=== PATIENT | male | born 1945 | race Caucasian/White ===

== ENCOUNTER 2016-04-06 09:50 | Emergency (ER) | payer MEDICARE ==
[~2016-04-06] VITALS: Ht 188 cm; Wt 41.7 kg
[~2016-04-06 09:50] MED LIST: ACHD5005 PO; ALBU17AE3 IH; ASP325T; ASP81CT GT; ASP81TEC; AZIT-21 PO; CLON1TAB36; CPR500T PO; GABA-490 PO; HYDR-3714 PO; HYDR-3820 PO; HYDR1CAP2; HYDR1CAP2 PO; HYDR1TAB PO; HYOS0.1283 SL; INHALER; KETO10TA77 PO; LISI-594; LISI20TA PO; MTF500T; ONDA4TAB8 SL; ORPH100T PO; SMV10T; TIOT18CA2 IH; TRAM50TA2 PO; TRM50T PO; viagra
--- OUTSIDE RECORDS SUMMARY | 2016-04-06 09:57 | XMS REPORT | Continuity of Care Document ---
Author Author [facility] Organization [facility] Address Unknown Phone Unavailable Allergies Active Description Code Type Severity Reaction Onset Reported/Identified Relationship to Patient Clinical Status Yes Penicillins [id number] Drug Allergy Mild N/A 03/28/2009 Medications Problems Date Dx Coded Attending Type Code Diagnosis Diagnosed By 03/22/2011 Ot 723.1 04/18/2011 Ot 723.1 08/24/2011 Ot 923.00 08/24/2011 Ot 959.2 08/24/2011 Ot E000.8 08/24/2011 Ot E849.0 08/24/2011 Ot E888.9 09/30/2011 Ot 401.9 09/30/2011 Ot V58.69 09/28/2012 NESTOR AARON, JODIE Mata Ot 719.41 09/28/2012 JODIE BAEZ MD Ot 723.1 10/19/2012 FITO FORBES DO Ot 305.1 10/19/2012 FITO FORBES DO Ot 491.20 10/19/2012 FITO FORBES DO Ot 786.2 01/14/2013 MANDEEP AARON, LUZMA Hernández Ot 305.00 01/14/2013 MANDEEP AARON, LUZMA Hernández Ot 923.20 01/14/2013 MANDEEP AARON, LUZMA Hernández Ot 959.4 01/14/2013 MANDEEP AARON, LUZMA Hernández Ot E000.8 01/14/2013 MANDEEP AARON, LUZMA Hernández Ot E849.0 01/14/2013 MANDEEP AARON, LUZMA Hernández Ot E960.0 07/14/2014 Ot 204.10 07/14/2014 Ot 250.00 07/14/2014 Ot 305.1 07/14/2014 Ot 356.9 07/14/2014 Ot 401.9 07/14/2014 Ot 496 07/14/2014 Ot 716.90 07/14/2014 Ot V58.66 07/14/2014 Ot V58.69 07/14/2014 Ot 204.10 07/14/2014 Ot 250.00 07/14/2014 Ot 356.9 07/14/2014 Ot 401.9 07/14/2014 Ot 496 07/14/2014 Ot 716.90 07/14/2014 Ot V58.66 07/14/2014 Ot V58.69 07/14/2014 GELLENDER DO, GUILLERMINA Baca Ot 729.5 07/14/2014 GELLENDER DO, GUILLERMINA Baca Ot 786.2 07/14/2014 GELLENDER DO, GUILLERMINA Baca Ot 786.50 07/14/2014 GELLENDER DO, GUILLERMINA Baca Ot 816.01 07/14/2014 GELLENDER DO, GUILLERMINA Baca Ot E928.8 07/14/2014 ZEV , SHARIF Mccracken Ot 724.02 07/14/2014 ZEV DO, SHARIF Mccracken Ot 724.5 07/14/2014 ZEV DO, SHARIF Mccracken Ot V15.88 07/14/2014 Ot 204.10 07/14/2014 Ot 250.00 07/14/2014 Ot 305.1 07/14/2014 Ot 356.9 07/14/2014 Ot 401.9 07/14/2014 Ot 496 07/14/2014 Ot 716.90 07/14/2014 Ot V58.66 07/14/2014 Ot V58.69 07/14/2014 Ot 204.10 07/14/2014 Ot 250.00 07/14/2014 Ot 356.9 07/14/2014 Ot 401.9 07/14/2014 Ot 496 07/14/2014 Ot 716.90 07/14/2014 Ot V58.66 07/14/2014 Ot V58.69 07/14/2014 GELLENDER DO, GUILLERMINA Baca Ot 729.5 07/14/2014 GELLENDER DO, GUILLERMINA Phuong Ot 786.2 07/14/2014 GELLENDER DO, GUILLERMINA Phuong Ot 786.50 07/14/2014 GELLENDER DO, GUILLERMINA Baca Ot 816.01 07/14/2014 GELLENDER DO, GUILLERMINA Phuong Ot E928.8 06/03/2015 GELLENDER DO, GUILLERMINA Baca Ot 729.5 06/03/2015 GELLENDER DO, GUILLERMINA Phuong Ot 786.2 06/03/2015 GELLENDER DO, GUILLERMINA Baca Ot 786.50 06/03/2015 NOELGUILLERMINA BLOCK DO Ot 816.01 06/03/2015 YISEL SORIANO GUILLERMINA Baca Ot E928.8 06/03/2015 MANDEEP AARON, LUZMA Hernández Ot C85.90 NON-HODGKIN LYMPHOMA, UNSPECIFIED, UNSPE 06/03/2015 MANDEEP AARON, LUZMA Hernández Ot D72.829 ELEVATED WHITE BLOOD CELL COUNT, UNSPECI 06/03/2015 MANDEEP AARON, LUZMA Hernández Ot E11.9 TYPE 2 DIABETES MELLITUS WITHOUT COMPLIC 06/03/2015 MANDEEP AARON, LUZMA Hernández Ot E86.1 HYPOVOLEMIA 06/03/2015 MANDEEP AARON, LUZMA Hernández Ot F11.10 OPIOID ABUSE, UNCOMPLICATED 06/03/2015 MANDEEP AARON, LUZMA Hernández Ot F12.10 CANNABIS ABUSE, UNCOMPLICATED 06/03/2015 MANDEEP AARON, LUZMA Hernández Ot F17.210 NICOTINE DEPENDENCE, CIGARETTES, UNCOMPL 06/03/2015 MANDEEP AARON, LUZMA Hernández Ot I10 ESSENTIAL (PRIMARY) HYPERTENSION 06/03/2015 MANDEEP AARON, LUZMA Hernández Ot J44.9 CHRONIC OBSTRUCTIVE PULMONARY DISEASE , U 06/03/2015 MANDEEP AARON, LUZMA Hernández Ot R07.89 OTHER CHEST PAIN 06/03/2015 MANDEEP AARON, LUZMA Hernández Ot R19.7 DIARRHEA, UNSPECIFIED 06/05/2015 MANDEEP AARON, LUZMA Hernández Ot C85.90 06/05/2015 MANDEEP AARON, LUZMA Hernández Ot D72.829 06/05/2015 MANDEEP AARON, LUZMA Hernández Ot E11.9 06/05/2015 MANDEEP AARON, LUZMA Hernández Ot E86.1 06/05/2015 MANDEEP AARON, LUZMA Hernández Ot F11.10 06/05/2015 MANDEEP AARON, LUZMA Hernández Ot F12.10 06/05/2015 MANDEEP AARON, LUZMA Hernández Ot F17.210 06/05/2015 LUZMA KAUFMAN MD Ot I10 06/05/2015 MANDEEP AARON, LUZMA Hernández Ot J44.9 06/05/2015 MANDEEP AARON, LUZMA T Ot R07.89 06/05/2015 MANDEEP AARON, LUZMA T Ot R19.7 06/05/2015 MANDEEP AARON, LUZMA T Ot C85.90 06/05/2015 MANDEEP AARON, LUZMA T Ot D72.829 06/05/2015 MANDEEP AARON, LUZMA T Ot E11.9 06/05/2015 MANDEEP AARON, LUZMA T Ot E86.1 06/05/2015 MANDEEP AARON, LUZMA T Ot F11.10 06/05/2015 MANDEEP AARON, LUZMA T Ot F12.10 06/05/2015 MANDEEP AARON, LUZMA T Ot F17.210 06/05/2015 MANDEEP AARON, LUZMA T Ot I10 06/05/2015 MANDEEP AARON, LUZMA T Ot J44.9 06/05/2015 MANDEEP AARON, LUZMA T Ot R07.89 06/05/2015 MANDEEP AARON, LUZMA T Ot R19.7 Procedures Results Encounters ACCT No. Visit Date/Time Discharge Status Pt. Type Provider Facility Loc./Unit Complaint [id number] 06/03/2015 09:30:00 2015 11:26:00 DIS Emergency MANDEEP AARON, LUZMA Hernández [facility] ER [id number] 07/14/2014 15:33:00 2014 17:40:00 DIS Emergency SHARIF BROTHERS DO [facility] ER [id number] 05/10/2013 15:08:00 2013 23:59:59 CLS Outpatient GUILLERMINA MORILLO DO [facility] RAD [id number] 01/14/2013 10:30:00 2012 13:04:00 DIS Emergency LUZMA KAUFMAN MD [facility] ER [id number] 10/19/2012 14:32:00 2012 16:12:00 DIS Emergency FITO FORBES DO [facility] ER [id number] 09/28/2012 14:46:00 2012 16:22:00 DIS Shannan BAEZ MD, JODIE [facility] ER [id number] 07/14/2014 15:31:00 Document Registration [id number] 07/14/2014 15:31:00 Document Registration [id number] 07/14/2014 15:31:00 Document Registration [id number] 09/30/2011 12:46:00 Document Registration [id number] 08/24/2011 16:53:00 Document Registration [id number] 04/18/2011 15:20:00 Document Registration [id number] 03/22/2011 08:58:00 Document Registration [id number] 10/29/2009 09:54:00 Document Registration [id number] 09/17/2009 12:24:00 Document Registration
--- NOTE | 2016-04-06 11:07 | ED Cough/URI ---
General Chief Complaint: Cough/Cold/Flu Symptoms Stated Complaint: CONGESTION, NOSE RUNNING Nursing Triage Note: C/O CHEST DISCOMFORT WHEN COUGHING. HAS HAD FLU LIKE SXS ET BEEN TREATED WITH ZPACK ET SULFA ABX. STATES NOW HAS RUNNY NOSE THAT WON'T STOP. MAIN C/O OF RUNNY NOSE. Source: patient Exam Limitations: no limitations History of Present Illness Time seen by provider: 11:23 Initial Comments 70-year-old male presents to the emergency department with complaints of a 3-4 week history of cough, chest congestion, wheezing. Patient states he has completed a Zithromax pack and sulfa antibiotic without improvement. He is currently using Bactroban ointment without improvement. Patient states he is still coughing up "nasty looking stuff." Denies hematemesis. Does complain of rib pain with coughing. Timing/Duration: constant, other (3-4 wk onset) Severity/Quality: productive cough Prior Episodes/Possible Cause: occasional episodes Modifying Factors: Worse With Coughing Allergies and Home Medications Allergies Coded Allergies: Penicillins (Unverified Allergy, Mild, 03/28/09) Home Medications (Reported) Albuterol 17 Gm Inh #1 2 SPRAY IH Q4H Prescribed by: FITO FORBES on 10/19/12 1601 Albuterol Sulfate 2.5 Mg/3 Ml Vial.neb #28 2.5 MG IH Q4H PRN PRN SHORTNESS OF BREATH Prescribed by: ANDREWS STEVENS on 04/06/16 1248 Doxycycline Hyclate 100 Mg Capsule #14 100 MG PO BID Prescribed by: ANDREWS STEVENS on 04/06/16 1248 Gabapentin 400 Mg Capsule 400 MG PO QID (Reported) Hydrocodone/Acetaminophen 1 Each Tablet #90 1 MG PO Q6H PRN PRN PAIN (Reported) Lisinopril 20 Mg Tablet 20 MG PO DAILY (Reported) Prednisone 20 Mg Tab #10 40 MG PO DAILY Prescribed by: ANDREWS STEVENS on 04/06/16 1248 Tiotropium [place] 1 Inh Aerp 1 INH IH DAILY (Reported) Constitutional: No chills, No dizziness, No fever, malaise EENTM: nose congestion nose pain see HPI throat painNo ear pain, No mouth pain , No mouth swelling Respiratory: see HPI coughNo dyspnea on exertion, No hemoptysis, No orthopnea , phlegm wheezing Cardiovascular: no symptoms reported Gastrointestinal: No abdominal pain, No constipation, No diarrhea, No nausea, No vomiting Genitourinary: no symptoms reported Musculoskeletal: no symptoms reported Skin: no symptoms reported Psychiatric/Neurological: No Symptoms Reported All Other Systems Reviewed Negative Unless Noted: Yes (Negative excepted noted.) Past Psyymwl-Ydxsqj-Yodtgq Hx Patient Social History Alcohol Use: Denies Use Recreational Drug Use: No Smoking Status: Current Everyday Smoker Type Used: Cigarettes Recent Foreign Travel: No Contact w/Someone Who Travel: No Recent Infectious Disease Expo: No Recent Hopitalizations: No Immunizations Up To Date Date of Pneumonia Vaccine: Nov 22, 2009 Date of Influenza Vaccine: Oct 24, 2015 Seasonal Allergies Seasonal Allergies: Yes Surgeries HX Surgeries: Yes (TEMPORAL ARTERY BIOPSY) Surgeries: Bladder Surgery, Gallbladder Respiratory Hx Respiratory Disorders: Yes Respiratory Disorders: Chronic Bronchitis, COPD Cardiovascular Hx Cardiac Disorders: Yes Cardiac Disorders: High Cholesterol, Hypertension Neurological Hx Neurological Disorders: Yes Neurological Disorders: Neuropathy Reproductive System Hx Reproductive Disorders: Yes (E.D.) Genitourinary Hx Genitourinary Disorders: Yes (E.D.) Gastrointestinal Hx Gastrointestinal Disorders: No Musculoskeletal Hx Musculoskeletal Disorders: Yes (CHRONIC NECK PAIN , BILATERAL CARPAL TUNNEL , spinal stenosis) Musculoskeletal Disorders: Degenerate Disk Disease, Chronic Back Pain Endocrine Hx Endocrine Disorders: Yes Endocrine Disorders: Diabetes, Non-Insulin dep HEENT HX ENT Disorders: Yes (RETINOPATHY, OPTIC NEURITIS) Cancer Hx Cancer: Yes Cancer: Leukemia, Lymphoma Psychosocial Hx Psychiatric Problems: Yes Behavioral Health Disorders: PTSD Integumentary HX Skin/Integumentary Disorder: No Blood Transfusions Hx Blood Disorders: No Reviewed Nursing Assessment Reviewed/Agree w Nursing PMH: Yes Family Medical History Significant Family History: No Pertinent Family Hx Physical Exam Vital Signs Vital Sign - Last 12Hours 04/06/16 10:40 Temp 99.1 Pulse 64 Resp 18 B/P 131/78 Pulse Ox 94 O2 Delivery Room Air Capillary Refill : Less Than 3 Seconds General Appearance: WD/WN no apparent distress Eyes: Bilateral Eye EOMI, Bilateral Eye Normal Inspection, Bilateral Eye PERRL HEENT: PERRL/EOMI TMs normal pharyngeal erythema other ((+) nasal congestion. perinasal scaly erythematous rash ) Neck: non-tender full range of motion supple normal inspection Respiratory: no respiratory distress no accessory muscle use decreased breath sounds (bilateral bases) crackles wheezing ((cleared with coughing)) other ( mild anterior and lateral rib tenderness.) Cardiovascular: normal peripheral pulses regular rate, rhythm no edema no murmur Gastrointestinal: normal bowel sounds non tender soft no organomegalyNo distended Extremities: no pedal edema normal capillary refill Neurologic/Psychiatric: alert normal mood/affect oriented x 3 Skin: warm/dry rash (perinasal scaly erythematous rash ) Progress/Results/Core Measures Results/Orders Micro Results Microbiology 04/06/16 Influenza Types A,B Antigen (CHRIS) - Final, Complete My Orders Orders-ANDREWS STEVENS Influenza A And B Antigens (04/06/16 11:45) Chest Pa/Lat (2 View) (04/06/16 11:50) Albuterol/Ipra Inhalation Soln (Duoneb I (04/06/16 12:00) Svn Sm Volume Nebulizer Rt-Rfs (04/06/16 11:54) Promethazine/ Codeine Syrup (Phenergan W (04/06/16 11:55) Medications Given in ED Current Medications Medications Dose Ordered Sig/Conor Route Start Time Stop Time Status Last Admin Dose Admin Albuterol/ Ipratropium 3 ml ONCE ONCE INH 04/06/16 12:00 04/06/16 12:01 DC 04/06/16 12:12 3 ML Vital Signs/I&O Vital Sign - Last 12Hours 04/06/16 04/06/16 04/06/16 10:40 12:12 12:12 Temp 99.1 Pulse 64 Resp 18 B/P 131/78 Pulse Ox 94 96 O2 Delivery Room Air Room Air Blood Pressure Mean: 95 Diagnostic Imaging Diagonstic Imaging: Xray Plain Films/CT/US/NM/MRI: chest Comments FINDINGS: The lungs are hyperinflated. Mild interstitial scarring seen. There is no focal consolidation. The heart size is normal. There is no effusion or pneumothorax. The mediastinum and delgado appear unremarkable. IMPRESSION: Hyperinflated clear lungs. Dictated by: Dictated on workstation # [id number] Reviewed: Reviewed by Me (radiology report reviewed) Departure Communication Progress Notes Diagnostic and laboratory findings discussed with the patient. Patient reports feeling better with medications given in the emergency department. Proceed with discharge to home. Patient instructed to follow-up with Dr. Whalen as an outpatient. Patient states he will call today for appointment time. All return precautions were discussed with the patient as described in the discharge instructions of this report. Patient voices understanding and agrees with the treatment plan. Impression Impression: Primary Impression: Bronchitis Additional Impression: Dermatitis of face Disposition: 01 HOME, SELF-CARE Condition: Improved Departure-Patient Inst. Decision time for Depature: 12:45 Referrals: AGUS HADLEY RICHARD A DO (PCP/Family) Primary Care Physician Patient Instructions: Acute Bronchitis, Adult (DC) Add. Discharge Instructions: All discharge instructions reviewed with patient and/or family. Voiced understanding. Medications as instructed. Continue usual home medications. Tylenol extra strength [id number] as directed for pain. Ibuprofen 800 mg by mouth every 8 hours as needed for pain. Continue Bactroban as instructed by Dr. Whalen. Monitor blood sugars closely. Follow-up with Dr. Whalen for recheck this week. Call for appointment time. Return to the emergency department immediately for worsened fever, pain, cough, shortness of air, difficulty swallowing, vomiting, or any other concerns. Scripts Nebulizer (Compact Compressor Nebulizer)1 Each Each #1 EACH MC Q4H PRN SHORTNESS OF BREATH Ref 0 Prov:ANDREWS STEVENS 04/06/16 Prednisone 20 Mg Tab40 Mg PO DAILY #10 TAB Ref 0 Prov:ANDREWS STEVENS 04/06/16 Albuterol Sulfate 2.5 Mg/3 Ml Vial.neb2.5 Mg IH Q4H PRN SHORTNESS OF BREATH #28 EA Ref 0 Prov:ANDREWS STEVENS 04/06/16 Doxycycline Hyclate 100 Mg [id number] Mg PO BID #14 CAP Ref 0 Prov:ANDREWS STEVENS 04/06/16 ANDREWS STEVENS Apr 06, 2016 11:07
[2016-04-06] MEDS ORDERED: PROMETHAZINE/ CODEINE SYRUP 5 ML UDC PO STA (11:55)
[2016-04-06] MEDS ORDERED: RT-ALBUTEROL/IPRATROPIUM 3 ML (DUONEB) VIAL INH ONE (12:00)
--- NOTE | 2016-04-06 12:39 | Diagnostic Imaging Report ---
PA and lateral views of the chest. INDICATION: Shortness of breath, congestion, chest pain. FINDINGS: The lungs are hyperinflated. Mild interstitial scarring seen. There is no focal consolidation. The heart size is normal. There is no effusion or pneumothorax. The mediastinum and delgado appear unremarkable. IMPRESSION: Hyperinflated clear lungs. Dictated by: Dictated on workstation # [id number]
[2016-04-06] MEDS ORDERED: NEBU1KIT3 MC (12:48)
[2016-04-06] MEDS ORDERED: PRD20T PO (12:48)
[2016-04-06] MEDS ORDERED: ALBU2.5V4 IH (12:48)
[2016-04-06] MEDS ORDERED: DOXY100C2 PO (12:48)
[2016-04-06 13:05] VITALS: BP 128/70
== END 2016-04-06 13:05 | disposition home or self-care (01) ==
LOC: EDUNIT# 09:50 → ER 09:53
DX: J40 Bronchitis, not specified as acute or chronic (principal); L30.9 Dermatitis, unspecified; I10 Essential (primary) hypertension; E11.9 Type 2 diabetes mellitus without complications; J44.9 Chronic obstructive pulmonary disease, unspecified; F17.210 Nicotine dependence, cigarettes, uncomplicated; Z79.899 Other long term (current) drug therapy
CPT/HCPCS: 71020; 87804; 94640; 99282

== ENCOUNTER 2016-10-24 05:47 | Emergency (ER) | payer MEDICARE ==
[~2016-10-24] VITALS: Ht 182.9 cm; Wt 68.0 kg
[~2016-10-24 05:47] MED LIST changes: +ALBU2.5V4 IH; +DOXY100C2 PO; +NEBU1KIT3 MC; +PRD20T PO
[2016-10-24 06:31] LABS: BILIRUBIN,URINE NEGATIVE (NEGATIVE); KETONES,URINE NEGATIVE (NEGATIVE); LEUKOCYTE ESTERASE ,URINE NEGATIVE (NEGATIVE); NITRITE,URINE NEGATIVE (NEGATIVE); PH,URINE 6.5 (5-9); PROTEIN,URINE 1+ (NEGATIVE); UROBILINOGEN,URINE NORMAL (NORMAL)
[2016-10-24 06:31] LABS: BASOPHILS % (AUTO) 0 % (0-10); EOSINOPHILS # (AUTO) 0.5 10^3/uL (0.0-0.3); EOSINOPHILS % (AUTO) 2 % (0-10); LYMPHOCYTES # (AUTO) 16.8 X 10^3 (1.0-4.0); LYMPHOCYTES % (AUTO) 70 % (12-44); MEAN CORPUSCULAR HEMOGLOBIN 33 PG (25-34); MEAN CORPUSCULAR HGB CONC 34 G/DL (32-36); MEAN CORPUSCULAR VOLUME 96 FL (80-99); MEAN PLATELET VOLUME 11.6 FL (7.4-10.4); MONOCYTES # (AUTO) 0.6 X 10^3 (0.0-1.0); MONOCYTES % (AUTO) 2 % (0-12); NEUTROPHILS % (AUTO) 25 % (42-75); PLATELET COUNT 121 10^3/uL (130-400); RED BLOOD COUNT 4.62 10^6/uL (4.35-5.85); RED CELL DISTRIBUTION WIDTH 13.4 % (10.0-14.5); WHITE BLOOD COUNT 23.9 10^3/uL (4.3-11.0)
[2016-10-24 06:39] LABS: SQUAMOUS EPITHELIAL CELL,UR RARE /HPF
--- NOTE | 2016-10-24 06:44 | ED General ---
General Chief Complaint: Chest Wall/Rib Pain Stated Complaint: BACK & RIB PAIN,DOUBLE VISION Source of Information: Patient Exam Limitations: No Limitations History of Present Illness Time Seen by Provider: 06:00 Initial Comments This 71-year-old gentleman presents to the emergency room with numerous complaints. His primary reason for being seen today was an episode of double vision that occurred for just a couple of minutes while he was driving this morning. He has had problems with horizontal diplopia for about the last year. He reports this has been evaluated by his physician and his eye doctor. No etiology could be determined per his report. Patient also complains of pain around the left lateral costal margin after having a fall about 2 months ago. He reports that pain has not resolved as he would have expected. Patient is also a COPD patient who has been off of his inhalers. Patient states this is because he has been traveling. He continues to smoke. Patient has history of prior alcohol use but states he has not had alcohol in about 4 months. Patient also complains of some left lower quadrant pain which is also been present for about 2 months since he fell. He has had significant back pain for about one week. Patient seems to have some serious issues with drinking alcohol as he has had a DUI and alcohol contributed to his fall [address] Patient [address] Morillo and the [place]. His oncologist for CLL is in [facility] at the [place]. Patient is not presently receiving any treatment for his CLL. Patient also informed nursing staff that he has been using a topical THC oil. Allergies and Home Medications Allergies Coded Allergies: Penicillins (Unverified Allergy, Mild, 03/28/09) Home Medications Albuterol 17 Gm Inh, 2 SPRAY IH Q4H, #1 Ref 1 Prescribed by: FITO FORBES on 10/19/12 1601 Albuterol Sulfate 2.5 Mg/3 Ml Vial.neb, 2.5 MG IH Q4H PRN for SHORTNESS OF BREATH, #28 Ref 0 Prescribed by: ANDREWS STEVENS on 04/06/16 1248 Doxycycline Hyclate 100 Mg Capsule, 100 MG PO BID, #14 Ref 0 Prescribed by: ANDREWS STEVENS on 04/06/16 1248 Gabapentin 400 Mg Capsule, 400 MG PO QID, (Reported) Hydrocodone/Acetaminophen 1 Each Tablet, 1 MG PO Q6H PRN for PAIN, #90 (Reported ) Lisinopril 20 Mg Tablet, 20 MG PO DAILY, (Reported) Prednisone 20 Mg Tab, 40 MG PO DAILY, #10 Ref 0 Prescribed by: ANDREWS STEVENS on 04/06/16 1248 Tiotropium [place] 1 Inh Aerp, 1 INH IH DAILY, (Reported) [viagra] , (Reported) Constitutional: no symptoms reported EENTM: see HPI Respiratory: see HPI Cardiovascular: no symptoms reported Gastrointestinal: see HPI Genitourinary: no symptoms reported Musculoskeletal: see HPI Skin: no symptoms reported Psychiatric/Neurological: See HPI Hematologic/Lymphatic: No Symptoms Reported Immunological/Allergic: no symptoms reported Past Orahhwe-Sqtfic-Xnidmr Hx Patient Social History Alcohol Use: Past History Number of Drinks Today: 0 Recreational Drug Use: Yes (THC oil from internet) Smoking Status: Current Everyday Smoker Type Used: Cigarettes Recent Foreign Travel: No Contact w/Someone Who Travel: No Recent Hopitalizations: No Immunizations Up To Date Date of Pneumonia Vaccine: Nov 22, 2009 Date of Influenza Vaccine: Oct 24, 2015 Seasonal Allergies Seasonal Allergies: Yes Surgeries History of Surgeries: Yes (TEMPORAL ARTERY BIOPSY) Surgeries: Bladder Surgery, Gallbladder Respiratory History of Respiratory Disorde: Yes (Tobaccoism) Respiratory Disorders: Chronic Bronchitis, COPD Cardiovascular History of Cardiac Disorders: Yes Cardiac Disorders: High Cholesterol, Hypertension Neurological History of Neurological Disord: Yes (Peripheral neuropathy) Neurological Disorders: Neuropathy Reproductive System Hx Reproductive Disorders: Yes (E.D.) Gastrointestinal History of Gastrointestinal Di: No Musculoskeletal History of Musculoskeletal Dis: Yes (CHRONIC NECK PAIN , BILATERAL CARPAL TUNNEL, spinal stenosis) Musculoskeletal Disorders: Degenerate Disk Disease, Chronic Back Pain, Fractures (rib fractures) Endocrine History of Endocrine Disorders: Yes (no medication for DM) Endocrine Disorders: Diabetes, Non-Insulin dep HEENT History of HEENT Disorders: Yes (retinopathy, optic neuritis, recurrent diplopia) HEENT Disorders: Macular Degeneration Cancer History of Cancer: Yes (CLL) Cancer: Leukemia, Lymphoma Psychosocial History of Psychiatric Problem: Yes Behavioral Health Disorders: Anxiety, PTSD Integumentary History of Skin or Integumenta: No Blood Transfusions History of Blood Disorders: No Family Medical History Significant Family History: No Pertinent Family Hx Physical Exam Vital Signs Vital Sign - Last 12Hours 10/24/16 05:54 Temp 96.2 Pulse 77 Resp 22 B/P (MAP) 144/95 Pulse Ox 95 O2 Delivery Room Air Capillary Refill : Less Than 3 Seconds General Appearance: No Apparent Distress, WD/WN Eyes: Bilateral Eye Normal Inspection, Bilateral Eye PERRL, Bilateral Eye EOMI HEENT: PERRL/EOMI, TMs Normal, Normal ENT Inspection, Pharynx Normal Neck: Normal Inspection, Supple Respiratory: Lungs Clear, Normal Breath Sounds, No Accessory Muscle Use, No Respiratory Distress, Other (left lateral lower chest wall tender to palpation) Cardiovascular: Regular Rate, Rhythm, No Edema, No Murmur Gastrointestinal: Normal Bowel Sounds, Soft, No Mass, Tenderness (mild in the left lower quadrant) Back: Normal Inspection, No Vertebral Tenderness Neurologic/Psychiatric: Alert, Oriented x3, No Motor/Sensory Deficits, Normal Mood/Affect, 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 Norm as Tested Skin: Normal Color, Warm/Dry Progress/Results/Core Measures Results/Orders Lab Results Laboratory Tests Test 10/24/16 05:55 10/24/16 06:15 Range/Units Urine Color YELLOW Urine Clarity CLEAR Urine pH 6.5 5-9 Urine Specific [place] 1.010 L 1.016-1.022 Urine Protein 1+ H NEGATIVE Urine Glucose (UA) NEGATIVE NEGATIVE Urine Ketones NEGATIVE NEGATIVE Urine Nitrite NEGATIVE NEGATIVE Urine Bilirubin NEGATIVE NEGATIVE Urine Urobilinogen NORMAL NORMAL MG/DL Urine Leukocyte Esterase NEGATIVE NEGATIVE Urine RBC (Auto) NEGATIVE NEGATIVE Urine RBC NONE /HPF Urine WBC NONE /HPF Urine Squamous Epithelial Cells RARE /HPF Urine Crystals NONE /LPF Urine Bacteria NEGATIVE /HPF Urine Casts NONE /LPF Urine Mucus NEGATIVE /LPF Urine Culture Indicated NO Urine Opiates Screen NEGATIVE NEGATIVE Urine Oxycodone Screen NEGATIVE NEGATIVE Urine Methadone Screen NEGATIVE NEGATIVE Urine Propoxyphene Screen NEGATIVE NEGATIVE Urine Barbiturates Screen NEGATIVE NEGATIVE Ur Tricyclic Antidepressants Screen NEGATIVE NEGATIVE Urine Phencyclidine Screen NEGATIVE NEGATIVE Urine Amphetamines Screen NEGATIVE NEGATIVE Urine Methamphetamines Screen NEGATIVE NEGATIVE Urine Benzodiazepines Screen NEGATIVE NEGATIVE Urine Cocaine Screen NEGATIVE NEGATIVE Urine Cannabinoids Screen NEGATIVE NEGATIVE White Blood Count 23.9 H 4.3-11.0 10^3/uL Red Blood Count 4.62 4.35-5.85 10^6/uL Hemoglobin 15.1 13.3-17.7 G/DL Hematocrit 44 40-54 % Mean Corpuscular Volume 96 80-99 FL Mean Corpuscular Hemoglobin 33 25-34 PG Mean Corpuscular Hemoglobin Concent 34 32-36 G/DL Red Cell Distribution Width 13.4 10.0-14.5 % Platelet Count 121 L 130-400 10^3/uL Mean Platelet Volume 11.6 H 7.4-10.4 FL Neutrophils (%) (Auto) 25 L 42-75 % Lymphocytes (%) (Auto) 70 H 12-44 % Monocytes (%) (Auto) 2 0-12 % Eosinophils (%) (Auto) 2 0-10 % Basophils (%) (Auto) 0 0-10 % Neutrophils # (Auto) 6.0 1.8-7.8 X 10^3 Lymphocytes # (Auto) 16.8 H 1.0-4.0 X 10^3 Monocytes # (Auto) 0.6 0.0-1.0 X 10^3 Eosinophils # (Auto) 0.5 H 0.0-0.3 10^3/uL Basophils # (Auto) 0.0 0.0-0.1 10^3/uL Neutrophils % (Manual) 25 % Lymphocytes % (Manual) 59 % Monocytes % (Manual) 6 % Eosinophils % (Manual) 1 % Basophils % (Manual) 0 % Band Neutrophils 0 % Atypical Lymphocytes 9 % Smudge Cells MOD Poikilocytosis SLIGHT Sodium Level 139 135-145 MMOL/L Potassium Level 4.3 3.6-5.0 MMOL/L Chloride Level 105 98-107 MMOL/L Carbon Dioxide Level 25 21-32 MMOL/L Anion Gap 9 5-14 MMOL/L Blood Urea Nitrogen 16 7-18 MG/DL Creatinine 1.25 0.60-1.30 MG/DL Estimat Glomerular Filtration Rate 57 BUN/Creatinine Ratio 13 Glucose Level 98 70-105 MG/DL Calcium Level 9.2 8.5-10.1 MG/DL Magnesium Level 2.4 1.8-2.4 MG/DL Total Bilirubin 0.4 0.1-1.0 MG/DL Aspartate Amino Transf (AST/SGOT) 20 5-34 U/L Alanine Aminotransferase (ALT/SGPT) 13 0-55 U/L Alkaline Phosphatase 121 40-136 U/L Troponin I < 0.30 <0.30 NG/ML Total Protein 6.5 6.4-8.2 GM/DL Albumin 4.3 3.2-4.5 GM/DL Lipase 32 8-78 U/L TSH [place] Testing 1.54 0.35-4.94 UIU/ML Serum Alcohol < 10 <10 MG/DL My Orders Orders - LUZMA KAUFMAN MD Alcohol (10/24/16 06:18) Cbc With Automated Diff (10/24/16 06:18) Comprehensive Metabolic Panel (10/24/16 06:18) Magnesium (10/24/16 06:18) Thyroid Analyzer (10/24/16 06:18) Troponin I (10/24/16 06:18) Ua Culture If Indicated (10/24/16 06:18) Chest Pa/Lat (2 View) (10/24/16 06:18) Ribs, Left 2-3 Views (10/24/16 06:18) Ekg Tracing (10/24/16 06:18) Monitor-Rhythm Ecg Trace Only (10/24/16 06:18) Saline Lock/Iv-Start (10/24/16 06:18) Manual Differential (10/24/16 06:15) Drug Screen Stat (Urine) (10/24/16 06:44) Lipase (10/24/16 07:01) Ct Chest/Abdomen/Pelvis W (10/24/16 07:28) Ns Iv 1000 Ml (Sodium Chloride 0.9%) (10/24/16 07:29) Iohexol Injection (Omnipaque 350 Mg/Ml 1 (10/24/16 08:15) Ns (Ivpb) (Sodium Chloride 0.9% Ivpb Bag (10/24/16 08:15) Ketorolac Injection (Toradol Injection) (10/24/16 09:15) Medications Given in ED Current Medications Medications Dose Ordered Sig/Conor Route Start Time Stop Time Status Last Admin Dose Admin Iohexol 100 ml ONCE ONCE IV 10/24/16 08:15 10/24/16 08:16 DC 10/24/16 08:09 100 ML Ketorolac Tromethamine 30 mg ONCE ONCE IVP 10/24/16 09:15 10/24/16 09:16 DC 10/24/16 09:14 30 MG Sodium Chloride 100 ml ONCE ONCE IV 10/24/16 08:15 10/24/16 08:16 DC 10/24/16 08:09 80 ML Sodium Chloride 1,000 ml @ 0 mls/hr Q0M ONCE IV 10/24/16 07:29 10/24/16 07:31 DC 10/24/16 07:36 1,000 MLS/HR Vital Signs/I&O Vital Sign - Last 12Hours 10/24/16 09:36 Pulse 80 Resp 18 Pulse Ox 92 Progress Note #1: Time: 07:45 Progress Note Patient has had no diplopia since arriving to the emergency room. Initial workup was reviewed. The subacute rib fractures can explain his chest pain but not the left lower quadrant pain and tenderness. Because of history of CLL/ lymphoma, CT of the chest, abdomen, and pelvis has been ordered and is pending. Patient was offered the CT evaluation and would like to have it done since he has not had imaging performed in the recent past. Progress Note #2: Progress Note CT scan revealed small lesions in the right lung, liver, and spleen. They are of uncertain etiology. Short-term follow-up is recommended per CT report. I am recommending to the patient that he have follow-up imaging guided by his oncologist and primary care provider. I did discuss the nature of the patient' s symptoms and the CT findings with the radiologist. His diplopia has been a recurrent problem for about a year. He is not presently symptomatic in the ER. Outpatient follow-up with consideration for possible MRI of the brain and/or carotid imaging should be discussed with the primary care provider and/or oncologist. Toradol is being given for management of pain. Findings and follow -up instructions were discussed with the patient. ECG Initial ECG Impression Date: Oct 24, 2016 Initial ECG Impression Time: 06:28 Initial ECG Rate: 63 Initial ECG Rhythm: Normal Sinus Initial ECG Intervals: Normal Initial ECG Impression: Normal Comment Normal sinus rhythm with no ST elevation or depression. No abnormal intervals or axis deviation. Diagnostic Imaging Diagonstic Imaging: Xray Plain Films/CT/US/NM/MRI: chest Comments Two-view chest x-ray viewed by me and report reviewed. See report below: NAME: [facility]G [facility] REC#: [id number] PT STATUS: REG ER : 1945 PHYSICIAN: LUZMA KAUFMAN MD ADMIT DATE: 10/24/16/ER Draft Date of Exam:10/24/16 CHEST PA/LAT (2 VIEW) Clinical indication: Patient with complaints of left-sided chest wall pain/rib pain x10 days. No known injury. Exam: Chest x-ray PA and lateral views. Comparisons: Chest x-ray dated 04/06/2016. Findings: Lungs/pleura: Stable hyperinflated lungs with increased retrosternal clear space and flattened hemidiaphragms. Otherwise, lungs are clear. There is no pneumothorax. There is no pleural effusion. Mediastinum: Unremarkable. Pulmonary vasculature: Unremarkable. Heart: Unremarkable. Bones/extrathoracic soft tissue: There are mildly hypertrophic degenerative osteophytes scattered throughout the thoracic spine. There is the appearance of callus formation and bony irregularity involving mid and lower left ribs concerning for subacute fractures. Impression: 1: Concern for interval development of subacute left rib fractures. 2: Otherwise stable chest x-ray exam with no interval radiographic evidence of acute cardiopulmonary process. Dictated on workstation # [id number] Dict: 10/24/16 0657 Trans: 10/24/16 0724 [facility] [id number] Interpreted by: JEIMY MCLEOD MD Diagonstic Imaging: Xray Plain Films/CT/US/NM/MRI: chest Comments Rib x-rays reviewed by me and report reviewed. See report below: NAME: MILTON DENG [facility] REC#: [id number] PT STATUS: REG ER : 1945 PHYSICIAN: LUZMA KAUFMAN MD ADMIT DATE: 10/24/16/ER Draft Date of Exam:10/24/16 RIBS, LEFT 2-3 VIEWS Clinical indication: Patient with no known injury. Patient complains of left-sided chest wall/rib pain x10 days. Exam: X-ray of the left ribs, 3 views. Comparison: Chest x-ray dated 04/06/2016. Findings: There is interval development of callus formation and bony thickening involving the lateral aspect of the left T7 and T9 rib concerning for subacute fractures. Again noted multiple chronic left rib fractures seen. There is no pneumothorax. There are degenerative spurs involving the thoracic spine. Impression: 1.: There is concern for subacute fractures of the lateral aspects of the left T7 and T9 ribs. There is no pneumothorax. 2: There is multiple chronic left rib fractures again seen. Dictated on workstation # [id number] Dict: 10/24/16 0708 Trans: 10/24/16 0741 [facility] [id number] Interpreted by: JEIMY MCLEOD MD Diagonstic Imaging: CT Plain Films/CT/US/NM/MRI: chest, abdomen, pelvis Comments CT of the chest, abdomen and pelvis viewed by me, discussed with the radiologist , and report reviewed. There are lesions in the right lung, spleen, and liver that require short-term follow-up. However, there are no acute processes other than the subacute rib fractures to account for patient's pain. In particular there was no finding to explain his left lower quadrant pain. NAME: MILTON DENG [facility] REC#: [id number] PT STATUS: REG ER : 1945 PHYSICIAN: LUZMA KAUFMAN MD ADMIT DATE: 10/24/16/ER Draft Date of Exam:10/24/16 CT CHEST/ABDOMEN/PELVIS W Clinical indication: Patient with pain in left lateral costal margin and left lower quadrant. Patient's history of CLL/lymphoma. Patient also had cholecystectomy. Exam: CT scan of the chest, abdomen, and pelvis performed with 100 cc of Omnipaque 350 IV contrast. Coronal and sagittal reformatted images are created. Comparison: CT scan of the thoracic and lumbar spine dated 07/14/2014. Findings: CT chest: There is bilateral lung emphysema seen which is worse in both upper lung butt. There is a 5 mm noncalcified nodule in the right upper lobe seen on series 2, image 32. There is mild bibasilar atelectasis or scarring. Otherwise, lungs are clear. There is no pleural effusion or pneumothorax. There is a small amount of secretions in the proximal right main pulmonary bronchi. There is also thickening of the proximal bronchi bilaterally which is worse in the medial right lower lobe region. Thyroid gland is unremarkable. There is calcified lymph nodes in the right perihilar region. Otherwise mediastinal and bilateral axillary regions show no significant lymphadenopathy. There is enlargement of the ascending thoracic aorta measuring roughly 4.8 cm in greatest axial dimension. The extrathoracic soft tissue is unremarkable. Mediastinal structures are unremarkable. CT abdomen and pelvis: There is an 8mm circumscribed low-density area in the right lobe of liver near the dome which shows no IV contrast enhancement. This is suspected to represent a cyst. There is a calcified granuloma in the spleen and liver seen. There is a nonspecific 8 mm area of enhancement within the posterior midportion of the spleen. Otherwise liver and spleen is unremarkable. Gallbladder is surgically resected. Stable nodularity in the right adrenal gland. Both kidneys show mild cortical thinning. Otherwise both kidneys are unremarkable with no stones, masses, or hydronephrosis. The bladder is fluid distended with no gross and mildly seen. Is a small to moderate amount of stool seen throughout the right colon and transverse colon. There is high dense material within the appendix which may represent a appendicolith. Appendix is otherwise unremarkable. The small bowel, large bowel, and stomach are otherwise unremarkable. There is no extra-abdominal, intra-abdominal, or pelvic lymphadenopathy. There is no intra-abdominal free air or free fluid. The abdominal aorta and bilateral common iliac arteries are not aneurysmal with mild atherosclerotic disease. There are degenerative spurs involving the thoracic and lumbar spine. There is no lumbar spine facet arthropathy. Impression: 1: There is no evidence of acute chest, abdominal or pelvic process. 2: There is a 4.8 cm ascending thoracic aortic aneurysm. 3: There is a 5 mm noncalcified nodule in the right upper lobe. Comparison with prior chest CT scans, if available would help better evaluate for stability. Otherwise, followup chest CT scan in 6 months is suggested for further evaluation. 4.: There is a 8mm enhancing area within the spleen which is nonspecific. Hemangioma may be considered. Comparison to prior CT of the abdomen and pelvis imaging would help better evaluate. If none are available, then this should also be further evaluated in 6 months during the chest CT scan. 5: Possible appendicolith. The appendix is otherwise unremarkable. 6: Emphysematous lung disease. Dictated on workstation # [id number] Dict: 10/24/16820 Trans: 10/24/16 0853 [facility] [id number] Interpreted by: JEIMY MCLEOD MD Departure Impression Impression: Primary Impression: Ribs, multiple fractures Qualified Codes: S22.42XA - Multiple fractures of ribs, left side, initial encounter for closed fracture Additional Impressions: Left lower quadrant pain Lesion of lung Lesion of liver Lesion of spleen Back pain Qualified Codes: M54.9 - Dorsalgia, unspecified; G89.29 - Other chronic pain CLL (chronic lymphocytic leukemia) Diplopia Ascending aorta dilation Disposition: HOME, SELF-CARE Condition: Improved Departure-Patient Inst. Decision time for Depature: 09:05 Referrals: GUILLERMINA MORILLO DO (PCP/Family) Primary Care Physician Patient Instructions: Double Vision Add. Discharge Instructions: Please read and follow the instructions below very carefully. For pain, try taking ibuprofen up to 600 mg every 6 hours as needed for pain. Take with food or milk to avoid stomach irritation. Add Tylenol (acetaminophen ) up to 1000 mg every 6 hours as needed for additional pain control. You have multiple findings on your CT scan today including a spot on the right lung, liver, and spleen. Follow-up imaging is recommended to determine if these areas are growing or changing. Please discuss follow-up imaging with your primary care provider and your oncologist. They will help determine what imaging studies should be ordered and when. Please follow-up with both your primary care provider and oncologist as soon as possible. Your double vision should be addressed with your outpatient providers. Discuss whether further imaging is appropriate at your follow-up appointments. Discuss the possibility of MRI of the brain and/or carotid artery ultrasound. Please see your primary care provider soon as possible to discuss further workup. Continue to refrain from alcohol as alcohol use may make these issues worse. Discontinue smoking as soon as possible. Seek help from your primary care provider if necessary. You do have healing rib fractures on the left side, likely caused by your fall 2 months ago. These should continue to heal and pain associated with these fractures can be treated with ibuprofen and Tylenol. All discharge instructions reviewed with patient and/or family. Voiced understanding. Copy Copies To 1: GUILLERMINA MORILLO JOSHUA T MD Oct 24, 2016 06:44
[2016-10-24 06:49] LABS: ATYPICAL LYMPHOCYTES 9 %; BAND NEUTROPHILS 0 %; BASOPHILS % (MANUAL) 0 %; EOSINOPHILS % (MANUAL) 1 %; LYMPHOCYTES % (MANUAL) 59 %; NEUTROPHILS % (MANUAL) 25 %; POIKILOCYTOSIS SLIGHT
[2016-10-24 06:51] LABS: ALANINE AMINOTRANSFERASE 13 U/L (0-55); ALBUMIN 4.3 GM/DL (3.2-4.5); ALCOHOL < 10 MG/DL (<10); ANION GAP 9 MMOL/L (5-14); ASPARTATE AMINO TRANSFERASE 20 U/L (5-34); BILIRUBIN,TOTAL 0.4 MG/DL (0.1-1.0); BLOOD UREA NITROGEN 16 MG/DL (7-18); BUN/CREATININE RATIO 13; CALCIUM 9.2 MG/DL (8.5-10.1); CARBON DIOXIDE 25 MMOL/L (21-32); CHLORIDE 105 MMOL/L (98-107); CREATININE SERUM 1.25 MG/DL (0.60-1.30); GFR ESTIMATED 57; GLUCOSE 98 MG/DL (70-105); MAGNESIUM 2.4 MG/DL (1.8-2.4); POTASSIUM 4.3 MMOL/L (3.6-5.0); SODIUM 139 MMOL/L (135-145); TOTAL PROTEIN 6.5 GM/DL (6.4-8.2)
[2016-10-24 07:14] LABS: TROPONIN I < 0.30 NG/ML (<0.30)
--- NOTE | 2016-10-24 07:25 | Diagnostic Imaging Report ---
Clinical indication: Patient with complaints of left-sided chest wall pain/rib pain x10 days. No known injury. Exam: Chest x-ray PA and lateral views. Comparisons: Chest x-ray dated 04/06/2016. Findings: Lungs/pleura: Stable hyperinflated lungs with increased retrosternal clear space and flattened hemidiaphragms. Otherwise, lungs are clear. There is no pneumothorax. There is no pleural effusion. Mediastinum: Unremarkable. Pulmonary vasculature: Unremarkable. Heart: Unremarkable. Bones/extrathoracic soft tissue: There are mildly hypertrophic degenerative osteophytes scattered throughout the thoracic spine. There is the appearance of callus formation and bony irregularity involving mid and lower left ribs concerning for subacute fractures. Impression: 1: Concern for interval development of subacute left rib fractures. 2: Otherwise stable chest x-ray exam with no interval radiographic evidence of acute cardiopulmonary process. Dictated by: Dictated on workstation # [id number]
[2016-10-24] MEDS ORDERED: NS IV 1000 ML 1,000 ML IV ONE (07:29)
--- NOTE | 2016-10-24 07:42 | Diagnostic Imaging Report ---
Clinical indication: Patient with no known injury. Patient complains of left-sided chest wall/rib pain x10 days. Exam: X-ray of the left ribs, 3 views. Comparison: Chest x-ray dated 04/06/2016. Findings: There is interval development of callus formation and bony thickening involving the lateral aspect of the left T7 and T9 rib concerning for subacute fractures. Again noted multiple chronic left rib fractures seen. There is no pneumothorax. There are degenerative spurs involving the thoracic spine. Impression: 1.: There is concern for subacute fractures of the lateral aspects of the left T7 and T9 ribs. There is no pneumothorax. 2: There is multiple chronic left rib fractures again seen. Dictated by: Dictated on workstation # [id number]
[2016-10-24] MEDS ORDERED: IOHEXOL 350 MG/ML 100 ML (OMNIPAQUE 350) VIAL IV ONE (08:15)
[2016-10-24] MEDS ORDERED: NS 100 ML (IVPB) BAG IV ONE (08:15)
--- NOTE | 2016-10-24 08:54 | Diagnostic Imaging Report ---
Clinical indication: Patient with pain in left lateral costal margin and left lower quadrant. Patient's history of CLL/lymphoma. Patient also had cholecystectomy. Exam: CT scan of the chest, abdomen, and pelvis performed with 100 cc of Omnipaque 350 IV contrast. Coronal and sagittal reformatted images are created. Comparison: CT scan of the thoracic and lumbar spine dated 07/14/2014. Findings: CT chest: There is bilateral lung emphysema seen which is worse in both upper lung butt. There is a 5 mm noncalcified nodule in the right upper lobe seen on series 2, image 32. There is mild bibasilar atelectasis or scarring. Otherwise, lungs are clear. There is no pleural effusion or pneumothorax. There is a small amount of secretions in the proximal right main pulmonary bronchi. There is also thickening of the proximal bronchi bilaterally which is worse in the medial right lower lobe region. Thyroid gland is unremarkable. There is calcified lymph nodes in the right perihilar region. Otherwise mediastinal and bilateral axillary regions show no significant lymphadenopathy. There is enlargement of the ascending thoracic aorta measuring roughly 4.8 cm in greatest axial dimension. The extrathoracic soft tissue is unremarkable. Mediastinal structures are unremarkable. CT abdomen and pelvis: There is an 8mm circumscribed low-density area in the right lobe of liver near the dome which shows no IV contrast enhancement. This is suspected to represent a cyst. There is a calcified granuloma in the spleen and liver seen. There is a nonspecific 8 mm area of enhancement within the posterior midportion of the spleen. Otherwise liver and spleen is unremarkable. Gallbladder is surgically resected. Stable nodularity in the right adrenal gland. Both kidneys show mild cortical thinning. Otherwise both kidneys are unremarkable with no stones, masses, or hydronephrosis. The bladder is fluid distended with no gross and mildly seen. Is a small to moderate amount of stool seen throughout the right colon and transverse colon. There is high dense material within the appendix which may represent a appendicolith. Appendix is otherwise unremarkable. The small bowel, large bowel, and stomach are otherwise unremarkable. There is no extra-abdominal, intra-abdominal, or pelvic lymphadenopathy. There is no intra-abdominal free air or free fluid. The abdominal aorta and bilateral common iliac arteries are not aneurysmal with mild atherosclerotic disease. There are degenerative spurs involving the thoracic and lumbar spine. There is no lumbar spine facet arthropathy. Impression: 1: There is no evidence of acute chest, abdominal or pelvic process. 2: There is a 4.8 cm ascending thoracic aortic aneurysm. 3: There is a 5 mm noncalcified nodule in the right upper lobe. Comparison with prior chest CT scans, if available would help better evaluate for stability. Otherwise, followup chest CT scan in 6 months is suggested for further evaluation. 4.: There is a 8mm enhancing area within the spleen which is nonspecific. Hemangioma may be considered. Comparison to prior CT of the abdomen and pelvis imaging would help better evaluate. If none are available, then this should also be further evaluated in 6 months during the chest CT scan. 5: Possible appendicolith. The appendix is otherwise unremarkable. 6: Emphysematous lung disease. Dictated by: Dictated on workstation # [id number]
[2016-10-24] MEDS ORDERED: KETOROLAC 30 MG/ML VIAL IVP ONE (09:15)
[2016-10-24 09:36] VITALS: BP 154/93
== END 2016-10-24 09:36 ==
LOC: EDUNIT# 05:47 → ER 05:52
DX: S22.32XD Fracture of one rib, left side, subsequent encounter for fracture with routine healing (principal); R10.32 Left lower quadrant pain; D73.89 Other diseases of spleen; R91.1 Solitary pulmonary nodule; C91.10 Chronic lymphocytic leukemia of B-cell type not having achieved remission; H53.2 Diplopia; I77.819 Aortic ectasia, unspecified site; F41.9 Anxiety disorder, unspecified; F43.10 Post-traumatic stress disorder, unspecified; E11.319 Type 2 diabetes mellitus with unspecified diabetic retinopathy without macular edema; E11.40 Type 2 diabetes mellitus with diabetic neuropathy, unspecified; M48.00 Spinal stenosis, site unspecified; E78.00 Pure hypercholesterolemia, unspecified; I10 Essential (primary) hypertension; J44.9 Chronic obstructive pulmonary disease, unspecified; F17.210 Nicotine dependence, cigarettes, uncomplicated; Z91.14 Patient's other noncompliance with medication regimen; W19.XXXD Unspecified fall, subsequent encounter
CPT/HCPCS: 36415; 71020; 71100; 71260; 74177; 80053; 80306; 80320; 81000; 83690; 83735; 84443; 84484; 85007; 85027; 93005; 93041; 96361; 96374

== ENCOUNTER 2016-10-26 21:02 | Emergency (ER) | payer MEDICARE ==
[~2016-10-26] VITALS: Ht 188 cm; Wt 88.9 kg
[2016-10-26] MEDS ORDERED: SCOPOLAMINE 1.5 MG (TRANSDERM-SCOP) PATCH TD ONE (22:00)
[2016-10-26 22:06] LABS: BASOPHILS % (AUTO) 0 % (0-10); EOSINOPHILS # (AUTO) 0.6 10^3/uL (0.0-0.3); EOSINOPHILS % (AUTO) 3 % (0-10); LYMPHOCYTES # (AUTO) 15.5 X 10^3 (1.0-4.0); LYMPHOCYTES % (AUTO) 72 % (12-44); MEAN CORPUSCULAR HEMOGLOBIN 33 PG (25-34); MEAN CORPUSCULAR HGB CONC 34 G/DL (32-36); MEAN CORPUSCULAR VOLUME 97 FL (80-99); MEAN PLATELET VOLUME 11.7 FL (7.4-10.4); MONOCYTES % (AUTO) 5 % (0-12); NEUTROPHILS # (AUTO) 4.3 X 10^3 (1.8-7.8); NEUTROPHILS % (AUTO) 20 % (42-75); PLATELET COUNT 108 10^3/uL (130-400); RED BLOOD COUNT 3.98 10^6/uL (4.35-5.85); RED CELL DISTRIBUTION WIDTH 13.3 % (10.0-14.5); WHITE BLOOD COUNT 21.4 10^3/uL (4.3-11.0)
[2016-10-26 22:13] LABS: PROTHROMBIN TIME PATIENT 13.5 SEC (12.2-14.7)
[2016-10-26 22:19] LABS: ALANINE AMINOTRANSFERASE 11 U/L (0-55); ALBUMIN 3.7 GM/DL (3.2-4.5); ALCOHOL < 10 MG/DL (<10); ANION GAP 9 MMOL/L (5-14); ASPARTATE AMINO TRANSFERASE 18 U/L (5-34); BILIRUBIN,TOTAL 0.5 MG/DL (0.1-1.0); BLOOD UREA NITROGEN 18 MG/DL (7-18); BUN/CREATININE RATIO 14; CALCIUM 8.4 MG/DL (8.5-10.1); CARBON DIOXIDE 21 MMOL/L (21-32); CHLORIDE 110 MMOL/L (98-107); CREATININE SERUM 1.28 MG/DL (0.60-1.30); GFR ESTIMATED 55; GLUCOSE 109 MG/DL (70-105); MAGNESIUM 2.1 MG/DL (1.8-2.4); POTASSIUM 4.1 MMOL/L (3.6-5.0); SODIUM 140 MMOL/L (135-145); TOTAL PROTEIN 5.8 GM/DL (6.4-8.2)
[2016-10-26 22:29] LABS: ATYPICAL LYMPHOCYTES 33 %; BAND NEUTROPHILS 0 %; BASOPHILS % (MANUAL) 0 %; EOSINOPHILS % (MANUAL) 3 %; LYMPHOCYTES % (MANUAL) 39 %; NEUTROPHILS % (MANUAL) 23 %
[2016-10-26 22:30] LABS: BILIRUBIN,URINE NEGATIVE (NEGATIVE); KETONES,URINE NEGATIVE (NEGATIVE); LEUKOCYTE ESTERASE ,URINE 1+ (NEGATIVE); NITRITE,URINE NEGATIVE (NEGATIVE); PH,URINE 7 (5-9); PROTEIN,URINE NEGATIVE (NEGATIVE); UROBILINOGEN,URINE 4 MG/DL (NORMAL)
[2016-10-26 22:39] LABS: TROPONIN I < 0.30 NG/ML (<0.30)
[2016-10-26 22:43] LABS: SQUAMOUS EPITHELIAL CELL,UR RARE /HPF
[2016-10-26] MEDS ORDERED: SCOP1PAT TD (23:28)
[2016-10-26] MEDS ORDERED: MECL-106 PO (23:28)
--- NOTE | 2016-10-26 23:29 | ED General ---
General Chief Complaint: General Problems/Pain Stated Complaint: SWELLING OF BOTH LEGS Nursing Triage Note: PT TO ED 7 W/ C/O DIZZINESS, BILAT FOOT/ANKLE SWELLING, RT CALF PAIN ONSET TODAY. PT REPORTS WAS SEEN IN ED X2 DAYS AGO ET RECEIVED IV DYE. THINKS MAY BE R/T THAT. PT ALSO REPORTS HE HAS BEEN W/O HIS MEDS X3 DAYS HE WAS "KICKED OUT" OF HIS APARTMENT AND HIS LANDLORD "DONE LOCKED EVERYTHING UP AND WON'T LET HIM HAVE HIS MEDS." PT REPORTS HE THINKS HIS BLOOD PRESSURE AND HIS BLOOD SUGAR ARE BOTH UP. Nursing Sepsis Screen: No Definite Risk Allergies and Home Medications Allergies Coded Allergies: Penicillins (Unverified Allergy, Mild, 03/28/09) Home Medications Albuterol 17 Gm Inh, 2 SPRAY IH Q4H, #1 Ref 1 Prescribed by: FITO FORBES on 10/19/12 1601 Albuterol Sulfate 2.5 Mg/3 Ml Vial.neb, 2.5 MG IH Q4H PRN for SHORTNESS OF BREATH, #28 Ref 0 Prescribed by: ANDREWS STEVENS on 04/06/16 1248 Doxycycline Hyclate 100 Mg Capsule, 100 MG PO BID, #14 Ref 0 Prescribed by: ANDREWS STEVENS on 04/06/16 1248 Gabapentin 400 Mg Capsule, 400 MG PO QID, (Reported) Hydrocodone/Acetaminophen 1 Each Tablet, 1 MG PO Q6H PRN for PAIN, #90 (Reported ) Lisinopril 20 Mg Tablet, 20 MG PO DAILY, (Reported) Prednisone 20 Mg Tab, 40 MG PO DAILY, #10 Ref 0 Prescribed by: ANDREWS STEVENS on 04/06/16 1248 Tiotropium [place] 1 Inh Aerp, 1 INH IH DAILY, (Reported) [viagra] , (Reported) Past [id number]-[id number] Hx Patient Social History Alcohol Use: Occasionally Uses Alcohol Beverage of Choice: Rum Recreational Drug Use: No Smoking Status: Current Everyday Smoker Type Used: Cigarettes Recent Foreign Travel: No Contact w/Someone Who Travel: No Recent Infectious Disease Expo: No Recent Hopitalizations: No Physical Abuse: No Sexual Abuse: No Mistreated: No Fear: No Immunizations Up To Date Date of Pneumonia Vaccine: Nov 22, 2009 Date of Influenza Vaccine: Oct 24, 2015 Seasonal Allergies Seasonal Allergies: Yes Surgeries History of Surgeries: Yes (TEMPORAL ARTERY BIOPSY) Surgeries: Bladder Surgery, Gallbladder Respiratory History of Respiratory Disorde: Yes (Tobaccoism) Respiratory Disorders: Chronic Bronchitis, COPD Cardiovascular History of Cardiac Disorders: Yes Cardiac Disorders: High Cholesterol, Hypertension Neurological History of Neurological Disord: Yes (Peripheral neuropathy) Neurological Disorders: Neuropathy Reproductive System Hx Reproductive Disorders: Yes (E.D.) Gastrointestinal History of Gastrointestinal Di: No Musculoskeletal History of Musculoskeletal Dis: Yes (CHRONIC NECK PAIN , BILATERAL CARPAL TUNNEL, spinal stenosis) Musculoskeletal Disorders: Degenerate Disk Disease, Chronic Back Pain, Fractures Endocrine History of Endocrine Disorders: Yes (no medication for DM) Endocrine Disorders: Diabetes, Non-Insulin dep HEENT History of HEENT Disorders: Yes (retinopathy, optic neuritis, recurrent diplopia) HEENT Disorders: Macular Degeneration Cancer History of Cancer: Yes (CLL) Cancer: Leukemia, Lymphoma Psychosocial History of Psychiatric Problem: Yes Behavioral Health Disorders: Anxiety, PTSD Suicide Risk Score: 0 Integumentary History of Skin or Integumenta: No Blood Transfusions History of Blood Disorders: No Family Medical History Significant Family History: No Pertinent Family Hx Physical Exam Vital Signs Vital Sign - Last 12Hours 10/26/16 21:15 Temp 98.7 Pulse 84 Resp 20 B/P (MAP) 148/97 Pulse Ox 96 O2 Delivery Room Air Capillary Refill : Less Than 3 Seconds Progress/Results/Core Measures Results/Orders Lab Results Laboratory Tests Test 10/26/16 21:24 10/26/16 21:55 10/26/16 22:21 Range/Units Glucometer 108 70-110 MG/DL White Blood Count 21.4 H 4.3-11.0 10^3/uL Red Blood Count 3.98 L 4.35-5.85 10^6/uL Hemoglobin 13.1 L 13.3-17.7 G/DL Hematocrit 39 L 40-54 % Mean Corpuscular Volume 97 80-99 FL Mean Corpuscular Hemoglobin 33 25-34 PG Mean Corpuscular Hemoglobin Concent 34 32-36 G/DL Red Cell Distribution Width 13.3 10.0-14.5 % Platelet Count 108 L 130-400 10^3/uL Mean Platelet Volume 11.7 H 7.4-10.4 FL Neutrophils (%) (Auto) 20 L 42-75 % Lymphocytes (%) (Auto) 72 H 12-44 % Monocytes (%) (Auto) 5 0-12 % Eosinophils (%) (Auto) 3 0-10 % Basophils (%) (Auto) 0 0-10 % Neutrophils # (Auto) 4.3 1.8-7.8 X 10^3 Lymphocytes # (Auto) 15.5 H 1.0-4.0 X 10^3 Monocytes # (Auto) 1.0 0.0-1.0 X 10^3 Eosinophils # (Auto) 0.6 H 0.0-0.3 10^3/uL Basophils # (Auto) 0.0 0.0-0.1 10^3/uL Neutrophils % (Manual) 23 % Lymphocytes % (Manual) 39 % Monocytes % (Manual) 2 % Eosinophils % (Manual) 3 % Basophils % (Manual) 0 % Band Neutrophils 0 % Atypical Lymphocytes 33 % Smudge Cells MOD Prothrombin Time 13.5 12.2-14.7 SEC INR Comment 1.0 0.8-1.4 Activated Partial Thromboplast Time 30 24-35 SEC Sodium Level 140 135-145 MMOL/L Potassium Level 4.1 3.6-5.0 MMOL/L Chloride Level 110 H 98-107 MMOL/L Carbon Dioxide Level 21 21-32 MMOL/L Anion Gap 9 5-14 MMOL/L Blood Urea Nitrogen 18 7-18 MG/DL Creatinine 1.28 0.60-1.30 MG/DL Estimat Glomerular Filtration Rate 55 BUN/Creatinine Ratio 14 Glucose Level 109 H 70-105 MG/DL Calcium Level 8.4 L 8.5-10.1 MG/DL Magnesium Level 2.1 1.8-2.4 MG/DL Total Bilirubin 0.5 0.1-1.0 MG/DL Aspartate Amino Transf (AST/SGOT) 18 5-34 U/L Alanine Aminotransferase (ALT/SGPT) 11 0-55 U/L Alkaline Phosphatase 119 40-136 U/L Troponin I < 0.30 <0.30 NG/ML B-Type Natriuretic Peptide 64.2 <100.0 PG/ML Total Protein 5.8 L 6.4-8.2 GM/DL Albumin 3.7 3.2-4.5 GM/DL Free Thyroxine 1.15 0.70-1.48 NG/DL TSH Wood Testing 0.32 L 0.35-4.94 UIU/ML Serum Alcohol < 10 <10 MG/DL Urine Color YELLOW Urine Clarity SLIGHTLY CLOUDY Urine pH 7 5-9 Urine Specific [place] 1.010 L 1.016-1.022 Urine Protein NEGATIVE NEGATIVE Urine Glucose (UA) NEGATIVE NEGATIVE Urine Ketones NEGATIVE NEGATIVE Urine Nitrite NEGATIVE NEGATIVE Urine Bilirubin NEGATIVE NEGATIVE Urine Urobilinogen 4 H NORMAL MG/DL Urine Leukocyte Esterase 1+ H NEGATIVE Urine RBC (Auto) NEGATIVE NEGATIVE Urine RBC NONE /HPF Urine WBC NONE /HPF Urine Squamous Epithelial Cells RARE /HPF Urine Crystals NONE /LPF Urine Bacteria NEGATIVE /HPF Urine Casts NONE /LPF Urine Mucus NEGATIVE /LPF Urine Culture Indicated NO Urine Opiates Screen NEGATIVE NEGATIVE Urine Oxycodone Screen NEGATIVE NEGATIVE Urine Methadone Screen NEGATIVE NEGATIVE Urine Propoxyphene Screen NEGATIVE NEGATIVE Urine Barbiturates Screen NEGATIVE NEGATIVE Ur Tricyclic Antidepressants Screen NEGATIVE NEGATIVE Urine Phencyclidine Screen NEGATIVE NEGATIVE Urine Amphetamines Screen NEGATIVE NEGATIVE Urine Methamphetamines Screen NEGATIVE NEGATIVE Urine Benzodiazepines Screen NEGATIVE NEGATIVE Urine Cocaine Screen NEGATIVE NEGATIVE Urine Cannabinoids Screen NEGATIVE NEGATIVE My Orders Orders - ZEV,SHARIF K DO Accucheck Stat ONCE (10/26/16 21:46) Saline Lock/Iv-Start (10/26/16 21:46) Ekg Tracing (10/26/16 21:46) Monitor-Rhythm Ecg Trace Only (10/26/16 21:46) Alcohol (10/26/16 21:46) BNP (10/26/16 21:46) Cbc With Automated Diff (10/26/16 21:46) Comprehensive Metabolic Panel (10/26/16 21:46) Drug Screen Stat (Urine) (10/26/16 21:46) Magnesium (10/26/16 21:46) Protime With Inr (10/26/16 21:46) Partial Thromboplastin Time (10/26/16 21:46) Thyroid Analyzer (10/26/16 21:46) Troponin I (10/26/16 21:46) Ua Culture If Indicated (10/26/16 21:46) Scopolamine Patch (Transderm-Scop Patch) (10/26/16 22:00) Us Venous Lower Ext Rt (10/26/16 21:56) Ct Head Wo (10/26/16 21:57) Manual Differential (10/26/16 21:55) Free T4 (Free Thyroxine) (10/26/16 21:55) Medications Given in ED Current Medications Medications Dose Ordered Sig/Conor Route Start Time Stop Time Status Last Admin Dose Admin Scopolamine 1.5 mg ONCE ONCE TD 10/26/16 22:00 10/26/16 22:01 DC 10/26/16 22:16 1.5 MG Vital Signs/I&O Vital Sign - Last 12Hours 10/26/16 21:15 Temp 98.7 Pulse 84 Resp 20 B/P (MAP) 148/97 Pulse Ox 96 O2 Delivery Room Air Blood Pressure Mean: 114 Departure Impression Impression: Primary Impression: Dizziness Additional Impression: Pain and swelling of right lower leg Disposition: HOME, SELF-CARE Condition: Improved Departure-Patient Inst. Referrals: GUILLERMINA MORILLO DO (PCP/Family) Primary Care Physician Patient Instructions: Dizziness, Nonvertigo, (DC), Muscle and Bone Pain (DC), Vertigo (a Type of Dizziness) (DC) Add. Discharge Instructions: CONTINUE YOUR REGULAR MEDICATIONS PRESCRIBED FOLLOW UP WITH YOUR DR THIS WEEK FOR FURTHER CARE--CALL IN AM FOR APPOINTMENT All discharge instructions reviewed with patient and/or family. Voiced understanding. Scripts Meclizine HCl (Meclizine HCl) 25 Mg Tablet 25-50 MG PO Q6H for Dizziness, #30 TAB Prov: SHARIF BROTHERS DO 10/26/16 Scopolamine (Transderm-Scop) 1 Each Patch.td72 1 EACH TD Q72 HOURS for Dizziness, #3 PATCH Prov: SHARIF BROTHERS DO 10/26/16 SHARIF BROTHERS DO Oct 26, 2016 23:29
[2016-10-27 00:05] VITALS: BP 147/97
--- NOTE | 2016-10-27 05:48 | Diagnostic Imaging Report ---
PROCEDURE: US right lower extremity venous. INDICATION: Right leg swelling EXAMINATION: Grayscale and color Doppler evaluation of the deep veins of the right lower extremity were performed with waveform analysis. FINDINGS: Continuous venous flow is present. No intraluminal filling defect is identified. There is normal compressibility and response to augmentation. No abnormal perivascular fluid collection is identified. IMPRESSION: No ultrasound evidence of right lower extremity deep venous thrombosis. Dictated by: Dictated on workstation # [id number]
--- NOTE | 2016-10-27 05:54 | Diagnostic Imaging Report ---
PROCEDURE: CT head without contrast. TECHNIQUE: Multiple contiguous axial images were obtained through the brain without the use of intravenous contrast. INDICATION: Dizziness and visual disturbance Ventricles and sulci are diffusely prominent. Low-density seen within the deep white matter both hemispheres, however, there is no evidence of geographic low density to indicate a territorial infarct. Dolichoectasia of basilar artery is noted. No hemorrhage is seen. There is no abnormal mass effect or shift of midline structures. Calvarium is intact. There is mucosal thickening noted within maxillary sinuses with leftward nasal septal deviation. IMPRESSION: Probable senescent findings in the brain without CT evidence of acute intracranial abnormality. Dictated by: Dictated on workstation # [id number]
== END 2016-10-27 00:05 | disposition home or self-care (01) ==
LOC: EDUNIT# 21:02 → ER 21:03
DX: R42 Dizziness and giddiness (principal); M79.604 Pain in right leg; M79.89 Other specified soft tissue disorders; J44.9 Chronic obstructive pulmonary disease, unspecified; E11.40 Type 2 diabetes mellitus with diabetic neuropathy, unspecified; E11.319 Type 2 diabetes mellitus with unspecified diabetic retinopathy without macular edema; E78.00 Pure hypercholesterolemia, unspecified; I10 Essential (primary) hypertension; F43.10 Post-traumatic stress disorder, unspecified; F41.9 Anxiety disorder, unspecified; F17.210 Nicotine dependence, cigarettes, uncomplicated; Z85.6 Personal history of leukemia
CPT/HCPCS: 36415; 70450; 80053; 80306; 80320; 81000; 82962; 83735; 83880; 84439; 84443; 84484; 85007; 85027; 85610; 85730; 93005; 93041

== ENCOUNTER 2018-01-22 22:52 | Emergency (ER) | payer MEDICARE ==
[~2018-01-22] VITALS: Ht 175.3 cm; Wt 79.4 kg
[~2018-01-22 22:52] MED LIST changes: +MECL-106 PO; +SCOP1PAT11 TD
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
[2018-01-22] MEDS ORDERED: LACTATED RINGERS 1,000 ML IV ONE (23:00)
[2018-01-22 23:58] LABS: BILIRUBIN,URINE NEGATIVE (NEGATIVE); CLARITY,URINE CLEAR; COLOR,URINE YELLOW; GLUCOSE, URINE (UA) NEGATIVE (NEGATIVE); KETONES,URINE NEGATIVE (NEGATIVE); LEUKOCYTE ESTERASE ,URINE 1+ (NEGATIVE); NITRITE,URINE NEGATIVE (NEGATIVE); PH,URINE 5 (5-9); PROTEIN,URINE 2+ (NEGATIVE); UROBILINOGEN,URINE 1 MG/DL (NORMAL)
[2018-01-23 00:03] LABS: BASOPHILS % (AUTO) 0 % (0-10); EOSINOPHILS # (AUTO) 0.1 10^3/uL (0.0-0.3); EOSINOPHILS % (AUTO) 0 % (0-10); HEMATOCRIT 42 % (40-54); HEMOGLOBIN 14.3 G/DL (13.3-17.7); LYMPHOCYTES # (AUTO) 8.9 X 10^3 (1.0-4.0); LYMPHOCYTES % (AUTO) 65 % (12-44); MEAN CORPUSCULAR HEMOGLOBIN 33 PG (25-34); MEAN CORPUSCULAR HGB CONC 34 G/DL (32-36); MEAN CORPUSCULAR VOLUME 96 FL (80-99); MEAN PLATELET VOLUME 11.1 FL (7.4-10.4); MONOCYTES # (AUTO) 0.6 X 10^3 (0.0-1.0); MONOCYTES % (AUTO) 4 % (0-12); NEUTROPHILS # (AUTO) 4.1 X 10^3 (1.8-7.8); NEUTROPHILS % (AUTO) 30 % (42-75); PLATELET COUNT 117 10^3/uL (130-400); RED BLOOD COUNT 4.35 10^6/uL (4.35-5.85); WHITE BLOOD COUNT 13.6 10^3/uL (4.3-11.0)
[2018-01-23 00:15] LABS: BACTERIA,URINE NEGATIVE /HPF; WBC,URINE RARE /HPF
[2018-01-23 00:21] LABS: ALANINE AMINOTRANSFERASE 21 U/L (0-55); ALBUMIN 3.9 GM/DL (3.2-4.5); ALKALINE PHOSPHATASE 111 U/L (40-136); BILIRUBIN,TOTAL 0.4 MG/DL (0.1-1.0); BUN/CREATININE RATIO 18; CALCIUM 8.7 MG/DL (8.5-10.1); CARBON DIOXIDE 22 MMOL/L (21-32); CHLORIDE 106 MMOL/L (98-107); CREATININE SERUM 1.19 MG/DL (0.60-1.30); GFR ESTIMATED 60; GLUCOSE 105 MG/DL (70-105); LIPASE 16 U/L (8-78); MAGNESIUM 2.2 MG/DL (1.8-2.4); POTASSIUM 3.6 MMOL/L (3.6-5.0); SODIUM 138 MMOL/L (135-145); TOTAL PROTEIN 6.4 GM/DL (6.4-8.2)
[2018-01-23] MEDS ORDERED: LACTATED RINGERS 1,000 ML IV ONE (00:29)
[2018-01-23] MEDS ORDERED: ONDN4T PO (00:44)
--- NOTE | 2018-01-23 00:44 | ED GI ---
General Chief Complaint: Abdominal/GI Problems Stated Complaint: N,V,D Allergies and Home Medications Allergies Coded Allergies: Penicillins (Unverified Allergy, Mild, 03/28/09) Home Medications Albuterol 17 Gm Inh, 2 SPRAY IH Q4H Prescribed by: FITO FORBES on 10/19/12 1601 Albuterol Sulfate 2.5 Mg/3 Ml Vial.neb, 2.5 MG IH Q4H PRN for SHORTNESS OF BREATH Prescribed by: ANDREWS STEVENS on 04/06/16 1248 Doxycycline Hyclate 100 Mg Capsule, 100 MG PO BID Prescribed by: ANDREWS STEVENS on 04/06/16 1248 Gabapentin 400 Mg Capsule, 400 MG PO QID, (Reported) Hydrocodone/Acetaminophen 1 Each Tablet, 1 MG PO Q6H PRN for PAIN, (Reported) Lisinopril 20 Mg Tablet, 20 MG PO DAILY, (Reported) Meclizine HCl 25 Mg Tablet, 25-50 MG PO Q6H Prescribed by: SHARIF BROTHERS on 10/26/162327 Prednisone 20 Mg Tab, 40 MG PO DAILY Prescribed by: ANDREWS STEVENS on 04/06/161247 Scopolamine 1 Each Patch.td72, 1 EACH TD Q72 HOURS Prescribed by: SHARIF BROTHERS on 10/26/162327 Tiotropium [place] 1 Inh Aerp, 1 INH IH DAILY, (Reported) Past Egncvbm-Sbtrgg-Cvidjs Hx Patient Social History Alcohol Beverage of Choice: Rum Type Used: Cigarettes Recent Foreign Travel: No Contact w/Someone Who Travel: No Recent Hopitalizations: No Immunizations Up To Date Date of Pneumonia Vaccine: Nov 22, 2009 Date of Influenza Vaccine: Oct 24, 2015 Seasonal Allergies Seasonal Allergies: Yes Past Medical History Surgeries: Yes (TEMPORAL ARTERY BIOPSY) Bladder Surgery, Gallbladder Respiratory: Yes (Tobaccoism) Chronic Bronchitis, COPD Cardiac: Yes High Cholesterol, Hypertension Neurological: Yes (PERIPHERAL NEUROPATHY--LEGS/ ARMS) Neuropathy Reproductive Disorders: Yes (E.D.) Genitourinary: No Gastrointestinal: No Musculoskeletal: Yes (CHRONIC NECK PAIN , BILATERAL CARPAL TUNNEL, spinal stenosis; RIB FRACTURES) Degenerate Disk Disease, Chronic Back Pain, Fractures Endocrine: Yes (no medication for DM) Diabetes, Non-Insulin dep HEENT: Yes (retinopathy, optic neuritis, recurrent diplopia) Macular Degeneration Cancer: Yes (CLL) Leukemia, Lymphoma Did You Recieve Any Treatments: No Psychosocial: Yes Anxiety, PTSD Integumentary: No Blood Disorders: No Family Medical History No Pertinent Family Hx Physical Exam Vital Signs Capillary Refill : Height/Weight/BMI Height: 6'2.00" Weight: 196lbs. oz. 88.103929nv; BMI Method:Stated Progress/Results/Core Measures Results/Orders Lab Results Laboratory Tests Test 01/22/18 23:46 01/22/18 23:55 Range/Units Urine Color YELLOW Urine Clarity CLEAR Urine pH 5 5-9 Urine Specific [place] 1.025 H 1.016-1.022 Urine Protein 2+ H NEGATIVE Urine Glucose (UA) NEGATIVE NEGATIVE Urine Ketones NEGATIVE NEGATIVE Urine Nitrite NEGATIVE NEGATIVE Urine Bilirubin NEGATIVE NEGATIVE Urine Urobilinogen 1 NORMAL MG/DL Urine Leukocyte Esterase 1+ H NEGATIVE Urine RBC (Auto) NEGATIVE NEGATIVE Urine RBC NONE /HPF Urine WBC RARE /HPF Urine Squamous Epithelial Cells 2-5 /HPF Urine Crystals NONE /LPF Urine Bacteria NEGATIVE /HPF Urine Casts PRESENT /LPF Urine Hyaline Casts 2-5 H /LPF Urine Mucus LARGE H /LPF Urine Culture Indicated NO White Blood Count 13.6 H 4.3-11.0 10^3/uL Red Blood Count 4.35 4.35-5.85 10^6/uL Hemoglobin 14.3 13.3-17.7 G/DL Hematocrit 42 40-54 % Mean Corpuscular Volume 96 80-99 FL Mean Corpuscular Hemoglobin 33 25-34 PG Mean Corpuscular Hemoglobin Concent 34 32-36 G/DL Red Cell Distribution Width 14.0 10.0-14.5 % Platelet Count 117 L 130-400 10^3/uL Mean Platelet Volume 11.1 H 7.4-10.4 FL Neutrophils (%) (Auto) 30 L 42-75 % Lymphocytes (%) (Auto) 65 H 12-44 % Monocytes (%) (Auto) 4 0-12 % Eosinophils (%) (Auto) 0 0-10 % Basophils (%) (Auto) 0 0-10 % Neutrophils # (Auto) 4.1 1.8-7.8 X 10^3 Lymphocytes # (Auto) 8.9 H 1.0-4.0 X 10^3 Monocytes # (Auto) 0.6 0.0-1.0 X 10^3 Eosinophils # (Auto) 0.1 0.0-0.3 10^3/uL Basophils # (Auto) 0.0 0.0-0.1 10^3/uL Sodium Level 138 135-145 MMOL/L Potassium Level 3.6 3.6-5.0 MMOL/L Chloride Level 106 98-107 MMOL/L Carbon Dioxide Level 22 21-32 MMOL/L Anion Gap 10 5-14 MMOL/L Blood Urea Nitrogen 22 H 7-18 MG/DL Creatinine 1.19 0.60-1.30 MG/DL Estimat Glomerular Filtration Rate 60 BUN/Creatinine Ratio 18 Glucose Level 105 70-105 MG/DL Calcium Level 8.7 8.5-10.1 MG/DL Corrected Calcium 8.8 8.5-10.1 MG/DL Magnesium Level 2.2 1.8-2.4 MG/DL Total Bilirubin 0.4 0.1-1.0 MG/DL Aspartate Amino Transf (AST/SGOT) 31 5-34 U/L Alanine Aminotransferase (ALT/SGPT) 21 0-55 U/L Alkaline Phosphatase 111 40-136 U/L Total Protein 6.4 6.4-8.2 GM/DL Albumin 3.9 3.2-4.5 GM/DL Lipase 16 8-78 U/L Serum Alcohol < 10 <10 MG/DL My Orders Orders - SHARIF BROTHERS DO Saline Lock/Iv-Start (01/22/18 23:00) Monitor-Rhythm Ecg Trace Only (01/22/18 23:00) Alcohol (01/22/18 23:00) Cbc With Automated Diff (01/22/18 23:00) Comprehensive Metabolic Panel (01/22/18 23:00) Lipase (01/22/18 23:00) Magnesium (01/22/18 23:00) Ua Culture If Indicated (01/22/18 23:00) Saline Lock/Iv-Start (01/22/18 23:00) Lactated Ringers (Lr 1000 Ml Iv Solution (01/22/18 23:00) Drug Screen Stat (Urine) (01/23/18 00:29) Saline Lock/Iv-Start (01/23/18 00:29) Lactated Ringers (Lr 1000 Ml Iv Solution (01/23/18 00:29) Medications Given in ED Current Medications Medications Dose Ordered Sig/Conor Route Start Time Stop Time Status Last Admin Dose Admin Lactated Ringer's 1,000 ml @ 0 mls/hr Q0M ONCE IV 01/22/18 23:00 01/22/18 23:02 DC 01/22/18 23:56 1,000 MLS/HR Progress Progress Note : Progress Note NO NAUSEA NO VOMITING NO DIARRHEA NO ABDOMINAL PAIN DURING ER STAY PT TOLERATING WATER PRIOR TO DISMISSAL Departure Impression Primary Impression: REPORTED NAUSEA/VOMITING/DIARRHEA Disposition: HOME, SELF-CARE Condition: Stable Departure-Patient Inst. Referrals: GUILLERMINA MORILLO DO (PCP/Family) Primary Care Physician Patient Instructions: [id number] Add. Discharge Instructions: CLEAR LIQUIDS--WATER, BROTH, JELLO, GATORADE TOMORROW IF YOU ARE BETTER, ADD BRATS DIET TO CLEAR LIQUIDS--BANANAS, RICE, APPLESAUCE, TOAST, SALTINES FOLLOW UP WITH DR. MORILLO ON WEDNESDAY IF NO BETTER All discharge instructions reviewed with patient and/or family. Voiced understanding. Scripts Ondansetron HCl (Zofran) 4 Mg Tab 4 MG PO Q4H for Nausea/Vomiting, #10 TAB Prov: SHARIF BROTHERS DO 01/23/18 SHARIF BROTHERS DO Jan 23, 2018 00:44
[2018-01-23 00:54] LABS: AMPHETAMINE SCREEN, URINE NEGATIVE (NEGATIVE); BARBITURATE SCREEN URINE NEGATIVE (NEGATIVE); BENZODIAZEPINES SCREEN URINE NEGATIVE (NEGATIVE); CANNABINOID SCREEN, URINE NEGATIVE (NEGATIVE); COCAINE SCREEN URINE NEGATIVE (NEGATIVE); METHADONE STAT NEGATIVE (NEGATIVE); METHAMPHETAMINE SCREEN URINE S NEGATIVE (NEGATIVE); OPIATE SCREEN URINE NEGATIVE (NEGATIVE); OXYCODONE STAT NEGATIVE (NEGATIVE); PROPOXYPHENE STAT NEGATIVE (NEGATIVE); TRICYCLIC ANTIDEPRESSANTS SCRE NEGATIVE (NEGATIVE)
[2018-01-23 02:20] VITALS: BP 144/85
== END 2018-01-23 02:20 | disposition home or self-care (01) ==
LOC: EDUNIT# 22:52 → ER 22:54
DX: R11.2 Nausea with vomiting, unspecified (principal); R19.7 Diarrhea, unspecified; E78.00 Pure hypercholesterolemia, unspecified; I10 Essential (primary) hypertension; J44.9 Chronic obstructive pulmonary disease, unspecified; E11.319 Type 2 diabetes mellitus with unspecified diabetic retinopathy without macular edema; E11.40 Type 2 diabetes mellitus with diabetic neuropathy, unspecified; F41.9 Anxiety disorder, unspecified; F43.10 Post-traumatic stress disorder, unspecified; Z88.0 Allergy status to penicillin; Z85.6 Personal history of leukemia; Z85.72 Personal history of non-Hodgkin lymphomas; Z79.51 Long term (current) use of inhaled steroids; Z79.52 Long term (current) use of systemic steroids; Z98.890 Other specified postprocedural states; Z87.09 Personal history of other diseases of the respiratory system
CPT/HCPCS: 36415; 80053; 80306; 80320; 81000; 83690; 83735; 85025; 93041; 96360; 96361

== ENCOUNTER 2018-11-05 05:23 | Inpatient (IN) | payer MEDICARE ==
[2018-11-05] VITALS (16 sets, daily range): BP systolic 75–131; BP diastolic 51–119
[~2018-11-05] VITALS: Ht 188 cm; Wt 88.1 kg
[~2018-11-05 05:23] MED LIST changes: +ONDN4T PO
[2018-11-05] MEDS ORDERED: NS IV 1000 ML 1,000 ML IV SCH ×2 (05:28)
[2018-11-05] MEDS ORDERED: NS IV 500 ML 500 ML IV ONE (05:28)
[2018-11-05] MEDS ORDERED: CEFEPIME INJECTION 1,000 MG in WATER (STERILE) FOR INJECTION 10 ML IV ONE (05:30)
[2018-11-05] MEDS ORDERED: metroNIDAZOLE 500MG/100ML IVPB 100 ML IV ONE (05:30)
[2018-11-05] MEDS ORDERED: fentaNYL INJECTION 100 MCG/2 ML AMP IVP ONE (05:30)
[2018-11-05] MEDS ORDERED: VANCOMYCIN INJECTION 1,000 MG in NS (IVPB) 250 ML IV ONE (05:30)
--- NOTE | 2018-11-05 05:37 | ED General ---
General Stated Complaint: NECK & BACK PAIN Source of Information: Patient, EMS Exam Limitations: No Limitations (RICKI JOSUE) History of Present Illness Date Seen by Provider: Nov 05, 2018 Time Seen by Provider: 05:16 Initial Comments Patient presents ER by EMS from a friend's home where he staying after getting out of residential recently with a wound on his back is been there for a few weeks and is progressively getting worse. He is having a lot of back pain and has been using whiskey daily to the care of the pain. He is a daily drinker smokes about 2 packs cigarettes per day and denies recreational drug use. [facility] Mor[facility] locally. He also has a history of some kind of leukemia and multiple myeloma. He's also been told he has an aneurysm in his chest but does not follow with a cardiothoracic surgeon or heart doctor. He's having no pain in his chest shortness of breath but EMS noted his blood pressure to be low in the 90s systolic on arrival as well as his heart rate was elevated. He has not had any fevers or chills. Has not taken any Tylenol or ibuprofen. He thinks the wound on his back might of started out from a bug bite but he never saw a spider or insect. He is diabetic however he is not on insulin. (RICKI JOSUE) PCP: DR. MORILLO (RIVERSIDESHARIF ) Allergies and Home Medications Allergies Coded Allergies: Penicillins (Unverified Allergy, Mild, 03/28/09) Home Medications Albuterol 17 Gm Inh, 2 SPRAY IH Q4H Prescribed by: FITO FORBES on 10/19/12 1601 Albuterol Sulfate 2.5 Mg/3 Ml Vial.neb, 2.5 MG IH Q4H PRN for SHORTNESS OF SABAS ATH Prescribed by: ANDREWS STEVENS on 04/06/16 1248 Doxycycline Hyclate 100 Mg Capsule, 100 MG PO BID Prescribed by: ANDREWS STEVENS on 04/06/16 1248 Gabapentin 400 Mg Capsule, 400 MG PO QID, (Reported) Hydrocodone/Acetaminophen 1 Each Tablet, 1 MG PO Q6H PRN for PAIN, (Reported) Lisinopril 20 Mg Tablet, 20 MG PO DAILY, (Reported) Meclizine HCl 25 Mg Tablet, 25-50 MG PO Q6H Prescribed by: SHARIF DELGADILLO on 10/26/162327 Ondansetron HCl 4 Mg Tab, 4 MG PO Q4H Prescribed by: SHARIF DELGADILLO on 01/23/18 0044 Prednisone 20 Mg Tab, 40 MG PO DAILY Prescribed by: ANDREWS STEVENS on 04/06/16 1248 Scopolamine 1 Each Patch.td72, 1 EACH TD Q72 HOURS Prescribed by: HSARIF DELGADILLO on 10/26/16 232 Tiotropium [place] 1 Inh Aerp, 1 INH IH DAILY, (Reported) Patient Home Medication List Home Medication List Reviewed: Yes (RICKI JOSUE) Review of Systems Review of Systems Constitutional: No chills, No fever; malaise EENTM: No ear discharge, No hearing loss, No ear pain Respiratory: No cough, No short of breath Cardiovascular: No chest pain, No edema Gastrointestinal: No abdominal pain, No nausea, No vomiting Genitourinary: No discharge, No dysuria Musculoskeletal: see HPI, back pain; No joint pain Skin: see HPI (RICKI JOSUE) Past Mokfzft-Xiokcd-Oabuax Hx Past Med/Social Hx: Reviewed and Corrections made (SHARIF DELGADILLO DO) Patient Social History Alcohol Use: Regular Use Alcohol Beverage of Choice: Rum, Whiskey Recreational Drug Use: Yes Drug of Choice: THC, "THC OIL", OPIUM Smoking Status: Current Everyday Smoker Type Used: Cigarettes (2 packs per day) 2nd Hand Smoke Exposure: Yes Recent Foreign Travel: No Contact w/Someone Who Travel: No Recent Hopitalizations: No (RICKI JOSUE) Recreational Drug Use: Yes Smoking Status: Current Everyday Smoker (3 PPD) (SHARIF DELGADILLO DO) Immunizations Up To Date Date of Pneumonia Vaccine: Nov 22, 2009 Date of Influenza Vaccine: Oct 24, 2015 (RICKI JOSUE) Seasonal Allergies Seasonal Allergies: Yes (RICKI JOSUE) Past Medical History Surgeries: Yes (TEMPORAL ARTERY BIOPSY) Bladder Surgery, Gallbladder Respiratory: Yes (Tobaccoism) Chronic Bronchitis, COPD Cardiac: Yes High Cholesterol, Hypertension Neurological: Yes (PERIPHERAL NEUROPATHY--LEGS/ ARMS) Neuropathy Reproductive Disorders: Yes (E.D.) Genitourinary: No Gastrointestinal: No Musculoskeletal: Yes (CHRONIC NECK PAIN , BILATERAL CARPAL TUNNEL, spinal stenosis; RIB FRACTURES) Degenerate Disk Disease, Chronic Back Pain, Fractures Endocrine: Yes (no medication for DM) Diabetes, Non-Insulin dep HEENT: Yes (retinopathy, optic neuritis, recurrent diplopia) Macular Degeneration Cancer: Yes Leukemia, Lymphoma Did You Recieve Any Treatments: No Psychosocial: Yes Anxiety, PTSD Integumentary: No Blood Disorders: No (RICKI JOSUE) Surgeries: Yes (TEMPORAL ARTERY BIOPSY) Musculoskeletal: Yes (CHRONIC NECK PAIN , BILATERAL CARPAL TUNNEL, spinal stenosis; RIB FRACTURES) HEENT: Yes (retinopathy, optic neuritis, recurrent diplopia; POOR DENTITION) Cancer: Yes (PT CLAIMS HE HAS CLL, LYMPHOMA AND MYELOMA--STATES HE REFUSED ALL TREATMENT--STATES IS FROM [facility]" ) (SHARIF DELGADILLO DO) Family Medical History No Pertinent Family Hx (RICKI JOSUE) Physical Exam-Suspected Sepsis Physical Exam Vital Signs Vital Signs - First Documented 11/05/18 05:26 Temp 35.8 Pulse 107 Resp 18 B/P (MAP) 75/60 (65) Pulse Ox 93 O2 Delivery Room Air (SHARIF DELGADILLO DO) Vital Signs Capillary Refill : (RICKI JOSUE) Height, Weight, BMI Height: 5'9.00" Weight: 175lbs. oz. [id number]; BMI Method:Stated General Appearance: Anxious, Moderate Distress Eyes: Bilateral Eye Normal Inspection, Bilateral Eye PERRL, Bilateral Eye EOMI HEENT: PERRL/EOMI; No Moist Mucous Membranes Neck: Full Range of Motion, Normal Inspection, Non Tender, Supple Respiratory: Chest Non Tender, Lungs Clear, Normal Breath Sounds, No Accessory Muscle Use, No Respiratory Distress Cardiovascular: Regular Rate, Rhythm, No Edema, Normal Peripheral Pulses Gastrointestinal: Normal Bowel Sounds, No Organomegaly, Non Tender, Soft Extremity: Normal Capillary Refill, Normal Inspection, No Pedal Edema Neurologic/Psychiatric: Alert, Oriented x3 Skin: normal color, warm/dry (RICKI JOSUE) Focused Exam Sepsis Stage: Septic Shock Possible Source: Skin/Soft Tissue (RICKI JOSUE) Lactate Level 11/05/18 05:30: Lactic Acid Level 3.34*H (SHARIF DELGADILLO DO) Time of Focused Exam: 07:00 Respiratory: Lungs Clear, Normal Breath Sounds, No Accessory Muscle Use, No Respiratory Distress Cardiovascular: Regular Rate, Rhythm, No Edema, Normal Peripheral Pulses Capillary Refill: Less Than 3 Seconds Peripheral Pulses: 2+ Radial Pulses (R), 2+ Radial Pulses (L) Skin: rash, other (MOST OF BACK WITH ERYTHEMA AND INDURATION, WITH WOUND TO LOWER BACK. NO DRAINAGE AT THIS TIME. ) (RICKI JOSUE) Respiratory: No Accessory Muscle Use, No Respiratory Distress, Decreased Breath Sounds (IN BASES) Cardiovascular: No Edema, No JVD, No Murmur, Normal Peripheral Pulses, Tachycardia (150-160'S) Skin: warm/dry, other (MOST OF BACK WITH ERYTHEMA AND INDURATION, WITH WOUND TO LOWER BACK. NO DRAINAGE AT THIS TIME. ) Lactic Acid Level Laboratory Tests Test 11/05/18 05:30 Lactic Acid Level 3.34 MMOL/L (0.50-2.00) *H (SHARIF DELGADILLO DO) Within 3hrs of presentation: Admin fluids, Admin ABX, Blood cultures prior to ABX's, Focus exam, Lactate level, Vasopressin therapy (SHARIF DELGADILLO DO) Procedures/Interventions Lumen: triple Central Line Procedure: betadine prep (chlorhexidine prep times one), sterile drapes applied, sterile dressing applied Position: internal jugular (R) Anesthesia: Lidocaine (1% without epinephrine) Volume Anesthetic (ccs): 3 Complications: none Post Position: sutured, good blood return, position confirmed w/ CXR Patient was explained risks, benefits and alternatives and he accepted this and signed consent. We positioned appropriately clean the site using a chlorhexidine prep after we have ascertained the right IJ was a good by ultrasound. We flushed triple lumen catheter done almost a year. The patient and use the provided needle to insert 3 cc of 1% lidocaine. We then used the introducer needle and ultrasound guidance to access the right IJ on first attempt. A Guidewire was easily passed and no ectopy was noted on EKG. We then made a small telly in the skin using the provided 11 blade scapula and remove the introducer needle. Place the dilator over the guidewire and removed it. He then placed the central lumen of the triple lumen catheter over the guidewire and removed the guidewire. The triple-lumen catheter 7 [place] 20 cm was then sutured in place at approximately 12-13 cm. Patient tolerated procedure well. The Biopatch was placed and a OpSite over that. (RICKI JOSUE) Progress/Results/Core Measures Suspected Sepsis SIRS Temperature: Pulse: Respiratory Rate: Laboratory Tests 11/05/18 05:30: White Blood Count 49.1*H Blood Pressure / Mean: 11/05/18 16:15: Lactic Acid Level 2.13*H 11/05/18 18:40: Lactic Acid Level 2.20*H 11/05/18 21:52: Lactic Acid Level 2.29*H Laboratory Tests 11/05/18 05:30: Creatinine 2.80H, INR Comment 1.2, Platelet Count 256, Total Bilirubin 1.5H (RICKI JOSUE) Results/Orders Lab Results Laboratory Tests Test 11/05/18 05:30 11/05/18 06:00 Range/Units White Blood Count 49.1 *H 4.3-11.0 10^3/uL Red Blood Count 4.70 4.35-5.85 10^6/uL Hemoglobin 15.1 13.3-17.7 G/DL Hematocrit 44 40-54 % Mean Corpuscular Volume 94 80-99 FL Mean Corpuscular Hemoglobin 32 25-34 PG Mean Corpuscular Hemoglobin Concent 34 32-36 G/DL Red Cell Distribution Width 13.9 10.0-14.5 % Platelet Count 256 130-400 10^3/uL Mean Platelet Volume 11.1 H 7.4-10.4 FL Neutrophils (%) (Auto) 27 L 42-75 % Lymphocytes (%) (Auto) 72 H 12-44 % Monocytes (%) (Auto) 1 0-12 % Eosinophils (%) (Auto) 0 0-10 % Basophils (%) (Auto) 0 0-10 % Neutrophils # (Auto) 13.0 H 1.8-7.8 X 10^3 Lymphocytes # (Auto) 35.5 H 1.0-4.0 X 10^3 Monocytes # (Auto) 0.5 0.0-1.0 X 10^3 Eosinophils # (Auto) 0.0 0.0-0.3 10^3/uL Basophils # (Auto) 0.1 0.0-0.1 10^3/uL Neutrophils % (Manual) 32 % Lymphocytes % (Manual) 65 % Monocytes % (Manual) 2 % Blast Cells 1 % Prothrombin Time 15.2 H 12.2-14.7 SEC INR Comment 1.2 0.8-1.4 Activated Partial Thromboplast Time 30 24-35 SEC Sodium Level 133 L 135-145 MMOL/L Potassium Level 5.0 3.6-5.0 MMOL/L Chloride Level 99 98-107 MMOL/L Carbon Dioxide Level 19 L 21-32 MMOL/L Anion Gap 15 H 5-14 MMOL/L Blood Urea Nitrogen 83 H 7-18 MG/DL Creatinine 2.80 H 0.60-1.30 MG/DL Estimat Glomerular Filtration Rate 22 BUN/Creatinine Ratio 30 Glucose Level 110 H 70-105 MG/DL Lactic Acid Level 3.34 *H 0.50-2.00 MMOL/L Calcium Level 9.1 8.5-10.1 MG/DL Corrected Calcium 10.1 8.5-10.1 MG/DL Magnesium Level 2.3 1.6-2.4 MG/DL Total Bilirubin 1.5 H 0.1-1.0 MG/DL Aspartate Amino Transf (AST/SGOT) 35 H 5-34 U/L Alanine Aminotransferase (ALT/SGPT) 23 0-55 U/L Alkaline Phosphatase 192 H 40-136 U/L Total Protein 5.6 L 6.4-8.2 GM/DL Albumin 2.8 L 3.2-4.5 GM/DL Amylase Level 16 L 25-125 U/L Lipase 4 L 8-78 U/L Serum Alcohol < 10 <10 MG/DL Blood Gas Puncture Site RIGHT RADIAL Blood Gas Patient Temperature 35.8 Arterial Blood pH 7.38 7.37-7.43 Arterial Blood Partial Pressure CO2 27 L 35-45 MMHG Arterial Blood Partial Pressure O2 88 79-93 MMHG Arterial Blood HCO3 16 *L 23-27 MMOL/L Arterial Blood Total CO2 17.0 L 21.0-31.0 MMOL/L Arterial Blood Oxygen Saturation 98 94-100 % Arterial Blood Base Excess -8.2 L -2.5-2.5 MMOL/L Federico Test POSITIVE Blood Gas Ventilator Setting NO Blood Gas Inspired Oxygen N (ZEV,SHARIF K DO) My Orders Orders - ZEV,HSARIF K DO Alcohol (11/05/18 05:51) Amylase (11/05/18 05:51) Arterial Blood Gas (11/05/18 05:51) Drug Screen Stat (Urine) (11/05/18 05:51) Lipase (11/05/18 05:51) Magnesium (11/05/18 05:51) Chest 1 View, Ap/Pa Only (11/05/18 06:41) Norepinephrine (Levophed) (11/05/18 06:45) Ed Iv/Invasive Line Start (11/05/18 06:44) Ns Iv 1000 Ml (Sodium Chloride 0.9%) (11/05/18 06:44) Ekg Tracing (11/05/18 07:22) Enoxaparin Injection (Lovenox Injection) (11/05/18 07:30) (SHARIF DELGADILLO DO) Medications Given in ED Current Medications Medications Dose Ordered Sig/Conor Route Start Time Stop Time Status Last Admin Dose Admin Cefepime HCl 1000 mg/Sterile Water 10 ml @ 200 mls/hr ONCE ONCE IV 11/05/18 05:30 11/05/18 05:32 DC 11/05/18 06:03 200 MLS/HR Fentanyl Citrate 50 mcg ONCE ONCE IVP 11/05/18 05:30 11/05/18 05:31 DC 11/05/18 06:04 50 MCG Metronidazole 100 ml @ 100 mls/hr ONCE ONCE IV 11/05/18 05:30 11/05/18 06:29 DC 11/05/18 06:03 100 MLS/HR Sodium Chloride 500 ml @ 0 mls/hr Q0M ONCE IV 11/05/18 05:28 11/05/18 05:31 DC 11/05/18 06:03 0 MLS/HR Vancomycin HCl 1000 mg/Sodium Chloride 250 ml @ 250 mls/hr ONCE ONCE IV 11/05/18 05:30 11/05/18 06:29 DC 11/05/18 06:05 250 MLS/HR (SHARIF DELGADILLO DO) Vital Signs/I&O 11/05/18 11/05/18 05:26 05:56 Temp 35.8 35.7 Pulse 107 151 Resp 18 26 B/P (MAP) 75/60 (65) 75/60 Pulse Ox 93 97 O2 Delivery Room Air Room Air (SHARIF DELGADILLO DO) Vital Signs/I&O Capillary Refill : (RICKI JOSUE) Progress Note : Time: 05:40 Progress Note Septic workup. He is hypotensive this time if he does not respond to IV fluids and he would be septic shock. We have called for a bed frame in the unit. Since he has a stated allergy of throat swelling off with penicillin use cefepime, Flagyl and vancomycin. Fentanyl for pain. 2500 cc would be approximately 30 mL/kg of IV fluids. (RICKI JOSUE) Progress Note : Progress Note 0600--ASSUMED CARE FROM DR. JOSUE, WHO WILL BE PLACING A CENTRAL LINE IN PT, PT IS STILL HYPOTENSIVE. PT IS AWAKE, ALERT, ORIENTED, IN NO ACUTE DISTRESS. FOCUSED EXAM DONE AT THIS TIME BP UP WITH FLUIDS AND LEVOPHED, HEART RATE DOWN TO LOW 120'S, AND NOW APPEARS THAT PT IS IN ATRIAL FIBRILLATION--LOVENOX ORDERED (SHARIF DELGADILLO DO) ECG Initial ECG Impression Date: Nov 05, 2018 Initial ECG Impression Time: 07:16 Initial ECG Rate: 148 Initial ECG Rhythm: A Fib/Flutter (WITH RVR) (SHARIF DELGADILLO DO) Diagnostic Imaging Diagonstic Imaging: Xray Plain Films/CT/US/NM/MRI: chest (1v) Comments [facility] [employer] [facility] [place], [place] NAME: MILTON DENG [facility] REC#: [id number] PT STATUS: REG ER : 1945 PHYSICIAN: RICKI JOSUE MD ADMIT DATE: 11/05/18/ER Draft Date of Exam:11/05/18 CHEST 1 VIEW, AP/PA ONLY INDICATION: Chest pain. COMPARISON: 10/24/2016. FINDINGS: Right basilar heterogeneous consolidations has developed. No pleural effusion or pneumothorax. Normal heart size. Tortuous aorta is unchanged. IMPRESSION: Right lower lobe patchy consolidations are likely due to pneumonia or aspiration. Dictated on workstation # [id number] Dict: 11/05/1817 Trans: 11/05/18 0628 GURPREET [id number] Interpreted by: COLE SUN MD Electronically signed by: Reviewed: Reviewed by Me Diagonstic Imaging: Xray Plain Films/CT/US/NM/MRI: chest (1v) Reviewed: Reviewed by Me (RICKI JOSUE) Plain Films/CT/US/NM/MRI: chest (1v) Comments CXR-RIGHT IV CENTRAL LINE IN GOOD POSITION, NO PNEUMOTHORAX, PER RADIOLOGIST REPORT AT 0715 Reviewed: Reviewed by Me (SHARIF DELGADILLO DO) Transfer of Care Transfer of Care Time: 06:49 Care transferred to: Dr. Delgadillo (RICKI JOSUE) Critical Care Note Critical Care Progress PT HAD CRITICAL CARE FROM TIME OF ARRIVAL, UNTIL TIME OF ADMIT TO FLOOR--WAS STARTED PRIOR TO MY ARRIVAL, UNDER DR. JOSUE'S CARE. (SHARIF DELGADILLO DO) Departure Communication (Admissions) 0616--SPOKE WITH DR. HADLEY, PULMONOLOGY/CAP PARTS CUTTER, AND INFORMED HIM OF PATIENT AND NEED FOR CONSULT 06--SPOKE WITH DR. RAMSEY, HOSPITALIST FOR DR. MORILLO, ACCEPTS PT FOR ADMIT. (SHARIF DELGADILLO DO) Impression Primary Impression: Septic shock Additional Impressions: Cellulitis of back RLL pneumonia Acute renal failure Diabetes mellitus Leukocytosis REPORTED HX OF LYMPHOMA AND MYELOMA History of alcoholism HX OF POLYSUBSTANCE ABUSE EXTREME NON-COMPLIANCE Atrial fibrillation with rapid ventricular response New onset atrial fibrillation Disposition: ADMITTED INPATIENT Condition: Critical Admissions Decision to Admit Reason: Admit from ER (General) Decision to Admit/Date: Nov 05, 2018 Time/Decision to Admit Time: 06:30 (SHARIF DELGADILLO DO) Departure-Patient Inst. Referrals: GUILLERMINA MORILLO DO (PCP/Family) Primary Care Physician RICKI JOSUE Nov 05, 2018 05:37 SHARIF DELGADILLO DO Nov 05, 2018 07:06
[2018-11-05 05:41] LABS: BASOPHILS # (AUTO) 0.1 10^3/uL (0.0-0.1); BASOPHILS % (AUTO) 0 % (0-10); EOSINOPHILS % (AUTO) 0 % (0-10); HEMATOCRIT 44 % (40-54); HEMOGLOBIN 15.1 G/DL (13.3-17.7); LYMPHOCYTES # (AUTO) 35.5 X 10^3 (1.0-4.0); LYMPHOCYTES % (AUTO) 72 % (12-44); MEAN CORPUSCULAR HEMOGLOBIN 32 PG (25-34); MEAN CORPUSCULAR HGB CONC 34 G/DL (32-36); MEAN CORPUSCULAR VOLUME 94 FL (80-99); MEAN PLATELET VOLUME 11.1 FL (7.4-10.4); MONOCYTES # (AUTO) 0.5 X 10^3 (0.0-1.0); MONOCYTES % (AUTO) 1 % (0-12); NEUTROPHILS % (AUTO) 27 % (42-75); PLATELET COUNT 256 10^3/uL (130-400); RED CELL DISTRIBUTION WIDTH 13.9 % (10.0-14.5)
[2018-11-05 05:44] LABS: WHITE BLOOD COUNT 49.1 10^3/uL (4.3-11.0)
[2018-11-05 05:54] LABS: INR 1.2 (0.8-1.4); PROTHROMBIN TIME PATIENT 15.2 SEC (12.2-14.7)
[2018-11-05 06:00] LABS: ALBUMIN 2.8 GM/DL (3.2-4.5); BILIRUBIN,TOTAL 1.5 MG/DL (0.1-1.0); CALCIUM 9.1 MG/DL (8.5-10.1); CREATININE SERUM 2.8 MG/DL (0.60-1.30); TOTAL PROTEIN 5.6 GM/DL (6.4-8.2)
[2018-11-05 06:12] LABS: ABG BASE EXCESS -8.2 MMOL/L (-2.5-2.5); ABG OXYGEN SATURATION 98 % (94-100); ABG PCO2 27 MMHG (35-45); ABG PH 7.38 (7.37-7.43)
[2018-11-05 06:18] LABS: AMYLASE 16 U/L (25-125); LIPASE 4 U/L (8-78); MAGNESIUM 2.3 MG/DL (1.6-2.4)
[2018-11-05 06:19] LABS: ABG PO2 88 MMHG (79-93); ALLENS TEST POSITIVE; INSPIRED O2 N; PATIENT TEMP 35.8; VENTILATOR NO
--- NOTE | 2018-11-05 06:29 | Diagnostic Imaging Report ---
INDICATION: Chest pain. COMPARISON: 10/24/2016. FINDINGS: Right basilar heterogeneous consolidations has developed. No pleural effusion or pneumothorax. Normal heart size. Tortuous aorta is unchanged. IMPRESSION: Right lower lobe patchy consolidations are likely due to pneumonia or aspiration. Dictated by: Dictated on workstation # [id number]
[2018-11-05] MEDS ORDERED: NS IV 1000 ML 1,000 ML IV ONE ×2 (06:44→11:20)
[2018-11-05] MEDS ORDERED: NOREPINEPHRINE 4 MG in NS (IVPB) 250 ML IV SCH (06:45)
--- NOTE | 2018-11-05 06:57 | Diagnostic Imaging Report ---
INDICATION: Central line placement. COMPARISON: 11/05/2018. FINDINGS: Right IJ central venous catheter has tip terminating in the upper SVC. The visualized lungs are clear. No pleural effusion or pneumothorax. Stable borderline enlargement of the cardiac silhouette. Small hiatal hernia is likely present and unchanged. IMPRESSION: 1. Well-positioned right IJ central venous catheter. 2. No pneumothorax. Dictated by: Dictated on workstation # [id number]
--- NOTE | 2018-11-05 07:02 | NUR ---
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
[2018-11-05 07:15] LABS: BLAST CELLS 1 %; LYMPHOCYTES % (MANUAL) 65 %; MONOCYTES % (MANUAL) 2 %; NEUTROPHILS % (MANUAL) 32 %
[2018-11-05] MEDS ORDERED: ENOXAPARIN 80 MG/0.8 ML (LOVENOX) SYR SC ONE (07:30)
--- NOTE | 2018-11-05 07:33 | NUR ---
CALLED TO GIVE REPORT NURSE DID NOT ANSWER.
[2018-11-05] MEDS ORDERED: LORazepam INJ 2 MG/ML (ATIVAN) VIAL ONE (08:36)
--- NOTE | 2018-11-05 08:44 | NUR ---
DR FAGAN HERE TO SEE PATINT EARNEST NOGUERA SUP HERE TO TANSPORT PATIENT TO ICU. DR FAGAN CONCERN THAT PATIENT ACTING SLIGHTLY HAVING AGITATION DR FAGAN CONCERN THAT EARNEST WAS GOING BY HERSELF ORDERED IV ATIVAN 2MG TO BE GIVEN.
[2018-11-05] MEDS ORDERED: LORazepam INJ 2 MG/ML (ATIVAN) VIAL IVP ONE (08:45)
[2018-11-05] MEDS ORDERED: NS (IVPB) 50 ML ONE (08:56)
[2018-11-05] MEDS ORDERED: NS IV 1000 ML 1,000 ML IV PRN ×2 (09:16→12:15)
[2018-11-05] MEDS ORDERED: 1/2 NS IV SOLUTION 1,000 ML IV PRN (09:23)
[2018-11-05] MEDS ORDERED: D5 1/2 NS 1000 ML IV SOLUTION 1,000 ML IV PRN (09:30)
[2018-11-05] MEDS ORDERED: LORazepam INJ 2 MG/ML (ATIVAN) VIAL IM/IV PRN (09:30)
[2018-11-05] MEDS ORDERED: ONDANSETRON 4 MG (ZOFRAN) ORAL DISSOLVE TAB SL PRN (09:30)
[2018-11-05] MEDS ORDERED: SENNA W/DOCUSATE (SENOKOT S) TABLET PO PRN (09:30)
[2018-11-05] MEDS ORDERED: ANTACID SUSP 30 ML UDC (MYLANTA) PO PRN (09:30)
[2018-11-05] MEDS ORDERED: ONDANSETRON 4 MG/2 ML (SDV) Z0FRAN IV PRN (09:30)
[2018-11-05] MEDS ORDERED: LORazepam 1 MG (ATIVAN) TAB PO PRN (09:30)
[2018-11-05] MEDS ORDERED: NS IV 1000 ML 2,381.37 ML IV ONE (09:30)
[2018-11-05] MEDS ORDERED: VANCOMYCIN 500 MG/NS 100 ML IV ONE ×2 (09:45)
[2018-11-05] MEDS: RT-ALBUTEROL/IPRATROPIUM 3 ML (DUONEB) VIAL INH SCH ×5 (10:30→23:41)
[2018-11-05 10:55] LABS: METHAMPHETAMINE SCREEN URINE S POSITIVE (NEGATIVE); OPIATE SCREEN URINE POSITIVE (NEGATIVE)
[2018-11-05] MEDS: THIAMINE INJECTION 100 MG, FOLIC ACID INJECTION 1 MG, MAGNESIUM SULFATE 2 GM, VITAMIN M... IV SCH ×5 (10:55)
[2018-11-05 10:56] LABS: AMPHETAMINE SCREEN, URINE POSITIVE (NEGATIVE); BARBITURATE SCREEN URINE NEGATIVE (NEGATIVE); BENZODIAZEPINES SCREEN URINE NEGATIVE (NEGATIVE); CANNABINOID SCREEN, URINE NEGATIVE (NEGATIVE); COCAINE SCREEN URINE NEGATIVE (NEGATIVE); METHADONE STAT NEGATIVE (NEGATIVE); OXYCODONE STAT NEGATIVE (NEGATIVE); PROPOXYPHENE STAT NEGATIVE (NEGATIVE); TRICYCLIC ANTIDEPRESSANTS SCRE NEGATIVE (NEGATIVE)
--- NOTE | 2018-11-05 10:59 | Consultation-Cardiology ---
HPI-Cardiology Cardiology Consultation: Date of Consultation 11/05/18 Date of Admission Attending Physician Vickie Griffiths MD Admitting Physician García Whalen DO Consulting Physician Roman MEDELLIN MD HPI: Time Seen by a Provider: 10:59 Chief Complaint: shock this is a 73-year-old gentleman who has history of diabetes and possible aneurysm. He was not communicating when I went to his room therefore the history is taking from the records, speaking to her granddaughter as well as the nurse. The patient has history of active smoking and significant alcohol use. He has a wound on the back which according to the records is getting worse. He denied any chest pain or shortness of breath but was noted to have significantly low blood pressure and tachycardia. He was admitted for septic shock and on aggressive IV fluid resuscitation. He follows with Dr. Whalen but does not follow with any cardiology or cardiothoracic surgeon for his possible aneurysm. No details are available. Review of Systems-Cardiology Review of Systems Constitutional: malaise, tiredness Eyes: no symptoms reported Ears/Nose/Throat: no symptoms reported Respiratory: no symptoms reported Cardiovascular: no symptoms reported Gastrointestinal: no symptoms reported Genitourinary: No no symptoms reported, No As described under HPI, No burning, No dysuria, No discharge, No frequency, No flank pain, No hematuria, No incontinence, No pain, No urgency, No other, No urine frequency changes, No urine coloration changes Musculoskeletal: No no symptoms reported, No As describe under HPI, No back pain, No gout, No joint pain, No joint swelling, No muscle pain, No muscle stif fness, No neck pain, No other Skin: rash on exposed areas Psychiatric/Neurological: No no symptoms reported, No As described under HPI, No anxiety, No depression, No emotional problems, No headache, No numbness, No pre-existing deficit, No seizure, No tingling, No tremors, No weakness, No other, No focal weakness, No syncope BZC-Owcqhp-Linalr Hx Patient Social History Alcohol Use: Regular Use Recreational Drug Use: Yes Drug of Choice: THC, "THC OIL", OPIUM Smoking Status: Current Everyday Smoker (3 PPD) Type Used: Cigarettes (2 packs per day) 2nd Hand Smoke Exposure: Yes Recent Foreign Travel: No Recent Infectious Disease Expo: No Immunizations Up To Date Tetanus Booster (TDap): Unknown Date of Pneumonia Vaccine: Nov 22, 2009 Date of Influenza Vaccine: Oct 24, 2015 Past Medical History PMH As described under Assessment. Allergies and Home Medications Allergies Coded Allergies: Penicillins (Unverified Allergy, Mild, 03/28/09) Home Medications Albuterol 17 Gm Inh, 2 SPRAY IH Q4H Prescribed by: FITO FORBES on 10/19/12 1601 Albuterol Sulfate 2.5 Mg/3 Ml Vial.neb, 2.5 MG IH Q4H PRN for SHORTNESS OF BREATH Prescribed by: ANDREWS STEVENS on 04/06/16 1248 Doxycycline Hyclate 100 Mg Capsule, 100 MG PO BID Prescribed by: ANDREWS STEVENS on 04/06/16 1248 Gabapentin 400 Mg Capsule, 400 MG PO QID, (Reported) Hydrocodone/Acetaminophen 1 Each Tablet, 1 MG PO Q6H PRN for PAIN, (Reported) Lisinopril 20 Mg Tablet, 20 MG PO DAILY, (Reported) Meclizine HCl 25 Mg Tablet, 25-50 MG PO Q6H Prescribed by: SHARIF BROTHERS on 10/26/168 Ondansetron HCl 4 Mg Tab, 4 MG PO Q4H Prescribed by: SHARIF BROTHERS on 01/23/18 0044 Prednisone 20 Mg Tab, 40 MG PO DAILY Prescribed by: ANDREWS STEVENS on 04/06/16 1248 Scopolamine 1 Each Patch.td72, 1 EACH TD Q72 HOURS Prescribed by: SHARIF BROTHERS on 10/26/16 2328 Tiotropium [place] 1 Inh Aerp, 1 INH IH DAILY, (Reported) Patient Home Medication List Home Medication List Reviewed: Yes Physical Exam-Cardiology Physical Exam Vital Signs/I&O 11/05/18 11/05/18 11/05/18 11/05/18 05:26 05:56 07:48 09:00 Temp 35.8 35.7 Pulse 107 151 141 151 Resp 18 26 18 B/P (MAP) 75/60 (65) 75/60 112/82 Pulse Ox 93 97 93 O2 Delivery Room Air Room Air Nasal Cannula O2 Flow Rate 2.00 11/05/18 11/05/18 11/05/18 11/05/18 09:15 09:23 09:59 10:00 Temp 35.8 Pulse 163 107 93 94 Resp 18 15 B/P (MAP) 131/119 (123) 104/77 (86) Pulse Ox 97 93 O2 Delivery Nasal Cannula Nasal Cannula O2 Flow Rate 3.00 3.00 FiO2 21 11/05/18 11/05/18 11/05/18 11/05/18 10:30 11:00 12:00 12:00 Temp 37.0 Pulse 99 77 Resp 14 15 B/P (MAP) 76/51 (59) 86/52 (63) Pulse Ox 88 100 100 O2 Delivery Nasal Cannula Nasal Cannula Nasal Cannula O2 Flow Rate 3.00 3.00 3.00 11/05/18 11/05/18 13:00 13:00 Pulse 70 70 Resp 14 B/P (MAP) 88/60 (69) Pulse Ox 100 O2 Delivery Nasal Cannula O2 Flow Rate 3.00 Capillary Refill : Less Than 3 Seconds Constitutional: appears stated age; No apparent distress; well-developed, well- nourished, other (Very sleepy. Noncommunicative) HEENT: PERRL; No discharge; hearing is well preserved, oral hygience is good; No ulceration, No xanthelasmas are seen Neck: No carotid bruit; carotid pulses are 2 + bilaterally Respiratory: chest is bilaterally symmetric, lungs clear to auscultation Cardiovascular: regular rate-rhythm, tachycardia, S1 and S2 Gastrointestinal: soft, round, audible bowel sounds; No spleenomegaly Rectal: deferred Extremities: normal range of motion, non-tender, normal inspection; No clubbing, No cyanosis; no lower extremity edema bilateral; No significant edema Neurologic/Psychiatric: other (Not communicating) Skin: cool, other (MOST OF BACK WITH ERYTHEMA AND INDURATION, WITH WOUND TO LO WER BACK. NO DRAINAGE AT THIS TIME. ) Data Review Labs Laboratory Tests 11/05/18 05:30: White Blood Count 49.1*H, Red Blood Count 4.70, Hemoglobin 15.1, Hematocrit 44, Mean Corpuscular Volume 94, Mean Corpuscular Hemoglobin 32, Mean Corpuscular Hemoglobin Concent 34, Red Cell Distribution Width 13.9, Platelet Count 256, Mean Platelet Volume 11.1H, Neutrophils (%) (Auto) 27L, Lymphocytes (%) (Auto) 72H, Monocytes (%) (Auto) 1, Eosinophils (%) (Auto) 0, Basophils (%) (Auto) 0, Neutrophils # (Auto) 13.0H, Lymphocytes # (Auto) 35.5H, Monocytes # (Auto) 0.5, Eosinophils # (Auto) 0.0, Basophils # (Auto) 0.1, Neutrophils % (Manual) 32, Lymphocytes % (Manual) 65, Monocytes % (Manual) 2, Blast Cells 1, Prothrombin Time 15.2H, INR Comment 1.2, Activated Partial Thromboplast Time 30, Sodium Level 133L, Potassium Level 5.0, Chloride Level 99, Carbon Dioxide Level 19L, Anion Gap 15H, Blood Urea Nitrogen 83H, Creatinine 2.80H, Estimat Glomerular Filtration Rate 22, BUN/Creatinine Ratio 30, Glucose Level 110H, Lactic Acid Level 3.34*H, Calcium Level 9.1, Corrected Calcium 10.1, Magnesium Level 2.3, Total Bilirubin 1.5H, Aspartate Amino Transf (AST/SGOT) 35H, Alanine Aminot ransferase (ALT/SGPT) 23, Alkaline Phosphatase 192H, Total Protein 5.6L, Albumin 2.8L, Amylase Level 16L, Lipase 4L, Serum Alcohol < 10 11/05/18 06:00: Blood Gas Puncture Site RIGHT RADIAL, Blood Gas Patient Temperature 35.8, Arterial Blood pH 7.38, Arterial Blood Partial Pressure CO2 27L, Arterial Blood Partial Pressure O2 88, Arterial Blood HCO3 16*L, Arterial Blood Total CO2 17.0L , Arterial Blood Oxygen Saturation 98, Arterial Blood Base Excess -8.2L, Federico Test POSITIVE, Blood Gas Ventilator Setting NO, Blood Gas Inspired Oxygen N 11/05/18 09:27: Urine Opiates Screen POSITIVEH, Urine Oxycodone Screen NEGATIVE, Urine Methadone Screen NEGATIVE, Urine Propoxyphene Screen NEGATIVE, Urine Barbiturates Screen NEGATIVE, Ur Tricyclic Antidepressants Screen NEGATIVE, Urine Phencyclidine Screen NEGATIVE, Urine Amphetamines Screen POSITIVEH, Urine Methamphetamines Screen POSITIVEH, Urine Benzodiazepines Screen NEGATIVE, Urine Cocaine Screen NEGATIVE, Urine Cannabinoids Screen NEGATIVE 11/05/18 11:16: Glucometer 119H Microbiology 11/05/18 Influenza Types A,B Antigen (CHRIS) - Final, Complete ECG Impression ECG Initial ECG Rhythm: S.Tach A/P-Cardiology Assessment/Admission Diagnosis septic shock, Diabetes, Source of infection unclear could be cellulitis, Elevated LFTs, Metabolic acidosis, active smoker, heavy alcohol use, Drug abuse. Plan broad-spectrum antibiotics, IV fluid resuscitation, levophed. echocardiogram to evaluate cardiac function. Troponins, BNP. Aggressive control of diabetes. Elevated LFTs likely due to septic shock. Metabolic acidosis, lactic acidosis likely due to severe sepsis. Defer to the ICU team. active smoker, heavy alcohol use, Drug abuse. Critically ill patient. Thank you for your consultation. Please call me if you have any questions. Vaughn Medellin MD, FACP, FACC, FSCAI, FHRS, CCDS Interventional Cardiology Cardiac Electrophysiology Vascular Medicine and Endovascular Interventions Roman MEDELLIN MD Nov 05, 2018 10:59
--- NOTE | 2018-11-05 11:06 | History & Physical-Hospitalist ---
History of Present Illness HPI/Chief Complaint This is a 73-year-old white male who is brought to the emergency room this morning. He was found to be in septic shock presumably secondary to a severe cellulitis and small ulceration on his back. The patient is unable to provide me any additional history. His lactic acid is markedly elevated and he is on pressor support. He is been given Ativan and Precedex for his agitation and aggression. Urine is positive for methamphetamine and opioids. Source: RN/MD, EMS notes reviewed Exam Limitations: clinical condition Date Seen 11/05/18 Time Seen by a Provider: 10:00 Attending Physician Vickie Griffiths MD PCP García Morillo DO Referring Physician Date of Admission Nov 05, 2018 at 06:30 Home Medications & Allergies Home Medications Reviewed patient Home Medication Reconciliation performed by pharmacy medication reconciliations biotechnician and/or nursing. Patients Allergies have been reviewed. Allergies Allergies Coded Allergies Penicillins (Unverified Allergy, Mild, 03/28/09) Past Kkbytvy-Widqdw-Smndnr Hx Past Med/Social Hx: Reviewed Nursing Past Med/Soc Hx, Reviewed and Corrections made Patient Social History Marrital Status: single Employed/Student: unemployed Alcohol Use: Regular Use Number of Drinks Today: DD Alcohol Beverage of Choice: Rum, Whiskey Recreational Drug Use: Yes Drug of Choice: THC, "THC OIL", OPIUM Smoking Status: Current Everyday Smoker (3 PPD) Type Used: Cigarettes (2 packs per day) 2nd Hand Smoke Exposure: Yes Recent Foreign Travel: No Contact w/other who traveled: No Recent Hopitalizations: No Recent Infectious Disease Expo: No Immunizations Up To Date Tetanus Booster (TDap): Unknown Date of Pneumonia Vaccine: Nov 22, 2009 Date of Influenza Vaccine: Oct 24, 2015 Seasonal Allergies Seasonal Allergies: Yes Past Medical History Surgeries: Bladder Surgery, Gallbladder Cardiac: Aneurysm, High Cholesterol, Hypertension Neurological: Neuropathy Reproductive: Yes (E.D.) Musculoskeletal: Degenerate Disk Disease, Chronic Back Pain, Fractures Endocrine: Diabetes, Non-Insulin dep HEENT: Macular Degeneration Cancer: Leukemia, Lymphoma Did You Recieve Any Treatments: No Psychosocial: Anxiety, PTSD History of Blood Disorders: No Family History No Pertinent Family Hx Review of Systems Constitutional: see HPI EENTM: see HPI Respiratory: no symptoms reported Cardiovascular: no symptoms reported Gastrointestinal: no symptoms reported Genitourinary: no symptoms reported Musculoskeletal: back pain Skin: no symptoms reported Psychiatric/Neurological: See HPI Physical Exam Physical Exam Vital Signs Vital Signs - First Documented 11/05/18 11/05/18 11/05/18 05:26 07:48 09:23 Temp 35.8 Pulse 107 Resp 18 B/P (MAP) 75/60 (65) Pulse Ox 93 O2 Delivery Room Air O2 Flow Rate 2.00 FiO2 21 Capillary Refill : Less Than 3 Seconds Height, Weight, BMI Height: 5'9.00" Weight: 175lbs. oz. 79.400345gq; 149.92 BMI Method:Stated General Appearance: Chronically ill, Other (uncapped and agitated) HEENT: Other (edentulous) Neck: Full Range of Motion, Normal Inspection, Supple Respiratory: Lungs Clear, Normal Breath Sounds, No Accessory Muscle Use, No Respiratory Distress Cardiovascular: Irregularly Irregular, Tachycardia Gastrointestinal: Normal Bowel Sounds, Non Tender, Soft Rectal: Deferred Back: Other (diffuse edema and erythema from the sacrum up with a small area of either pressure ulceration or bite) Extremity: Normal Range of Motion, Non Tender, No Calf Tenderness Neurologic/Psychiatric: Disoriented Skin: Normal Color, Warm/Dry Results Results/Procedures Labs Laboratory Tests 11/05/18 05:30 Patient resulted labs reviewed. Assessment/Plan Admission Diagnosis Septic shock A. fib with RVR Multi drug abuse Alcoholism Tobaccoism Poor social situation Coronary artery disease Dehydration Acute renal insufficiency Metabolic acidosis secondary to sepsis Prognosis is guarded Patient has received 3 L of IV fluids for fluid resuscitation and vancomycin cefepime and Flagyl for infection. Admission Status: Inpatient Order (span 2 midnights) Reason for Inpatient Admission: Multiple comorbidities with septic shock and difficult social situation Critical Care Critically Ill Patient CC Start/Stop Time : Critical Care Start Date: Nov 05, 2018 Critical Care Start Time: 10:00 Stop date: Nov 05, 2018 Stop Time: 11:00 Copy Copies To 1: GARCÍA MORILLO KATHLEEN M MD Nov 05, 2018 11:06
[2018-11-05] MEDS: inSUlin ASPART (NovoLOG) 1 UNIT/0.01 ML (CHARGE PER UNIT) SC SCH ×3 (11:44→23:13)
[2018-11-05] MEDS ORDERED: RT-ALBUTEROL/IPRATROPIUM 3 ML (DUONEB) VIAL INH PRN (12:00)
[2018-11-05] MEDS: NOREPINEPHRINE 4 MG/NS 250 ML DRIP IV SCH ×4 (13:11→21:08)
[2018-11-05] MEDS: NS IV 1000 ML 1,000 ML IV SCH ×2 (13:11→20:06)
[2018-11-05] MEDS: DEXMEDETOMIDINE INJECTION 1,000 MCG in NS (IVPB) 240 ML IV SCH (13:12)
[2018-11-05] MEDS: HYDROCORTISONE 100 MG/2 ML (Solu-CORTEF) VIAL IV SCH ×2 (13:31→18:56)
[2018-11-05 15:32] LABS: COLOR,URINE YELLOW; GLUCOSE, URINE (UA) NEGATIVE (NEGATIVE); KETONES,URINE 1+ (NEGATIVE); LEUKOCYTE ESTERASE ,URINE 1+ (NEGATIVE); NITRITE,URINE NEGATIVE (NEGATIVE); PH,URINE 5 (5-9); PROTEIN,URINE 2+ (NEGATIVE); UROBILINOGEN,URINE 4 MG/DL (NORMAL)
[2018-11-05 15:38] LABS: CLARITY,URINE SL CLOUDY
[2018-11-05 15:39] LABS: AMORPHOUS SEDIMENT,UR FEW AMOR URATES /LPF; BACTERIA,URINE MODERATE /HPF; BILIRUBIN,URINE 1+ (NEGATIVE); WBC,URINE 0-2 /HPF
[2018-11-05] MEDS ORDERED: CEFEPIME INJECTION 1,000 MG in WATER (STERILE) FOR INJECTION 10 ML IV SCH (18:00)
[2018-11-05] MEDS: CEFEPIME 1,000 MG/SWFI 10 ML IV PUSH IV SCH ×2 (18:56)
[2018-11-05] MEDS: metroNIDAZOLE 500MG/100ML IVPB 100 ML IV SCH (21:08)
--- NOTE | 2018-11-05 22:28 | NUR ---
This RN called EICU to notify of repeat LA critical at 2.29 and not trending down, also reported decreased urine output.
--- NOTE | 2018-11-05 23:38 | NUR ---
This RN called EICU to update on urine output. Total of 130ml since 1899.
[2018-11-06] VITALS (23 sets, daily range): BP systolic 97–147; BP diastolic 64–94
[2018-11-06] MEDS: NS IV 1000 ML 1,000 ML IV SCH ×4 (03:22→23:17)
[2018-11-06 03:26] LABS: BASOPHILS # (AUTO) 0.1 10^3/uL (0.0-0.1); BASOPHILS % (AUTO) 0 % (0-10); EOSINOPHILS # (AUTO) 0.1 10^3/uL (0.0-0.3); EOSINOPHILS % (AUTO) 0 % (0-10); HEMATOCRIT 37 % (40-54); HEMOGLOBIN 12.5 G/DL (13.3-17.7); LYMPHOCYTES % (AUTO) 76 % (12-44); MEAN CORPUSCULAR HEMOGLOBIN 32 PG (25-34); MEAN CORPUSCULAR HGB CONC 34 G/DL (32-36); MEAN CORPUSCULAR VOLUME 94 FL (80-99); MEAN PLATELET VOLUME 11.3 FL (7.4-10.4); MONOCYTES % (AUTO) 1 % (0-12); NEUTROPHILS # (AUTO) 17.9 X 10^3 (1.8-7.8); NEUTROPHILS % (AUTO) 23 % (42-75); PLATELET COUNT 257 10^3/uL (130-400); RED CELL DISTRIBUTION WIDTH 13.7 % (10.0-14.5)
[2018-11-06] MEDS: HYDROCORTISONE 100 MG/2 ML (Solu-CORTEF) VIAL IV SCH ×3 (03:26→20:15)
[2018-11-06 03:44] LABS: BILIRUBIN,TOTAL 0.8 MG/DL (0.1-1.0); CALCIUM 7.5 MG/DL (8.5-10.1); CREATININE SERUM 2.72 MG/DL (0.60-1.30); MAGNESIUM 2.6 MG/DL (1.6-2.4); PHOSPHORUS 6.4 MG/DL (2.3-4.7); POTASSIUM 5.1 MMOL/L (3.6-5.0); TOTAL PROTEIN 4.3 GM/DL (6.4-8.2)
[2018-11-06] MEDS: RT-ALBUTEROL/IPRATROPIUM 3 ML (DUONEB) VIAL INH SCH ×6 (04:08→22:10)
[2018-11-06] MEDS: NOREPINEPHRINE 4 MG/NS 250 ML DRIP IV SCH ×6 (04:35→16:33)
[2018-11-06] MEDS: MAGNESIUM 1 GM/100 ML IVPB 100 ML IV SCH (05:22)
[2018-11-06] MEDS: KCL 20 MEQ TAB (K-DUR) PO SCH (05:22)
[2018-11-06] MEDS: POTASSIUM CL 10MEQ/50ML IVPB 50 ML IV SCH (05:22)
[2018-11-06] MEDS: inSUlin ASPART (NovoLOG) 1 UNIT/0.01 ML (CHARGE PER UNIT) SC SCH ×4 (05:22→23:23)
[2018-11-06] MEDS: CEFEPIME 1,000 MG/SWFI 10 ML IV PUSH IV SCH ×4 (05:51→18:09)
[2018-11-06 06:30] LABS: LYMPHOCYTES % (MANUAL) 62 %; MONOCYTES % (MANUAL) 3 %; NEUTROPHILS % (MANUAL) 35 %
[2018-11-06] MEDS ORDERED: ENOXAPARIN 80 MG/0.8 ML (LOVENOX) SYR SC SCH (07:30)
[2018-11-06] MEDS: ENOXAPARIN 80 MG/0.8 ML (LOVENOX) SYR SC SCH (08:18)
[2018-11-06] MEDS: metroNIDAZOLE 500MG/100ML IVPB 100 ML IV SCH ×2 (08:18→20:15)
--- NOTE | 2018-11-06 08:18 | Pulmonary Consultation ---
History of Present Illness History of Present Illness Date of Consultation 11/06/18 08:18 Date of Admission Allergies and Home Medications Allergies Coded Allergies: Penicillins (Unverified Allergy, Mild, 03/28/09) Home Medications Albuterol 17 Gm Inh, 2 SPRAY IH Q4H Prescribed by: FITO FORBES on 10/19/12 1601 Albuterol Sulfate 2.5 Mg/3 Ml Vial.neb, 2.5 MG IH Q4H PRN for SHORTNESS OF BREATH Prescribed by: ANDREWS STEVENS on 04/06/16 1248 Doxycycline Hyclate 100 Mg Capsule, 100 MG PO BID Prescribed by: ANDREWS STEVENS on 04/06/16 1248 Gabapentin 400 Mg Capsule, 400 MG PO QID, (Reported) Hydrocodone/Acetaminophen 1 Each Tablet, 1 MG PO Q6H PRN for PAIN, (Reported) Lisinopril 20 Mg Tablet, 20 MG PO DAILY, (Reported) Meclizine HCl 25 Mg Tablet, 25-50 MG PO Q6H Prescribed by: SHARIF BROTHERS on 10/26/16 2328 Ondansetron HCl 4 Mg Tab, 4 MG PO Q4H Prescribed by: SHARIF BROTHERS on 01/23/18 0044 Prednisone 20 Mg Tab, 40 MG PO DAILY Prescribed by: ANDREWS STEVENS on 04/06/16 124 Scopolamine 1 Each Patch.td72, 1 EACH TD Q72 HOURS Prescribed by: SHARIF BROTHERS on 10/26/16 232 Tiotropium [place] 1 Inh Aerp, 1 INH IH DAILY, (Reported) Past [place]au[place]-Mrgwux-Rshrqe Hx Past Med/Social Hx: Reviewed Nursing Past Med/Soc Hx, Reviewed and Corrections made Patient Social History Alcohol Use: Regular Use Number of Drinks Today: DD Alcohol Beverage of Choice: Rum, Whiskey Recreational Drug Use: Yes Drug of Choice: THC, "THC OIL", OPIUM Smoking Status: Current Everyday Smoker (3 PPD) Type Used: Cigarettes (2 packs per day) 2nd Hand Smoke Exposure: Yes Recent Foreign Travel: No Contact w/Someone Who Travel: No Recent Infectious Disease Expo: No Recent Hopitalizations: No Physical Abuse: No Sexual Abuse: No Mistreated: No Fear: No Immunizations Up To Date Tetanus Booster (TDap): Unknown Date of Pneumonia Vaccine: Nov 22, 2009 Date of Influenza Vaccine: Oct 24, 2015 Seasonal Allergies Seasonal Allergies: Yes Past Medical History Surgeries: Yes (TEMPORAL ARTERY BIOPSY) Bladder Surgery, Gallbladder Respiratory: Yes Chronic Bronchitis, COPD Cardiac: Yes Aneurysm, High Cholesterol, Hypertension Neurological: Yes (PERIPHERAL NEUROPATHY--LEGS/ ARMS) Neuropathy Reproductive Disorders: Yes (E.D.) Genitourinary: No Gastrointestinal: No Musculoskeletal: Yes (CHRONIC NECK PAIN , BILATERAL CARPAL TUNNEL, spinal stenosis; RIB FRACTURES) Degenerate Disk Disease, Chronic Back Pain, Fractures Endocrine: Yes Diabetes, Non-Insulin dep HEENT: Yes (retinopathy, optic neuritis, recurrent diplopia; POOR DENTITION) Macular Degeneration Cancer: Yes (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 0.0oz. 85.398799sr; 23.22 BMI Method:Stated Exam Exam Vital Signs Date Time Temp Pulse Resp B/P (MAP) Pulse Ox O2 Delivery O2 Flow Rate FiO2 11/06/18 06:47 100 Nasal Cannula 1.00 11/06/18 06:00 77 14 111/74 (86) 100 Nasal Cannula 1.00 11/06/18 05:00 80 15 112/79 (90) 100 Nasal Cannula 1.00 11/06/18 04:35 100 Nasal Cannula 1.00 11/06/18 04:00 84 14 110/77 (88) 100 Nasal Cannula 1.00 11/06/18 03:30 36.7 Nasal Cannula 1.00 11/06/18 03:00 80 20 118/75 (89) 100 Nasal Cannula 1.00 11/06/18 02:00 88 14 102/71 (81) 100 Nasal Cannula 1.00 11/06/18 01:00 86 14 104/73 (83) 100 Nasal Cannula 1.00 11/06/18 01:00 89 11/06/18 00:15 100 Nasal Cannula 1.00 11/06/18 00:00 36.6 Nasal Cannula 1.00 11/06/18 00:00 86 14 97/64 (75) 100 Nasal Cannula 1.00 11/06/18 00:00 36.4 11/05/18 23:42 100 Nasal Cannula 1.00 11/05/18 23:00 85 14 110/72 (85) 100 Nasal Cannula 1.00 11/05/18 22:00 72 14 106/66 (79) 99 Nasal Cannula 1.00 11/05/18 21:00 80 14 121/79 (93) 100 Nasal Cannula 1.00 11/05/18 20:00 36.0 11/05/18 20:00 77 16 114/75 (88) 100 Nasal Cannula 1.00 11/05/18 20:00 100 Nasal Cannula 1.00 11/05/18 19:00 76 11/05/18 19:00 75 16 109/80 (90) 100 Nasal Cannula 1.00 11/05/18 18:48 100 Nasal Cannula 1.00 11/05/18 18:00 80 15 113/78 (90) 100 Nasal Cannula 3.00 11/05/18 17:00 76 17 123/84 (97) 100 Nasal Cannula 3.00 11/05/18 16:00 36.2 11/05/18 16:00 76 19 110/75 (87) 100 Nasal Cannula 3.00 11/05/18 16:00 99 Nasal Cannula 1.00 11/05/18 15:31 100 Nasal Cannula 2.00 11/05/18 15:00 80 15 115/75 (88) 100 Nasal Cannula 3.00 11/05/18 14:58 96 Nasal Cannula 3.00 11/05/18 14:00 74 15 110/76 (87) 100 Nasal Cannula 3.00 11/05/18 13:00 70 11/05/18 13:00 70 14 88/60 (69) 100 Nasal Cannula 3.00 11/05/18 12:00 37.0 11/05/18 12:00 98 Nasal Cannula 2.00 11/05/18 12:00 77 15 86/52 (63) 100 Nasal Cannula 3.00 11/05/18 11:00 99 14 76/51 (59) 100 Nasal Cannula 3.00 11/05/18 10:30 88 Nasal Cannula 3.00 11/05/18 10:00 94 15 104/77 (86) Nasal Cannula 3.00 11/05/18 09:59 93 11/05/18 09:23 35.8 107 93 21 11/05/18 09:15 163 18 131/119 (123) 97 Nasal Cannula 3.00 11/05/18 09:00 151 I & O 11/06/18 07:00 Intake Total 5779.2 ml Output Total 855 ml Balance 4924.2 ml Height & Weight Height: 5'9.00" Weight: 188lbs. 0.0oz. 85.686280ib; 23.22 BMI Method:Stated General Appearance: Anxious, Moderate Distress HEENT: PERRL/EOMI; No Moist Mucous Membranes Neck: Full Range of Motion, Normal Inspection, Non Tender, Supple Respiratory: Lungs Clear, Normal Breath Sounds, No Accessory Muscle Use, No Respiratory Distress Cardiovascular: Regular Rate, Rhythm, No Edema, Normal Peripheral Pulses Capillary Refill: Less Than 3 Seconds Peripheral Pulses: 2+ Radial Pulses (R), 2+ Radial Pulses (L) Extremity: Normal Capillary Refill, Normal Inspection, No Pedal Edema Neurologic/Psychiatric: Alert, Oriented x3 Skin: Normal Color, Warm/Dry Results Lab Laboratory Tests 11/05/18 05:30 11/06/18 03:20 AGUS HADLEY DO Nov 06, 2018 08:18
[2018-11-06] MEDS: VANCOMYCIN 1250 MG/NS 250 ML IVPB IV SCH ×2 (08:19)
[2018-11-06] MEDS ORDERED: SODIUM BICARB 8.4% 50 MEQ/50 ML VIAL ONE (08:21)
--- NOTE | 2018-11-06 08:24 | Pulmonary Progress Note ---
Subjective Time Seen by a Provider: 06:17 Subjective/Events-last exam Pt is sedated. Sepsis Event Evaluation Height, Weight, BMI Height: 5'9.00" Weight: 188lbs. 0.0oz. 85.535689hw; 23.22 BMI Method:Stated Focused Exam Lactate Level 11/05/18 18:40: Lactic Acid Level 2.20*H 11/05/18 21:52: Lactic Acid Level 2.29*H 11/06/18 00:02: Lactic Acid Level 2.42*H Time of Focused Exam: 07:00 Exam Exam Vital Signs Date Time Temp Pulse Resp B/P (MAP) Pulse Ox O2 Delivery O2 Flow Rate FiO2 11/06/18 06:47 100 Nasal Cannula 1.00 11/06/18 06:00 77 14 111/74 (86) 100 Nasal Cannula 1.00 11/06/18 05:00 80 15 112/79 (90) 100 Nasal Cannula 1.00 11/06/18 04:35 100 Nasal Cannula 1.00 11/06/18 04:00 84 14 110/77 (88) 100 Nasal Cannula 1.00 11/06/18 03:30 36.7 Nasal Cannula 1.00 11/06/18 03:00 80 20 118/75 (89) 100 Nasal Cannula 1.00 11/06/18 02:00 88 14 102/71 (81) 100 Nasal Cannula 1.00 11/06/18 01:00 86 14 104/73 (83) 100 Nasal Cannula 1.00 11/06/18 01:00 89 11/06/18 00:15 100 Nasal Cannula 1.00 11/06/18 00:00 36.6 Nasal Cannula 1.00 11/06/18 00:00 86 14 97/64 (75) 100 Nasal Cannula 1.00 11/06/18 00:00 36.4 11/05/18 23:42 100 Nasal Cannula 1.00 11/05/18 23:00 85 14 110/72 (85) 100 Nasal Cannula 1.00 11/05/18 22:00 72 14 106/66 (79) 99 Nasal Cannula 1.00 11/05/18 21:00 80 14 121/79 (93) 100 Nasal Cannula 1.00 11/05/18 20:00 36.0 11/05/18 20:00 77 16 114/75 (88) 100 Nasal Cannula 1.00 11/05/18 20:00 100 Nasal Cannula 1.00 11/05/18 19:00 76 11/05/18 19:00 75 16 109/80 (90) 100 Nasal Cannula 1.00 11/05/18 18:48 100 Nasal Cannula 1.00 11/05/18 18:00 80 15 113/78 (90) 100 Nasal Cannula 3.00 11/05/18 17:00 76 17 123/84 (97) 100 Nasal Cannula 3.00 11/05/18 16:00 36.2 11/05/18 16:00 76 19 110/75 (87) 100 Nasal Cannula 3.00 11/05/18 16:00 99 Nasal Cannula 1.00 11/05/18 15:31 100 Nasal Cannula 2.00 11/05/18 15:00 80 15 115/75 (88) 100 Nasal Cannula 3.00 11/05/18 14:58 96 Nasal Cannula 3.00 11/05/18 14:00 74 15 110/76 (87) 100 Nasal Cannula 3.00 11/05/18 13:00 70 11/05/18 13:00 70 14 88/60 (69) 100 Nasal Cannula 3.00 11/05/18 12:00 37.0 11/05/18 12:00 98 Nasal Cannula 2.00 11/05/18 12:00 77 15 86/52 (63) 100 Nasal Cannula 3.00 11/05/18 11:00 99 14 76/51 (59) 100 Nasal Cannula 3.00 11/05/18 10:30 88 Nasal Cannula 3.00 11/05/18 10:00 94 15 104/77 (86) Nasal Cannula 3.00 11/05/18 09:59 93 11/05/18 09:23 35.8 107 93 21 11/05/18 09:15 163 18 131/119 (123) 97 Nasal Cannula 3.00 11/05/18 09:00 151 I & O 11/06/18 07:00 Intake Total 5779.2 ml Output Total 855 ml Balance 4924.2 ml Height & Weight Height: 5'9.00" Weight: 188lbs. 0.0oz. 85.061543gf; 23.22 BMI Method:Stated General Appearance: Anxious, Moderate Distress HEENT: PERRL/EOMI; No Moist Mucous Membranes Neck: Full Range of Motion, Normal Inspection, Non Tender, Supple Respiratory: Lungs Clear, Normal Breath Sounds, No Accessory Muscle Use, No Respiratory Distress Cardiovascular: Regular Rate, Rhythm, No Edema, Normal Peripheral Pulses Capillary Refill: Less Than 3 Seconds Peripheral Pulses: 2+ Radial Pulses (R), 2+ Radial Pulses (L) Extremity: Normal Capillary Refill, Normal Inspection, No Pedal Edema Neurologic/Psychiatric: Alert, Oriented x3 Skin: Normal Color, Warm/Dry Results Lab Laboratory Tests 11/05/18 05:30 11/06/18 03:20 Assessment/Plan Assessment/Plan Septic shock with metabolic acidosis -IVF NS at 150 -Levophed - vancomycin cefepime and Flagyl -Will give another 1 liter bolus of NS- secondary to hypotension, lactic acid, and very concentrated urine -Leukocytosis is up to 78 ( pt is on solucortef secondary to septic shock) -Check CT of chest/abd/pelvis without contrast secondary to renal function - r/o abscess and NEC fascitis ETOH dependance -Pt is currently lethargic -Will check ABG -Add end tidal C02 monitor Diastolic CHF grade II per echo -Consult cardiology Cellulitis on back -Wound care Multisubstance drug use -UDS positive for methamphetamine Afib RVR -Consult cardiology Renal insufficiency Homeless Dehydration AGUS BEST DO Nov 06, 2018 08:23
[2018-11-06] MEDS ORDERED: NS IV 1000 ML 1,000 ML IV SCH (08:30)
[2018-11-06] MEDS ORDERED: SODIUM BICARB 8.4% 50 MEQ/50 ML VIAL IV ONE (08:30)
[2018-11-06] MEDS ORDERED: PANTOPRAZOLE 40 MG (PROTONIX) VIAL IV SCH (09:00)
--- NOTE | 2018-11-06 09:53 | Diagnostic Imaging Report ---
EXAMINATION: Chest 1 view HISTORY: Septic shock FINDINGS: Comparison is 11/05/2018. Right IJ catheter tip terminates in the superior vena cava. The lungs are clear without edema or pneumonia. No pleural effusion or pneumothorax. There is likely a small hiatal hernia. IMPRESSION: 1. Clear lungs. Dictated by: Dictated on workstation # [id number]
[2018-11-06 10:14] LABS: ABG BASE EXCESS -9.9 MMOL/L (-2.5-2.5); ABG OXYGEN SATURATION 92 % (94-100); ABG PCO2 28 MMHG (35-45); ABG PO2 68 MMHG (79-93); ABG TCO2 15.7 MMOL/L (21.0-31.0)
[2018-11-06 10:16] LABS: ABG PH 7.34 (7.37-7.43)
[2018-11-06 10:17] LABS: ALLENS TEST YES-POS; INSPIRED O2 1 L; PATIENT TEMP 36.4; VENTILATOR NO
[2018-11-06] MEDS: THIAMINE INJECTION 100 MG, FOLIC ACID INJECTION 1 MG, MAGNESIUM SULFATE 2 GM, VITAMIN M... IV SCH ×5 (10:27)
--- NOTE | 2018-11-06 11:22 | Progress Note - Hospitalist ---
Subjective HPI/CC On Admission Date Seen by Provider: Nov 06, 2018 Time Seen by Provider: 09:45 This is a 73-year-old white male who is brought to the emergency room this morning. He was found to be in septic shock presumably secondary to a severe cellulitis and small ulceration on his back. The patient is unable to provide me any additional history. His lactic acid is markedly elevated and he is on pressor support. He is been given Ativan and Precedex for his agitation and aggression. Urine is positive for methamphetamine and opioids. Subjective/Events-last exam Patient is very somnolent this morning on 1 L nasal cannula. He remains on Precedex and pressors. White count has increased to 78,000 with a predominance of lymphocytes. Lactic acid remains positive. Dr. Quinonez has ordered a CT for further evaluation of the patient's sacrum and possible tunneling an abscess. Focused Exam Lactate Level 11/05/18 18:40: Lactic Acid Level 2.20*H 11/05/18 21:52: Lactic Acid Level 2.29*H 11/06/18 00:02: Lactic Acid Level 2.42*H Time of Focused Exam: 07:00 Objective Exam Vital Signs Vital Signs Date Time Temp Pulse Resp B/P (MAP) Pulse Ox O2 Delivery O2 Flow Rate FiO2 11/06/18 10:20 100 Nasal Cannula 1.00 11/06/18 09:00 82 13 120/82 (95) 11/06/18 08:00 36.8 11/05/18 09:23 21 Capillary Refill : Less Than 3 Seconds General Appearance: Chronically ill Neck: Limited Range of Motion Respiratory: Lungs Clear, Normal Breath Sounds, No Accessory Muscle Use, No Respiratory Distress Cardiovascular: Regular Rate, Rhythm, No Gallop, No JVD, No Murmur Gastrointestinal: Normal Bowel Sounds, No Organomegaly, Non Tender, Soft Rectal: Deferred Back: Other (erythema and edema) Extremity: Normal Inspection, No Pedal Edema Results/Procedures Lab Laboratory Tests 11/06/18 03:20 Patient resulted labs reviewed. Assessment/Plan Assessment and Plan Assess & Plan/Chief Complaint Septic shock-slow to refill resolve on Flagyl, vancomycin and cefepime day number 2-on levo fed A. fib with RVR-resolved Multi drug abuse Alcoholism-monitor for withdrawal-currently on Precedex because of his agitation Tobaccoism Poor social situation Coronary artery disease Dehydration Acute renal insufficiency-may be chronic Metabolic acidosis secondary to sepsis Leukocytosis possible CLL will obtain an oncology consult in the morning Hypomagnesemia being replaced Critical Care Critically Ill Patient Clinical Quality Measures DVT/VTE Risk/Contraindication: Risk Factor Score Per Nursin RFS Level Per Nursing on Admit: 4+=Very High EMI RAMSEY MD Nov 06, 2018 11:22
--- NOTE | 2018-11-06 13:22 | Cardiology Progress Note ---
Cardiology SOAP Progress Note Subjective: Sleeping, sedated Objective: I&O/Vital Signs 11/06/18 11/06/18 11/06/18 11/06/18 02:00 03:00 03:30 04:00 Temp 36.7 Pulse 88 80 84 Resp 14 20 14 B/P (MAP) 102/71 (81) 118/75 (89) 110/77 (88) Pulse Ox 100 100 100 O2 Delivery Nasal Cannula Nasal Cannula Nasal Cannula Nasal Cannula O2 Flow Rate 1.00 1.00 1.00 1.00 11/06/18 11/06/18 11/06/18 11/06/18 04:35 05:00 06:00 06:47 Pulse 80 77 Resp 15 14 B/P (MAP) 112/79 (90) 111/74 (86) Pulse Ox 100 100 100 100 O2 Delivery Nasal Cannula Nasal Cannula Nasal Cannula Nasal Cannula O2 Flow Rate 1.00 1.00 1.00 1.00 11/06/18 11/06/18 11/06/18 11/06/18 07:00 07:00 08:00 08:00 Temp 36.8 Pulse 81 83 80 Resp 14 13 B/P (MAP) 118/81 (93) 109/73 (85) Pulse Ox 100 100 O2 Delivery Nasal Cannula Nasal Cannula O2 Flow Rate 1.00 1.00 11/06/18 11/06/18 11/06/18 11/06/18 09:00 10:00 10:20 11:00 Pulse 82 75 82 Resp 13 27 B/P (MAP) 120/82 (95) 123/79 (94) 127/86 (100) Pulse Ox 100 87 100 100 O2 Delivery Nasal Cannula Nasal Cannula Nasal Cannula Nasal Cannula O2 Flow Rate 1.00 1.00 1.00 1.00 11/06/18 11:30 Temp 37.0 11/06/18 00:00 Intake Total 3065.2 ml Output Total 375 ml Balance 2690.2 ml Weight (Pounds): 188 Weight (Ounces): 0.0 Weight (Calculated Kilograms): [id number] Constitutional: appears stated age; No apparent distress; well-developed, well- nourished, other (Very sleepy. Noncommunicative) Respiratory: chest is bilaterally symmetric, lungs clear to auscultation Cardiovascular: regular rate-rhythm, tachycardia, S1 and S2 Gastrointestional: soft, round, audible bowel sounds; No spleenomegaly Extremities: normal range of motion, non-tender, normal inspection; No clubbing, No cyanosis; no lower extremity edema bilateral; No significant edema Neurologic/Psychiatric: other (Not communicating) Skin: rash, other (MOST OF BACK WITH ERYTHEMA AND INDURATION, WITH WOUND TO LOWER BACK. NO DRAINAGE AT THIS TIME. ) Results/Procedures: Labs Laboratory Tests 11/05/18 16:15: Lactic Acid Level 2.13*H 11/05/18 16:29: Glucometer 148H 11/05/18 18:40: Lactic Acid Level 2.20*H 11/05/18 21:52: Lactic Acid Level 2.29*H 11/05/18 22:42: Glucometer 138H 11/06/18 00:02: Lactic Acid Level 2.42*H 11/06/18 03:20: White Blood Count 78.0*H, Red Blood Count 3.88L, Hemoglobin 12.5L, Hematocrit 37L, Mean Corpuscular Volume 94, Mean Corpuscular Hemoglobin 32, Mean Corpuscular Hemoglobin Concent 34, Red Cell Distribution Width 13.7, Platelet Count 257, Mean Platelet Volume 11.3H, Neutrophils (%) (Auto) 23L, Lymphocytes (%) (Auto) 76H, Monocytes (%) (Auto) 1, Eosinophils (%) (Auto) 0, Basophils (%) (Auto) 0, Neutrophils # (Auto) 17.9H, Lymphocytes # (Auto) 59.0H, Monocytes # (Auto) 1.0, Eosinophils # (Auto) 0.1, Basophils # (Auto) 0.1, Neutrophils % (Manual) 35, Lymphocytes % (Manual) 62, Monocytes % (Manual) 3, Sodium Level 136, Potassium Level 5.1H, Chloride Level 111#H, Carbon Dioxide Level 13L, Anion Gap 12, Blood Urea Nitrogen 101*H, Creatinine 2.72H, Estimat Glomerular Filtration Rate 23, BUN/Creatinine Ratio 37, Glucose Level 145H, Calcium Level 7.5L, Corrected Calcium 9.1, Phosphorus Level 6.4H, Magnesium Level 2.6H, Total Bilirubin 0.8, Aspartate Amino Transf (AST/SGOT) 23, Alanine Aminotransferase (ALT/SGPT) 19, Alkaline Phosphatase 135, Total Protein 4.3L, Albumin 2.0L 11/06/18 10:10: Blood Gas Puncture Site RT RAD, Blood Gas Patient Temperature 36.4, Arterial Blood pH 7.34*L, Arterial Blood Partial Pressure CO2 28L, Arterial Blood Partial Pressure O2 68L, Arterial Blood HCO3 15*L, Arterial Blood Total CO2 15.7L, Arterial Blood Oxygen Saturation 92L, Arterial Blood Base Excess -9.9L, Federico Test YES-POS, Blood Gas Ventilator Setting NO, Blood Gas Inspired Oxygen 1 L 11/06/18 12:11: Glucometer 135H Microbiology 11/05/18 Influenza Types A,B Antigen (CHRIS) - Final, Complete A/P: Assessment/Dx: septic shock, Diabetes, Source of infection unclear could be cellulitis, Elevated LFTs, Metabolic acidosis, active smoker, heavy alcohol use, Drug abuse. Plan: broad-spectrum antibiotics, IV fluid resuscitation, levophed. Troponins, BNP - requested yesterday, still not done. Echocardiogram showed normal LV function with mild to moderate diastolic dysfunction. Aggressive control of diabetes. Elevated LFTs likely due to septic shock. Metabolic acidosis, lactic acidosis likely due to severe sepsis. Defer to the ICU team. active smoker, heavy alcohol use, Drug abuse. Critically ill patient. Thank you for your consultation. Please call me if you have any questions. Vaughn Medellin MD, FACP, FACC, FSCAI, FHRS, CCDS Interventional Cardiology Cardiac Electrophysiology Vascular Medicine and Endovascular Interventions Focused Exam Lactate Level 11/05/18 18:40: Lactic Acid Level 2.20*H 11/05/18 21:52: Lactic Acid Level 2.29*H 11/06/18 00:02: Lactic Acid Level 2.42*H Time of Focused Exam: 07:00 Roman MEDELLIN MD Nov 06, 2018 13:22
[2018-11-06] MEDS: DEXMEDETOMIDINE INJECTION 1,000 MCG in NS (IVPB) 240 ML IV SCH (13:28)
[2018-11-06] MEDS: LORazepam INJ 2 MG/ML (ATIVAN) VIAL IV PRN ×2 (15:00→15:45)
--- NOTE | 2018-11-06 15:29 | Diagnostic Imaging Report ---
PROCEDURE: CT chest, abdomen and pelvis without contrast. TECHNIQUE: Multiple contiguous axial images were obtained through the chest, abdomen, and pelvis without the use of intravenous contrast. Auto Exposure Controls were utilized during the CT exam to meet ALARA standards for radiation dose reduction. INDICATION: Sepsis. COMPARISON: 10/24/2016. FINDINGS: Lungs are mildly emphysematous. There are small bilateral pleural effusions with overlying atelectasis. No edema or pneumonia. No suspicious nodule. Heart size is normal. No pericardial effusion. The ascending aorta is dilated, measuring 5.2 cm, previously 4.8 cm. There is no axillary, supraclavicular or mediastinal lymphadenopathy. There are moderate coronary artery calcifications. Liver is normal. No focal liver lesions are seen. Gallbladder is absent. There is no biliary ductal dilation. Pancreas is normal. There are calcified granulomas in the spleen. Adrenal glands are normal. Kidneys are normal without hydronephrosis or focal lesion. No stones are seen. Urinary bladder is decompressed with a Dow catheter. There is a small amount of air in the bladder. There is a small amount of free pelvic fluid. No dilated loops of large or small bowel. No bowel obstruction or inflammation. The appendix is normal. There is no abdominal or pelvic lymphadenopathy. Abdominal aorta is calcified and prominent but not specifically aneurysmal, measuring slightly less than 3 cm. There is severe widespread body wall edema. Skin thickening is seen in the back keeping with the provided history of cellulitis. There is a large amount of edema in the soft tissues of the back. On this noncontrast-enhanced exam, this does not appear to be a loculated drainable fluid collection but rather fluid insinuating in the soft tissues. There is gas within a linear structure corresponding to the location of the inferior epigastric vein on the right. Overlying gas is seen in the subcutaneous tissues of the right lower quadrant. There are no suspicious osseous lesions. There is a moderate T6 compression fracture, new from prior exam. There are bilateral L5 pars defects with grade 2 anterolisthesis of L5 on S1. IMPRESSION: 1. Severe widespread body wall edema with skin thickening seen in the back. Fluid attenuation in the subcutaneous tissues appears to represent soft tissue edema rather than a loculated drainable fluid collection. 2. Small focus of gas in the right lower quadrants' subcutaneous tissues. Beneath this there is a linear collection of gas and a small structure likely representing the right inferior epigastric vein. This may represent injection of a medication which happened into the vasculature versus gas from intravenous line placement. 3. New moderate T6 compression fracture. 4. Mild increase in size of ascending aortic aneurysm, now measuring up to 5.2 cm. 5. Small bilateral pleural effusions with overlying atelectasis. Dictated by: Dictated on workstation # [id number]
[2018-11-07] VITALS (24 sets, daily range): BP systolic 102–112; BP diastolic 60–74
[2018-11-07] MEDS: RT-ALBUTEROL/IPRATROPIUM 3 ML (DUONEB) VIAL INH SCH ×6 (02:20→22:59)
[2018-11-07 03:22] LABS: BASOPHILS # (AUTO) 0.1 10^3/uL (0.0-0.1); BASOPHILS % (AUTO) 0 % (0-10); EOSINOPHILS % (AUTO) 0 % (0-10); HEMATOCRIT 34 % (40-54); HEMOGLOBIN 11.4 G/DL (13.3-17.7); LYMPHOCYTES # (AUTO) 45.7 X 10^3 (1.0-4.0); LYMPHOCYTES % (AUTO) 69 % (12-44); MEAN CORPUSCULAR HEMOGLOBIN 32 PG (25-34); MEAN CORPUSCULAR HGB CONC 34 G/DL (32-36); MEAN CORPUSCULAR VOLUME 93 FL (80-99); MEAN PLATELET VOLUME 10.8 FL (7.4-10.4); MONOCYTES # (AUTO) 0.9 X 10^3 (0.0-1.0); MONOCYTES % (AUTO) 1 % (0-12); NEUTROPHILS # (AUTO) 19.5 X 10^3 (1.8-7.8); NEUTROPHILS % (AUTO) 30 % (42-75); PLATELET COUNT 230 10^3/uL (130-400); RED CELL DISTRIBUTION WIDTH 13.9 % (10.0-14.5)
[2018-11-07 03:28] LABS: WHITE BLOOD COUNT 66.1 10^3/uL (4.3-11.0)
[2018-11-07 03:43] LABS: ALBUMIN 1.9 GM/DL (3.2-4.5); BILIRUBIN,TOTAL 0.7 MG/DL (0.1-1.0); CALCIUM 7.4 MG/DL (8.5-10.1); CREATININE SERUM 2.48 MG/DL (0.60-1.30); POTASSIUM 4.8 MMOL/L (3.6-5.0); TOTAL PROTEIN 3.9 GM/DL (6.4-8.2)
[2018-11-07] MEDS: HYDROCORTISONE 100 MG/2 ML (Solu-CORTEF) VIAL IV SCH ×3 (03:49→20:42)
[2018-11-07] MEDS: POTASSIUM CL 10MEQ/50ML IVPB 50 ML IV SCH (04:01)
[2018-11-07] MEDS: MAGNESIUM 1 GM/100 ML IVPB 100 ML IV SCH (04:02)
[2018-11-07] MEDS: KCL 20 MEQ TAB (K-DUR) PO SCH (04:02)
[2018-11-07] MEDS ORDERED: SODIUM BICARB 8.4% 50 MEQ/50 ML VIAL IV ONE (04:45)
[2018-11-07] MEDS ORDERED: ALBUMIN 25% 25 GM/100 ML 100 ML IV ONE ×2 (04:45→04:48)
--- NOTE | 2018-11-07 04:45 | Pulmonary Progress Note ---
Subjective Time Seen by a Provider: 06:16 Subjective/Events-last exam Pt gets very agitated when he wakes up Sepsis Event Evaluation Height, Weight, BMI Height: 5'9.00" Weight: 188lbs. 0.0oz. [id number]; 23.22 BMI Method:Stated Focused Exam Lactate Level 11/05/18 21:52: Lactic Acid Level 2.29*H 11/06/18 00:02: Lactic Acid Level 2.42*H 11/07/18 03:11: Lactic Acid Level 1.31 Time of Focused Exam: 07:00 Lactic Acid Level Laboratory Tests Test 11/07/18 03:11 Lactic Acid Level 1.31 MMOL/L (0.50-2.00) Exam Exam Vital Signs Date Time Temp Pulse Resp B/P (MAP) Pulse Ox O2 Delivery O2 Flow Rate FiO2 11/07/18 03:57 100 Room Air 11/07/18 03:56 36.6 11/07/18 02:20 100 Room Air 11/07/18 02:00 76 20 102/64 (77) 100 Room Air 11/07/18 01:00 79 11/07/18 01:00 79 16 103/66 (78) 100 Room Air 11/07/18 00:00 100 Room Air 11/07/18 00:00 80 14 102/65 (77) 100 Room Air 11/06/18 23:21 36.3 11/06/18 23:00 80 14 104/64 (77) 100 Room Air 11/06/18 22:10 100 Room Air 11/06/18 22:00 80 15 114/75 (88) 100 Room Air 11/06/18 21:00 81 14 132/86 (101) 100 Room Air 11/06/18 20:00 77 18 124/84 (97) 100 Room Air 11/06/18 20:00 100 Room Air 11/06/18 20:00 36.9 11/06/18 19:00 81 13 139/90 (106) 100 Room Air 11/06/18 19:00 81 11/06/18 18:28 100 Room Air 11/06/18 18:00 80 18 147/88 (107) 100 Room Air 11/06/18 17:00 80 14 140/92 (108) 100 Room Air 11/06/18 16:00 78 14 137/86 (103) 100 Room Air 11/06/18 16:00 100 Room Air 11/06/18 15:45 36.8 11/06/18 15:10 100 Room Air 11/06/18 15:00 81 23 100 Nasal Cannula 1.00 11/06/18 15:00 Room Air 11/06/18 14:00 79 124/94 (104) 100 Nasal Cannula 1.00 11/06/18 13:00 82 11/06/18 13:00 82 22 126/78 (94) 100 Nasal Cannula 1.00 11/06/18 12:00 100 Room Air 11/06/18 12:00 82 129/83 (98) 100 Nasal Cannula 1.00 11/06/18 11:30 37.0 11/06/18 11:00 82 127/86 (100) 100 Nasal Cannula 1.00 11/06/18 10:20 100 Nasal Cannula 1.00 11/06/18 10:00 75 27 123/79 (94) 87 Nasal Cannula 1.00 11/06/18 09:00 82 13 120/82 (95) 100 Nasal Cannula 1.00 11/06/18 08:00 100 Room Air 11/06/18 08:00 80 13 109/73 (85) 100 Nasal Cannula 1.00 11/06/18 08:00 36.8 11/06/18 07:00 83 11/06/18 07:00 81 14 118/81 (93) 100 Nasal Cannula 1.00 11/06/18 06:47 100 Nasal Cannula 1.00 11/06/18 06:00 77 14 111/74 (86) 100 Nasal Cannula 1.00 11/06/18 05:00 80 15 112/79 (90) 100 Nasal Cannula 1.00 I & O 11/07/18 07:00 Intake Total 5235.7 ml Output Total 970 ml Balance 4265.7 ml Height & Weight Height: 5'9.00" Weight: 188lbs. 0.0oz. 85.085947us; 23.22 BMI Method:Stated General Appearance: Chronically ill, Other (sedated) HEENT: PERRL/EOMI; No Moist Mucous Membranes Neck: Limited Range of Motion Respiratory: Lungs Clear, Normal Breath Sounds, No Accessory Muscle Use, No Respiratory Distress Cardiovascular: Regular Rate, Rhythm, No Gallop, No JVD, No Murmur Capillary Refill: Less Than 3 Seconds Peripheral Pulses: 2+ Radial Pulses (R), 2+ Radial Pulses (L) Extremity: Normal Inspection, No Pedal Edema Neurologic/Psychiatric: Depressed Affect, Disoriented Skin: Normal Color, Warm/Dry Results Lab Laboratory Tests 11/05/18 05:30 11/06/18 03:20 11/07/18 03:11 Assessment/Plan Assessment/Plan Septic shock with metabolic acidosis -Continue IVF NS at 150 -Levophed - cont to titrate - vancomycin cefepime and Flagyl -Give 25gms albumin x 1 -CT of chest/abd/pelvis without contrast - reviewed Malnutrition/hypoalbuminemia -Give 25gms of albumin -Monitor Metabolic acidosis -Give 2 amps of bicarb Pt states he has hx of CLL and refused treatment in past -Oncology consulted ETOH dependance -Pt is currently lethargic - end tidal C02 monitor Diastolic CHF grade II per echo -Consult cardiology Cellulitis on back -Wound care Multisubstance drug use -UDS positive for methamphetamine Afib RVR -Consult cardiology Renal insufficiency -monitor Homeless Dehydration CAD Prognosis is overall poor. Will consult hospice for education AGUS HADLEY DO Nov 07, 2018 04:45
[2018-11-07] MEDS ORDERED: SODIUM BICARB 8.4% 50 MEQ/50 ML VIAL ONE (04:47)
[2018-11-07] MEDS: inSUlin ASPART (NovoLOG) 1 UNIT/0.01 ML (CHARGE PER UNIT) SC SCH ×4 (05:11→23:54)
[2018-11-07] MEDS: NOREPINEPHRINE 4 MG/NS 250 ML DRIP IV SCH ×2 (05:12)
[2018-11-07] MEDS: CEFEPIME 1,000 MG/SWFI 10 ML IV PUSH IV SCH ×6 (06:00→22:19)
[2018-11-07] MEDS: NS IV 1000 ML 1,000 ML IV SCH ×3 (06:29→20:29)
--- NOTE | 2018-11-07 06:37 | Diagnostic Imaging Report ---
Patient History: Septic shock.. Technique: Single frontal view of the chest Comparison: 11/06/2018 FINDINGS: Stable configuration of the right internal jugular central line. Interval increase in patchy bibasilar and perihilar opacities with new small left pleural effusion. No pneumothorax. Stable cardiac silhouette. IMPRESSION: 1. Interval increase in perihilar and bibasilar opacities with development of a small left pleural effusion. 2. Stable configuration of the right internal jugular central line. Dictated by: Dictated on workstation # [id number]
--- NOTE | 2018-11-07 07:38 | Progress Note ---
Subjective Time Seen by a Provider: 07:33 Subjective/Events-last exam Patient resting comfortably. Patient not communicating. Focused Exam Lactate Level 11/05/18 21:52: Lactic Acid Level 2.29*H 11/06/18 00:02: Lactic Acid Level 2.42*H 11/07/18 03:11: Lactic Acid Level 1.31 Time of Focused Exam: 07:00 Objective Exam Vital Signs Date Time Temp Pulse Resp B/P (MAP) Pulse Ox O2 Delivery O2 Flow Rate FiO2 11/07/18 06:54 100 Room Air 11/07/18 06:00 84 14 103/69 (80) 100 Room Air 11/07/18 05:00 77 15 107/65 (79) 100 Room Air 11/07/18 04:00 78 15 108/74 (85) 100 Room Air 11/07/18 03:57 100 Room Air 11/07/18 03:56 36.6 11/07/18 03:00 81 14 106/64 (78) 100 Room Air 11/07/18 02:20 100 Room Air 11/07/18 02:00 76 20 102/64 (77) 100 Room Air 11/07/18 01:00 79 11/07/18 01:00 79 16 103/66 (78) 100 Room Air 11/07/18 00:00 100 Room Air 11/07/18 00:00 80 14 102/65 (77) 100 Room Air 11/06/18 23:21 36.3 11/06/18 23:00 80 14 104/64 (77) 100 Room Air 11/06/18 22:10 100 Room Air 11/06/18 22:00 80 15 114/75 (88) 100 Room Air 11/06/18 21:00 81 14 132/86 (101) 100 Room Air 11/06/18 20:00 77 18 124/84 (97) 100 Room Air 11/06/18 20:00 100 Room Air 11/06/18 20:00 36.9 11/06/18 19:00 81 13 139/90 (106) 100 Room Air 11/06/18 19:00 81 11/06/18 18:28 100 Room Air 11/06/18 18:00 80 18 147/88 (107) 100 Room Air 11/06/18 17:00 80 14 140/92 (108) 100 Room Air 11/06/18 16:00 78 14 137/86 (103) 100 Room Air 11/06/18 16:00 100 Room Air 11/06/18 15:45 36.8 11/06/18 15:10 100 Room Air 11/06/18 15:00 81 23 100 Nasal Cannula 1.00 11/06/18 15:00 Room Air 11/06/18 14:00 79 124/94 (104) 100 Nasal Cannula 1.00 11/06/18 13:00 82 11/06/18 13:00 82 22 126/78 (94) 100 Nasal Cannula 1.00 11/06/18 12:00 100 Room Air 11/06/18 12:00 82 129/83 (98) 100 Nasal Cannula 1.00 11/06/18 11:30 37.0 11/06/18 11:00 82 127/86 (100) 100 Nasal Cannula 1.00 11/06/18 10:20 100 Nasal Cannula 1.00 11/06/18 10:00 75 27 123/79 (94) 87 Nasal Cannula 1.00 11/06/18 09:00 82 13 120/82 (95) 100 Nasal Cannula 1.00 11/06/18 08:00 100 Room Air 11/06/18 08:00 80 13 109/73 (85) 100 Nasal Cannula 1.00 11/06/18 08:00 36.8 I & O 11/07/18 07:00 Intake Total 5245.7 ml Output Total 1285 ml Balance 3960.7 ml Capillary Refill : Less Than 3 Seconds General Appearance: No Apparent Distress, WD/WN Neck: Normal Inspection Respiratory: No Accessory Muscle Use, No Respiratory Distress, Decreased Breath Sounds Cardiovascular: Regular Rate, Rhythm Gastrointestinal: non tender, soft Results Lab Laboratory Tests 11/07/18 03:11 Laboratory Tests 11/06/18 10:10: Blood Gas Puncture Site RT RAD, Blood Gas Patient Temperature 36.4, Arterial Blood pH 7.34*L, Arterial Blood Partial Pressure CO2 28L, Arterial Blood Partial Pressure O2 68L, Arterial Blood HCO3 15*L, Arterial Blood Total CO2 15.7L, Arterial Blood Oxygen Saturation 92L, Arterial Blood Base Excess -9.9L, Federico Test YES-POS, Blood Gas Ventilator Setting NO, Blood Gas Inspired Oxygen 1 L 11/06/18 12:11: Glucometer 135H 11/06/18 19:53: Glucometer 183H 11/06/18 23:21: Glucometer 210H 11/07/18 03:11: White Blood Count 66.1*H, Red Blood Count 3.59L, Hemoglobin 11.4L, Hematocrit 34L, Mean Corpuscular Volume 93, Mean Corpuscular Hemoglobin 32, Mean Corpus cular Hemoglobin Concent 34, Red Cell Distribution Width 13.9, Platelet Count 230, Mean Platelet Volume 10.8H, Neutrophils (%) (Auto) 30L, Lymphocytes (%) (Auto) 69H, Monocytes (%) (Auto) 1, Eosinophils (%) (Auto) 0, Basophils (%) (Auto) 0, Neutrophils # (Auto) 19.5H, Lymphocytes # (Auto) 45.7H, Monocytes # (Auto) 0.9, Eosinophils # (Auto) 0.0, Basophils # (Auto) 0.1, Sodium Level 138, Potassium Level 4.8, Chloride Level 114H, Carbon Dioxide Level 14L, Anion Gap 10, Blood Urea Nitrogen 108*H, Creatinine 2.48H, Estimat Glomerular Filtration Rate 26, BUN/Creatinine Ratio 44, Glucose Level 181H, Lactic Acid Level 1.31, Calcium Level 7.4L, Corrected Calcium 9.1, Phosphorus Level 6.0H, Magnesium Level 3.0H, Total Bilirubin 0.7, Aspartate Amino Transf (AST/SGOT) 19, Alanine Aminotransferase (ALT/SGPT) 18, Alkaline Phosphatase 119, Total Protein 3.9L, Albumin 1.9L Microbiology 11/05/18 Blood Culture - Preliminary, Resulted No growth 11/05/18 Influenza Types A,B Antigen (CHRIS) - Final, Complete 11/05/18 Urine Culture - Final, Complete NO GROWTH 11/05/18 Gram Stain - Final, Resulted 11/05/18 Wound Culture - Preliminary, Resulted Staphylococcus aureus Assessment/Plan Assessment/Plan Assess & Plan/Chief Complaint Septic shock. Cellulitis. Diabetes. Cellulitis of back. A. fib with RVR. Coronary artery disease. Acute renal insufficiency Metabolic acidosis. Diastolic congestive heart failure... Ascending aortic aneurysm. Tobaccoism. Opioid abuse. Methamphetamine use. Chronic lymphocytic leukemia. Clinical Quality Measures DVT/VTE Risk/Contraindication: Risk Factor Score Per Nursin RFS Level Per Nursing on Admit: 4+=Very High GUILLERMINA MORILLO DO Nov 07, 2018 07:38
[2018-11-07] MEDS: ENOXAPARIN 80 MG/0.8 ML (LOVENOX) SYR SC SCH (08:26)
[2018-11-07] MEDS: metroNIDAZOLE 500MG/100ML IVPB 100 ML IV SCH ×2 (08:26→20:42)
[2018-11-07] MEDS: PANTOPRAZOLE 40 MG (PROTONIX) VIAL IV SCH ×2 (08:26→20:57)
[2018-11-07] MEDS: THIAMINE INJECTION 100 MG, FOLIC ACID INJECTION 1 MG, MAGNESIUM SULFATE 2 GM, VITAMIN M... IV SCH ×5 (08:26)
[2018-11-07] MEDS: DEXMEDETOMIDINE INJECTION 1,000 MCG in NS (IVPB) 240 ML IV SCH (08:26)
--- NOTE | 2018-11-07 09:58 | NUR ---
PALLIATIVE CARE RN in to see patient after having received a hospice education consult. Upon entering the room, noted patient to be resting.There are no family or friends present and patient did not awakend with light touch and verbal communication. Will try again.
[2018-11-07 10:17] LABS: BASOPHILS # (AUTO) 0.1 10^3/uL (0.0-0.1); BASOPHILS % (AUTO) 0 % (0-10); EOSINOPHILS % (AUTO) 0 % (0-10); HEMATOCRIT 34 % (40-54); HEMOGLOBIN 11.4 G/DL (13.3-17.7); LYMPHOCYTES # (AUTO) 45.7 X 10^3 (1.0-4.0); LYMPHOCYTES % (AUTO) 69 % (12-44); MEAN CORPUSCULAR HEMOGLOBIN 32 PG (25-34); MEAN CORPUSCULAR HGB CONC 34 G/DL (32-36); MEAN CORPUSCULAR VOLUME 93 FL (80-99); MEAN PLATELET VOLUME 10.8 FL (7.4-10.4); MONOCYTES # (AUTO) 0.9 X 10^3 (0.0-1.0); MONOCYTES % (AUTO) 1 % (0-12); NEUTROPHILS # (AUTO) 19.5 X 10^3 (1.8-7.8); NEUTROPHILS % (AUTO) 30 % (42-75); PLATELET COUNT 230 10^3/uL (130-400); RED CELL DISTRIBUTION WIDTH 13.9 % (10.0-14.5)
[2018-11-07 10:19] LABS: WHITE BLOOD COUNT 66.1 10^3/uL (4.3-11.0)
--- NOTE | 2018-11-07 10:25 | NUR ---
Pt not conscious as time study engineer made first attempted visit.
[2018-11-07 10:28] LABS: ABSOLUTE RETIC # 40 10e9/L (24-90); RETICULOCYTE % 1.11 % (0.50-2.40)
--- NOTE | 2018-11-07 10:38 | Consultation ---
History of Present Illness History of Present Illness Patient Consulted On(dani/time) 11/07/18 10:33 Date Seen by Provider: Nov 07, 2018 Time Seen by Provider: 10:33 Reason for Visit: Sepsis in the setting of lymphocytosis, h/o CLL History of Present Illness Mr. Pena is a 73 year old white man admitted to ICU 11/05/2018 after he was found to have UTI, cellulitis and sepsis. He was also found to have positive urine opiates test for methacetaminophen. He has been on triple IV antibiotics and pressor support since admission. He has to be on sedation medication since he has been very agitated once he wakes up. He was diagnosed with CLL in 08/[address] Escobar but did not have any treatment and lost follow up since. 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 Pt also has h/o alcohol abuse. Laboratory Tests 11/07/18 03:11 Allergies and Home Medications Allergies Coded Allergies: Penicillins (Unverified Allergy, Mild, 03/28/09) Home Medications No Active Prescriptions or Reported Meds Patient Home Medication List Home Medication List Reviewed: Yes Past Ornnbqi-Vdzmxr-Hpqdvc Hx Past Med/Social Hx: Reviewed Nursing Past Med/Soc Hx, Reviewed and Corrections made Patient Social History Alcohol Use: Regular Use Number of Drinks Today: DD Alcohol Beverage of Choice: Rum, Whiskey Recreational Drug Use: Yes Drug of Choice: THC, "THC OIL", OPIUM Smoking Status: Current Everyday Smoker (3 PPD) Type Used: Cigarettes (2 packs per day) 2nd Hand Smoke Exposure: Yes Recent Foreign Travel: No Contact w/Someone Who Travel: No Recent Infectious Disease Expo: No Recent Hopitalizations: No Physical Abuse: No Sexual Abuse: No Mistreated: No Fear: No Immunizations Up To Date Tetanus Booster (TDap): Unknown Date of Pneumonia Vaccine: Nov 22, 2009 Date of Influenza Vaccine: Oct 24, 2015 Seasonal Allergies Seasonal Allergies: Yes Past Medical History Surgeries: Yes (TEMPORAL ARTERY BIOPSY) Bladder Surgery, Gallbladder Respiratory: Yes Chronic Bronchitis, COPD Cardiac: Yes Aneurysm, High Cholesterol, Hypertension Neurological: Yes (PERIPHERAL NEUROPATHY--LEGS/ ARMS) Neuropathy Reproductive Disorders: Yes (E.D.) Genitourinary: No Gastrointestinal: No Musculoskeletal: Yes (CHRONIC NECK PAIN , BILATERAL CARPAL TUNNEL, spinal stenosis; RIB FRACTURES) Degenerate Disk Disease, Chronic Back Pain, Fractures Endocrine: Yes Diabetes, Non-Insulin dep HEENT: Yes (retinopathy, optic neuritis, recurrent diplopia; POOR DENTITION) Macular Degeneration Cancer: Yes (PT CLAIMS HE HAS CLL, LYMPHOMA AND MYELOMA--STATES HE REFUSED ALL TREATMENT--STATES IS FROM "[facility]" ) Leukemia, Lymphoma Did You Recieve Any Treatments: No Psychosocial: Yes Anxiety, PTSD Integumentary: No Blood Disorders: No Family Medical History UNABLE UNABLE TO OBTAIN DUE TO AMS UNABLE TO OBTAIN DUE TO AMS No Pertinent Family Hx Review of Systems-General Constitutional: see HPI, other (Pt is sedated and not able to communicate) Physical Exam-General Problems Physical Exam Vital Signs Vital Signs - First Documented 11/05/18 11/05/18 11/05/18 05:26 07:48 09:23 Temp 35.8 Pulse 107 Resp 18 B/P (MAP) 75/60 (65) Pulse Ox 93 O2 Delivery Room Air O2 Flow Rate 2.00 FiO2 21 Capillary Refill : Less Than 3 Seconds General Appearance: no apparent distress, other (sedated, appeared comfortable, vital signs stable) Assessment/Plan Assessment/Plan Admission Diagnosis/Plan IMP: 1. CLL, diagnosed 2009 with lymphocytosis, normal Hb and Plt at that time. Negative ZAP-70 and CD38 expression. Now progression of lymphocytosis and mild anemia, Plt still normal 2. Sepsis, UTI and cellulitis on IV antibiotics and pressor support 3. Drug abuse and h/o alcohol abuse 4. Agitation requires heavy sedation 5. Acute renal insufficiency 6. DM 7. T6 compression fracture shown on admission CT scan. No lymphadenopathy noticed on the report. He also has aorta aneurysm. Plan: 1. Repeat flowcytometry from his peripheral blood to confirm the CLL and that it has not changed its molecular markers. I have called the pathology lab and the order was done today. 2. Check serum immunoglobulin levels tomorrow AM lab draw. If his IgG level is below 500, he would benefit IVIG treatment (please give a dose of 40g IV). This will help him to overcome the infection in the CLL settings. 3. Watch for drug withdrawal and treat accordingly 4. Agree with current antibiotics treatment. Follow up the culture and sensi tivities. 5. No indication for bone marrow exam at this point Thank you for the consultation and I will f/u with you. Admission Status: Inpatient Order (span 2 midnights) Reason for Inpatient Admission: Sepsis, UTI and cellulitis of [facility] Clinical Quality Measures DVT/VTE Risk/Contraindication: Risk Factor Score Per Nursin RFS Level Per Nursing on Admit: 4+=Very High KRZYSZTOF HUDSON MD Nov 07, 2018 10:38
--- NOTE | 2018-11-07 11:15 | NUR ---
Pastoral care visit, pt asleep and deferred visit due to agitation.
[2018-11-07] MEDS: VANCOMYCIN 1250 MG/NS 250 ML IVPB IV SCH ×2 (12:05)
--- NOTE | 2018-11-07 12:23 | Occ Therapy Progress Note ---
Therapy Progress Note OT order received, chart reviewed. Nursing requests that OT hold pt. at this time. Pt. currently sedated. Will continue to monitor. 1, visit Hold treatment 1125 SIERRA VAZQUEZ OT Nov 07, 2018 12:23
--- NOTE | 2018-11-07 12:56 | Physician Query Clarification ---
PQ-Conflicting Diagnosis Admission/Discharge Admission Date: Nov 05, 2018 at 06:30 Discharge Date: The medical record reflects the following clinical scenario: History/Risk Factors: Sepsis COPD/chronic bronchitis Clinical Findings: 11/05/18 chest x ray report: Right lower lobe patchy consolidations are likely due to pneumonia or aspiration. Treatment: IV Cefepime HCI, IV Vancomycin HCI, Question: Do you agree with the impression of the Right lower lobe pneumonia per ED physician, Dr. Delgadillo? Please document a response in Progress Note or Discharge Summary. 1. Yes 2. No 3. Other, with explanation of clinical findings 4. Clinically undetermined, no explanation for clinical findings. PHYSICIAN RESPONSE Do you agree w/Consulting Dx?: Yes Please remember a lack of response to the above will prompt a phone page by CDI/Coding staff. In responding to this query, please exercise your independent professional judgment. The purpose of this communication is to more accurately reflect the complexity of your patients condition. The fact that a question is asked does not imply that any particular answer is desired or expected. Thank you for your timely response to this clarification. Requestors name: Rosi Tabares [facility] Phone # [phone] or [phone] THIS PHYSICIAN QUERY FORM IS A PERMANENT PART OF THE MEDICAL RECORD ROSI TABARES Nov 07, 2018 12:56 GUILLERMINA MORILLO DO Nov 08, 2018 08:07
--- NOTE | 2018-11-07 13:15 | Physician Query Clarification ---
PQ-Uncertain Diagnosis Admission/Discharge Admission Date: Nov 05, 2018 at 06:30 Discharge Date: The medical record reflects the following clinical scenario: History/Risk Factors: Sepsis/Septic shock Cellulitis-back Clinical Findings:Urine specific gravity 102.5, Urine protein 2+, Urine ketones 1+, Urine bilirubin 1+, Urine Urobilinogen 4,Urine leukocyte esterase 1+, Urine crystals-present, Urine bacteria Moderate, Hyaline casts 2-5, granular casts 10- 25, Urine culture-No growth. Treatment: IV Cefepime HCI, IV Vancomycin HCI. Question: Is UTI a clinically valid diagnosis? UTI was documented in the consult by Dr. Arevalo with no further documentation in the medical record. Please document a response in Progress Note or Discharge Summary. 1. Yes, clinically valid, condition resolved. 2. No, condition ruled out. 3. Other, with explanation of clinical findings. 4. Undetermined, no explanation for clinical findings. PHYSICIAN RESPONSE Diagnosis clinically valid: Yes, Conditon resolved Please remember a lack of response to the above will prompt a phone page by CDI/Coding staff. In responding to this query, please exercise your independent professional judgment. The purpose of this communication is to more accurately reflect the complexity of your patients condition. The fact that a question is asked does not imply that any particular answer is desired or expected. Thank you for your timely response to this clarification. Requestors name: Rosi Hanson [facility] Phone # [phone] THIS PHYSICIAN QUERY FORM IS A PERMANENT PART OF THE MEDICAL RECORD ROSI HANSON Nov 07, 2018 13:15 GUILLERMINA MORILLO DO Nov 08, 2018 16:53
--- NOTE | 2018-11-07 13:26 | Speech Therapy Progress Note ---
Therapy Progress Note ST attempted to do BDE, however patient was unable to participate at this time. ST to follow up at a later time. JOE SILVA Nov 07, 2018 13:26
[2018-11-07 13:43] LABS: BASOPHILS % (MANUAL) 0 %; EOSINOPHILS % (MANUAL) 0 %; MONOCYTES % (MANUAL) 1 %; REACTIVE LYMPHOCYTES 1 %
[2018-11-07 13:44] LABS: BURR CELLS SLIGHT; SMUDGE CELLS MOD; TOXIC GRANULATION/VACUOLAZATIO 1+
[2018-11-07 13:46] LABS: BAND NEUTROPHILS 5 %; LYMPHOCYTES % (MANUAL) 46 %; NEUTROPHILS % (MANUAL) 47 %
--- NOTE | 2018-11-07 14:06 | NUR ---
UNABLE TO SPEAK WITH THE PATIENT AT THIS TIME. I CALLED [facility], THEY HAVE NOT FILLED ANYTHING FOR HIM SINCE JANUARY 2018 WHICH WAS A SCRIP FROM THE ED. PRIOR TO THAT IT WAS APRIL [address] MORILLO. I CALLED DR. MORILLO AND THEY REPORT THEY HAVE NOT SEEN THE PATIENT SINCE APRIL 2017. THERE WAS NOT RECENT FILLS ACCORDING TO [facility] EITHER. AT THIS TIME I SET THE PROFILE TO NO MEDICATIONS.
--- NOTE | 2018-11-07 16:18 | Cardiology Progress Note ---
Cardiology SOAP Progress Note Subjective: Heavily sedated. Objective: I&O/Vital Signs 11/07/18 11/07/18 11/07/18 11/07/18 05:00 06:00 06:54 07:00 Pulse 77 84 79 Resp 15 14 14 B/P (MAP) 107/65 (79) 103/69 (80) 108/68 (81) Pulse Ox 100 100 100 100 O2 Delivery Room Air Room Air Room Air Room Air 11/07/18 11/07/18 11/07/18 11/07/18 07:00 08:00 08:00 08:00 Temp 37.2 Pulse 81 83 Resp 14 B/P (MAP) 108/67 (81) Pulse Ox 100 O2 Delivery Room Air Room Air 11/07/18 11/07/18 11/07/18 11/07/18 09:00 10:00 10:27 11:00 Pulse 83 84 87 Resp 14 14 13 B/P (MAP) 108/64 (79) 110/68 (82) 107/72 (84) Pulse Ox 100 100 100 100 O2 Delivery Room Air Room Air Room Air Room Air 11/07/18 11/07/18 11/07/18 11/07/18 12:00 12:00 12:00 13:00 Temp 36.6 Pulse 78 86 Resp 15 B/P (MAP) Pulse Ox 100 O2 Delivery Room Air Room Air 11/07/18 11/07/18 11/07/18 11/07/18 13:00 13:52 14:00 15:00 Pulse 80 80 82 Resp 18 15 14 B/P (MAP) 106/67 (80) Pulse Ox 96 100 100 100 O2 Delivery Room Air Room Air Room Air Room Air 11/07/18 16:00 Pulse 84 Resp 13 B/P (MAP) 106/67 (80) Pulse Ox 100 O2 Delivery Room Air 11/06/18 23:59 Intake Total 3619.2 ml Output Total 545 ml Balance 3074.2 ml Weight (Pounds): 205 Weight (Ounces): 0.0 Weight (Calculated Kilograms): 92.847804 Constitutional: appears stated age; No apparent distress; well-developed, well- nourished, other (Very sleepy. Noncommunicative) Respiratory: chest is bilaterally symmetric, lungs clear to auscultation Cardiovascular: regular rate-rhythm, tachycardia, S1 and S2 Gastrointestional: soft, round, audible bowel sounds; No spleenomegaly Extremities: normal range of motion, non-tender, normal inspection; No clubbing, No cyanosis; no lower extremity edema bilateral; No significant edema Neurologic/Psychiatric: other (Not communicating) Skin: rash, other (MOST OF BACK WITH ERYTHEMA AND INDURATION, WITH WOUND TO LOWER BACK. NO DRAINAGE AT THIS TIME. ) Results/Procedures: Labs Laboratory Tests 11/06/18 19:53: Glucometer 183H 11/06/18 23:21: Glucometer 210H 11/07/18 03:11: White Blood Count 66.1*H, Red Blood Count 3.59L, Hemoglobin 11.4L, Hematocrit 34L, Mean Corpuscular Volume 93, Mean Corpuscular Hemoglobin 32, Mean Corpuscular Hemoglobin Concent 34, Red Cell Distribution Width 13.9, Platelet Count 230, Mean Platelet Volume 10.8H, Neutrophils (%) (Auto) 30L, Lymphocytes (%) (Auto) 69H, Monocytes (%) (Auto) 1, Eosinophils (%) (Auto) 0, Basophils (%) (Auto) 0, Neutrophils # (Auto) 19.5H, Lymphocytes # (Auto) 45.7H, Monocytes # (Auto) 0.9, Eosinophils # (Auto) 0.0, Basophils # (Auto) 0.1, Neutrophils % (Manual) 47, Lymphocytes % (Manual) 46, Monocytes % (Manual) 1, Eosinophils % (Manual) 0, Basophils % (Manual) 0, Band Neutrophils 5, Reactive Lymphocytes 1, Smudge Cells MOD, Toxic Granulation 1+, [place] Cells SLIGHT, Absolute Reticulocyte Count 40, Percent Reticulocyte Count 1.11, Sodium Level 138, Potassium Level 4.8, Chloride Level 114H, Carbon Dioxide Level 14L, Anion Gap 10, Blood Urea Nitrogen 108*H, Creatinine 2.48H, Estimat Glomerular Filtration Rate 26, BUN/Creatinine Ratio 44, Glucose Level 181H, Lactic Acid Level 1.31, Calcium Level 7.4L, Corrected Calcium 9.1, Phosphorus Level 6.0H, Magnesium Level 3.0H, Total Bilirubin 0.7, Aspartate Amino Transf (AST/SGOT) 19, Alanine Aminotransferase (ALT/SGPT) 18, Alkaline Phosphatase 119, Total Protein 3.9L, Albumin 1.9L 11/07/18 11:24: Glucometer 214H 11/07/18 11:25: Microbiology 11/05/18 Blood Culture - Preliminary, Resulted No growth 11/05/18 Influenza Types A,B Antigen (CHRIS) - Final, Complete 11/05/18 Urine Culture - Final, Complete NO GROWTH 11/05/18 Gram Stain - Final, Resulted 11/05/18 Wound Culture - Preliminary, Resulted Staphylococcus aureus A/P: Assessment/Dx: septic shock, Diabetes, Paroxysmal atrial fibrillation, currently in sinus rhythm Source of infection unclear could be cellulitis, Elevated LFTs, Metabolic acidosis, active smoker, heavy alcohol use, Drug abuse. Plan: broad-spectrum antibiotics, IV fluid resuscitation, levophed. Troponins, BNP - requested yesterday, still not done. No further atrial fibrillation. Echocardiogram showed normal LV function with mild to moderate diastolic dysfunction. Aggressive control of diabetes. Elevated LFTs likely due to septic shock. Metabolic acidosis, lactic acidosis likely due to severe sepsis. Defer to the ICU team. active smoker, heavy alcohol use, detoxification Drug abuse. Critically ill patient. Thank you for your consultation. Please call me if you have any questions. Vaughn Medellin MD, FACP, FACC, FSCAI, FHRS, CCDS Interventional Cardiology Cardiac Electrophysiology Vascular Medicine and Endovascular Interventions Focused Exam Lactate Level 11/05/18 21:52: Lactic Acid Level 2.29*H 11/06/18 00:02: Lactic Acid Level 2.42*H 11/07/18 03:11: Lactic Acid Level 1.31 Time of Focused Exam: 07:00 Roman MEDELLIN MD Nov 07, 2018 16:18
--- NOTE | 2018-11-07 21:00 | NUR ---
Patient had two visitors at this time. His brother and his nephew. They did not wish to be placed on the chart. They were informed of patient being in the ICU by patient daughter.
[2018-11-08] VITALS (17 sets, daily range): BP systolic 97–132; BP diastolic 65–81
[2018-11-08] MEDS: RT-ALBUTEROL/IPRATROPIUM 3 ML (DUONEB) VIAL INH SCH ×6 (02:58→21:38)
[2018-11-08] MEDS: NS IV 1000 ML 1,000 ML IV SCH ×3 (03:00→22:40)
[2018-11-08] MEDS: HYDROCORTISONE 100 MG/2 ML (Solu-CORTEF) VIAL IV SCH ×3 (03:01→21:05)
[2018-11-08 03:15] LABS: BASOPHILS # (AUTO) 0.1 10^3/uL (0.0-0.1); BASOPHILS % (AUTO) 0 % (0-10); EOSINOPHILS % (AUTO) 0 % (0-10); HEMATOCRIT 31 % (40-54); HEMOGLOBIN 10.4 G/DL (13.3-17.7); LYMPHOCYTES # (AUTO) 31.7 X 10^3 (1.0-4.0); LYMPHOCYTES % (AUTO) 61 % (12-44); MEAN CORPUSCULAR HEMOGLOBIN 32 PG (25-34); MEAN CORPUSCULAR HGB CONC 34 G/DL (32-36); MEAN CORPUSCULAR VOLUME 94 FL (80-99); MEAN PLATELET VOLUME 11.2 FL (7.4-10.4); MONOCYTES # (AUTO) 0.5 X 10^3 (0.0-1.0); MONOCYTES % (AUTO) 1 % (0-12); NEUTROPHILS # (AUTO) 19.7 X 10^3 (1.8-7.8); NEUTROPHILS % (AUTO) 38 % (42-75); PLATELET COUNT 169 10^3/uL (130-400)
[2018-11-08 03:18] LABS: WHITE BLOOD COUNT 51.9 10^3/uL (4.3-11.0)
[2018-11-08 03:35] LABS: BILIRUBIN,TOTAL 0.8 MG/DL (0.1-1.0); CALCIUM 7.6 MG/DL (8.5-10.1); CREATININE SERUM 2.1 MG/DL (0.60-1.30); MAGNESIUM 3.4 MG/DL (1.6-2.4); PHOSPHORUS 5.6 MG/DL (2.3-4.7); POTASSIUM 4.6 MMOL/L (3.6-5.0); TOTAL PROTEIN 4.2 GM/DL (6.4-8.2)
[2018-11-08] MEDS: MAGNESIUM 1 GM/100 ML IVPB 100 ML IV SCH (03:44)
[2018-11-08] MEDS: POTASSIUM CL 10MEQ/50ML IVPB 50 ML IV SCH (03:44)
[2018-11-08] MEDS: KCL 20 MEQ TAB (K-DUR) PO SCH (03:44)
[2018-11-08] MEDS: inSUlin ASPART (NovoLOG) 1 UNIT/0.01 ML (CHARGE PER UNIT) SC SCH ×3 (05:15→18:26)
[2018-11-08] MEDS: CEFEPIME 1,000 MG/SWFI 10 ML IV PUSH IV SCH ×2 (06:04)
--- NOTE | 2018-11-08 07:47 | Diagnostic Imaging Report ---
CHEST 1 VIEW, AP/PA ONLY Indication: Septic shock, central line Comparison: 11/07/2018 Findings: Bibasilar heterogeneous pulmonary opacities are unchanged. Layering bilateral pleural effusions have redistributed or progressed. No pneumothorax. Stable enlargement of the cardiac silhouette. Right IJ central venous catheter is unchanged. Impression: 1. Progression versus redistribution of small bilateral pleural effusions. 2. Unchanged basilar pulmonary opacities. Dictated by: Dictated on workstation # [id number]
[2018-11-08] MEDS ORDERED: TROUGH ORDER-PHARMACY XX NR (08:10)
--- NOTE | 2018-11-08 08:20 | Progress Note ---
Subjective Time Seen by a Provider: 08:16 Subjective/Events-last exam Patient sedated. Patient doing a little better. Patient's daughter notified lives in [place]. Focused Exam Lactate Level 11/05/18 21:52: Lactic Acid Level 2.29*H 11/06/18 00:02: Lactic Acid Level 2.42*H 11/07/18 03:11: Lactic Acid Level 1.31 Time of Focused Exam: 07:00 Objective Exam Vital Signs Date Time Temp Pulse Resp B/P (MAP) Pulse Ox O2 Delivery O2 Flow Rate FiO2 11/08/18 08:00 76 23 119/73 (88) 100 Room Air 11/08/18 07:13 100 Room Air 11/08/18 07:00 66 13 120/81 (94) 100 Room Air 11/08/18 07:00 73 11/08/18 06:00 73 11 108/67 (81) 100 Room Air 11/08/18 05:00 60 14 104/67 (79) 100 Room Air 11/08/18 04:00 72 10 108/70 (83) 100 Room Air 11/08/18 03:30 36.6 Room Air 11/08/18 03:15 100 Room Air 11/08/18 03:00 73 18 102/65 (77) 100 Room Air 11/08/18 02:59 100 Room Air 11/08/18 02:00 74 11 103/68 (80) 100 Room Air 11/08/18 01:00 65 16 97/66 (76) 100 Room Air 11/08/18 01:00 65 11/08/18 00:00 73 12 108/73 (85) 100 Room Air 11/07/18 23:40 100 Room Air 11/07/18 23:25 36.4 Room Air 11/07/18 23:00 72 12 110/72 (85) 100 Room Air 11/07/18 22:59 100 Room Air 11/07/18 22:00 72 13 105/69 (81) 100 Room Air 11/07/18 21:00 75 12 104/65 (78) 100 Room Air 11/07/18 20:30 75 11 112/65 (81) 100 Room Air 11/07/18 20:20 100 Room Air 11/07/18 20:15 78 11 109/65 (80) 100 Room Air 11/07/18 20:00 36.8 74 13 112/65 (81) 100 Room Air 11/07/18 19:45 78 11 110/63 (79) 100 Room Air 11/07/18 19:30 79 12 109/60 (76) 100 Room Air 11/07/18 19:15 79 12 105/65 (78) 100 Room Air 11/07/18 19:00 74 13 109/70 (83) 100 Room Air 11/07/18 19:00 74 11/07/18 18:52 100 Room Air 11/07/18 18:00 77 12 100 Room Air 11/07/18 17:00 81 12 100 Room Air 11/07/18 16:00 84 13 106/67 (80) 100 Room Air 11/07/18 16:00 Room Air 11/07/18 15:00 82 14 106/67 (80) 100 Room Air 11/07/18 14:00 80 15 100 Room Air 11/07/18 13:52 100 Room Air 11/07/18 13:00 80 18 96 Room Air 11/07/18 13:00 86 11/07/18 12:00 Room Air 11/07/18 12:00 36.6 11/07/18 12:00 78 15 100 Room Air 11/07/18 11:00 87 13 107/72 (84) 100 Room Air 11/07/18 10:27 100 Room Air 11/07/18 10:00 84 14 110/68 (82) 100 Room Air 11/07/18 09:00 83 14 108/64 (79) 100 Room Air I & O 11/08/18 07:00 Intake Total 3597.7 ml Output Total 1575 ml Balance 2022.7 ml Capillary Refill : Less Than 3 Seconds General Appearance: No Apparent Distress, WD/WN Neck: Normal Inspection Respiratory: No Accessory Muscle Use, No Respiratory Distress Cardiovascular: Regular Rate, Rhythm Gastrointestinal: non tender, soft Results Lab Laboratory Tests 11/08/18 03:00 Laboratory Tests 11/07/18 11:24: Glucometer 214H 11/07/18 11:25: 11/07/18 18:22: Glucometer 180H 11/07/18 23:54: Glucometer 187H 11/08/18 03:00: White Blood Count 51.9*H, Red Blood Count 3.27L, Hemoglobin 10.4L, Hematocrit 31L, Mean Corpuscular Volume 94, Mean Corpuscular Hemoglobin 32, Mean Corpuscular Hemoglobin Concent 34, Red Cell Distribution Width 14.0, Platelet Count 169, Mean Platelet Volume 11.2H, Neutrophils (%) (Auto) 38L, Lymphocytes (%) (Auto) 61H, Monocytes (%) (Auto) 1, Eosinophils (%) (Auto) 0, Basophils (%) (Auto) 0, Neutrophils # (Auto) 19.7H, Lymphocytes # (Auto) 31.7H, Monocytes # (Auto) 0.5, Eosinophils # (Auto) 0.0, Basophils # (Auto) 0.1, Sodium Level 143, Potassium Level 4.6, Chloride Level 119H, Carbon Dioxide Level 16L, Anion Gap 8, Blood Urea Nitrogen 100*H, Creatinine 2.10H, Estimat Glomerular Filtration Rate 31, BUN/Creatinine Ratio 48, Glucose Level 181H, Calcium Level 7.6L, Corrected Calcium 9.2, Phosphorus Level 5.6H, Magnesium Level 3.4H, Total Bilirubin 0.8, Aspartate Amino Transf (AST/SGOT) 29, Alanine Aminotransferase (ALT/SGPT) 16, Alkaline Phosphatase 138H, Total Protein 4.2L, Albumin 2.0L Microbiology 11/05/18 Blood Culture - Preliminary, Resulted No growth 11/05/18 Influenza Types A,B Antigen (CHRIS) - Final, Complete 11/05/18 Urine Culture - Final, Complete NO GROWTH 11/05/18 Gram Stain - Final, Resulted 11/05/18 Wound Culture - Preliminary, Resulted Staphylococcus aureus Assessment/Plan Assessment/Plan Assess & Plan/Chief Complaint Septic shock. Cellulitis. Diabetes. Cellulitis of back. A. fib with RVR. Coronary artery disease. Acute renal insufficiency Metabolic acidosis. Diastolic congestive heart failure... Ascending aortic aneurysm. Tobaccoism. Opioid abuse. Methamphetamine use. Chronic lymphocytic leukemia.. . 11/08/18. Sepsis. Cellulitis of back. Diabetes. A. fib with RVR. Coronary artery disease. Renal insufficiency. Diastolic congestive heart failure. CLL. Ascending aortic aneurysm. Tobaccoism. Opioid abuse. Methamphetamine abuse. UTI. Clinical Quality Measures DVT/VTE Risk/Contraindication: Risk Factor Score Per Nursin RFS Level Per Nursing on Admit: 4+=Very High GUILLERMINA MORILLO DO Nov 08, 2018 08:20
[2018-11-08] MEDS: ENOXAPARIN 80 MG/0.8 ML (LOVENOX) SYR SC SCH (08:40)
[2018-11-08] MEDS: metroNIDAZOLE 500MG/100ML IVPB 100 ML IV SCH (08:40)
[2018-11-08] MEDS: PANTOPRAZOLE 40 MG (PROTONIX) VIAL IV SCH ×2 (08:41→21:05)
--- NOTE | 2018-11-08 10:06 | NUR ---
Palliative Care RN in to see patient. He is responsive today. Attempt to have conversation with him and he was able to say he is "doing okay" but he is hard to understand. He has frequent fits of anxiety where he cries and hollers out. He appears to be in distress about things that happened in [place] and then he hollered about killing his . Not sure what all that was or if I even understood correctly. Hopefully he will become ore coherent as time goes on. Will continue to monitor.
[2018-11-08] MEDS: VANCOMYCIN 1250 MG/NS 250 ML IVPB IV SCH ×2 (10:23)
--- NOTE | 2018-11-08 11:45 | NUR ---
Pt to room 432. Received report from JASMIN Reid. Agree with previous assessment.
--- NOTE | 2018-11-08 11:48 | Occ Therapy Progress Note ---
Therapy Progress Note Continuing to monitor pt. Pt. sedated with some confusion and anxiety per chart. Will continue to monitor for skilled treatment when appropriate. 1147 Hold therapy at this time. SIERRA VAZQUEZ OT Nov 08, 2018 11:48
[2018-11-08] MEDS ORDERED: NS IV 1000 ML 1,000 ML IV PRN (12:15)
--- NOTE | 2018-11-08 14:13 | Occupational Therapy Eval ---
OT Evaluation-General/PLF Medical Diagnosis Admission Date Nov 05, 2018 at 06:30 Medical Diagnosis: Septic shock Onset Date: Nov 05, 2018 Therapy Diagnosis Therapy Diagnosis: Weakness, Decreased ADL skills Height/Weight Height (Feet): 5 Height (Inches): 9.00 Weight (Pounds): 216 Weight (Ounces): 2.6 Precautions Precautions/Isolations: Seizure, Fall Prevention, Standard Precautions, Pressure Ulcer Safety Interventions: Bed Exit Alarm, Move Closer to Desk, Reorient-PRN Weight Bear Status Weight Bearing Restriction: Weight Bearing/Tolerated Referral Physician: Dr. Griffiths Referral Reason: Activity Tolerance, Self Care, Evaluation/Treatment, Strengthe karen/ROM Medical History Pertinent Medical History: CAD, HTN, Neuropathy Additional Medical History Bladder surgery, aneurysm, DDD Current History Pt. transferred this date to medical floor. Has been sedated ICU due to agitation and confusion. Admitted with septic shock and A-fib. Reviewed History: Yes Social History Home: Homeless per chart ADL-Prior Level of Function Therapy Code Descriptions/Definitions Functional Elizabeth Measure: 0=Not Assessed/NA 4=Minimal Assistance 1=Total Assistance 5=Supervision or Setup 2=Maximal Assistance 6=Modified Elizabeth 3=Moderate Assistance 7=Complete Elizabeth Therapy Quality Codes: 6 Independent with activity with or without an assistive device 5 Patient requires set up or clean up by helper. Patient completes activity by themselves 4 Supervision or touching assist (CGA). [place] provide cues , steadying assist 3 The helper provides less than half the effort to complete the activity 2 The helper provides more than half the effort to complete the activity 1 Dependent. The helper does all the effort to complete an activity 7 Patient refused to complete or attempt activity 9 The patient did not perform the activity before the current illness or injury 88 Not attempted due to Medical conditions or safety concerns Functional Abilities and Goals: Independent: Patient completed the activities by him/herself, with or without an assistive device, with no assistance from a helper. Needed Some Help: Patient needed partial assistance from another person to complete activities. Dependent: A helper completed the activities for the patient. Unknown: Not Applicable: ADL PLOF Comments Pt. reports that he is from [place] and moved to [place] 20 years ago. OT is careful about asking questions, as pt. can become slightly agitated. At one point, while trying to sit on side of bed, pt. yells that he was a [place] [employer]et, and begins to cry. Self Care: Unknown Functional Cognition: Unknown OT Current Status Subjective Pt. does not report pain. Appearance Pt. is in bed. Alert. OT spoke with speech therapist after swallow evaluation. Reports that pt. is allowed to eat and nursing is notified. Mental Status/Objective Patient Orientation: Unable to Assess Attachments: Dow Catheter, IV Current Upper Extremity ROM WFL Edema: Noted swelling in bilateral hands. ADL-Treatment Therapy Code Descriptions/Definitions Functional Elizabeth Measure: 0=Not Assessed/NA 4=Minimal Assistance 1=Total Assistance 5=Supervision or Setup 2=Maximal Assistance 6=Modified Elizabeth 3=Moderate Assistance 7=Complete Elizabeth Therapy Quality Codes: 6 Independent with activity with or without an assistive device 5 Patient requires set up or clean up by helper. Patient completes activity by themselves 4 Supervision or touching assist (CGA). [place] provide cues , steadying assist 3 The helper provides less than half the effort to complete the activity 2 The helper provides more than half the effort to complete the activity 1 Dependent. The helper does all the effort to complete an activity 7 Patient refused to complete or attempt activity 9 The patient did not perform the activity before the current illness or injury 88 Not attempted due to Medical conditions or safety concerns Grooming (FIM): 2 (OT attempts to hand pt. comb but pt. states, "you do it." OT combed hair.) Lower Body Dressing (FIM): 2 (Pt. is unable to reach feet to don slipper socks.) Toileting (FIM): 1 (Assist of one person in stance and another person to cleanse meggan area.) Transfers (B, C, W/C) (FIM): 3 (Mod assist supine-sit and sit-stand. Mod assist to transfer to BSC.) Toilet/Commode Transfer (FIM): 3 Other Treatments Pt. is somewhat labile throughout treatment. Will laugh and smile and then begins to cry and yell. Pt. does agree to sit on side of bed and then requests BSC. Pt. attempts to have bowel movement but is unable to do so. Agrees to transfer back to bed. Bed alarm and boots applied for pressure relief and support. Pt. verbalizes that he is comfortable after session. Education OT Patient Education: Correct positioning, Modified ADL techniques, Progress toward Goal/Update tx plan, Purpose of tx/functional activities, Reviewed precautions, Rehab process, Transfer techniques Teaching Recipient: Patient Teaching Methods: Demonstration, Discussion Response to Teaching: Verbalize Understanding, Reinforcement Needed OT Short Term Goals Short Term Goals Time Frame: Nov 15, 2018 Eating(FIM): 5 Grooming(FIM): 4 Bathing(FIM): 3 Upper Body Dressing(FIM): 4 Lower Body Dressing(FIM): 4 Toileting(FIM): 4 Transfers (B,C,W/C) (FIM): 5 Toilet/Commode Transfer(FIM): 5 Shower Transfer(FIM): 4 Additional Short Term Goals: 1-Demonstrate ADL Tasks, 2-Verbalize Understanding, 3-ImproveStrength/Tg 1=Demonstrate adherence to instructed precautions during ADL tasks. 2=Patient will verbalize/demonstrate understanding of assistive devices/modifications for ADL. 3=Patient will improve strength/tolerance for activity to enable patient to perform ADL's. OT Halfway Goals Halfway Goals Time Frame: Nov 29, 2018 Eating (FIM): 7 Grooming(FIM): 6 Bathing(FIM): 5 Upper Body Dressing(FIM): 6 Lower Body Dressing(FIM): 6 Toileting(FIM): 6 Transfers (B,C,W/C) (FIM): 6 Toilet/Commode Transfer(FIM): 6 Shower Transfer(FIM): 5 Additional Goals: 1-Demonstrate ADL Tasks, 2-Verbalize Understanding, 3- ImproveStrength/Tg 1=Demonstrate adherence to instructed precautions during ADL tasks. 2=Patient will verbalize/demonstrate understanding of assistive devices/modifications for ADL. 3=Patient will improve strength/tolerance for activity to enable patient to perform ADL's. OT Education/Plan Problem List/Assessment Assessment: Decreased Activ Tolerance, Decreased Safety Aware, Decreased UE St rength, Dependent Transfers, Impaired Bed Mobility, Impaired Cognition, Impaired Funct Balance, Impaired I ADL's, Impaired Self-Care Skills Discharge Recommendations Plan/Recommendations: Continue POC Comment Equipment needs and discharge location to be determined. Treatment Plan/Plan of Care Treatment,Training & Education: Yes Patient would benefit from OT for education, treatment and training to promote independence in ADL's, mobility, safety and/or upper extremity function for ADL's. Plan of Care: ADL Retraining, Functional Mobility, UE Funct Exercise/Act Treatment Duration: Nov 29, 2018 Frequency: 5 times per week Estimated Hrs Per Day: .25 hour per day Agreement: Yes Rehab Potential: Fair Time/GCodes Start Time: 13:20 Stop Time: 13:47 Total Time Billed (hr/min): 27 Billed Treatment Time 1, EVH x 10minutes, ADL x 17minutes SIERRA VAZQUEZ OT Nov 08, 2018 14:13
--- NOTE | 2018-11-08 15:42 | ST Dysphagia Evaluation ---
Speech Evaluation-General Medical Diagnosis Septic shock Onset Date: Nov 05, 2018 Therapy Diagnosis Therapy Diagnosis: Oropharyngeal Dysphagia Precautions Precautions: Aspiration Precautions/Isolations: Aspiration, Seizure, Fall Prevention, Standard Precautions, Pressure Ulcer Referral Referring Physician: Dr. Griffiths Reason for Referral: Evaluation/Treatment Medical History Pertinent Medical History: CAD, HTN, Neuropathy CAD, HTN, Neuropathy Current History Septic Shock Reviewed History: Yes Social History Home: Current Living Status: Homeless Speech PLF/Current-Dysphagia Prior Level of Function Patient's prior level of function is unknown. Subjective Patient was pleasant and compliant with the BDE. Cognitive Status Patient Orientation: Person, Place Oral Motor Skills Dentition: Edentalous Ability to Follow Directions: Good Patient was NPO pending BDE Oral Expression Ability: Mild Impairment Face Facial Symmetry: Symmetrical Oral-Facial Assessment Oral-Facial Dentition: Normal Labial Seal Description: Reduced ROM Smile: Reduced ROM Puff Cheeks: Reduced Strength Lingual Protrusion: Normal Lingual ROM: Normal Lingual Strength: Normal Pharynx Velopharyngeal Move.: Normal Volitional Dry Swallow: Yes Voluntary Cough: Yes Can Clear Throat Volitionally: Yes Productive Cough: No Productive Throat Clear: No Dysphagia Evaluation Consistencies Presented: Thin Liquid, Mechanical Soft, Pureed Oral phase within normal range of function for consistencies presented. Pharyngeal phase within normal range of function for consistencies presented. Dietary Recommendations: Mechanical Soft Liquid Recommendations: Thin Swallowing Precautions: Alternate Liquids/Solids, Decreased Bolus 1/2 Tsp, Liquids from Straw, Small Bites and Sips, Sitting Upright 90 Degrees, Sitting 90 Degrees 30 Post Intake Dysphagia Evaluation Summary Patient is a 73 year old man who was admitted via ER with septic shock. The patient was unable to complete the BDE while in the ICU due to being sedated. The patient has made recovery so that he was able to be transferred to the acute 4th floor room. The patient completed the BDE with thin liquids at 1/2 tsp. presentations x2 without difficulty. Also by straw at small sips x2 without difficulty. Puree and mechanical soft presentations at 1/2 tsp. were presented without difficulty. Regular texture was not given due to patient's being edentulous. The patient will be on a Dysphagia II diet level with thin liquids. This information was provided to his nurse and written on the white board in the patient's room. The patient will receive skilled dysphagia therapy for ongoing assessment for safest oral intake. Barriers to Learning Patient has a significant history of drug and alcohol abuse. He was admitted due to septic shock and infection. Speech Short Term Goals Short Term Goals Short Term Goals 1) The patient will tolerate the least restrictive diet level without s/s of aspiration at 90% or greater. 2) The patient will utilize compensatory strategies as trained for safe oral intake at 90% or greater with minimal verbal cues. Speech Quality Rep Goals Quality Rep Goals The patient will maintain adequate nutrition/hydration via safe effective swa llow function. Speech-Plan Patient/Family Goals Patient/Family Goals: It is unknown where the patient will go upon discharge at this time. Treatment Plan Speech Therapy Treatment Plan: Continue Plan of Care Patient will receive skilled ST services for dysphagia. Treatment Duration: Nov 11, 2018 Frequency: 2 times per week Estimated Hrs Per Day: .25 hour per day Rehab Potential: Fair Barriers to Learning: Patient has a significant history of drug and alcohol abuse. He was admitted due to septic shock and infection. Pt/Family Agrees to Plan: Yes Safety Risks/Education Teaching Recipient: Patient Teaching Methods: Demonstration, Discussion Response to Teaching: Verbalize Understanding, Return Demonstration Education Topics Provided: Safety of oral intake and diet level Time Speech Therapy Time In: 13:05 Speech Therapy Time Out: 13:20 Total Billed Time: 15 Billed Treatment Time 1[address] Nov 08, 2018 15:42
--- NOTE | 2018-11-08 17:44 | Cardiology Progress Note ---
Cardiology SOAP Progress Note Subjective: No cardiac complaints. Objective: I&O/Vital Signs 11/09/18 11/09/18 11/09/18 11/09/18 07:25 08:00 09:45 11:43 Temp 37.1 Pulse 97 Resp 18 B/P (MAP) 154/86 (108) Pulse Ox 94 92 93 O2 Delivery Nasal Cannula Nasal Cannula Room Air Nasal Cannula O2 Flow Rate 2.00 2.00 2.00 11/09/18 11/09/18 12:03 13:00 Pulse 169 103 11/09/18 00:00 Intake Total 1440 ml Output Total 1100 ml Balance 340 ml Weight (Pounds): 216 Weight (Ounces): 2.6 Weight (Calculated Kilograms): 98.548658 Constitutional: appears stated age; No apparent distress; well-developed, well- nourished, other (Very sleepy. Noncommunicative) Respiratory: chest is bilaterally symmetric, lungs clear to auscultation Cardiovascular: regular rate-rhythm, tachycardia, S1 and S2 Gastrointestional: soft, round, audible bowel sounds; No spleenomegaly Extremities: normal range of motion, non-tender, normal inspection; No clubbing, No cyanosis; no lower extremity edema bilateral; No significant edema Neurologic/Psychiatric: other (Not communicating) Skin: rash, other (MOST OF BACK WITH ERYTHEMA AND INDURATION, WITH WOUND TO LOWER BACK. NO DRAINAGE AT THIS TIME. ) Results/Procedures: Labs Laboratory Tests 11/08/18 18:23: Glucometer 170H 11/09/18 00:04: Glucometer 155H 11/09/18 05:18: White Blood Count 67.3*H, Red Blood Count 3.36L, Hemoglobin 10.6L, Hematocrit 3 2L, Mean Corpuscular Volume 95, Mean Corpuscular Hemoglobin 32, Mean Corpuscular Hemoglobin Concent 33, Red Cell Distribution Width 14.5, Platelet Count 239, Mean Platelet Volume 11.2H, Neutrophils (%) (Auto) 31L, Lymphocytes (%) (Auto) 69H, Monocytes (%) (Auto) 0, Eosinophils (%) (Auto) 0, Basophils (%) (Auto) 0, Neutrophils # (Auto) 20.7H, Lymphocytes # (Auto) 46.2H, Monocytes # (Auto) 0.3, Eosinophils # (Auto) 0.0, Basophils # (Auto) 0.1, Sodium Level 143, Potassium Level 4.3, Chloride Level 119H, Carbon Dioxide Level 17L, Anion Gap 7, Blood Urea Nitrogen 96H, Creatinine 1.70H, Estimat Glomerular Filtration Rate 40, BUN/Creatinine Ratio 56, Glucose Level 159H, Calcium Level 7.6L, Corrected Calcium 9.0, Phosphorus Level 4.3, Magnesium Level 3.1H, Total Bilirubin 0.8, Aspartate Amino Transf (AST/SGOT) 35H, Alanine Aminotransferase (ALT/SGPT) 24, Alkaline Phosphatase 197H, B-Type Natriuretic Peptide 1257.9H, Total Protein 4.7L, Albumin 2.2L 11/09/18 10:50: Urine Color YELLOW, Urine Clarity CLEAR, Urine pH 6, Urine Specific [place] 1.015L, Urine Protein 2+H, Urine Glucose (UA) NEGATIVE, Urine Ketones NEGATIVE, Urine Nitrite NEGATIVE, Urine Bilirubin NEGATIVE, Urine Urobilinogen NORMAL, Urine Leukocyte Esterase 1+H, Urine RBC (Auto) 1+H, Urine RBC 0-2, Urine WBC 2- 5, Urine Crystals NONE, Urine Bacteria FEWH, Urine Casts PRESENT, Urine Coarse Granular Casts 10-25H, Urine Mucus NEGATIVE, Urine Culture Indicated NO 11/09/18 11:19: Glucometer 181H 11/09/18 16:15: Glucometer 211H Microbiology 11/05/18 Blood Culture - Preliminary, Resulted No growth 11/05/18 Influenza Types A,B Antigen (CHRIS) - Final, Complete 11/05/18 Urine Culture - Final, Complete NO GROWTH 11/05/18 Gram Stain - Final, Complete 11/05/18 Wound Culture - Final, Complete Staphylococcus aureus See Comments A/P: Assessment/Dx: septic shock, significantly improved. Diabetes, Paroxysmal atrial fibrillation, currently in sinus rhythm Source of infection unclear could be cellulitis, Acute diastolic congestive heart failure Acute kidney injury Elevated LFTs, Metabolic acidosis, active smoker, heavy alcohol use, Drug abuse. Plan: Septic shock, significantly improved. No further atrial fibrillation. Acute diastolic congestive heart failure, Echocardiogram showed normal LV function with mild to moderate diastolic dysfunction. Acute kidney injury Aggressive control of diabetes. Elevated LFTs likely due to septic shock. Metabolic acidosis, lactic acidosis likely due to severe sepsis. Defer to the ICU team. active smoker, heavy alcohol use, detoxification Drug abuse. Thank you for your consultation. Please call me if you have any questions. Vaughn Medellin MD, FACP, FACC, FSCAI, FHRS, CCDS Interventional Cardiology Cardiac Electrophysiology Vascular Medicine and Endovascular Interventions Focused Exam Lactate Level 11/07/18 03:11: Lactic Acid Level 1.31 Time of Focused Exam: 07:00 Roman MEDELLIN MD Nov 08, 2018 17:44
[2018-11-08] MEDS: NICOTINE 21 MG (NICODERM) PATCH TD SCH (21:05)
[2018-11-09 00:05] VITALS: BP 132/81
[2018-11-09] MEDS: inSUlin ASPART (NovoLOG) 1 UNIT/0.01 ML (CHARGE PER UNIT) SC SCH ×5 (00:10→21:49)
[2018-11-09] MEDS: RT-ALBUTEROL/IPRATROPIUM 3 ML (DUONEB) VIAL INH SCH ×6 (01:58→21:27)
[2018-11-09 04:10] VITALS: BP 138/79
[2018-11-09] MEDS: HYDROCORTISONE 100 MG/2 ML (Solu-CORTEF) VIAL IV SCH ×3 (04:17→18:47)
[2018-11-09 05:28] LABS: BASOPHILS # (AUTO) 0.1 10^3/uL (0.0-0.1); BASOPHILS % (AUTO) 0 % (0-10); EOSINOPHILS % (AUTO) 0 % (0-10); HEMATOCRIT 32 % (40-54); HEMOGLOBIN 10.6 G/DL (13.3-17.7); LYMPHOCYTES # (AUTO) 46.2 X 10^3 (1.0-4.0); LYMPHOCYTES % (AUTO) 69 % (12-44); MEAN CORPUSCULAR HEMOGLOBIN 32 PG (25-34); MEAN CORPUSCULAR HGB CONC 33 G/DL (32-36); MEAN CORPUSCULAR VOLUME 95 FL (80-99); MEAN PLATELET VOLUME 11.2 FL (7.4-10.4); MONOCYTES # (AUTO) 0.3 X 10^3 (0.0-1.0); MONOCYTES % (AUTO) 0 % (0-12); NEUTROPHILS # (AUTO) 20.7 X 10^3 (1.8-7.8); NEUTROPHILS % (AUTO) 31 % (42-75); PLATELET COUNT 239 10^3/uL (130-400); RED CELL DISTRIBUTION WIDTH 14.5 % (10.0-14.5)
[2018-11-09 05:31] LABS: WHITE BLOOD COUNT 67.3 10^3/uL (4.3-11.0)
[2018-11-09 05:50] LABS: ALBUMIN 2.2 GM/DL (3.2-4.5); BILIRUBIN,TOTAL 0.8 MG/DL (0.1-1.0); CALCIUM 7.6 MG/DL (8.5-10.1); CREATININE SERUM 1.7 MG/DL (0.60-1.30); MAGNESIUM 3.1 MG/DL (1.6-2.4); PHOSPHORUS 4.3 MG/DL (2.3-4.7); POTASSIUM 4.3 MMOL/L (3.6-5.0); TOTAL PROTEIN 4.7 GM/DL (6.4-8.2)
[2018-11-09] MEDS: KCL 20 MEQ TAB (K-DUR) PO SCH (06:45)
[2018-11-09] MEDS: ENOXAPARIN 80 MG/0.8 ML (LOVENOX) SYR SC SCH (06:55)
[2018-11-09 08:00] VITALS: BP 154/86
--- NOTE | 2018-11-09 08:04 | Progress Note ---
Subjective Time Seen by a Provider: 08:02 Subjective/Events-last exam Patient doing better today. Patient is alert. Patient knows who I am. Patient knows the date. Patient knows the cafeteria table attendant Focused Exam Lactate Level 11/07/18 03:11: Lactic Acid Level 1.31 Time of Focused Exam: 07:00 Objective Exam Vital Signs Date Time Temp Pulse Resp B/P (MAP) Pulse Ox O2 Delivery O2 Flow Rate FiO2 11/09/18 07:25 94 Nasal Cannula 2.00 11/09/18 04:10 36.9 100 24 138/79 (98) 92 Nasal Cannula 2.00 11/09/18 01:58 95 Nasal Cannula 2.00 11/09/18 00:05 37.2 92 20 132/81 (98) 92 Nasal Cannula 2.00 11/08/18 21:38 94 Nasal Cannula 2.00 11/08/18 21:10 Room Air 11/08/18 20:24 37.2 94 92 11/08/18 20:13 37.2 94 20 109/65 (80) 92 Room Air 11/08/18 18:51 88 Room Air 11/08/18 16:42 37.0 92 22 132/65 (87) 91 Room Air 11/08/18 15:23 91 Room Air 11/08/18 13:00 36.5 80 18 118/71 (87) 90 Room Air 11/08/18 12:06 36.5 80 18 118/71 (87) 88 Room Air 11/08/18 11:00 75 16 116/74 (88) 100 Room Air 11/08/18 10:45 100 Room Air 11/08/18 10:28 100 Room Air 11/08/18 10:00 75 27 119/74 (89) 98 Room Air 11/08/18 09:00 75 11 115/70 (85) 100 Room Air I & O 11/09/18 07:00 Intake Total 1902.5 ml Output Total 1625 ml Balance 277.5 ml Capillary Refill : Less Than 3 Seconds General Appearance: No Apparent Distress, WD/WN HEENT: Normal ENT Inspection Neck: Full Range of Motion Respiratory: Lungs Clear, No Accessory Muscle Use, No Respiratory Distress Cardiovascular: Regular Rate, Rhythm, No Murmur Gastrointestinal: non tender, soft Results Lab Laboratory Tests 11/09/18 05:18 Laboratory Tests 11/08/18 08:20: Vancomycin Level Trough 13.8 11/08/18 12:08: Glucometer 177H 11/08/18 18:23: Glucometer 170H 11/09/18 00:04: Glucometer 155H 11/09/18 05:18: White Blood Count 67.3*H, Red Blood Count 3.36L, Hemoglobin 10.6L, Hematocrit 32L, Mean Corpuscular Volume 95, Mean Corpuscular Hemoglobin 32, Mean Corpuscular Hemoglobin Concent 33, Red Cell Distribution Width 14.5, Platelet Count 239, Mean Platelet Volume 11.2H, Neutrophils (%) (Auto) 31L, Lymphocytes (%) (Auto) 69H, Monocytes (%) (Auto) 0, Eosinophils (%) (Auto) 0, Basophils (%) (Auto) 0, Neutrophils # (Auto) 20.7H, Lymphocytes # (Auto) 46.2H, Monocytes # (Auto) 0.3, Eosinophils # (Auto) 0.0, Basophils # (Auto) 0.1, Sodium Level 143, Potassium Level 4.3, Chloride Level 119H, Carbon Dioxide Level 17L, Anion Gap 7, Blood Urea Nitrogen 96H, Creatinine 1.70H, Estimat Glomerular Filtration Rate 40, BUN/Creatinine Ratio 56, Glucose Level 159H, Calcium Level 7.6L, Corrected Calcium 9.0, Phosphorus Level 4.3, Magnesium Level 3.1H, Total Bilirubin 0.8, Aspartate Amino Transf (AST/SGOT) 35H, Alanine Aminotransferase (ALT/SGPT) 24, Alkaline Phosphatase 197H, Total Protein 4.7L, Albumin 2.2L Microbiology 11/05/18 Blood Culture - Preliminary, Resulted No growth 11/05/18 Influenza Types A,B Antigen (CHRIS) - Final, Complete 11/05/18 Urine Culture - Final, Complete NO GROWTH 11/05/18 Gram Stain - Final, Complete 11/05/18 Wound Culture - Final, Complete Staphylococcus aureus See Comments Assessment/Plan Assessment/Plan Assess & Plan/Chief Complaint Septic shock. Cellulitis. Diabetes. Cellulitis of back. A. fib with RVR. Coronary artery disease. Acute renal insufficiency Metabolic acidosis. Diastolic congestive heart failure... Ascending aortic aneurysm. Tobaccoism. Opioid abuse. Methamphetamine use. Chronic lymphocytic leukemia.. . 11/08/18. Sepsis. Cellulitis of back. Diabetes. A. fib with RVR. Coronary artery disease. Renal insufficiency. Diastolic congestive heart failure. CLL. Ascending aortic aneurysm. Tobaccoism. Opioid abuse. Methamphetamine abuse. UTI.. 11/09/18. Sepsis. Cellulitis of back. Diabetes. A. fib with RVR. Coronary artery disease. Renal insufficiency getting better. Diastolic congestive heart failure. Tobaccoism. Opioid abuse. Methamphetamine abuse. UTI Clinical Quality Measures DVT/VTE Risk/Contraindication: Risk Factor Score Per Nursin RFS Level Per Nursing on Admit: 4+=Very High GUILLERMINA MORILLO DO Nov 09, 2018 08:04
[2018-11-09] MEDS: PANTOPRAZOLE 40 MG (PROTONIX) VIAL IV SCH ×2 (08:57→21:21)
[2018-11-09] MEDS: NICOTINE 21 MG (NICODERM) PATCH TD SCH (08:58)
[2018-11-09] MEDS: VANCOMYCIN 1500 MG/NS 500 ML IVPB IV SCH ×2 (08:58)
--- NOTE | 2018-11-09 09:04 | Diagnostic Imaging Report ---
Indication: Sepsis. Time of exam: 8:48 AM Correlation is made prior exam from one day earlier. The heart size is stable. A right-sided IJ central line has its tip overlying SVC. There are patchy areas of parenchymal density in the mid and lower lung butt. This is similar in the left base. This appears to be increased on the right when compared with yesterday. The upper lung butt remain well-aerated and clear. No significant effusion is identified. There is no pneumothorax. Impression: Bibasilar parenchymal densities, increased in the right base when compared with examination of one day earlier. Features are most suggestive of pneumonia. Dictated by: Dictated on workstation # [id number]
[2018-11-09] MEDS: NICOTINE PATCH REMOVAL TP SCH (09:06)
--- NOTE | 2018-11-09 10:00 | NUR ---
PALLIATIVE CARE RN in to see patient this morning. He was sitting up in bed eating breakfast but agreeable to discussion. He is not comfortable in bed so go assist in helping to scoot him up. He is asking to be able to get up and walk around. No PT ordered planned to call Dr. Whalen which was done and order received. Talked to patient briefly about what he would like to do regarding his Leukemia and Multiple Myeloma. He remains constant in his decision to not seek treatment for this instead he would like to "rock and roll till the end". Started to discuss his jaqui situation and need but nursing came in to gt UA. Will continue later.
[2018-11-09 11:07] LABS: BILIRUBIN,URINE NEGATIVE (NEGATIVE); CLARITY,URINE CLEAR; COLOR,URINE YELLOW; GLUCOSE, URINE (UA) NEGATIVE (NEGATIVE); KETONES,URINE NEGATIVE (NEGATIVE); LEUKOCYTE ESTERASE ,URINE 1+ (NEGATIVE); NITRITE,URINE NEGATIVE (NEGATIVE); PH,URINE 6 (5-9); PROTEIN,URINE 2+ (NEGATIVE); UROBILINOGEN,URINE NORMAL (NORMAL)
[2018-11-09 11:17] LABS: BACTERIA,URINE FEW /HPF; RBC,URINE 0-2 /HPF
[2018-11-09] MEDS: NS IV 1000 ML 1,000 ML IV SCH ×2 (11:38→22:33)
--- NOTE | 2018-11-09 14:34 | Occupational Ther Daily Note ---
OT Current Status-Daily Note Subjective Pt alert, lying in bed. Pt agrees to therapy. No c/o pain while lying supine. Pain with movement. Mental Status/Objective Patient Orientation: Person, Place, Time, Situation Therapy Code Descriptions/Definitions Functional [place] Measure: 0=Not Assessed/NA 4=Minimal Assistance 1=Total Assistance 5=Supervision or Setup 2=Maximal Assistance 6=Modified [place] 3=Moderate Assistance 7=Complete [place] Attachments: Dow Catheter, IV, Oxygen, Telemetry ADL-Treatment Due to weakness, debility and edema of the scrotum pt required max A to go from supine to sitting EOB. Assist x2 to transfer using FWW from EOB to recliner (SPT), pt able to stand assist needed to position FWW and to stand upright. Pt weakened and LE's began to buckle. When sitting pt plops onto seat. Pt is able to grasp spoon and bring to mouth though unable to manipulate it while bringing to mouth and food spilled off of spoon bowl. Soup was placed in cup and pt drank it independently. After therapy, PT took over care of pt. All needs met in room. OT Short Term Goals Short Term Goals Time Frame: Nov 15, 2018 Eating(FIM): 5 Grooming(FIM): 4 Bathing(FIM): 3 Upper Body Dressing(FIM): 4 Lower Body Dressing(FIM): 4 Toileting(FIM): 4 Transfers (B,C,W/C) (FIM): 5 Toilet/Commode Transfer(FIM): 5 Shower Transfer(FIM): 4 Additional Short Term Goals: 1-Demonstrate ADL Tasks, 2-Verbalize Understanding, 3-ImproveStrength/Tg 1=Demonstrate adherence to instructed precautions during ADL tasks. 2=Patient will verbalize/demonstrate understanding of assistive devices/modifications for ADL. 3=Patient will improve strength/tolerance for activity to enable patient to perform ADL's. OT Assistant Manager [employer] Goals Assistant Manager [employer] Goals Time Frame: Nov 29, 2018 Eating (FIM): 7 Grooming(FIM): 6 Bathing(FIM): 5 Upper Body Dressing(FIM): 6 Lower Body Dressing(FIM): 6 Toileting(FIM): 6 Transfers (B,C,W/C) (FIM): 6 Toilet/Commode Transfer(FIM): 6 Shower Transfer(FIM): 5 Additional Goals: 1-Demonstrate ADL Tasks, 2-Verbalize Understanding, 3- ImproveStrength/Tg 1=Demonstrate adherence to instructed precautions during ADL tasks. 2=Patient will verbalize/demonstrate understanding of assistive devices/modifi cations for ADL. 3=Patient will improve strength/tolerance for activity to enable patient to perform ADL's. OT Education/Plan Problem List/Assessment Assessment: Decreased Activ Tolerance, Decreased Safety Aware, Decreased UE Strength, Dependent Transfers, Impaired Bed Mobility, Impaired Cognition, Impaired Coordination, Impaired Funct Balance, Impaired I ADL's, Impaired Self- Care Skills, Restricted Funct UE ROM Discharge Recommendations Plan/Recommendations: Continue POC Treatment Plan/Plan of Care Patient would benefit from OT for education, treatment and training to promote independence in ADL's, mobility, safety and/or upper extremity function for ADL's. Plan of Care: ADL Retraining, Functional Mobility, UE Funct Exercise/Act Treatment Duration: Nov 29, 2018 Frequency: 5 times per week Estimated Hrs Per Day: .25 hour per day Agreement: Yes Rehab Potential: Fair Time/GCodes Start Time: 13:49 Stop Time: 14:12 Total Time Billed (hr/min): 23 Billed Treatment Time 1 visit-FA 2 (23 min) MANE THOMAS Nov 09, 2018 14:34
--- NOTE | 2018-11-09 14:37 | Physical Therapy Evaluation ---
PT Evaluation-General Medical Diagnosis Admission Date Nov 05, 2018 at 06:30 Medical Diagnosis: Septic shock Onset Date: Nov 05, 2018 Therapy Diagnosis Therapy Diagnosis: impaired mobility, strength, endurance, balance Height/Weight Height (Feet): 5 Height (Inches): 9.00 Weight (Pounds): 220 Weight (Ounces): 6.4 Precautions Precautions/Isolations: Contact Isolation Weight Bear Status Right Lower Extremity: Right Weight Bearing/Tolerated Left Lower Extremity: Left Weight Bearing/Tolerated Referral Physician: Dr. Griffiths Reason for Referral: Evaluation/Treatment Medical History Pertinent Medical History: CAD, HTN, Neuropathy Additional Medical History Past Medical History Surgeries: Bladder Surgery, Gallbladder Cardiac: Aneurysm, High Cholesterol, Hypertension Neurological: Neuropathy Reproductive: Yes (E.D.) Musculoskeletal: Degenerate Disk Disease, Chronic Back Pain, Fractures Endocrine: Diabetes, Non-Insulin dep HEENT: Macular Degeneration Cancer: Leukemia, Lymphoma Did You Recieve Any Treatments: No Psychosocial: Anxiety, PTSD History of Blood Disorders: No Reviewed History: Yes Social History Home: Homeless per chart Current Living Status: Homeless Prior/[facility] Prior Level of Function Therapy Code Descriptions/Definitions Functional [place] Measure: 0=Not Assessed/NA 4=Minimal Assistance 1=Total Assistance 5=Supervision or Setup 2=Maximal Assistance 6=Modified [place] 3=Moderate Assistance 7=Complete [place] Therapy Quality Codes: 6 Independent with activity with or without an assistive device 5 Patient requires set up or clean up by helper. Patient completes activity by themselves 4 Supervision or touching assist (CGA). [place] provide cues , steadying assist 3 The helper provides less than half the effort to complete the activity 2 The helper provides more than half the effort to complete the activity 1 Dependent. The helper does all the effort to complete an activity 7 Patient refused to complete or attempt activity 9 The patient did not perform the activity before the current illness or injury 88 Not attempted due to Medical conditions or safety concerns Functional Abilities and Goals: Independent: Patient completed the activities by him/herself, with or without an assistive device, with no assistance from a helper. Needed Some Help: Patient needed partial assistance from another person to complete activities. Dependent: A helper completed the activities for the patient. Unknown: Not Applicable: unknown PT Evaluation-Current Subjective Patient in recliner pre tx, agrees to PT, has 10/10 pain "all over" Pt/Family Goals improve mobility and independence Objective Patient Orientation: Person, Confused Attachments: Oxygen, Dow Catheter, IV ROM/Strength Strength Lower Extremities 3-/5 gross bilateral lower extremities Integumentary/Posture Integumentary BLE edema Sensory Hearing: Functional Sensation Right Lower Extremit: Intact Sensation Left Lower Extremity: Intact Transfers Therapy Code Descriptions/Definitions Functional [place] Measure: 0=Not Assessed/NA 4=Minimal Assistance 1=Total Assistance 5=Supervision or Setup 2=Maximal Assistance 6=Modified [place] 3=Moderate Assistance 7=Complete [place] Transfers (B, C, W/C) (FIM): 1 Sit to/from Stand: 1 Patient stood from recliner with max assist of 2 and stood for about 30 seconds before knees started buckling Balance Sitting Static: Fair Sitting Dynamic: Fair Standing Static: Poor Standing Dynamic: Poor Treatment BLE exercises x15 (AP, LAQ) Assessment/Needs Patient has impaired mobility, strength, endurance, balance. Patient in recliner post tx with nurse call, phone, tray, all needs met. Instructed to use nurse call if he needs anything. Rehab Potential: Guarded PT Short Term Goals Short Term Goals Time Frame: Nov 16, 2018 Transfers (B,C,W/C) (FIM): 3 Gait (FIM): 1 Gait Distance Comment: 5' Gait Level of Assist: 3 Gait Assistive Device: FWW PT Plan Problem List Problem List: Activity Tolerance, Functional Strength, Safety, Balance, Gait, Transfer, Bed Mobility, ROM Treatment/Plan Treatment Plan: Continue Plan of Care Treatment Plan: Bed Mobility, Concurrent Therapy, Education, Functional Activity Tg, Functional Strength, Gait, Safety, Therapeutic Exercise, T ransfers Treatment Duration: Nov 16, 2018 Frequency: 6 times per week Estimated Hrs Per Day: .25 hour per day Patient and/or Family Agrees t: Yes Safety Risks/Education Patient Education: Transfer Techniques, Correct Positioning, Safety Issues Teaching Recipient: Patient Teaching Methods: Demonstration, Discussion Response to Teaching: Reinforcement Needed Discharge Recommendations Plan Patient will perform bed mobility and transfer training, balance and endurance training, functional strengthening, gait training, and education to improve fu nctional mobility and independence at home. Therapy Discharge Recommendati: 24 Hour Supervision Time/GCodes Time In: 1412 Time Out: 1422 Total Billed Treatment Time: 10 Total Billed Treatment 1 visit EVRoman Harvey' BENJI DOMINGUEZ PT Nov 09, 2018 14:37
--- NOTE | 2018-11-09 14:41 | Speech Therapy Daily Note ---
Speech Daily Progress Note Subjective Date Seen by Provider: Nov 09, 2018 Time Seen by Provider: 00:15 Patient was laying in bed, talking out loud to someone (no one was present). Objective Patient was able to follow verbal directions with oral intake at 75% accuracy. Assessment Assessment Current Status: Good Progress Treatment Plan Continue Plan of Care Speech Short Term Goals Short Term Goals Short Term Goals 1) The patient will tolerate the least restrictive diet level without s/s of aspiration at 90% or greater. 2) The patient will utilize compensatory strategies as trained for safe oral intake at 90% or greater with minimal verbal cues. Speech Manager Business Goals Manager Business Goals The patient will maintain adequate nutrition/hydration via safe effective swallow function. Speech-Plan Patient/Family Goals Patient/Family Goals: It is unknown at this time what the plan will be upon discharge. Treatment Plan Speech Therapy Treatment Plan: Continue Plan of Care The patient was able to answer my questions appropriately 90% of the time. Treatment Duration: Nov 11, 2018 Frequency: 2 times per week Estimated Hrs Per Day: .25 hour per day Rehab Potential: Fair Barriers to Learning: Patient's medical history and decreased cognitive function Pt/Family Agrees to Plan: Yes Safety Risks/Education Teaching Recipient: Patient Teaching Methods: Demonstration, Discussion Response to Teaching: Verbalize Understanding, Return Demonstration Education Topics Provided: Continued safety of all oral intake. Time Speech Therapy Time In: 08:15 Speech Therapy Time Out: 08:30 Total Billed Time: 15 Billed Treatment Time ShirleyMILES B[address] ST Nov 09, 2018 14:41
--- NOTE | 2018-11-09 14:59 | Oncology Progress Note ---
Subjective Date Seen by a Provider: Nov 09, 2018 Time Seen by a Provider: 14:50 Subjective/Events-last exam Pt is doing better. Flowcytometry confirmed the CLL without adverse biological markers. Lymphocytosis slightly worse today but Plt normal and Hb stable. Decreased Hb is most likely due to IV dilution. Serum IgG level 597. Laboratory Tests 11/09/18 05:18 Data Review Labs Laboratory Tests 11/09/18 05:18 Laboratory Tests 11/06/18 19:53: Glucometer 183H 11/06/18 23:21: Glucometer 210H 11/07/18 03:11: White Blood Count 66.1*H, Red Blood Count 3.59L, Hemoglobin 11.4L, Hematocrit 34L, Mean Platelet Volume 10.8H, Neutrophils (%) (Auto) 30L, Lymphocytes (%) (Auto) 69H, Neutrophils # (Auto) 19.5H, Lymphocytes # (Auto) 45.7H, Chloride Level 114H, Carbon Dioxide Level 14L, Blood Urea Nitrogen 108*H, Creatinine 2.48H, Glucose Level 181H, Calcium Level 7.4L, Phosphorus Level 6.0H, Magnesium Level 3.0H, Total Protein 3.9L, Albumin 1.9L 11/07/18 11:24: Glucometer 214H 11/07/18 11:25: 11/07/18 18:22: Glucometer 180H 11/07/18 23:54: Glucometer 187H 11/08/18 03:00: White Blood Count 51.9*H, Red Blood Count 3.27L, Hemoglobin 10.4L, Hematocrit 31L, Mean Platelet Volume 11.2H, Neutrophils (%) (Auto) 38L, Lymphocytes (%) (Auto) 61H, Neutrophils # (Auto) 19.7H, Lymphocytes # (Auto) 31.7H, Chloride Level 119H, Carbon Dioxide Level 16L, Blood Urea Nitrogen 100*H, Creatinine 2.10H, Glucose Level 181H, Calcium Level 7.6L, Phosphorus Level 5.6H, Magnesium Level 3.4H, Alkaline Phosphatase 138H, Total Protein 4.2L, Albumin 2.0L, Immunoglobulin G 592L 11/08/18 08:20: 11/08/18 12:08: Glucometer 177H 11/08/18 18:23: Glucometer 170H 11/09/18 00:04: Glucometer 155H 11/09/18 05:18: White Blood Count 67.3*H, Red Blood Count 3.36L, Hemoglobin 10.6L, Hematocrit 32L, Mean Platelet Volume 11.2H, Neutrophils (%) (Auto) 31L, Lymphocytes (%) (Auto) 69H, Neutrophils # (Auto) 20.7H, Lymphocytes # (Auto) 46.2H, Chloride Level 119H, Carbon Dioxide Level 17L, Blood Urea Nitrogen 96H, Creatinine 1.70H, Glucose Level 159H, Calcium Level 7.6L, Magnesium Level 3.1H, Aspartate Amino Transf (AST/SGOT) 35H, Alkaline Phosphatase 197H, B-Type Natriuretic Peptide 1257.9H, Total Protein 4.7L, Albumin 2.2L 11/09/18 10:50: Urine Specific [place] 1.015L, Urine Protein 2+H, Urine Leukocyte Esterase 1+H, Urine RBC (Auto) 1+H, Urine Bacteria FEWH, Urine Coarse Granular Casts 10-25H 11/09/18 11:19: Glucometer 181H Physical Exam Vital Signs Vital Signs - First Documented 11/05/18 11/05/18 11/05/18 05:26 07:48 09:23 Temp 35.8 Pulse 107 Resp 18 B/P (MAP) 75/60 (65) Pulse Ox 93 O2 Delivery Room Air O2 Flow Rate 2.00 FiO2 21 Capillary Refill : Less Than 3 Seconds Height, Weight, BMI Height: 5'9.00" Weight: 220lbs. 6.4oz. 99.475082lj; 23.22 BMI Method:Stated General Appearance: No Apparent Distress Focused Exam Lactate Level 11/07/18 03:11: Lactic Acid Level 1.31 Time of Focused Exam: 07:00 Impression & Plan Impression & Plan IMP: 1. CLL, diagnosed 2009 with lymphocytosis, normal Hb and Plt at that time. Negative ZAP-70 and CD38 expression. Now progression of lymphocytosis and mild anemia, Plt still normal. Flowcytometry 11/07/18 confirmed CLL without adverse biological markers. 2. Sepsis, UTI and cellulitis on IV antibiotics. All cultures negative so far. 3. Drug abuse and h/o alcohol abuse 4. Agitation requires heavy sedation 5. Acute renal insufficiency 6. DM 7. T6 compression fracture shown on admission CT scan. No lymphadenopathy noticed on the report. He also has aorta aneurysm. Plan: 1. No specific treatment for CLL at this point. Pt needs to have f/u with me at cancer center 1-2 weeks after discharge from this hospitalization. Please call cancer center to set up appointment when he is ready to be discharged home. 2. I would not initiate IVIG treatment since his serum IgG near 600 and normal Ig A and Ig M levels. 3. Watch for drug withdrawal and treat accordingly 4. No indication for bone marrow exam at this point. Thank you for the consultation. Please call me if you need anything else or new issues Clinical Quality Measures DVT/VTE Risk/Contraindication: Risk Factor Score Per Nursin RFS Level Per Nursing on Admit: 4+=Very High KRZYSZTOF HUDSON MD Nov 09, 2018 14:59
--- NOTE | 2018-11-09 15:17 | Diagnostic Imaging Report ---
INDICATION: Edema and cellulitis of the scrotum. FINDINGS: The right testicle measures 4.2 x 2.8 x 2.6 cm and the left testicle measures 4.1 x 2.9 x 2.3 cm. Both testes show homogeneous echotexture. No discrete testicular mass is seen. There is blood flow to both testes. There is marked scrotal wall skin thickening present. There is a small right hydrocele present. IMPRESSION: 1. Marked scrotal wall edema and wall thickening. 2. No evidence of testicular mass or vascular compromise. Dictated by: Dictated on workstation # [id number]
--- NOTE | 2018-11-09 16:08 | Diagnostic Imaging Report ---
INDICATION: Abdominal aortic aneurysm. FINDINGS: Sonographic interrogation of the abdominal aorta was attempted. The aorta could not be visualized due to marked overlying bowel gas. IMPRESSION: Nonvisualized aorta due to bowel gas. If there is concern for an abdominal aortic aneurysm, CT would be recommended. Dictated by: Dictated on workstation # [id number]
[2018-11-09 16:15] VITALS: BP 137/81
--- NOTE | 2018-11-09 16:15 | Pulmonary Progress Note ---
Subjective Time Seen by a Provider: 09:00 Subjective/Events-last exam No complications noted. Sepsis Event Evaluation Height, Weight, BMI Height: 5'9.00" Weight: 220lbs. 6.4oz. 99.540667kx; 23.22 BMI Method:Stated Focused Exam Lactate Level 11/07/18 03:11: Lactic Acid Level 1.31 Time of Focused Exam: 07:00 Exam Exam Vital Signs Date Time Temp Pulse Resp B/P (MAP) Pulse Ox O2 Delivery O2 Flow Rate FiO2 11/09/18 13:00 103 11/09/18 12:03 169 11/09/18 11:43 93 Nasal Cannula 2.00 11/09/18 09:45 Room Air 11/09/18 08:00 37.1 97 18 154/86 (108) 92 Nasal Cannula 2.00 11/09/18 07:25 94 Nasal Cannula 2.00 11/09/18 04:10 36.9 100 24 138/79 (98) 92 Nasal Cannula 2.00 11/09/18 01:58 95 Nasal Cannula 2.00 11/09/18 00:05 37.2 92 20 132/81 (98) 92 Nasal Cannula 2.00 11/08/18 21:38 94 Nasal Cannula 2.00 11/08/18 21:10 Room Air 11/08/18 20:24 37.2 94 92 11/08/18 20:13 37.2 94 20 109/65 (80) 92 Room Air 11/08/18 18:51 88 Room Air 11/08/18 16:42 37.0 92 22 132/65 (87) 91 Room Air I & O 11/09/18 07:00 Intake Total 1902.5 ml Output Total 1625 ml Balance 277.5 ml Height & Weight Height: 5'9.00" Weight: 220lbs. 6.4oz. 99.424091hr; 23.22 BMI Method:Stated General Appearance: No Apparent Distress HEENT: Normal ENT Inspection Neck: Full Range of Motion Respiratory: Lungs Clear, No Accessory Muscle Use, No Respiratory Distress Cardiovascular: Regular Rate, Rhythm, No Murmur Capillary Refill: Less Than 3 Seconds Peripheral Pulses: 2+ Radial Pulses (R), 2+ Radial Pulses (L) Gastrointestinal: non tender, soft Extremity: Normal Capillary Refill, Normal Inspection, No Pedal Edema Neurologic/Psychiatric: Alert, Oriented x3 Skin: Normal Color, Warm/Dry Results Lab Laboratory Tests 11/08/18 03:00 11/09/18 05:18 Assessment/Plan Assessment/Plan Septic shock with metabolic acidosis -Continue IVF NS at 150 - vancomycin cefepime and Flagyl -Give 25gms albumin x 1 -CT of chest/abd/pelvis without contrast - reviewed Malnutrition/hypoalbuminemia -Give 25gms of albumin -Monitor Metabolic acidosis Pt states he has hx of CLL and refused treatment in past -Oncology consulted ETOH dependance -Pt is currently lethargic - end tidal C02 monitor Diastolic CHF grade II per echo -Consult cardiology Cellulitis on back -Wound care Multisubstance drug use -UDS positive for methamphetamine Afib RVR -Consult cardiology Renal insufficiency -monitor Homeless Dehydration CAD Prognosis is overall poor. Will consult hospice for education AGUS HADLEY DO Nov 09, 2018 16:15
--- NOTE | 2018-11-09 17:26 | Cardiology Progress Note ---
Cardiology SOAP Progress Note Subjective: No Cardiac symptoms. Objective: I&O/Vital Signs 11/09/18 11/09/18 11/09/18 11/09/18 07:25 08:00 09:45 11:43 Temp 37.1 Pulse 97 Resp 18 B/P (MAP) 154/86 (108) Pulse Ox 94 92 93 O2 Delivery Nasal Cannula Nasal Cannula Room Air Nasal Cannula O2 Flow Rate 2.00 2.00 2.00 11/09/18 11/09/18 11/09/18 12:03 13:00 16:15 Temp 37.1 Pulse 169 103 91 Resp 20 B/P (MAP) 137/81 (99) Pulse Ox 95 O2 Delivery Nasal Cannula O2 Flow Rate 2.00 11/09/18 00:00 Intake Total 1440 ml Output Total 1100 ml Balance 340 ml Weight (Pounds): 220 Weight (Ounces): 6.4 Weight (Calculated Kilograms): 99.086675 Constitutional: appears stated age; No apparent distress; well-developed, well- nourished, other (Very sleepy. Noncommunicative) Respiratory: chest is bilaterally symmetric, lungs clear to auscultation Cardiovascular: regular rate-rhythm, tachycardia, S1 and S2 Gastrointestional: soft, round, audible bowel sounds; No spleenomegaly Extremities: normal range of motion, non-tender, normal inspection; No clubbing, No cyanosis; no lower extremity edema bilateral; No significant edema Neurologic/Psychiatric: other (Not communicating) Skin: rash, other (MOST OF BACK WITH ERYTHEMA AND INDURATION, WITH WOUND TO LOWER BACK. NO DRAINAGE AT THIS TIME. ) Results/Procedures: Labs Laboratory Tests 11/08/18 18:23: Glucometer 170H 11/09/18 00:04: Glucometer 155H 11/09/18 05:18: White Blood Count 67.3*H, Red Blood Count 3.36L, Hemoglobin 10.6L, Hematocrit 32L, Mean Corpuscular Volume 95, Mean Corpuscular Hemoglobin 32, Mean Corpuscular Hemoglobin Concent 33, Red Cell Distribution Width 14.5, Platelet Count 239, Mean Platelet Volume 11.2H, Neutrophils (%) (Auto) 31L, Lymphocytes (%) (Auto) 69H, Monocytes (%) (Auto) 0, Eosinophils (%) (Auto) 0, Basophils (%) (Auto) 0, Neutrophils # (Auto) 20.7H, Lymphocytes # (Auto) 46.2H, Monocytes # (Auto) 0.3, Eosinophils # (Auto) 0.0, Basophils # (Auto) 0.1, Sodium Level 143, Potassium Level 4.3, Chloride Level 119H, Carbon Dioxide Level 17L, Anion Gap 7, Blood Urea Nitrogen 96H, Creatinine 1.70H, Estimat Glomerular Filtration Rate 40, BUN/Creatinine Ratio 56, Glucose Level 159H, Calcium Level 7.6L, Corrected Calcium 9.0, Phosphorus Level 4.3, Magnesium Level 3.1H, Total Bilirubin 0.8, Aspartate Amino Transf (AST/SGOT) 35H, Alanine Aminotransferase (ALT/SGPT) 24, Alkaline Phosphatase 197H, B-Type Natriuretic Peptide 1257.9H, Total Protein 4.7L, Albumin 2.2L 11/09/18 10:50: Urine Color YELLOW, Urine Clarity CLEAR, Urine pH 6, Urine Specific [place] 1.015L, Urine Protein 2+H, Urine Glucose (UA) NEGATIVE, Urine Ketones NEGATIVE, Urine Nitrite NEGATIVE, Urine Bilirubin NEGATIVE, Urine Urobilinogen NORMAL, Urine Leukocyte Esterase 1+H, Urine RBC (Auto) 1+H, Urine RBC 0-2, Urine WBC 2- 5, Urine Crystals NONE, Urine Bacteria FEWH, Urine Casts PRESENT, Urine Coarse Granular Casts 10-25H, Urine Mucus NEGATIVE, Urine Culture Indicated NO 11/09/18 11:19: Glucometer 181H 11/09/18 16:15: Glucometer 211H Microbiology 11/05/18 Blood Culture - Preliminary, Resulted No growth 11/05/18 Influenza Types A,B Antigen (CHRIS) - Final, Complete 11/05/18 Urine Culture - Final, Complete NO GROWTH 11/05/18 Gram Stain - Final, Complete 11/05/18 Wound Culture - Final, Complete Staphylococcus aureus See Comments A/P: Assessment/Dx: septic shock, significantly improved. Diabetes, Paroxysmal atrial fibrillation, currently in sinus rhythm Source of infection unclear could be cellulitis, Acute diastolic congestive heart failure Acute kidney injury Elevated LFTs, Metabolic acidosis, active smoker, heavy alcohol use, Drug abuse. Plan: Septic shock, significantly improved. Paroxysmal atrial fibrillation noted today. Low dose metoprolol will be started. However I have concerns about starting oral anticoagulation therapy. This is due to his lack of compliance with medications. Also because of his significant alcohol intoxication history and fall my concern is the risk of head injury and subsequent intracranial hemorrhage. I have discussed at length with the RN who will speak with the patient and the family. I will discuss again tomorrow. Acute diastolic congestive heart failure, Echocardiogram showed normal LV function with mild to moderate diastolic dysfunction. Acute kidney injury Aggressive control of diabetes. Elevated LFTs likely due to septic shock. Metabolic acidosis, lactic acidosis likely due to severe sepsis. Defer to the ICU team. active smoker, heavy alcohol use, detoxification Drug abuse. Thank you for your consultation. Please call me if you have any questions. Vaughn Medellin MD, FACP, FACC, FSCAI, FHRS, CCDS Interventional Cardiology Cardiac Electrophysiology Vascular Medicine and Endovascular Interventions Focused Exam Lactate Level 11/07/18 03:11: Lactic Acid Level 1.31 Time of Focused Exam: 07:00 Roman MEDELLIN MD Nov 09, 2018 17:26
[2018-11-09 20:20] VITALS: BP 143/80
[2018-11-10] VITALS (7 sets, daily range): BP systolic 141–161; BP diastolic 83–89
[2018-11-10] MEDS: RT-ALBUTEROL/IPRATROPIUM 3 ML (DUONEB) VIAL INH SCH ×6 (01:19→22:08)
[2018-11-10] MEDS: HYDROCORTISONE 100 MG/2 ML (Solu-CORTEF) VIAL IV SCH ×3 (03:47→19:47)
[2018-11-10 05:48] LABS: BASOPHILS # (AUTO) 0.1 10^3/uL (0.0-0.1); BASOPHILS % (AUTO) 0 % (0-10); EOSINOPHILS % (AUTO) 0 % (0-10); HEMATOCRIT 34 % (40-54); HEMOGLOBIN 10.9 G/DL (13.3-17.7); LYMPHOCYTES # (AUTO) 47.6 X 10^3 (1.0-4.0); LYMPHOCYTES % (AUTO) 68 % (12-44); MEAN CORPUSCULAR HEMOGLOBIN 31 PG (25-34); MEAN CORPUSCULAR HGB CONC 33 G/DL (32-36); MEAN CORPUSCULAR VOLUME 97 FL (80-99); MEAN PLATELET VOLUME 11.7 FL (7.4-10.4); MONOCYTES # (AUTO) 0.8 X 10^3 (0.0-1.0); MONOCYTES % (AUTO) 1 % (0-12); NEUTROPHILS # (AUTO) 21.7 X 10^3 (1.8-7.8); NEUTROPHILS % (AUTO) 31 % (42-75); PLATELET COUNT 243 10^3/uL (130-400); RED CELL DISTRIBUTION WIDTH 14.8 % (10.0-14.5)
[2018-11-10 05:53] LABS: WHITE BLOOD COUNT 70.2 10^3/uL (4.3-11.0)
[2018-11-10 06:04] LABS: ALBUMIN 2.3 GM/DL (3.2-4.5); BILIRUBIN,TOTAL 0.7 MG/DL (0.1-1.0); CALCIUM 7.7 MG/DL (8.5-10.1); CREATININE SERUM 1.44 MG/DL (0.60-1.30); MAGNESIUM 2.7 MG/DL (1.6-2.4); PHOSPHORUS 3.7 MG/DL (2.3-4.7); POTASSIUM 4.4 MMOL/L (3.6-5.0); TOTAL PROTEIN 4.8 GM/DL (6.4-8.2)
[2018-11-10] MEDS: KCL 20 MEQ TAB (K-DUR) PO SCH (06:11)
[2018-11-10] MEDS: inSUlin ASPART (NovoLOG) 1 UNIT/0.01 ML (CHARGE PER UNIT) SC SCH ×4 (06:13→21:14)
[2018-11-10] MEDS: ENOXAPARIN 80 MG/0.8 ML (LOVENOX) SYR SC SCH (06:28)
--- NOTE | 2018-11-10 07:43 | Progress Note ---
Subjective Time Seen by a Provider: 07:39 Subjective/Events-last exam Patient awake and answering questions. Albumin low. BNP over 1200. Leg swelling and scrotal swelling in left arm swelling area To give some Lasix. Intravenously. Patient more coherent. White blood cell count 70,000 increasing Focused Exam Time of Focused Exam: 07:00 Objective Exam Vital Signs Date Time Temp Pulse Resp B/P (MAP) Pulse Ox O2 Delivery O2 Flow Rate FiO2 11/10/18 07:00 75 11/10/18 06:52 92 Nasal Cannula 2.00 11/10/18 04:00 36.4 69 20 141/85 (103) 92 Nasal Cannula 1.50 11/10/18 01:19 93 Nasal Cannula 2.00 11/10/18 01:00 83 11/10/18 00:50 36.8 74 18 161/89 (113) 91 Nasal Cannula 1.50 11/09/18 21:27 92 Nasal Cannula 2.00 11/09/18 21:10 Room Air 11/09/18 20:20 36.4 84 22 143/80 (101) 92 Nasal Cannula 1.50 11/09/18 19:00 84 11/09/18 18:52 92 Nasal Cannula 2.00 11/09/18 16:15 37.1 91 20 137/81 (99) 95 Nasal Cannula 2.00 11/09/18 13:00 103 11/09/18 12:03 169 11/09/18 11:43 93 Nasal Cannula 2.00 11/09/18 09:45 Room Air 11/09/18 08:00 37.1 97 18 154/86 (108) 92 Nasal Cannula 2.00 I & O 11/10/18 07:00 Intake Total 1400 ml Output Total 1875 ml Balance -475 ml Capillary Refill : Less Than 3 Seconds General Appearance: No Apparent Distress, WD/WN HEENT: Normal ENT Inspection Neck: Full Range of Motion Respiratory: No Accessory Muscle Use, No Respiratory Distress, Other (congestion) Cardiovascular: Regular Rate, Rhythm Gastrointestinal: non tender, soft Results Lab Laboratory Tests 11/10/18 05:38 Laboratory Tests 11/09/18 10:50: Urine Color YELLOW, Urine Clarity CLEAR, Urine pH 6, Urine Specific [place] 1.015L, Urine Protein 2+H, Urine Glucose (UA) NEGATIVE, Urine Ketones NEGATIVE, Urine Nitrite NEGATIVE, Urine Bilirubin NEGATIVE, Urine Urobilinogen NORMAL, Urine Leukocyte Esterase 1+H, Urine RBC (Auto) 1+H, Urine RBC 0-2, Urine WBC 2- 5, Urine Crystals NONE, Urine Bacteria FEWH, Urine Casts PRESENT, Urine Coarse Granular Casts 10-25H, Urine Mucus NEGATIVE, Urine Culture Indicated NO 11/09/18 11:19: Glucometer 181H 11/09/18 16:15: Glucometer 211H 11/09/18 21:45: Glucometer 171H 11/10/18 05:38: White Blood Count 70.2*H, Red Blood Count 3.47L, Hemoglobin 10.9L, Hematocrit 34L, Mean Corpuscular Volume 97, Mean Corpuscular Hemoglobin 31, Mean Corpuscular Hemoglobin Concent 33, Red Cell Distribution Width 14.8H, Platelet Count 243, Mean Platelet Volume 11.7H, Neutrophils (%) (Auto) 31L, Lymphocytes (%) (Auto) 68H, Monocytes (%) (Auto) 1, Eosinophils (%) (Auto) 0, Basophils (%) (Auto) 0, Neutrophils # (Auto) 21.7H, Lymphocytes # (Auto) 47.6H, Monocytes # (Auto) 0.8, Eosinophils # (Auto) 0.0, Basophils # (Auto) 0.1, Sodium Level 147H, Potassium Level 4.4, Chloride Level 122H, Carbon Dioxide Level 18L, Anion Gap 7, Blood Urea Nitrogen 78H, Creatinine 1.44H, Estimat Glomerular Filtration Rate 48, BUN/Creatinine Ratio 54, Glucose Level 231H, Calcium Level 7.7L, Corrected Calcium 9.1, Phosphorus Level 3.7, Magnesium Level 2.7H, Total Bilirubin 0.7, Aspartate Amino Transf (AST/SGOT) 32, Alanine Aminotransferase (ALT/SGPT) 26, Alkaline Phosphatase 205H, Total Protein 4.8L, Albumin 2.3L, Smear Scan 11/10/18 05:40: Glucometer 197H Microbiology 11/05/18 Blood Culture - Preliminary, Resulted No growth 11/05/18 Influenza Types A,B Antigen (CHRIS) - Final, Complete 11/05/18 Urine Culture - Final, Complete NO GROWTH 11/05/18 Gram Stain - Final, Complete 11/05/18 Wound Culture - Final, Complete Staphylococcus aureus See Comments Assessment/Plan Assessment/Plan Assess & Plan/Chief Complaint Septic shock. Cellulitis. Diabetes. Cellulitis of back. A. fib with RVR. Coronary artery disease. Acute renal insufficiency Metabolic acidosis. Diastolic congestive heart failure... Ascending aortic aneurysm. Tobaccoism. Opioid abuse. Methamphetamine use. Chronic lymphocytic leukemia.. . 11/08/18. Sepsis. Cellulitis of back. Diabetes. A. fib with RVR. Coronary artery disease. Renal insufficiency. Diastolic congestive heart failure. CLL. Ascending aortic aneurysm. Tobaccoism. Opioid abuse. Methamphetamine abuse. UTI.. 11/09/18. Sepsis. Cellulitis of back. Diabetes. A. fib with RVR. Coronary artery disease. Renal insufficiency getting better. Diastolic congestive heart failure. Tobaccoism. Opioid abuse. Methamphetamine abuse. UTI. Congestive heart failure. Sepsis. Chronic lymphocytic leukemia. Diabetes. A. fib with RVR. Coronary artery disease. Renal insufficiency improving. Tobaccoism. Opioid abuse. Methamphetamine abuse. Albumin low Clinical Quality Measures DVT/VTE Risk/Contraindication: Risk Factor Score Per Nursin RFS Level Per Nursing on Admit: 4+=Very High GUILLERMINA MORILLO DO Nov 10, 2018 07:43
[2018-11-10] MEDS ORDERED: FUROSEMIDE 40 MG/4 ML INJ (LASIX) IVP NR (08:00)
[2018-11-10] MEDS: NICOTINE 21 MG (NICODERM) PATCH TD SCH (09:31)
[2018-11-10] MEDS: PANTOPRAZOLE 40 MG (PROTONIX) VIAL IV SCH ×2 (09:31→19:47)
[2018-11-10] MEDS: NICOTINE PATCH REMOVAL TP SCH (09:32)
[2018-11-10] MEDS: VANCOMYCIN 1500 MG/NS 500 ML IVPB IV SCH ×2 (09:41)
--- NOTE | 2018-11-10 10:35 | Physical Therapy Daily Note ---
PT Daily Note-Current Subjective Patient is very confused and agitated. Pain Numeric Pain Scale: 0-No Pain Location: No Pain Reported Mental Status Patient Orientation: Confused Attachments: Oxygen, Dow Catheter Transfers Therapy Code Descriptions/Definitions Functional [place] Measure: 0=Not Assessed/NA 4=Minimal Assistance 1=Total Assistance 5=Supervision or Setup 2=Maximal Assistance 6=Modified [place] 3=Moderate Assistance 7=Complete [place] Therapy Quality Codes: 6 Independent with activity with or without an assistive device 5 Patient requires set up or clean up by helper. Patient completes activity by themselves 4 Supervision or touching assist (CGA). [place] provide cues , steadying assist 3 The helper provides less than half the effort to complete the activity 2 The helper provides more than half the effort to complete the activity 1 Dependent. The helper does all the effort to complete an activity 7 Patient refused to complete or attempt activity 9 The patient did not perform the activity before the current illness or injury 88 Not attempted due to Medical conditions or safety concerns Transfers (B, C, W/C) (FIM): 1 Scootin Supine to/from Sit: 1 Sit to/from Stand: 1 Bed to/from Chair: 1 dependent assist x 2 with all/patient became agitated with performing gross motor skills Weight Bearing Right Lower Extremity: Right Weight Bearing/Tolerated Left Lower Extremity: Left Weight Bearing/Tolerated Assessment Patient is up in recliner with needs met. Patient tolerates minimal activity and requires redirection to remain on task. PT Short Term Goals Short Term Goals Time Frame: Nov 16, 2018 Transfers (B,C,W/C) (FIM): 3 Gait (FIM): 1 Gait Distance Comment: 5' Gait Level of Assist: 3 Gait Assistive Device: FWW PT Plan Treatment/Plan Treatment Plan: Continue Plan of Care Treatment Plan: Bed Mobility, Concurrent Therapy, Education, Functional Activity Tg, Functional Strength, Gait, Safety, Therapeutic Exercise, Transfers Treatment Duration: Nov 16, 2018 Frequency: 6 times per week Estimated Hrs Per Day: .25 hour per day Patient and/or Family Agrees t: Yes Time/GCodes Time In: 855 Time Out: 908 Total Billed Treatment Time: 13 Total Billed Treatment 1 visit FA 13 min FESTUS CAAL PT Nov 10, 2018 10:35
--- NOTE | 2018-11-10 11:29 | Diagnostic Imaging Report ---
INDICATION: Sepsis. COMPARISON: 11/09/2018 FINDINGS: There is cardiomegaly and mild central pulmonary venous congestion. There are bibasilar infiltrates, left greater than right. There is no pneumothorax. The mediastinum is unremarkable. IMPRESSION: 1. Bibasilar infiltrates, left greater than right, with bilateral pleural effusions. 2. Cardiomegaly and mild central pulmonary venous congestion Dictated by: Dictated on workstation # [id number]
--- NOTE | 2018-11-10 11:44 | NUR ---
DISCHARGE PLANNING/PALLIATIVE CARE RN in to talk with patient. He is sitting up in chair finishing breakfast and agreeable to discussion. We had lots to discuss this morning, first of which was need for continued care post discharge. Patient is agreeable to SNF placement and has chosen [facility] as his first choice. Referral to be sent. Discussion also around his Leukemia and Multiple Myeloma for which he has historically chosen to not seek treatment. He again wishes to not pursue cancer treatment. I know Dr Arevalo saw him yesterday and suggest two week follow-up.Not sure this is necessary given his stance on treatment. Dr. Medellin came in while this RN is visiting and discussed with the patient that he is once again in AFIB..he explained what this as and the risk/benefits of blood thinner treatment and the risks/benefits of no blood thinner treatment. After Dr Medellin left this RN went over all the points of Dr. Medellin's concerns and the patient has also chosen NOT to be on blood thinner and understands the risk. While there we also took the opportunity to fill out a Durable Power of Coating Manager where he has named his brother José Antonio Pena and his daughter Cathy Triplett to be his voice when he is unable. I have spoken to Cathy update her on this and have left a message with José Antonio. Patient would like to have his heart restarted if it should stop but he is not wanting to be ventilated. Explained to him that one without the other is likely futile but he stood firm.
--- NOTE | 2018-11-10 13:19 | NUR ---
Pt is Religious and reports that Fr Pratt was here this morning to anoint and provide Communion.
--- NOTE | 2018-11-10 14:15 | Cardiology Progress Note ---
Cardiology SOAP Progress Note Subjective: no cardiac complaints. Objective: I&O/Vital Signs 11/10/18 11/10/18 11/10/18 11/10/18 04:00 06:52 07:00 08:55 Temp 36.4 36.4 Pulse 69 75 78 Resp 20 16 B/P (MAP) 141/85 (103) 152/85 (107) Pulse Ox 92 92 92 O2 Delivery Nasal Cannula Nasal Cannula Nasal Cannula O2 Flow Rate 1.50 2.00 1.50 11/10/18 11/10/18 10:50 12:00 Temp 36.8 Pulse 69 Resp 18 B/P (MAP) 149/87 (107) Pulse Ox 88 94 O2 Delivery Nasal Cannula Nasal Cannula O2 Flow Rate 2.00 3.00 11/10/18 00:00 Intake Total 1100 ml Output Total 1225 ml Balance -125 ml Weight (Pounds): 222 Weight (Ounces): 8.0 Weight (Calculated Kilograms): 100.661506 Constitutional: appears stated age; No apparent distress; well-developed, well- nourished, other (Very sleepy. Noncommunicative) Respiratory: chest is bilaterally symmetric, lungs clear to auscultation Cardiovascular: regular rate-rhythm, tachycardia, S1 and S2 Gastrointestional: soft, round, audible bowel sounds; No spleenomegaly Extremities: normal range of motion, non-tender, normal inspection; No clubbing, No cyanosis; no lower extremity edema bilateral; No significant edema Neurologic/Psychiatric: other (Not communicating) Skin: rash, other (MOST OF BACK WITH ERYTHEMA AND INDURATION, WITH WOUND TO LOWER BACK. NO DRAINAGE AT THIS TIME. ) Results/Procedures: Labs Laboratory Tests 11/09/18 16:15: Glucometer 211H 11/09/18 21:45: Glucometer 171H 11/10/18 05:38: White Blood Count 70.2*H, Red Blood Count 3.47L, Hemoglobin 10.9L, Hematocrit 34L, Mean Corpuscular Volume 97, Mean Corpuscular Hemoglobin 31, Mean Corpuscular Hemoglobin Concent 33, Red Cell Distribution Width 14.8H, Platelet Count 243, Mean Platelet Volume 11.7H, Neutrophils (%) (Auto) 31L, Lymphocytes (%) (Auto) 68H, Monocytes (%) (Auto) 1, Eosinophils (%) (Auto) 0, Basophils (%) (Auto) 0, Neutrophils # (Auto) 21.7H, Lymphocytes # (Auto) 47.6H, Monocytes # (Auto) 0.8, Eosinophils # (Auto) 0.0, Basophils # (Auto) 0.1, Sodium Level 147H, Potassium Level 4.4, Chloride Level 122H, Carbon Dioxide Level 18L, Anion Gap 7, Blood Urea Nitrogen 78H, Creatinine 1.44H, Estimat Glomerular Filtration Rate 48, BUN/Creatinine Ratio 54, Glucose Level 231H, Calcium Level 7.7L, Corrected Calcium 9.1, Phosphorus Level 3.7, Magnesium Level 2.7H, Total Bilirubin 0.7, Aspartate Amino Transf (AST/SGOT) 32, Alanine Aminotransferase (ALT/SGPT) 26, Alkaline Phosphatase 205H, Total Protein 4.8L, Albumin 2.3L, Smear Scan 11/10/18 05:40: Glucometer 197H 11/10/18 11:04: Glucometer 243H Microbiology 11/05/18 Blood Culture - Final, Complete No growth 11/05/18 Influenza Types A,B Antigen (CHRIS) - Final, Complete 11/05/18 Urine Culture - Final, Complete NO GROWTH 11/05/18 Gram Stain - Final, Complete 11/05/18 Wound Culture - Final, Complete Staphylococcus aureus See Comments A/P: Assessment/Dx: septic shock, significantly improved. Diabetes, Paroxysmal atrial fibrillation, currently in sinus rhythm Source of infection unclear could be cellulitis, Acute diastolic congestive heart failure Acute kidney injury Elevated LFTs, Metabolic acidosis, active smoker, heavy alcohol use, Drug abuse. Plan: Septic shock, significantly improved. Paroxysmal atrial fibrillation noted today. Low dose metoprolol will be started. However I have concerns about starting oral anticoagulation therapy. This is due to his lack of compliance with medications. Also because of his significant alcohol intoxication history and fall, my concern is the risk of head injury and subsequent intracranial hemorrhage. I have discussed at length with the RN and patient. Also the patient has a new diagnosis of either leukemia or myeloma. Therefore I would like to get hematology's input on oral anticoagulation as well. Acute diastolic congestive heart failure, Echocardiogram showed normal LV function with mild to moderate diastolic dysfunction. Acute kidney injury Aggressive control of diabetes. Elevated LFTs likely due to septic shock. Metabolic acidosis, lactic acidosis likely due to severe sepsis. active smoker, heavy alcohol use, detoxification Drug abuse. Thank you for your consultation. Please call me if you have any questions. Vaughn Medellin MD, FACP, FACC, FSCAI, FHRS, CCDS Interventional Cardiology Cardiac Electrophysiology Vascular Medicine and Endovascular Interventions Focused Exam Time of Focused Exam: 07:00 Roman MEDELLIN MD Nov 10, 2018 14:15
--- NOTE | 2018-11-10 14:33 | Occupational Ther Daily Note ---
OT Current Status-Daily Note Subjective Pt seen in recliner, no pain stated.Pt agreeable to OT tx session. Mental Status/Objective Patient Orientation: Person, Place Therapy Code Descriptions/Definitions Functional [place] Measure: 0=Not Assessed/NA 4=Minimal Assistance 1=Total Assistance 5=Supervision or Setup 2=Maximal Assistance 6=Modified [place] 3=Moderate Assistance 7=Complete [place] ADL-Treatment Grooming (FIM): 5 (Pt able to wash face with wipes, increased time for container opening as pt demonstrates decreased coordination. Pt requires s/u for items for oral hygiene, able to manipulate toothpaste and brush and requires assist gathering water from sink. ) Other Treatment Pt completes oral hygiene with increased time for item opening and use, brushing mouth and dentures with increased time. Pt completes face/ hand hygiene with increased time and decreased coordination for opening items. Noted non-pitting edema in L hand. Pt states some neuropathy in fingers. Pt completes theraband exercises with moderate cues for positioning and counting. Pt educated on strength training and given home exercise program. Pt states no questions. Pt left in recliner chair with all needs met and call light in reach. Education OT Patient Education: Exercise program, Home exercise program, Modified ADL techniques, Purpose of tx/functional activities, Safety issues Teaching Recipient: Patient Teaching Methods: Demonstration, Discussion Response to Teaching: Verbalize Understanding, Return Demonstration OT Short Term Goals Short Term Goals Time Frame: Nov 15, 2018 Eating(FIM): 5 Grooming(FIM): 4 (met) Bathing(FIM): 3 Upper Body Dressing(FIM): 4 Lower Body Dressing(FIM): 4 Toileting(FIM): 4 Transfers (B,C,W/C) (FIM): 3 Toilet/Commode Transfer(FIM): 5 Shower Transfer(FIM): 4 Additional Short Term Goals: 1-Demonstrate ADL Tasks, 2-Verbalize Understanding, 3-ImproveStrength/Tg 1=Demonstrate adherence to instructed precautions during ADL tasks. 2=Patient will verbalize/demonstrate understanding of assistive devices/modifications for ADL. 3=Patient will improve strength/tolerance for activity to enable patient to perform ADL's. OT Fdc Goals Managing Director Goals Time Frame: Nov 29, 2018 Eating (FIM): 7 Grooming(FIM): 6 Bathing(FIM): 5 Upper Body Dressing(FIM): 6 Lower Body Dressing(FIM): 6 Toileting(FIM): 6 Transfers (B,C,W/C) (FIM): 6 Toilet/Commode Transfer(FIM): 6 Shower Transfer(FIM): 5 Additional Goals: 1-Demonstrate ADL Tasks, 2-Verbalize Understanding, 3- ImproveStrength/Tg 1=Demonstrate adherence to instructed precautions during ADL tasks. 2=Patient will verbalize/demonstrate understanding of assistive devices/modifications for ADL. 3=Patient will improve strength/tolerance for activity to enable patient to perform ADL's. OT Education/Plan Problem List/Assessment Assessment: Decreased Activ Tolerance, Decreased UE Strength, Impaired Coordination, Impaired I ADL's, Impaired Self-Care Skills Discharge Recommendations Plan/Recommendations: Continue POC Treatment Plan/Plan of Care Treatment,Training & Education: Yes Patient would benefit from OT for education, treatment and training to promote independence in ADL's, mobility, safety and/or upper extremity function for ADL's. Plan of Care: ADL Retraining, Functional Mobility, UE Funct Exercise/Act Treatment Duration: Nov 29, 2018 Frequency: 5 times per week Estimated Hrs Per Day: .25 hour per day Agreement: Yes Rehab Potential: Guarded Time/GCodes Start Time: 13:40 Stop Time: 13:56 Total Time Billed (hr/min): 16 Billed Treatment Time 1 ADL (16) JOSE LEMON OTR Nov 10, 2018 14:33
--- NOTE | 2018-11-10 14:39 | CONSULTATION REPORT ---
DATE OF SERVICE: 11/10/2018 ATTENDING PHYSICIAN: García Whalen DO SUMMARY: A 73-year-old white man requested to see by Dr. Whalen because of genital swelling. Ordered a scrotal support and elevation. Ordered an ultrasound that revealed normal testicles. No hydrocele. Significant edema that confirmed my clinical impression of edema of the genitalia as well as the lower extremity and the lower abdomen. IMPRESSION: Edema of genitalia part of generalized edema. PLAN: Continue scrotal support and elevation. Work on fluid management and fluid retention treatment. This is not a urological case, I would not take the catheter out until the edema subsides. Otherwise, it will be difficult to put it back in his needs. Job ID: [id number] DocumentID: [id number] Dictated Date: 11/10/2018 11:44:02 Lead Engineer Date: 11/10/2018 14:38:58 Dictated By: FARRUKH CALVO MD
--- NOTE | 2018-11-10 14:47 | Oncology Progress Note ---
Subjective Date Seen by a Provider: Nov 10, 2018 Time Seen by a Provider: 14:41 Subjective/Events-last exam Pt is slowly improving clinically. Total WBC is higher today at 70k. However, Hb is better from 10.4 to 10.9 today. Plt is normal. Renal function improving. Data Review Labs Laboratory Tests 11/10/18 05:38 Laboratory Tests 11/07/18 18:22: Glucometer 180H 11/07/18 23:54: Glucometer 187H 11/08/18 03:00: White Blood Count 51.9*H, Red Blood Count 3.27L, Hemoglobin 10.4L, Hematocrit 31L, Mean Platelet Volume 11.2H, Neutrophils (%) (Auto) 38L, Lymphocytes (%) (Auto) 61H, Neutrophils # (Auto) 19.7H, Lymphocytes # (Auto) 31.7H, Chloride Level 119H, Carbon Dioxide Level 16L, Blood Urea Nitrogen 100*H, Creatinine 2.10H, Glucose Level 181H, Calcium Level 7.6L, Phosphorus Level 5.6H, Magnesium Level 3.4H, Alkaline Phosphatase 138H, Total Protein 4.2L, Albumin 2.0L, Immunoglobulin G 592L 11/08/18 08:20: 11/08/18 12:08: Glucometer 177H 11/08/18 18:23: Glucometer 170H 11/09/18 00:04: Glucometer 155H 11/09/18 05:18: White Blood Count 67.3*H, Red Blood Count 3.36L, Hemoglobin 10.6L, Hematocrit 32L, Mean Platelet Volume 11.2H, Neutrophils (%) (Auto) 31L, Lymphocytes (%) (Auto) 69H, Neutrophils # (Auto) 20.7H, Lymphocytes # (Auto) 46.2H, Chloride Level 119H, Carbon Dioxide Level 17L, Blood Urea Nitrogen 96H, Creatinine 1.70H, Glucose Level 159H, Calcium Level 7.6L, Magnesium Level 3.1H, Aspartate Amino Transf (AST/SGOT) 35H, Alkaline Phosphatase 197H, B-Type Natriuretic Peptide 12 57.9H, Total Protein 4.7L, Albumin 2.2L 11/09/18 10:50: Urine Specific [place] 1.015L, Urine Protein 2+H, Urine Leukocyte Esterase 1+H, Urine RBC (Auto) 1+H, Urine Bacteria FEWH, Urine Coarse Granular Casts 10-25H 11/09/18 11:19: Glucometer 181H 11/09/18 16:15: Glucometer 211H 11/09/18 21:45: Glucometer 171H 11/10/18 05:38: White Blood Count 70.2*H, Red Blood Count 3.47L, Hemoglobin 10.9L, Hematocrit 34L, Red Cell Distribution Width 14.8H, Mean Platelet Volume 11.7H, Neutrophils (%) (Auto) 31L, Lymphocytes (%) (Auto) 68H, Neutrophils # (Auto) 21.7H, Lymphocytes # (Auto) 47.6H, Sodium Level 147H, Chloride Level 122H, Carbon Dioxide Level 18L, Blood Urea Nitrogen 78H, Creatinine 1.44H, Glucose Level 231H , Calcium Level 7.7L, Magnesium Level 2.7H, Alkaline Phosphatase 205H, Total Protein 4.8L, Albumin 2.3L 11/10/18 05:40: Glucometer 197H 11/10/18 11:04: Glucometer 243H Laboratory Tests 11/10/18 05:38 Physical Exam Vital Signs Vital Signs - First Documented 11/05/18 11/05/18 11/05/18 05:26 07:48 09:23 Temp 35.8 Pulse 107 Resp 18 B/P (MAP) 75/60 (65) Pulse Ox 93 O2 Delivery Room Air O2 Flow Rate 2.00 FiO2 21 Capillary Refill : Less Than 3 Seconds Height, Weight, BMI Height: 5'9.00" Weight: 222lbs. 8.0oz. 100.926311gn; 23.22 BMI Method:Stated General Appearance: No Apparent Distress Focused Exam Time of Focused Exam: 07:00 Impression & Plan Impression & Plan IMP: 1. CLL, diagnosed 2009 with lymphocytosis, normal Hb and Plt at that time. Negative ZAP-70 and CD38 expression. Now progression of lymphocytosis and mild anemia, Plt still normal. Flowcytometry 11/07/18 confirmed CLL without adverse biological markers. 2. Sepsis, UTI and cellulitis on IV antibiotics. All cultures negative so far. 3. Drug abuse and h/o alcohol abuse 4. Agitation requires heavy sedation 5. Acute renal insufficiency 6. DM 7. T6 compression fracture shown on admission CT scan. No lymphadenopathy noti nesha on the report. He also has aorta aneurysm. Plan: 1. No specific treatment for CLL at this point even though his lymphocytosis is slightly increasing. There is NO indication for treating lymphocytosis from the CLL while his Hb is improving and Plt normal. These small lymphocytes will NOT do much of the harm to the patients. We sometimes see CLL patients with the lymphocytosis over 100k. The indication for the treatment is thrombocytopenia and progressing anemia which this patient does not have at this point. Pt needs to have f/u with me at cancer center 1-2 weeks after discharge from this h ospitalization. Please call cancer center to set up appointment when he is ready to be discharged home. 2. I would not initiate IVIG treatment since his serum IgG near 600 and normal Ig A and Ig M levels. 3. Watch for drug withdrawal and treat accordingly 4. No indication for bone marrow exam at this point. Thank you for the consultation. Please call me if you need anything else or new issues Clinical Quality Measures DVT/VTE Risk/Contraindication: Risk Factor Score Per Nursin RFS Level Per Nursing on Admit: 4+=Very High KRZYSZTOF HUDSON MD Nov 10, 2018 14:47
--- NOTE | 2018-11-10 15:57 | NUR ---
PALLIATIVE CARE RN received call back from patient's brother. updated him on decision made today for SNF, DPOA for Health Care and Living Will. No questions at this time.
--- NOTE | 2018-11-10 15:58 | Diagnostic Imaging Report ---
PROCEDURE: US venous upper extremity left. TECHNIQUE: Multiple realtime grayscale images were obtained of left upper extremity in various projections. Additional spectral analysis and color Doppler duplex images were also obtained. INDICATION: Left arm pain and swelling. FINDINGS: The left internal jugular vein as well as the left subclavian and axillary veins are widely patent. The brachial vein is patent. The basilic, cephalic as well as radial and ulnar veins appear patent. No thrombus is seen. No fluid collections are identified. IMPRESSION: No evidence of left upper extremity DVT. Dictated by: Dictated on workstation # [id number]
[2018-11-10] MEDS: ENOXAPARIN 100 MG/1 ML (LOVENOX) SYR SC SCH (19:47)
[2018-11-11] VITALS (17 sets, daily range): BP systolic 102–164; BP diastolic 76–91
[2018-11-11] MEDS: HYDROCORTISONE 100 MG/2 ML (Solu-CORTEF) VIAL IV SCH ×3 (04:01→18:54)
[2018-11-11 04:43] LABS: BASOPHILS # (AUTO) 0.1 10^3/uL (0.0-0.1); BASOPHILS % (AUTO) 0 % (0-10); EOSINOPHILS % (AUTO) 0 % (0-10); HEMATOCRIT 36 % (40-54); HEMOGLOBIN 11.4 G/DL (13.3-17.7); LYMPHOCYTES # (AUTO) 51.6 X 10^3 (1.0-4.0); LYMPHOCYTES % (AUTO) 69 % (12-44); MEAN CORPUSCULAR HEMOGLOBIN 31 PG (25-34); MEAN CORPUSCULAR HGB CONC 32 G/DL (32-36); MEAN CORPUSCULAR VOLUME 97 FL (80-99); MEAN PLATELET VOLUME 11.9 FL (7.4-10.4); MONOCYTES # (AUTO) 0.2 X 10^3 (0.0-1.0); MONOCYTES % (AUTO) 0 % (0-12); NEUTROPHILS # (AUTO) 22.9 X 10^3 (1.8-7.8); NEUTROPHILS % (AUTO) 31 % (42-75); PLATELET COUNT 288 10^3/uL (130-400); RED CELL DISTRIBUTION WIDTH 14.9 % (10.0-14.5)
[2018-11-11 04:44] LABS: WHITE BLOOD COUNT 74.7 10^3/uL (4.3-11.0)
[2018-11-11] MEDS: RT-ALBUTEROL/IPRATROPIUM 3 ML (DUONEB) VIAL INH SCH ×6 (05:04→22:14)
[2018-11-11 05:09] LABS: ALBUMIN 2.2 GM/DL (3.2-4.5); BILIRUBIN,TOTAL 0.7 MG/DL (0.1-1.0); CALCIUM 7.6 MG/DL (8.5-10.1); CREATININE SERUM 1.27 MG/DL (0.60-1.30); MAGNESIUM 2.4 MG/DL (1.6-2.4); PHOSPHORUS 3.1 MG/DL (2.3-4.7); POTASSIUM 4.2 MMOL/L (3.6-5.0); TOTAL PROTEIN 4.7 GM/DL (6.4-8.2)
[2018-11-11] MEDS: KCL 20 MEQ TAB (K-DUR) PO SCH (05:13)
[2018-11-11] MEDS: inSUlin ASPART (NovoLOG) 1 UNIT/0.01 ML (CHARGE PER UNIT) SC SCH ×4 (05:13→22:47)
[2018-11-11 05:25] LABS: ATYPICAL LYMPHOCYTES 61 %; BAND NEUTROPHILS 2 %; MONOCYTES % (MANUAL) 1 %; NEUTROPHILS % (MANUAL) 36 %
[2018-11-11 05:26] LABS: ANISOCYTOSIS SLIGHT; SMUDGE CELLS MARKED
[2018-11-11 05:28] LABS: ROULEAUX SLIGHT; TOXIC GRANULATION/VACUOLAZATIO 1+
--- NOTE | 2018-11-11 07:38 | Progress Note ---
Subjective Time Seen by a Provider: 07:36 Subjective/Events-last exam Patient resting comfortably today. White blood cell count over 74,000. BNP 2380 increased. Chest x-ray report not on chart Focused Exam Time of Focused Exam: 07:00 Objective Exam Vital Signs Date Time Temp Pulse Resp B/P (MAP) Pulse Ox O2 Delivery O2 Flow Rate FiO2 11/11/18 07:03 36.6 68 90 11/11/18 07:03 90 Nasal Cannula 3.00 11/11/18 04:00 36.6 67 20 164/87 (112) 94 Nasal Cannula 3.00 11/11/18 01:00 71 11/10/18 23:07 36.6 76 21 155/87 (109) 95 Nasal Cannula 3.00 11/10/18 22:08 92 Nasal Cannula 3.00 11/10/18 20:00 Nasal Cannula 3.00 11/10/18 19:30 36.6 72 19 152/83 (106) 95 Nasal Cannula 3.00 11/10/18 19:13 95 Nasal Cannula 3.00 11/10/18 19:00 76 11/10/18 16:45 36.6 75 20 152/83 (106) 93 Nasal Cannula 3.00 11/10/18 15:09 90 Nasal Cannula 3.00 11/10/18 13:00 79 11/10/18 12:00 36.8 69 18 149/87 (107) 94 Nasal Cannula 3.00 11/10/18 10:50 88 Nasal Cannula 2.00 11/10/18 09:00 Nasal Cannula 3.00 11/10/18 08:55 36.4 78 16 152/85 (107) 92 Nasal Cannula 1.50 I & O 11/11/18 07:00 Intake Total 1720 ml Output Total 4625 ml Balance -2905 ml Capillary Refill : Less Than 3 Seconds General Appearance: No Apparent Distress, WD/WN HEENT: Normal ENT Inspection Neck: Full Range of Motion, Normal Inspection Respiratory: Chest Non Tender, No Accessory Muscle Use, No Respiratory Distress Cardiovascular: Regular Rate, Rhythm, No Murmur Gastrointestinal: non tender, soft Results Lab Laboratory Tests 11/11/18 04:34 Laboratory Tests 11/10/18 11:04: Glucometer 243H 11/10/18 16:13: Glucometer 253H 11/10/18 20:58: Glucometer 232H 11/11/18 04:34: White Blood Count 74.7*H, Red Blood Count 3.68L, Hemoglobin 11.4L, Hematocrit 36L, Mean Corpuscular Volume 97, Mean Corpuscular Hemoglobin 31, Mean Corpuscular Hemoglobin Concent 32, Red Cell Distribution Width 14.9H, Platelet Count 288, Mean Platelet Volume 11.9H, Neutrophils (%) (Auto) 31L, Lymphocytes (%) (Auto) 69H, Monocytes (%) (Auto) 0, Eosinophils (%) (Auto) 0, Basophils (%) (Auto) 0, Neutrophils # (Auto) 22.9H, Lymphocytes # (Auto) 51.6H, Monocytes # (Auto) 0.2, Eosinophils # (Auto) 0.0, Basophils # (Auto) 0.1, Neutrophils % (Manual) 36, Monocytes % (Manual) 1, Band Neutrophils 2, Atypical Lymphocytes 61, Smudge Cells MARKED, Toxic Granulation 1+, Anisocytosis SLIGHT, Rouleau SLIGHT, Sodium Level 148H, Potassium Level 4.2, Chloride Level 120H, Carbon Dioxide Level 21, Anion Gap 7, Blood Urea Nitrogen 71H, Creatinine 1.27, Estimat Glomerular Filtration Rate 56, BUN/Creatinine Ratio 56, Glucose Level 200H, Calcium Level 7.6L, Corrected Calcium 9.0, Phosphorus Level 3.1, Magnesium Level 2.4, Total Bilirubin 0.7, Aspartate Amino Transf (AST/SGOT) 29, Alanine Aminotransferase (ALT/SGPT) 32, Alkaline Phosphatase 241H, B-Type Natriuretic Peptide 2380.9H, Total Protein 4.7L, Albumin 2.2L Microbiology 11/05/18 Blood Culture - Final, Complete No growth 11/05/18 Influenza Types A,B Antigen (CHRIS) - Final, Complete 11/05/18 Urine Culture - Final, Complete NO GROWTH 11/05/18 Gram Stain - Final, Complete 11/05/18 Wound Culture - Final, Complete Staphylococcus aureus See Comments Assessment/Plan Assessment/Plan Assess & Plan/Chief Complaint Septic shock. Cellulitis. Diabetes. Cellulitis of back. A. fib with RVR. Coronary artery disease. Acute renal insufficiency Metabolic acidosis. Diastolic congestive heart failure... Ascending aortic aneurysm. Tobaccoism. Opioid abuse. Methamphetamine use. Chronic lymphocytic leukemia.. . 11/08/18. Sepsis. Cellulitis of back. Diabetes. A. fib with RVR. Coronary artery disease. Renal insufficiency. Diastolic congestive heart failure. CLL. Ascending aortic aneurysm. Tobaccoism. Opioid abuse. Methamphetamine abuse. UTI.. 11/09/18. Sepsis. Cellulitis of back. Diabetes. A. fib with RVR. Coronary artery disease. Renal insufficiency getting better. Diastolic congestive heart failure. Tobaccoism. Opioid abuse. Methamphetamine abuse. UTI. Congestive heart failure. Sepsis. Chronic lymphocytic leukemia. Diabetes. A. fib with RVR. Coronary artery disease. Renal insufficiency improving. Tobaccoism. Opioid abuse. Methamphetamine abuse. Albumin low. 11/11/18. Congestive heart failure. Sepsis resolved. Chronic lymphocytic leukemia. Diabetes. A. fib with RVR. Coronary artery disease. Methamphetamine abuse. Opioid abuse. Patient had diuresis with Lasix to continue with the Lasix. Renal insufficiency is improving daily Clinical Quality Measures DVT/VTE Risk/Contraindication: Risk Factor Score Per Nursin RFS Level Per Nursing on Admit: 4+=Very High GUILLERMINA MORILLO DO Nov 11, 2018 07:38
--- NOTE | 2018-11-11 07:41 | Diagnostic Imaging Report ---
Portable erect AP chest at 0342 hours. INDICATION: Respiratory distress. FINDINGS: The cardiomegaly noted on the prior exam of 11/10/2018 is again evident and no different. As on the previous study, the left lung base remains partially opacified by pneumonia/atelectasis and fluid. However, in the interval since the prior study, the density in the right lung base has increased. Most likely this is due to greater involvement of the right lower lobe by atelectasis/infiltrate and fluid. The upper lungs are generally clear. The mediastinum is not widened. The osseous structures are intact. The central venous catheter on the right seen previously is unchanged in position. IMPRESSION: The appearance of the chest has worsened since the prior study as there is greater involvement of the right lung base by pneumonia/atelectasis and fluid. Dictated by: Dictated on workstation # [id number]
[2018-11-11] MEDS ORDERED: TROUGH ORDER-PHARMACY XX NR (08:00)
[2018-11-11] MEDS: PANTOPRAZOLE 40 MG (PROTONIX) VIAL IV SCH ×2 (08:29→22:46)
[2018-11-11] MEDS: FUROSEMIDE 40 MG/4 ML INJ (LASIX) IVP SCH ×2 (08:36→16:47)
[2018-11-11] MEDS: NICOTINE PATCH REMOVAL TP SCH (08:37)
[2018-11-11] MEDS: ENOXAPARIN 100 MG/1 ML (LOVENOX) SYR SC SCH ×2 (08:38→22:47)
[2018-11-11] MEDS: NICOTINE 21 MG (NICODERM) PATCH TD SCH (08:39)
[2018-11-11] MEDS ORDERED: FUROSEMIDE 40 MG/4 ML INJ (LASIX) IVP SCH (09:00)
[2018-11-11] MEDS ORDERED: DILTIAZEM 25 MG/5 ML INJ (CARDIZEM) VIAL ONE (09:13)
--- NOTE | 2018-11-11 09:20 | NUR ---
ICU CALLED AND STATED HIS HEART RATE IS 190'S. SKIN W/D. EATING BREAKFAST. DENIES SYMPTOMS. SL. DAVIS NOTED. O2 CONT AT 3 L PER MIN PER N/C.
--- NOTE | 2018-11-11 09:20 | NUR ---
EKG DONE AND RESULTS SENT TO DR. PEREZ.
--- NOTE | 2018-11-11 09:25 | NUR ---
PINEDA Guzman (FLUMER) AT BEDSIDE AND GAVE CARDIZEM IV AFTER DR. PEREZ NOTIFIED BY RADHAMES Guzman
[2018-11-11] MEDS ORDERED: DILTIAZEM 25 MG/5 ML INJ (CARDIZEM) VIAL IVP NR (09:29)
--- NOTE | 2018-11-11 09:37 | Physical Therapy Daily Note ---
PT Daily Note-Current Subjective Patient is in bed without complaint. Agrees to up in chair. Student nurse in to assist. Mental Status Patient Orientation: Confused Attachments: Oxygen, Dow Catheter Transfers Therapy Code Descriptions/Definitions Functional [place] Measure: 0=Not Assessed/NA 4=Minimal Assistance 1=Total Assistance 5=Supervision or Setup 2=Maximal Assistance 6=Modified [place] 3=Moderate Assistance 7=Complete [place] Therapy Quality Codes: 6 Independent with activity with or without an assistive device 5 Patient requires set up or clean up by helper. Patient completes activity by themselves 4 Supervision or touching assist (CGA). [place] provide cues , steadying assist 3 The helper provides less than half the effort to complete the activity 2 The helper provides more than half the effort to complete the activity 1 Dependent. The helper does all the effort to complete an activity 7 Patient refused to complete or attempt activity 9 The patient did not perform the activity before the current illness or injury 88 Not attempted due to Medical conditions or safety concerns Transfers (B, C, W/C) (FIM): 2 Scootin Rollin Supine to/from Sit: 2 Sit to/from Stand: 2 Bed to/from Chair: 2 patient able to take 3 steps bed to recliner with assist of 2 Weight Bearing Right Lower Extremity: Right Weight Bearing/Tolerated Left Lower Extremity: Left Weight Bearing/Tolerated Exercises Supine Ex: Ankle pumps, Heel Slides, Hip abd/add Supine Reps: 12 (PROM) Seated Therapy Exercises: Long arc quads Seated Reps: 15 (AAROM) Assessment Patient is up in recliner with nursing in room. Needs met. PT Short Term Goals Short Term Goals Time Frame: Nov 16, 2018 Transfers (B,C,W/C) (FIM): 3 Gait (FIM): 1 Gait Distance Comment: 5' Gait Level of Assist: 3 Gait Assistive Device: FWW PT Plan Treatment/Plan Treatment Plan: Continue Plan of Care Treatment Plan: Bed Mobility, Concurrent Therapy, Education, Functional Activity Tg, Functional Strength, Gait, Safety, Therapeutic Exercise, Hunt sfers Treatment Duration: Nov 16, 2018 Frequency: 6 times per week Estimated Hrs Per Day: .25 hour per day Patient and/or Family Agrees t: Yes Time/GCodes Time In: 805 Time Out: 828 Total Billed Treatment Time: 23 Total Billed Treatment 1 visit FA 13 min EX 10 min FESTUS CAAL PT Nov 11, 2018 09:37
--- NOTE | 2018-11-11 09:41 | Occ Therapy Progress Note ---
Therapy Progress Note 9:32 Nursing reported pt having rapid heart rate and to hold OT at this time. WESTON GIVENS OT Nov 11, 2018 09:41
[2018-11-11] MEDS ORDERED: AMIODARONE FOR BOLUS 150 MG in D5W 100 ML IVPB 100 ML IV ONE (09:45)
[2018-11-11] MEDS: LORazepam INJ 2 MG/ML (ATIVAN) VIAL IV PRN (09:54)
[2018-11-11] MEDS: DILTIAZEM IV FOR DRIP 125 MG in NS (IVPB) 100 ML IV SCH ×2 (10:01→16:31)
[2018-11-11 10:03] LABS: ABG BASE EXCESS -4.9 MMOL/L (-2.5-2.5); ABG OXYGEN SATURATION 93 % (94-100); ABG PCO2 31 MMHG (35-45); ABG PO2 65 MMHG (79-93); ABG TCO2 20.1 MMOL/L (21.0-31.0)
--- NOTE | 2018-11-11 10:10 | NUR ---
TO ROOM ICU 7 PER BED. SKIN W/D.RESP. SL. LABORED. REPORT GIVEN TO MOHAN CASTELLANOS.
[2018-11-11 10:12] LABS: ALLENS TEST POSITIVE; INSPIRED O2 3.5; PATIENT TEMP 36.5; VENTILATOR NO
--- NOTE | 2018-11-11 10:18 | NUR ---
0937 PT TO ROOM ICU 7 VIA BED ACCOMPANIED BY Henna OMALLEY RN AND Severo ATWOOD RN. PT NOTED TO BE TACHYCARDIAC IN THE 180'S. Kaykay ATWOOD RN CALLED DR PEREZ AND NEW ORDERS RECEIVED.
--- NOTE | 2018-11-11 10:57 | Cardiology Progress Note ---
Cardiology SOAP Progress Note Subjective: Went into atrial fibrillation with rapid ventricular rate. Objective: I&O/Vital Signs 11/10/18 11/11/18 11/11/18 11/11/18 23:07 01:00 04:00 07:00 Temp 36.6 36.6 Pulse 76 71 67 75 Resp 21 20 B/P (MAP) 155/87 (109) 164/87 (112) Pulse Ox 95 94 O2 Delivery Nasal Cannula Nasal Cannula O2 Flow Rate 3.00 3.00 11/11/18 11/11/18 11/11/18 11/11/18 07:03 07:03 08:59 10:01 Temp 36.6 36.4 36.66101 Pulse 68 83 83 Resp 18 18 B/P (MAP) 162/86 (111) 162/86 Pulse Ox 90 90 90 90 O2 Delivery Nasal Cannula Nasal Cannula Nasal Cannula O2 Flow Rate 3.00 3.00 3.00 11/11/18 00:00 Intake Total 1720 ml Output Total 4150 ml Balance -2430 ml Weight (Pounds): 215 Weight (Ounces): 13.1 Weight (Calculated Kilograms): 97.266687 Constitutional: appears stated age; No apparent distress; well-developed, well- nourished, other (Very sleepy. Noncommunicative) Respiratory: chest is bilaterally symmetric, lungs clear to auscultation Cardiovascular: irregularly irregular, tachycardia, S1 and S2 Gastrointestional: soft, round, audible bowel sounds; No spleenomegaly Extremities: normal range of motion, non-tender, normal inspection; No clubbing, No cyanosis; no lower extremity edema bilateral; No significant edema Neurologic/Psychiatric: other (Not communicating) Skin: rash, other (MOST OF BACK WITH ERYTHEMA AND INDURATION, WITH WOUND TO LOWER BACK. NO DRAINAGE AT THIS TIME. ) Results/Procedures: Labs Laboratory Tests 11/10/18 11:04: Glucometer 243H 11/10/18 16:13: Glucometer 253H 11/10/18 20:58: Glucometer 232H 11/11/18 04:34: White Blood Count 74.7*H, Red Blood Count 3.68L, Hemoglobin 11.4L, Hematocrit 36L, Mean Corpuscular Volume 97, Mean Corpuscular Hemoglobin 31, Mean Corpuscular Hemoglobin Concent 32, Red Cell Distribution Width 14.9H, Platelet Count 288, Mean Platelet Volume 11.9H, Neutrophils (%) (Auto) 31L, Lymphocytes (%) (Auto) 69H, Monocytes (%) (Auto) 0, Eosinophils (%) (Auto) 0, Basophils (%) (Auto) 0, Neutrophils # (Auto) 22.9H, Lymphocytes # (Auto) 51.6H, Monocytes # (Auto) 0.2, Eosinophils # (Auto) 0.0, Basophils # (Auto) 0.1, Neutrophils % (Manual) 36, Monocytes % (Manual) 1, Band Neutrophils 2, Atypical Lymphocytes 61, Smudge Cells MARKED, Toxic Granulation 1+, Anisocytosis SLIGHT, Rouleau SLIGHT, Sodium Level 148H, Potassium Level 4.2, Chloride Level 120H, Carbon Gabe xide Level 21, Anion Gap 7, Blood Urea Nitrogen 71H, Creatinine 1.27, Estimat Glomerular Filtration Rate 56, BUN/Creatinine Ratio 56, Glucose Level 200H, Calcium Level 7.6L, Corrected Calcium 9.0, Phosphorus Level 3.1, Magnesium Level 2.4, Total Bilirubin 0.7, Aspartate Amino Transf (AST/SGOT) 29, Alanine Aminotransferase (ALT/SGPT) 32, Alkaline Phosphatase 241H, B-Type Natriuretic Peptide 2380.9H, Total Protein 4.7L, Albumin 2.2L 11/11/18 08:32: Vancomycin Level Trough 17.5 11/11/18 09:55: Blood Gas Puncture Site RIGHT RADIAL, Blood Gas Patient Temperature 36.5, Arterial Blood pH 7.40, Arterial Blood Partial Pressure CO2 31L, Arterial Blood Partial Pressure O2 65L, Arterial Blood HCO3 19L, Arterial Blood Total CO2 20.1L , Arterial Blood Oxygen Saturation 93L, Arterial Blood Base Excess -4.9L, Federico Test POSITIVE, Blood Gas Ventilator Setting NO, Blood Gas Inspired Oxygen 3.5 Microbiology 11/05/18 Blood Culture - Final, Complete No growth 11/05/18 Influenza Types A,B Antigen (CHRIS) - Final, Complete 11/05/18 Urine Culture - Final, Complete NO GROWTH 11/05/18 Gram Stain - Final, Complete 11/05/18 Wound Culture - Final, Complete Staphylococcus aureus See Comments A/P: Assessment/Dx: septic shock, significantly improved. Diabetes, Atrial fibrillation with rapid ventricular rate Source of infection unclear could be cellulitis, Acute diastolic congestive heart failure Acute kidney injury Elevated LFTs, Metabolic acidosis, active smoker, heavy alcohol use, Drug abuse. Plan: Septic shock, significantly improved. Atrial fibrillation with rapid ventricular rate, transferred to the ICU. No res ponse to by mouth metoprolol and IV Cardizem. Therefore we will start Cardizem infusion and amiodarone infusion. We'll give a dose of Lovenox. I have discussed at length with the nurses and recommended that if the patient becomes hemodynamically unstable, cardioversion is recommended. Dr. Low covering me from now on. Patient refused oral anticoagulation therapy yesterday. Acute diastolic congestive heart failure, Echocardiogram showed normal LV function with mild to moderate diastolic dysfunction. Acute kidney injury Aggressive control of diabetes. Elevated LFTs likely due to septic shock. Metabolic acidosis, lactic acidosis likely due to severe sepsis. active smoker, heavy alcohol use, detoxification Drug abuse. Thank you for your consultation. Please call me if you have any questions. Vaughn Medellin MD, FACP, FACC, FSCAI, FHRS, CCDS Interventional Cardiology Cardiac Electrophysiology Vascular Medicine and Endovascular Interventions Focused Exam Time of Focused Exam: 07:00 Roman MEDELLIN MD Nov 11, 2018 10:57
[2018-11-11] MEDS: VANCOMYCIN 1500 MG/NS 500 ML IVPB IV SCH ×2 (11:53)
[2018-11-11] MEDS: AMIODARONE INJECTION 450 MG in D5W IV SOLUTION (EXCEL) 250 ML IV SCH (18:52)
[2018-11-11] MEDS: ACETAMINOPHEN 500 MG TAB (TYLENOL) PO PRN (22:49)
[2018-11-12] VITALS (24 sets, daily range): BP systolic 104–138; BP diastolic 67–96
[2018-11-12] MEDS: DILTIAZEM IV FOR DRIP 125 MG in NS (IVPB) 100 ML IV SCH (00:32)
[2018-11-12] MEDS: RT-ALBUTEROL/IPRATROPIUM 3 ML (DUONEB) VIAL INH SCH ×6 (01:57→21:30)
[2018-11-12] MEDS: AMIODARONE INJECTION 450 MG in D5W IV SOLUTION (EXCEL) 250 ML IV SCH ×2 (03:20→17:55)
[2018-11-12 04:12] LABS: BASOPHILS # (AUTO) 0.1 10^3/uL (0.0-0.1); BASOPHILS % (AUTO) 0 % (0-10); EOSINOPHILS % (AUTO) 0 % (0-10); HEMATOCRIT 37 % (40-54); HEMOGLOBIN 11.8 G/DL (13.3-17.7); LYMPHOCYTES # (AUTO) 60.3 X 10^3 (1.0-4.0); LYMPHOCYTES % (AUTO) 70 % (12-44); MEAN CORPUSCULAR HEMOGLOBIN 32 PG (25-34); MEAN CORPUSCULAR HGB CONC 32 G/DL (32-36); MEAN CORPUSCULAR VOLUME 98 FL (80-99); MEAN PLATELET VOLUME 12.4 FL (7.4-10.4); MONOCYTES # (AUTO) 0.2 X 10^3 (0.0-1.0); MONOCYTES % (AUTO) 0 % (0-12); NEUTROPHILS # (AUTO) 25.7 X 10^3 (1.8-7.8); NEUTROPHILS % (AUTO) 30 % (42-75); PLATELET COUNT 294 10^3/uL (130-400); RED CELL DISTRIBUTION WIDTH 14.9 % (10.0-14.5)
[2018-11-12] MEDS: HYDROCORTISONE 100 MG/2 ML (Solu-CORTEF) VIAL IV SCH (04:13)
[2018-11-12 04:19] LABS: WHITE BLOOD COUNT 86.3 10^3/uL (4.3-11.0)
[2018-11-12 04:29] LABS: CREATININE SERUM 1.33 MG/DL (0.60-1.30); POTASSIUM 3.7 MMOL/L (3.6-5.0)
[2018-11-12 04:30] LABS: ALBUMIN 2.3 GM/DL (3.2-4.5); BILIRUBIN,TOTAL 0.6 MG/DL (0.1-1.0); CALCIUM 7.4 MG/DL (8.5-10.1); MAGNESIUM 2.1 MG/DL (1.6-2.4); PHOSPHORUS 3.6 MG/DL (2.3-4.7); TOTAL PROTEIN 4.9 GM/DL (6.4-8.2)
[2018-11-12 05:10] LABS: ATYPICAL LYMPHOCYTES 44 %; LYMPHOCYTES % (MANUAL) 5 %; NEUTROPHILS % (MANUAL) 51 %
[2018-11-12 05:11] LABS: ANISOCYTOSIS SLIGHT; SMUDGE CELLS MARKED; TOXIC GRANULATION/VACUOLAZATIO 1+
--- NOTE | 2018-11-12 06:21 | Pulmonary Progress Note ---
Subjective Time Seen by a Provider: 08:33 Subjective/Events-last exam PT appears confused slightly Sepsis Event Evaluation Height, Weight, BMI Height: 5'9.00" Weight: 203lbs. 5.0oz. 92.736911gt; 23.22 BMI Method:Stated Focused Exam Time of Focused Exam: 07:00 Exam Exam Vital Signs Date Time Temp Pulse Resp B/P (MAP) Pulse Ox O2 Delivery O2 Flow Rate FiO2 11/12/18 06:00 101 15 127/81 (96) 92 Nasal Cannula 1.00 11/12/18 05:00 92 15 122/89 (100) 94 Nasal Cannula 1.00 11/12/18 04:00 94 Nasal Cannula 2.00 11/12/18 04:00 87 14 121/88 (99) 92 Nasal Cannula 1.00 11/12/18 03:00 91 14 119/88 (98) 95 Nasal Cannula 1.00 11/12/18 02:00 85 15 107/68 (81) 97 Nasal Cannula 1.00 11/12/18 01:00 90 11/12/18 01:00 101 14 112/70 (84) 95 Nasal Cannula 1.00 11/12/18 00:32 99 105/76 11/12/18 00:00 96 15 113/76 (88) 95 Nasal Cannula 1.00 11/12/18 00:00 94 Nasal Cannula 2.00 11/11/18 23:00 108 15 118/89 (99) 92 Nasal Cannula 1.00 11/11/18 22:23 Nasal Cannula 1.00 11/11/18 22:14 94 Nasal Cannula 2.00 11/11/18 22:00 96 16 117/82 (94) 94 Nasal Cannula 2.00 11/11/18 21:00 112 17 120/82 (95) 94 Nasal Cannula 2.00 11/11/18 20:09 36.4 11/11/18 20:00 122 20 111/76 (88) 93 Nasal Cannula 2.00 11/11/18 20:00 94 Nasal Cannula 2.00 11/11/18 19:00 103 18 115/83 (94) 93 Nasal Cannula 2.00 11/11/18 19:00 117 11/11/18 18:36 Nasal Cannula 2.00 11/11/18 18:28 92 Nasal Cannula 3.00 11/11/18 18:00 110 20 119/89 (99) 92 Nasal Cannula 2.50 11/11/18 17:00 109 15 127/91 (103) 100 Nasal Cannula 2.50 11/11/18 16:55 129 11/11/18 16:31 35.36073 170 15 107/83 94 Nasal Cannula 2.50 11/11/18 16:00 Nasal Cannula 3.00 11/11/18 16:00 35.8 11/11/18 16:00 104 13 122/91 (101) 93 Nasal Cannula 2.50 11/11/18 15:00 117 19 120/83 (95) 86 Nasal Cannula 2.50 11/11/18 14:00 105 12 128/80 (96) Nasal Cannula 2.50 11/11/18 13:00 110 11 119/88 (98) Nasal Cannula 2.50 11/11/18 12:15 Nasal Cannula 3.00 11/11/18 12:00 140 21 109/88 (95) Nasal Cannula 2.50 11/11/18 11:00 170 15 107/83 (91) 94 Nasal Cannula 2.50 11/11/18 10:01 36.55821 83 18 162/86 90 Nasal Cannula 3.00 11/11/18 09:45 170 16 102/88 (93) Nasal Cannula 2.50 11/11/18 08:59 36.4 83 18 162/86 (111) 90 Nasal Cannula 3.00 11/11/18 07:03 36.6 68 90 11/11/18 07:03 90 Nasal Cannula 3.00 11/11/18 07:00 75 I & O 11/12/18 07:00 Intake Total 675 ml Output Total 4025 ml Balance -3350 ml Height & Weight Height: 5'9.00" Weight: 203lbs. 5.0oz. 92.755678tk; 23.22 BMI Method:Stated General Appearance: WD/WN, Anxious, Mild Distress HEENT: Normal ENT Inspection Neck: Full Range of Motion, Normal Inspection Respiratory: Chest Non Tender, No Accessory Muscle Use, No Respiratory Distress Cardiovascular: Regular Rate, Rhythm, No Murmur Capillary Refill: Less Than 3 Seconds Peripheral Pulses: 2+ Radial Pulses (R), 2+ Radial Pulses (L) Gastrointestinal: non tender, soft Extremity: Normal Capillary Refill, Normal Inspection, No Pedal Edema Neurologic/Psychiatric: Alert Skin: Normal Color, Warm/Dry Results Lab Laboratory Tests 11/11/18 04:34 11/12/18 03:56 Assessment/Plan Assessment/Plan Pna with sepsis - vancomycin -Will add Merrem secondary to worsening condition and leukocytosis Afib RVR -cardizem and amio gtt -cardiology following Malnutrition/hypoalbuminemia -Monitor -Dysphagia II diet Pt states he has hx of CLL and refused treatment in past -Oncology consulted ETOH dependance -monitor -Education Diastolic CHF grade II per echo -Consult cardiology -Give 80mg of lasix this AM Hypokalemia -replace and recheck Cellulitis on back -Wound care Multisubstance drug use -UDS positive for methamphetamine Afib RVR -Consult cardiology Renal insufficiency -monitor Homeless Dehydration CAD Prognosis is overall poor. Will consult hospice for education AGUS HADLEY DO Nov 12, 2018 06:21
[2018-11-12] MEDS ORDERED: POTASSIUM CL 10MEQ/50ML IVPB 50 ML IV SCH (06:30)
[2018-11-12] MEDS ORDERED: FUROSEMIDE 40 MG/4 ML INJ (LASIX) IVP ONE (06:30)
[2018-11-12] MEDS: inSUlin ASPART (NovoLOG) 1 UNIT/0.01 ML (CHARGE PER UNIT) SC SCH ×4 (06:50→21:37)
[2018-11-12] MEDS: POTASSIUM CL 10MEQ/50ML IVPB 50 ML IV SCH ×10 (06:50→22:30)
[2018-11-12] MEDS: FUROSEMIDE 40 MG/4 ML INJ (LASIX) IVP SCH ×2 (06:56→17:12)
[2018-11-12] MEDS: KCL 20 MEQ TAB (K-DUR) PO SCH (06:57)
--- NOTE | 2018-11-12 07:25 | Cardiology Progress Note ---
Subjective Date Seen by Provider: Nov 12, 2018 Time Seen by Provider: 07:22 Subjective/Events-last exam Patient is laying down in bed complaining of fatigue, loss of energy Review of Systems General: No Chills, No Night Sweats; Fatigue, Malaise; No Appetite, No Other HEENT: No Head Aches, No Visual Changes, No Eye Pain, No Ear Pain, No Dysphasia, No Sinus Congestion, No Post Nasal Drip, No Sore Throat, No Other Pulmonary: Dyspnea; No Cough, No Pleuritic Chest Pain, No Other Cardiovascular: Edema; No: Chest Pain, Palpitations, Orthopnea, Paroxysmal Noc. Dyspnea, Lt Headedness, Other Focused Exam Time of Focused Exam: 07:00 Objective-Cardiology Exam Last Set of Vital Signs Vital Signs 11/11/18 11/12/18 11/12/18 20:09 06:00 06:42 Temp 36.4 Pulse 101 Resp 15 B/P (MAP) 127/81 (96) Pulse Ox 90 O2 Delivery Nasal Cannula O2 Flow Rate 1.00 Capillary Refill : Less Than 3 Seconds I&O Intake and Output 11/12/18 00:00 Intake Total 550 ml Output Total 4500 ml Balance -3950 ml Intake Oral 450 ml IV Total 100 ml Output Urine Total 4500 ml # Bowel Movements 1 General: Alert, Oriented X3, Cooperative, Moderate Distress HEENT: Atraumatic, PERRLA Neck: Supple, No JVD, No Thyromegaly Lungs: Normal Air Movement, Other (bilateral rhonchi) Heart: Normal S1, Normal S2, No Murmurs, Other (atrial fibrillation with rapid ventricular response) Abdomen: Normal Bowel Sounds, Soft, No Tenderness, No Hepatosplenomegaly, No Masses Extremities: No Clubbing, No Cyanosis, Normal Pulses, No Tenderness/Swelling, Other (diffuse edema) Skin: No Rashes, No Breakdown, No Significant Lesion Neuro: Normal Speech, Normal Tone, Sensation Intact Psych/Mental Status: Mental Status NL, Mood NL Results Lab Laboratory Tests 11/12/18 03:56 A/P-Cardiology Admission Diagnosis Sepsis Atrial fibrillation Tachycardia Pneumonia Assessment/Plan Sepsis, worsening pneumonia, receiving antibiotic, managed by Dr. Quinonez Atrial fibrillation with rapid ventricular response, started on Cardizem drip, continue to titrate up and continue on Lovenox to reduce the risk of stroke. Anasarca, diffuse edema, receiving Lasix. Hypertension, controlled, monitor blood pressure CLL, refused chemotherapy in the past, managed by primary care team Alcoholism, history of heavy alcohol use. Tobaccoism, still an active smoker History of drug use Clinical Quality Measures DVT/VTE Risk/Contraindication: Risk Factor Score Per Nursin RFS Level Per Nursing on Admit: 4+=Very High GEREMIAS MERCADO MD Nov 12, 2018 07:25
[2018-11-12] MEDS ORDERED: NS IV 500 ML 500 ML ONE (08:24)
[2018-11-12] MEDS: PANTOPRAZOLE 40 MG (PROTONIX) VIAL IV SCH ×2 (08:37→21:36)
[2018-11-12] MEDS: VANCOMYCIN 1500 MG/NS 500 ML IVPB IV SCH ×2 (08:37)
[2018-11-12] MEDS: meTOproloL SUCCINATE 50 MG (TOPROL XL) TAB PO SCH (08:38)
[2018-11-12] MEDS: NICOTINE PATCH REMOVAL TP SCH (08:38)
[2018-11-12] MEDS: NICOTINE 21 MG (NICODERM) PATCH TD SCH ×2 (08:38→09:01)
[2018-11-12] MEDS: ENOXAPARIN 100 MG/1 ML (LOVENOX) SYR SC SCH ×2 (08:38→21:37)
--- NOTE | 2018-11-12 08:59 | Diagnostic Imaging Report ---
EXAMINATION: Chest radiograph, portable AP view. DATE: November 12, 2018 at 0548 hours. INDICATION: 73-year-old male, septic shock. COMPARISON: November 11, 2018. FINDINGS: Stable overall appearance of the cardiomediastinal silhouette. There is no identified pneumothorax. There is obscuration of visualization of both hemidiaphragms with nonspecific mid to lower lung zone consolidation bilaterally. Overall lung aeration is unchanged since comparison exam. The previously noted venous line has been removed. IMPRESSION: 1. Persistent nonspecific mid and lower lung zone consolidation with potential bilateral pleural effusions. 2. Interval removal of previously noted venous line. Dictated by: Dictated on workstation # [id number]
[2018-11-12] MEDS: NS IV 500 ML 500 ML IV SCH (09:02)
[2018-11-12] MEDS: MEROPENEM 1,000 MG in WATER (STERILE) FOR INJECTION 20 ML IV SCH ×2 (09:11→16:35)
--- NOTE | 2018-11-12 11:54 | Progress Note - Hospitalist ---
Subjective HPI/CC On Admission Date Seen by Provider: Nov 12, 2018 Time Seen by Provider: 10:00 This is a 73-year-old white male who is brought to the emergency room this morning. He was found to be in septic shock presumably secondary to a severe cellulitis and small ulceration on his back. The patient is unable to provide me any additional history. His lactic acid is markedly elevated and he is on pressor support. He is been given Ativan and Precedex for his agitation and aggression. Urine is positive for methamphetamine and opioids. Subjective/Events-last exam Patient reports he is feeling better Dr. Armstrong has been consulted Heart rate is improved but does become tachycardic Reviewed notes and it appears that he is likely a hospice candidate Review of Systems General: Fatigue Pulmonary: Dyspnea Focused Exam Time of Focused Exam: 07:00 Objective Exam Vital Signs Vital Signs Date Time Temp Pulse Resp B/P (MAP) Pulse Ox O2 Delivery O2 Flow Rate FiO2 11/12/18 11:05 90 Nasal Cannula 1.00 11/12/18 11:00 105 18 115/83 (94) 11/12/18 07:00 36.0 Capillary Refill : Less Than 3 Seconds General Appearance: No Apparent Distress, WD/WN, Anxious, Chronically ill, Cachetic, Thin Respiratory: Chest Non Tender, Lungs Clear, Normal Breath Sounds, No Accessory Muscle Use, No Respiratory Distress Cardiovascular: Regular Rate, Rhythm, No Edema, No Gallop, No JVD, No Murmur, Normal Peripheral Pulses Neurologic/Psychiatric: Alert, Oriented x3, No Motor/Sensory Deficits, Normal Mood/Affect Skin: Normal Color, Warm/Dry Results/Procedures Lab Laboratory Tests 11/12/18 03:56 Patient resulted labs reviewed. Assessment/Plan Assessment and Plan Assess & Plan/Chief Complaint Pneumonia with sepsis Afib RVR Malnutrition/hypoalbuminemia CLL hx ETOH dependance Diastolic CHF Cellulitis on back with ulcerations Methamphetamine use Acute renal failure Homeless Dehydration CAD Plan: Supportive care line prognosis guarded Critical Care Critically Ill Patient Diagnosis/Problems Diagnosis/Problems (1) RLL pneumonia Status: Acute (2) Atrial fibrillation with rapid ventricular response Status: Acute (3) Cellulitis of back Status: Acute (4) History of alcoholism Status: Acute (5) New onset atrial fibrillation Status: Acute (6) Leukocytosis Status: Acute (7) Acute renal failure Status: Acute (8) Diabetes mellitus Status: Acute (9) Septic shock Status: Acute (10) Noncompliance Clinical Quality Measures DVT/VTE Risk/Contraindication: Risk Factor Score Per Nursin RFS Level Per Nursing on Admit: 4+=Very High YANET ROGER DO Nov 12, 2018 11:54
[2018-11-12 18:16] LABS: CALCIUM 7.3 MG/DL (8.5-10.1); CREATININE SERUM 1.48 MG/DL (0.60-1.30); POTASSIUM 3.5 MMOL/L (3.6-5.0)
[2018-11-13] VITALS (17 sets, daily range): BP systolic 118–145; BP diastolic 61–92
[2018-11-13] MEDS: MEROPENEM 1,000 MG in WATER (STERILE) FOR INJECTION 20 ML IV SCH ×3 (01:52→16:43)
[2018-11-13] MEDS: NS IV 500 ML 500 ML IV SCH ×2 (02:00→16:46)
[2018-11-13] MEDS: RT-ALBUTEROL/IPRATROPIUM 3 ML (DUONEB) VIAL INH SCH ×5 (02:30→19:00)
[2018-11-13 03:26] LABS: BASOPHILS # (AUTO) 0.1 10^3/uL (0.0-0.1); BASOPHILS % (AUTO) 0 % (0-10); EOSINOPHILS % (AUTO) 0 % (0-10); HEMATOCRIT 36 % (40-54); HEMOGLOBIN 11.7 G/DL (13.3-17.7); LYMPHOCYTES # (AUTO) 57.2 X 10^3 (1.0-4.0); LYMPHOCYTES % (AUTO) 68 % (12-44); MEAN CORPUSCULAR HEMOGLOBIN 32 PG (25-34); MEAN CORPUSCULAR HGB CONC 32 G/DL (32-36); MEAN CORPUSCULAR VOLUME 99 FL (80-99); MEAN PLATELET VOLUME 12.3 FL (7.4-10.4); MONOCYTES # (AUTO) 0.8 X 10^3 (0.0-1.0); MONOCYTES % (AUTO) 1 % (0-12); NEUTROPHILS # (AUTO) 25.7 X 10^3 (1.8-7.8); NEUTROPHILS % (AUTO) 31 % (42-75); PLATELET COUNT 334 10^3/uL (130-400); RED CELL DISTRIBUTION WIDTH 14.9 % (10.0-14.5)
[2018-11-13 03:50] LABS: SMEAR SCAN COMMENT YES; WHITE BLOOD COUNT 83.8 10^3/uL (4.3-11.0)
[2018-11-13 04:04] LABS: ALBUMIN 2.2 GM/DL (3.2-4.5); BILIRUBIN,TOTAL 0.6 MG/DL (0.1-1.0); CALCIUM 7.5 MG/DL (8.5-10.1); CREATININE SERUM 1.25 MG/DL (0.60-1.30); MAGNESIUM 1.8 MG/DL (1.6-2.4); PHOSPHORUS 2.8 MG/DL (2.3-4.7); POTASSIUM 3.5 MMOL/L (3.6-5.0); TOTAL PROTEIN 4.6 GM/DL (6.4-8.2)
[2018-11-13] MEDS: KCL 20 MEQ TAB (K-DUR) PO SCH (05:22)
[2018-11-13] MEDS: inSUlin ASPART (NovoLOG) 1 UNIT/0.01 ML (CHARGE PER UNIT) SC SCH ×4 (05:22→20:32)
[2018-11-13] MEDS ORDERED: POTASSIUM CL 10MEQ/50ML IVPB 50 ML IV SCH (06:00)
[2018-11-13] MEDS ORDERED: MAGNESIUM 1 GM/100 ML IVPB 100 ML IV SCH (06:00)
--- NOTE | 2018-11-13 07:09 | Pulmonary Progress Note ---
Subjective Time Seen by a Provider: 07:08 Subjective/Events-last exam Currently has amio going Sepsis Event Evaluation Height, Weight, BMI Height: 5'9.00" Weight: 200lbs. 10.0oz. [id number]; 23.22 BMI Method:Stated Focused Exam Time of Focused Exam: 07:00 Exam Exam Vital Signs Date Time Temp Pulse Resp B/P (MAP) Pulse Ox O2 Delivery O2 Flow Rate FiO2 11/13/18 06:53 95 Nasal Cannula 2.00 11/13/18 06:00 68 16 134/82 (99) 95 Nasal Cannula 2.00 11/13/18 05:00 68 13 124/85 (98) 93 Nasal Cannula 2.00 11/13/18 04:00 93 Nasal Cannula 0.50 11/13/18 04:00 74 20 134/85 (101) 94 Nasal Cannula 2.00 11/13/18 03:00 75 16 134/81 (98) 93 Nasal Cannula 2.00 11/13/18 02:34 Nasal Cannula 2.00 11/13/18 02:30 93 Nasal Cannula 2.00 11/13/18 02:00 74 15 122/77 (92) 93 Room Air 11/13/18 01:00 67 15 135/83 (100) 92 Room Air 11/13/18 01:00 71 11/13/18 00:05 36.7 11/13/18 00:00 93 Nasal Cannula 0.50 11/13/18 00:00 67 14 127/79 (95) 93 Room Air 11/12/18 23:00 67 14 124/72 (89) 95 Room Air 11/12/18 22:00 68 12 131/82 (98) 93 Room Air 11/12/18 21:37 Room Air 11/12/18 21:30 95 Room Air 11/12/18 21:00 74 13 138/76 (96) 94 Nasal Cannula 0.50 11/12/18 20:00 111 12 133/94 (107) 93 Nasal Cannula 0.50 11/12/18 20:00 93 Nasal Cannula 0.50 11/12/18 19:00 117 16 134/94 (107) 95 Nasal Cannula 0.50 11/12/18 19:00 114 11/12/18 18:50 Nasal Cannula 0.50 11/12/18 18:43 94 Nasal Cannula 0.50 11/12/18 18:00 109 14 128/96 (107) 94 Nasal Cannula 1.00 11/12/18 17:00 126 18 120/85 (97) 93 Nasal Cannula 1.00 11/12/18 16:53 94 Nasal Cannula 2.00 11/12/18 16:00 115 17 123/77 (92) 92 Nasal Cannula 1.00 11/12/18 15:08 90 Nasal Cannula 1.00 11/12/18 15:00 118 19 120/86 (97) 90 Nasal Cannula 1.00 11/12/18 14:00 107 12 104/82 (89) 92 Nasal Cannula 1.00 11/12/18 13:00 126 17 112/79 (90) Nasal Cannula 1.00 11/12/18 12:37 94 Nasal Cannula 2.00 11/12/18 12:25 111 11/12/18 12:00 36.0 11/12/18 12:00 116 19 111/67 (82) 92 Nasal Cannula 1.00 11/12/18 11:05 90 Nasal Cannula 1.00 11/12/18 11:00 105 18 115/83 (94) 98 Nasal Cannula 1.00 11/12/18 10:00 97 19 109/82 (91) 93 Nasal Cannula 1.00 11/12/18 09:00 114 17 127/82 (97) 93 Nasal Cannula 1.00 11/12/18 08:45 94 Nasal Cannula 2.00 11/12/18 08:00 121 20 109/92 (98) 91 Nasal Cannula 1.00 I & O 11/13/18 07:00 Intake Total 2000 ml Output Total 2675 ml Balance -675 ml Height & Weight Height: 5'9.00" Weight: 200lbs. 10.0oz. 91.745593at; 23.22 BMI Method:Stated General Appearance: No Apparent Distress, WD/WN, Anxious, Chronically ill, Cachetic, Thin HEENT: Normal ENT Inspection Neck: Full Range of Motion, Normal Inspection Respiratory: Chest Non Tender, Lungs Clear, Normal Breath Sounds, No Accessory Muscle Use, No Respiratory Distress Cardiovascular: Regular Rate, Rhythm, No Edema, No Gallop, No JVD, No Murmur, Normal Peripheral Pulses Capillary Refill: Less Than 3 Seconds Peripheral Pulses: 2+ Radial Pulses (R), 2+ Radial Pulses (L) Gastrointestinal: non tender, soft Extremity: Normal Capillary Refill, Normal Inspection, No Pedal Edema Neurologic/Psychiatric: Alert, Oriented x3, No Motor/Sensory Deficits, Normal Mood/Affect Skin: Normal Color, Warm/Dry Results Lab Laboratory Tests 11/12/18 03:56 11/12/18 17:48 11/13/18 02:54 Assessment/Plan Assessment/Plan Pna with sepsis - vancomycin - Merrem Afib RVR -amio gtt currently -cardiology following Malnutrition/hypoalbuminemia -Monitor -Dysphagia II diet Pt states he has hx of CLL and refused treatment in past -Oncology consulted ETOH dependance -monitor -Education Diastolic CHF grade II per echo -Consult cardiology -Give 80mg of lasix this AM Hypokalemia -replace and recheck Cellulitis on back -Wound care Multisubstance drug use -UDS positive for methamphetamine Afib RVR -Consult cardiology Renal insufficiency -monitor Homeless Dehydration AGUS BEST DO Nov 13, 2018 07:08
[2018-11-13] MEDS: FUROSEMIDE 40 MG/4 ML INJ (LASIX) IVP SCH ×2 (07:35→16:40)
[2018-11-13] MEDS: NICOTINE PATCH REMOVAL TP SCH (08:59)
[2018-11-13] MEDS: NICOTINE 21 MG (NICODERM) PATCH TD SCH (09:00)
[2018-11-13] MEDS: PANTOPRAZOLE 40 MG (PROTONIX) VIAL IV SCH ×2 (09:31→20:31)
[2018-11-13] MEDS: meTOproloL SUCCINATE 50 MG (TOPROL XL) TAB PO SCH (09:31)
--- NOTE | 2018-11-13 09:31 | Cardiology Progress Note ---
Subjective Date Seen by Provider: Nov 13, 2018 Time Seen by Provider: 09:29 Subjective/Events-last exam Patient is laying down in bed, feeling better, started on amiodarone drip, heart rate is better controlled Review of Systems General: No Chills, No Night Sweats; Fatigue, Malaise; No Appetite, No Other HEENT: No Head Aches, No Visual Changes, No Eye Pain, No Ear Pain, No Dysphasia, No Sinus Congestion, No Post Nasal Drip, No Sore Throat, No Other Pulmonary: Dyspnea; No Cough, No Pleuritic Chest Pain, No Other Cardiovascular: Edema; No: Chest Pain, Palpitations, Orthopnea, Paroxysmal Noc. Dyspnea, Lt Headedness, Other Focused Exam Time of Focused Exam: 07:00 Objective-Cardiology Exam Last Set of Vital Signs Vital Signs 11/13/18 11/13/18 00:05 09:00 Temp 36.7 Pulse 74 Resp 15 B/P (MAP) 131/83 (99) Pulse Ox 93 O2 Delivery Nasal Cannula O2 Flow Rate 2.00 Capillary Refill : Less Than 3 Seconds I&O Intake and Output 11/13/18 00:00 Intake Total 2434 ml Output Total 2100 ml Balance 334 ml Intake Oral 1150 ml IV Total 1284 ml Output Urine Total 2100 ml General: Alert, Oriented X3, Cooperative, Moderate Distress HEENT: Atraumatic, PERRLA Neck: Supple, No JVD, No Thyromegaly Lungs: Normal Air Movement, Other (bilateral rhonchi) Heart: Regular Rate, Normal S1, Normal S2, No Murmurs Abdomen: Normal Bowel Sounds, Soft, No Tenderness, No Hepatosplenomegaly, No Masses Extremities: No Clubbing, No Cyanosis, Normal Pulses, No Tenderness/Swelling, Other (diffuse edema) Skin: No Rashes, No Breakdown, No Significant Lesion Neuro: Normal Speech, Normal Tone, Sensation Intact Psych/Mental Status: Mental Status NL, Mood NL Results Lab Laboratory Tests 11/12/18 17:48 11/13/18 02:54 A/P-Cardiology Admission Diagnosis Sepsis Atrial fibrillation Tachycardia Pneumonia Assessment/Plan Sepsis, pneumonia, receiving antibiotic, managed by Dr. Quinonez Atrial fibrillation with rapid ventricular response, back in sinus rhythm, on amiodarone drip, I'll switch him to oral, monitor closely Anasarca, diffuse edema, receiving Lasix. Hypertension, controlled, monitor blood pressure CLL, refused chemotherapy in the past, managed by primary care team Alcoholism, history of heavy alcohol use. Tobaccoism, still an active smoker History of drug use Clinical Quality Measures DVT/VTE Risk/Contraindication: Risk Factor Score Per Nursin RFS Level Per Nursing on Admit: 4+=Very High GEREMIAS MERCADO MD Nov 13, 2018 09:30
[2018-11-13] MEDS: ENOXAPARIN 100 MG/1 ML (LOVENOX) SYR SC SCH ×2 (09:32→20:32)
[2018-11-13] MEDS: VANCOMYCIN 1500 MG/NS 500 ML IVPB IV SCH ×2 (10:27)
[2018-11-13] MEDS: POTASSIUM CL 10MEQ/50ML IVPB 50 ML IV SCH ×4 (10:27→16:40)
--- NOTE | 2018-11-13 11:30 | Progress Note - Hospitalist ---
Subjective HPI/CC On Admission Date Seen by Provider: Nov 13, 2018 Time Seen by Provider: 10:15 This is a 73-year-old white male who is brought to the emergency room this morning. He was found to be in septic shock presumably secondary to a severe cellulitis and small ulceration on his back. The patient is unable to provide me any additional history. His lactic acid is markedly elevated and he is on pressor support. He is been given Ativan and Precedex for his agitation and aggression. Urine is positive for methamphetamine and opioids. Subjective/Events-last exam Patient doing a little better Overall prognosis is extremely poor Reviewed labs Check meds Transferring to fourth floor Overall stable currently but prognosis is guarded No pain is unbearable Appreciate Dr. Quinonez Review of Systems General: Fatigue, Malaise Pulmonary: Dyspnea Focused Exam Time of Focused Exam: 07:00 Objective Exam Vital Signs Vital Signs Date Time Temp Pulse Resp B/P (MAP) Pulse Ox O2 Delivery O2 Flow Rate FiO2 11/13/18 19:00 95 Nasal Cannula 4.00 11/13/18 17:42 36.3 72 11/13/18 15:49 18 124/61 (82) Capillary Refill : Less Than 3 Seconds General Appearance: No Apparent Distress, WD/WN, Anxious, Chronically ill, Cach etic, Thin Respiratory: Chest Non Tender, No Accessory Muscle Use, No Respiratory Distress, Decreased Breath Sounds Cardiovascular: Regular Rate, Rhythm, No Edema, No Gallop, No JVD, No Murmur, Normal Peripheral Pulses Neurologic/Psychiatric: Alert, Oriented x3, No Motor/Sensory Deficits, Normal Mood/Affect Results/Procedures Lab Laboratory Tests 11/13/18 02:54 Patient resulted labs reviewed. Assessment/Plan Assessment and Plan Assess & Plan/Chief Complaint Pneumonia with sepsis Afib RVR Malnutrition/hypoalbuminemia CLL hx ETOH dependance Diastolic CHF Cellulitis on back with ulcerations Methamphetamine use Acute renal failure Homeless Dehydration CAD Plan: Supportive care line prognosis guarded Critical Care Critically Ill Patient Diagnosis/Problems Diagnosis/Problems (1) RLL pneumonia Status: Acute (2) Atrial fibrillation with rapid ventricular response Status: Acute (3) Cellulitis of back Status: Acute (4) History of alcoholism Status: Acute (5) New onset atrial fibrillation Status: Acute (6) Leukocytosis Status: Acute (7) Acute renal failure Status: Acute (8) Diabetes mellitus Status: Acute (9) Septic shock Status: Acute (10) Noncompliance Clinical Quality Measures DVT/VTE Risk/Contraindication: Risk Factor Score Per Nursin RFS Level Per Nursing on Admit: 4+=Very High YANET ROGER DO Nov 13, 2018 11:30
--- NOTE | 2018-11-13 13:20 | NUR ---
TRANSFERRED TO ROOM 430 FROM ICU 7 PER BED. ( PT. TRANSFERRED TO AIR BED PRIOR TO COMING TO 4 TH FLOOR.) ALERT AND ORIENTED.SKIN W/D. RESP. REGULAR. O2 ON AT 4 L AND O2 SAT AT 92 % WITH 4 L N/C. ALLEVYN TO RIGHT SIDE OF BACK AND COCCYX AREA'S CHANGED AFTER CLEANSING WITH SALINE. AREA'S OPENED SIZE OF A PEA ON BOTH WOUNDS. DR. TAM HERE AND MEASURED WOUNDS. AGUERO CATH WITH SL CLOUDY YELLOW URINE. IV PER RIGHT UPPER ARM CLEAR WITH N/S AT 30 CC/HR.
[2018-11-13] MEDS ORDERED: POTASSIUM CL 10MEQ/50ML IVPB 100 ML IV ONE (13:44)
--- NOTE | 2018-11-13 13:46 | Wound Care Assessment ---
Wound Care Assessment Date Seen by Provider: Nov 13, 2018 Time Seen by Provider: 13:20 Chief Complaint Sacral and R lower back ulcers. HPI The patient is a 73 year old male admitted for sepsis in a setting of leukemia. On admission, 11/05/18, he was noted to have cellulitis surrounding an ulcer of the back. He has just been transferred to ARU. He notes minimal pain related to sacral and R lower back pressure ulcers. The nursing staff notes that he is on a repositioning schedule. Current dressings are bordered foam. Continue same, will follow. Past Medical History: Admits Diabetes Type II, Admits Heart Disease (Atrial fibrillation), Admits Cancer, Treaments (Leukemia, not receiving chemotherapy.) Smoking Status: Current Everyday Smoker (3 PPD) Recreational Drug Use: Yes (Metamphetamine.) Alcohol Use: Regular Use Review of Systems General: No Chills Pulmonary: No Dyspnea Cardiovascular: No: Chest Pain Gastrointestinal: No: Nausea, Abdominal Pain Exam Vital Signs Date Time Temp Pulse Resp B/P (MAP) Pulse Ox O2 Delivery O2 Flow Rate FiO2 11/13/18 13:33 36.8 68 20 140/77 (98) 92 Nasal Cannula 4.00 Capillary Refill : Less Than 3 Seconds General Appearance: no apparent distress HEENT: normal ENT inspection Neck: normal inspection Cardiovascular: regular rate, rhythm Respiratory: normal breath sounds Gastrointestinal: non tender, soft Back: other (R lower back -- 0.6 x 1.2 x 0.2 cm, base 100% slough, periwound macerated. Sacrum -- 1.5 x 0.8 x 0.2 cm, base regenerating tissue.) Results Laboratory Tests 11/12/18 16:19: Glucometer 291H 11/12/18 17:48: Sodium Level 145, Potassium Level 3.5L, Chloride Level 111H, Carbon Dioxide Level 21, Anion Gap 13, Blood Urea Nitrogen 65H, Creatinine 1.48H, Estimat Glomerular Filtration Rate 47, BUN/Creatinine Ratio 44, Glucose Level 347H, Calcium Level 7.3L 11/12/18 21:28: Glucometer 200H 11/13/18 02:54: Sodium Level 145, Potassium Level 3.5L, Chloride Level 113H, Carbon Dioxide Level 25, Anion Gap 7, Blood Urea Nitrogen 65H, Creatinine 1.25, Estimat Glomerular Filtration Rate 57, BUN/Creatinine Ratio 52, Glucose Level 191H, Calcium Level 7.5L, White Blood Count 83.8*H, Red Blood Count 3.68L, Hemoglobin 11.7L, Hematocrit 36L, Mean Corpuscular Volume 99, Mean Corpuscular Hemoglobin 32, Mean Corpuscular Hemoglobin Concent 32, Red Cell Distribution Width 14.9H, Platelet Count 334, Mean Platelet Volume 12.3H, Neutrophils (%) (Auto) 31L, Lymphocytes (%) (Auto) 68H, Monocytes (%) (Auto) 1, Eosinophils (%) (Auto) 0, Basophils (%) (Auto) 0, Neutrophils # (Auto) 25.7H, Lymphocytes # (Auto) 57.2H, Monocytes # (Auto) 0.8, Eosinophils # (Auto) 0.0, Basophils # (Auto) 0.1, Corrected Calcium 8.9, Phosphorus Level 2.8, Magnesium Level 1.8, Total Bilirubin 0.6, Aspartate Amino Transf (AST/SGOT) 30, Alanine Aminotransferase (ALT/SGPT) 36, Alkaline Phosphatase 213H, Total Protein 4.6L, Albumin 2.2L, Smear Scan YES 11/13/18 10:48: Glucometer 201H Microbiology 11/05/18 Blood Culture - Final, Complete No growth 11/05/18 Influenza Types A,B Antigen (CHRIS) - Final, Complete 11/05/18 Urine Culture - Final, Complete NO GROWTH 11/05/18 Gram Stain - Final, Complete 11/05/18 Wound Culture - Final, Complete Staphylococcus aureus See Comments Assessment/Plan/Dx 1. Pressure ulcer, R lower back, Unstageable. 2. Pressure ulcer, sacrum, Stage 2. 3. Sepsis and cellulitis on admission, related to r lower back ulcer. 4. Debility, alcoholism, drug abuse(methamphetamines) 5. Poorly controlled diabetes. Plan: Currently on repositioning protocol, low air loss mattress, and bordered foam dressings. Continue same, will follow. MILTON BEDOYA MD Nov 13, 2018 13:46
[2018-11-13] MEDS: DILTIAZEM 30 MG (CARDIZEM) TAB PO SCH ×2 (13:54→18:43)
[2018-11-13] MEDS: AMIODARONE 200 MG (CORDARONE) TAB PO SCH (20:32)
[2018-11-14] VITALS: BP 125/72
[2018-11-14] MEDS: DILTIAZEM 30 MG (CARDIZEM) TAB PO SCH ×4 (02:09→19:23)
[2018-11-14] MEDS: MEROPENEM 1,000 MG in WATER (STERILE) FOR INJECTION 20 ML IV SCH ×3 (02:18→19:23)
[2018-11-14 03:22] VITALS: BP 120/69
[2018-11-14] MEDS: FUROSEMIDE 40 MG/4 ML INJ (LASIX) IVP SCH ×2 (06:07→19:23)
[2018-11-14] MEDS: inSUlin ASPART (NovoLOG) 1 UNIT/0.01 ML (CHARGE PER UNIT) SC SCH ×4 (06:09→21:01)
[2018-11-14 06:38] LABS: BASOPHILS # (AUTO) 0.1 10^3/uL (0.0-0.1); BASOPHILS % (AUTO) 0 % (0-10); EOSINOPHILS # (AUTO) 0.1 10^3/uL (0.0-0.3); EOSINOPHILS % (AUTO) 0 % (0-10); HEMATOCRIT 37 % (40-54); HEMOGLOBIN 11.6 G/DL (13.3-17.7); LYMPHOCYTES % (AUTO) 69 % (12-44); MEAN CORPUSCULAR HEMOGLOBIN 31 PG (25-34); MEAN CORPUSCULAR HGB CONC 31 G/DL (32-36); MEAN CORPUSCULAR VOLUME 100 FL (80-99); MEAN PLATELET VOLUME 12.5 FL (7.4-10.4); MONOCYTES # (AUTO) 0.2 X 10^3 (0.0-1.0); MONOCYTES % (AUTO) 0 % (0-12); NEUTROPHILS % (AUTO) 31 % (42-75); PLATELET COUNT 327 10^3/uL (130-400); RED CELL DISTRIBUTION WIDTH 14.7 % (10.0-14.5)
[2018-11-14 06:47] LABS: WHITE BLOOD COUNT 78.4 10^3/uL (4.3-11.0)
[2018-11-14 06:48] LABS: SMEAR SCAN COMMENT YES
--- NOTE | 2018-11-14 06:49 | NUR ---
TONJA AT LAB CALLED WITH CRITICAL WBC 78.4, DR RAMSEY NOTIFIED AT THIS TIME.
[2018-11-14 07:02] LABS: ALBUMIN 2.1 GM/DL (3.2-4.5); BILIRUBIN,TOTAL 0.6 MG/DL (0.1-1.0); CALCIUM 7.3 MG/DL (8.5-10.1); CREATININE SERUM 1.22 MG/DL (0.60-1.30); MAGNESIUM 1.8 MG/DL (1.6-2.4); POTASSIUM 3.9 MMOL/L (3.6-5.0); TOTAL PROTEIN 4.3 GM/DL (6.4-8.2)
[2018-11-14] MEDS: RT-ALBUTEROL/IPRATROPIUM 3 ML (DUONEB) VIAL INH SCH ×4 (07:12→18:59)
--- NOTE | 2018-11-14 07:58 | Progress Note ---
Subjective Time Seen by a Provider: 07:55 Subjective/Events-last exam Patient doing much better today. Patient had a rough weekend. Patient in A. fib with RVR. Patient in intensive care unit. Patient heart sounds are regular is morning like A. fib again under control Focused Exam Time of Focused Exam: 07:00 Objective Exam Vital Signs Date Time Temp Pulse Resp B/P (MAP) Pulse Ox O2 Delivery O2 Flow Rate FiO2 11/14/18 07:12 91 Nasal Cannula 4.00 11/14/18 03:22 36.2 62 21 120/69 (86) 93 Nasal Cannula 3.50 11/14/18 01:00 68 11/14/18 00:00 36.9 70 21 125/72 (89) 94 Nasal Cannula 3.50 11/13/18 21:00 94 Room Air 3.50 11/13/18 20:00 36.6 82 22 119/69 (86) 94 Nasal Cannula 3.50 11/13/18 19:00 95 Nasal Cannula 4.00 11/13/18 19:00 73 11/13/18 17:42 36.3 72 93 11/13/18 15:49 36.3 72 18 124/61 (82) 92 Nasal Cannula 3.50 11/13/18 14:31 94 Nasal Cannula 2.00 11/13/18 13:33 36.8 68 20 140/77 (98) 92 Nasal Cannula 4.00 11/13/18 12:33 70 11/13/18 12:00 70 12 121/84 (96) 94 Nasal Cannula 2.00 11/13/18 11:17 97 Nasal Cannula 2.00 11/13/18 11:00 72 19 121/81 (94) 90 Nasal Cannula 2.00 11/13/18 10:00 75 132/92 (105) Nasal Cannula 2.00 11/13/18 09:00 74 15 131/83 (99) 93 Nasal Cannula 2.00 11/13/18 08:00 74 18 118/83 (95) 93 Nasal Cannula 2.00 I & O 11/14/18 07:00 Intake Total 2950 ml Output Total 3575 ml Balance -625 ml Capillary Refill : Less Than 3 Seconds General Appearance: No Apparent Distress HEENT: Normal ENT Inspection Neck: Full Range of Motion, Normal Inspection Respiratory: No Accessory Muscle Use, No Respiratory Distress Cardiovascular: Irregularly Irregular Gastrointestinal: non tender, soft Extremity: Other (Scrotum better no swelling of scrotum) Results Lab Laboratory Tests 11/13/18 10:48: Glucometer 201H 11/13/18 16:22: Glucometer 199H 11/13/18 20:05: Glucometer 235H 11/14/18 05:50: White Blood Count 78.4*H, Red Blood Count 3.70L, Hemoglobin 11.6L, Hematocrit 37L, Mean Corpuscular Volume 100H, Mean Corpuscular Hemoglobin 31, Mean Corpuscular Hemoglobin Concent 31L, Red Cell Distribution Width 14.7H, Platelet Count 327, Mean Platelet Volume 12.5H, Neutrophils (%) (Auto) 31L, Lymphocytes (%) (Auto) 69H, Monocytes (%) (Auto) 0, Eosinophils (%) (Auto) 0, Basophils (%) (Auto) 0, Neutrophils # (Auto) 24.0H, Lymphocytes # (Auto) 54.0H, Monocytes # (Auto) 0.2, Eosinophils # (Auto) 0.1, Basophils # (Auto) 0.1, Sodium Level 147H, Potassium Level 3.9, Chloride Level 111H, Carbon Dioxide Level 26, Anion Gap 10, Blood Urea Nitrogen 58H, Creatinine 1.22, Estimat Glomerular Filtration Rate 58, BUN/Creatinine Ratio 48, Glucose Level 168H, Calcium Level 7.3L, Corrected Calcium 8.8, Phosphorus Level 3.0, Magnesium Level 1.8, Total Bilirubin 0.6, Aspartate Amino Transf (AST/SGOT) 24, Alanine Aminotransferase (ALT/SGPT) 34, Alkaline Phosphatase 195H, Total Protein 4.3L, Albumin 2.1L, Smear Scan YES 11/14/18 06:01: Glucometer 192H Microbiology 11/05/18 Blood Culture - Final, Complete No growth 11/05/18 Influenza Types A,B Antigen (CHRIS) - Final, Complete 11/05/18 Urine Culture - Final, Complete NO GROWTH 11/05/18 Gram Stain - Final, Complete 11/05/18 Wound Culture - Final, Complete Staphylococcus aureus See Comments Assessment/Plan Assessment/Plan Assess & Plan/Chief Complaint Septic shock. Cellulitis. Diabetes. Cellulitis of back. A. fib with RVR. Coronary artery disease. Acute renal insufficiency Metabolic acidosis. Diastolic congestive heart failure... Ascending aortic aneurysm. Tobaccoism. Opioid abuse. Methamphetamine use. Chronic lymphocytic leukemia.. . 11/08/18. Sepsis. Cellulitis of back. Diabetes. A. fib with RVR. Coronary artery disease. Renal insufficiency. Diastolic congestive heart failure. CLL. Ascending aortic aneurysm. Tobaccoism. Opioid abuse. Methamphetamine abuse. UTI.. 11/09/18. Sepsis. Cellulitis of back. Diabetes. A. fib with RVR. Coronary artery disease. Renal insufficiency getting better. Diastolic congestive heart failure. Tobaccoism. Opioid abuse. Methamphetamine abuse. UTI. Congestive heart failure. Sepsis. Chronic lymphocytic leukemia. Diabetes. A. fib with RVR. Coronary artery disease. Renal insufficiency improving. Tobaccoism. Opioid abuse. Methamphetamine abuse. Albumin low. 11/11/18. Congestive heart failure. Sepsis resolved. Chronic lymphocytic leukemia. Diabetes. A. fib with RVR. Coronary artery disease. Methamphetamine abuse. Opioid abuse. Patient had diuresis with Lasix to continue with the Lasix. Renal insufficiency is improving daily. . 11/14/18 pneumonia with sepsis. Pressure ulcer right back. Pressure ulcer sacrum. Cellulitis. A. fib with RVR. Acute renal failure. CAD. Homeless. Malnutrition. Dehydration. Positive for meth and opioids. Chronic lymphocytic leukemia. Patient was stable this morning. Enlarged scrotum resolved. Anasarca Clinical Quality Measures DVT/VTE Risk/Contraindication: Risk Factor Score Per Nursin RFS Level Per Nursing on Admit: 4+=Very High GUILLERMINA MORILLO DO Nov 14, 2018 07:58
[2018-11-14 08:10] VITALS: BP 130/72
--- NOTE | 2018-11-14 08:43 | Cardiology Progress Note ---
Cardiology SOAP Progress Note Subjective: No palpitations today. Objective: I&O/Vital Signs 11/14/18 11/14/18 11/14/18 11/14/18 01:00 03:22 07:00 07:12 Temp 36.2 Pulse 68 62 69 Resp 21 B/P (MAP) 120/69 (86) Pulse Ox 93 91 O2 Delivery Nasal Cannula Nasal Cannula O2 Flow Rate 3.50 4.00 11/14/18 11/14/18 11/14/18 08:10 09:00 10:45 Temp 35.8 Pulse 76 Resp 21 B/P (MAP) 130/72 (91) Pulse Ox 94 94 92 O2 Delivery Nasal Cannula Room Air Nasal Cannula O2 Flow Rate 4.00 3.50 4.00 11/14/18 00:00 Intake Total 1900 ml Output Total 1950 ml Balance -50 ml Weight (Pounds): 200 Weight (Ounces): 10.0 Weight (Calculated Kilograms): 91.745983 Constitutional: appears stated age; No apparent distress; well-developed, well- nourished, other (Very sleepy. Noncommunicative) Respiratory: chest is bilaterally symmetric, lungs clear to auscultation Cardiovascular: regular rate-rhythm, S1 and S2 Gastrointestional: soft, round, audible bowel sounds; No spleenomegaly Extremities: normal range of motion, non-tender, normal inspection; No clubbing, No cyanosis; no lower extremity edema bilateral; No significant edema Neurologic/Psychiatric: other (Not communicating) Skin: rash, other (MOST OF BACK WITH ERYTHEMA AND INDURATION, WITH WOUND TO LOWER BACK. NO DRAINAGE AT THIS TIME. ) Results/Procedures: Labs Laboratory Tests 11/13/18 16:22: Glucometer 199H 11/13/18 20:05: Glucometer 235H 11/14/18 05:50: White Blood Count 78.4*H, Red Blood Count 3.70L, Hemoglobin 11.6L, Hematocrit 37L, Mean Corpuscular Volume 100H, Mean Corpuscular Hemoglobin 31, Mean Corpuscular Hemoglobin Concent 31L, Red Cell Distribution Width 14.7H, Platelet Count 327, Mean Platelet Volume 12.5H, Neutrophils (%) (Auto) 31L, Lymphocytes (%) (Auto) 69H, Monocytes (%) (Auto) 0, Eosinophils (%) (Auto) 0, Basophils (%) (Auto) 0, Neutrophils # (Auto) 24.0H, Lymphocytes # (Auto) 54.0H, Monocytes # (Auto) 0.2, Eosinophils # (Auto) 0.1, Basophils # (Auto) 0.1, Sodium Level 147H, Potassium Level 3.9, Chloride Level 111H, Carbon Dioxide Level 26, Anion Gap 10, Blood Urea Nitrogen 58H, Creatinine 1.22, Estimat Glomerular Filtration Rate 58, BUN/Creatinine Ratio 48, Glucose Level 168H, Calcium Level 7.3L, Corrected Calcium 8.8, Phosphorus Level 3.0, Magnesium Level 1.8, Total Bilirubin 0.6, Aspartate Amino Transf (AST/SGOT) 24, Alanine Aminotransferase (ALT/SGPT) 34, Alkaline Phosphatase 195H, Total Protein 4.3L, Albumin 2.1L, Smear Scan YES 11/14/18 06:01: Glucometer 192H 11/14/18 11:06: Glucometer 190H Microbiology 11/05/18 Blood Culture - Final, Complete No growth 11/05/18 Influenza Types A,B Antigen (CHRIS) - Final, Complete 11/05/18 Urine Culture - Final, Complete NO GROWTH 11/05/18 Gram Stain - Final, Complete 11/05/18 Wound Culture - Final, Complete Staphylococcus aureus See Comments A/P: Assessment/Dx: septic shock, significantly improved. Diabetes, Atrial fibrillation with rapid ventricular rate, converted to sinus rhythm Source of infection unclear could be cellulitis, Acute diastolic congestive heart failure Acute kidney injury Elevated LFTs, Metabolic acidosis, active smoker, heavy alcohol use, Drug abuse. Plan: Septic shock, significantly improved. Resolved. Atrial fibrillation with rapid ventricular rate and transferred to the ICU on 11/11/2018. Given Cardizem infusion and amiodarone infusion. Patient converted to sinus rhythm. Amiodarone infusion changed to by mouth amiodarone. Patient d id not want oral anticoagulation therapy. Currently in sinus rhythm. Acute diastolic congestive heart failure, Echocardiogram showed normal LV function with mild to moderate diastolic dysfunction. Acute kidney injury Aggressive control of diabetes. Elevated LFTs likely due to septic shock. Resolved. Metabolic acidosis, lactic acidosis likely due to severe sepsis. Resolved. active smoker, heavy alcohol use, detoxification Drug abuse. CLL, defer to the primary team. Thank you for your consultation. Please call me if you have any questions. M. Rafiq Khalid, MD, FACP, FACC, FSCAI, FHRS, CCDS Interventional Cardiology Cardiac Electrophysiology Vascular Medicine and Endovascular Interventions Focused Exam Time of Focused Exam: 07:00 Roman PEREZ MD Nov 14, 2018 08:43
[2018-11-14] MEDS: AMIODARONE 200 MG (CORDARONE) TAB PO SCH ×2 (09:07→20:59)
[2018-11-14] MEDS: meTOproloL SUCCINATE 50 MG (TOPROL XL) TAB PO SCH (09:07)
[2018-11-14] MEDS: PANTOPRAZOLE 40 MG (PROTONIX) VIAL IV SCH (09:07)
[2018-11-14] MEDS: ENOXAPARIN 100 MG/1 ML (LOVENOX) SYR SC SCH ×2 (09:08→21:00)
[2018-11-14] MEDS: NS IV 500 ML 500 ML IV SCH (10:08)
[2018-11-14] MEDS: VANCOMYCIN 1500 MG/NS 500 ML IVPB IV SCH ×2 (10:08)
--- NOTE | 2018-11-14 14:03 | NUR ---
RD ASSESSMENT Pt was awake and pleasant during nutrition assessment. Pt states no issues with n/v/d/c at this time. Pt states last BM was this AM, and reports mulitple BMs today. Note ulceration in back, per chart review. PES Statement: Inadequate protein intake related to increased protein needs as evidenced by wound (ulceration on back). Intervention: Continue with current diet order of DYS2 mechanically altered diet. Pt would benefit from nutritional supplementation for perceived benefit of wound healing. Add Ensure Enlive (chocolate) to meals BID. Provides 350 kcal and 20 g Pro per serving. Monitor/Evaluate: Weight PO Intake Labs S. Germán Ferguson, MS, RD [phone]
--- NOTE | 2018-11-14 14:11 | Oncology Progress Note ---
Subjective Date Seen by a Provider: Nov 14, 2018 Time Seen by a Provider: 14:06 Subjective/Events-last exam Pt is up and had a good conversation with me today. "I am getting ready to go home although I do not know where my home is yet." "I don't like the hospital food" Data Review Labs Laboratory Tests 11/16/18 04:45 Laboratory Tests 11/13/18 16:22: Glucometer 199H 11/13/18 20:05: Glucometer 235H 11/14/18 05:50: White Blood Count 78.4*H, Red Blood Count 3.70L, Hemoglobin 11.6L, Hematocrit 37L, Mean Corpuscular Volume 100H, Mean Corpuscular Hemoglobin Concent 31L, Red Cell Distribution Width 14.7H, Mean Platelet Volume 12.5H, Neutrophils (%) (Auto) 31L, Lymphocytes (%) (Auto) 69H, Neutrophils # (Auto) 24.0H, Lymphocytes # (Auto) 54.0H, Sodium Level 147H, Chloride Level 111H, Blood Urea Nitrogen 58H, Glucose Level 168H, Calcium Level 7.3L, Alkaline Phosphatase 195H, Total Protein 4.3L, Albumin 2.1L 11/14/18 06:01: Glucometer 192H 11/14/18 11:06: Glucometer 190H 11/14/18 16:41: Glucometer 182H 11/14/18 20:32: Glucometer 282H 11/15/18 04:50: White Blood Count 74.4*H, Red Blood Count 3.66L, Hemoglobin 11.6L, Hematocrit 36L, Mean Corpuscular Volume 100H, Red Cell Distribution Width 14.7H, Mean Platelet Volume 12.1H, Neutrophils (%) (Auto) 30L, Lymphocytes (%) (Auto) 69H, Neutrophils # (Auto) 22.5H, Lymphocytes # (Auto) 50.9H, Potassium Level 3.5L, Chloride Level 108H, Blood Urea Nitrogen 56H, Glucose Level 146H, Calcium Level 7.4L, Alkaline Phosphatase 218H, B-Type Natriuretic Peptide 277.0H, Total Protein 4.4L, Albumin 2.1L 11/15/18 05:13: Glucometer 117H 11/15/18 16:26: Glucometer 141H 11/15/18 21:23: Glucometer 148H 11/16/18 04:45: White Blood Count 74.4*H, Red Blood Count 3.70L, Hemoglobin 11.6L, Hematocrit 37L, Mean Corpuscular Volume 101H, Mean Corpuscular Hemoglobin Concent 31L, Red Cell Distribution Width 14.7H, Platelet Count 406H, Mean Platelet Volume 12.1H, Neutrophils (%) (Auto) 26L, Lymphocytes (%) (Auto) 72H, Neutrophils # (Auto) 19.4H, Lymphocytes # (Auto) 53.6H, Monocytes # (Auto) 1.2H, Blood Urea Nitrogen 51H, Glucose Level 129H, Calcium Level 7.6L, Alkaline Phosphatase 181H, Total Protein 4.6L, Albumin 2.3L 11/16/18 05:31: Glucometer 125H 11/16/18 11:02: Glucometer 187H Physical Exam Vital Signs Vital Signs - First Documented 11/10/18 00:50 Temp 36.8 Pulse 74 Resp 18 B/P (MAP) 161/89 (113) Pulse Ox 91 O2 Delivery Nasal Cannula O2 Flow Rate 1.50 Capillary Refill : Less Than 3 Seconds Height, Weight, BMI Height: 5'9.00" Weight: 201lbs. 10.0oz. 91.517095bw; 23.22 BMI Method:Stated General Appearance: No Apparent Distress HEENT: PERRL/EOMI Neck: Supple Respiratory: No Accessory Muscle Use, No Respiratory Distress, Other (on nasal canular oxygen) Cardiovascular: Regular Rate, Rhythm Gastrointestinal: Non Tender, Soft Neurologic/Psychiatric: Alert, Oriented x3 Focused Exam Time of Focused Exam: 07:00 Impression & Plan Impression & Plan IMP: 1. CLL, diagnosed 2009 with lymphocytosis, normal Hb and Plt at that time. Negative ZAP-70 and CD38 expression. Now progression of lymphocytosis and mild anemia, Plt still normal. Flowcytometry 11/07/18 confirmed CLL without adverse biological markers. 2. Sepsis, UTI and cellulitis on antibiotics. All cultures negative so far. 3. Drug abuse and h/o alcohol abuse 4. Agitation requires heavy sedation, improved. 5. Acute renal insufficiency, resolved. 6. DM 7. T6 compression fracture shown on admission CT scan. No lymphadenopathy noticed on the report. He also has aorta aneurysm. 8. Afib, now in sinus Plan: 1. No specific treatment for CLL at this point even though his lymphocytosis is high at 70k-80k. There is NO indication for treating lymphocytosis from the CLL while his Hb is improving and Plt normal. These small lymphocytes will NOT do much of the harm to the patients. We sometimes see CLL patients with the lymphocytosis over 100k. The indication for the treatment is thrombocytopenia and progressing anemia which this patient do not have at this point. Pt needs to have f/u with me at cancer center 1-2 weeks after discharge from this ho spitalization. Please call cancer center to set up appointment when he is ready to be discharged home. I also gave him my business card with contact information for him to call. 2. I would not initiate IVIG treatment since his serum IgG near 600 and normal Ig A and Ig M levels. 3. Watch for drug withdrawal and treat accordingly 4. No indication for bone marrow exam at this point since he has high WBC in the peripheral blood and the flowcytometry has confirmed the diagnosis again. Thank you for the consultation. Please call me if you need anything else or new issues Clinical Quality Measures DVT/VTE Risk/Contraindication: Risk Factor Score Per Nursin RFS Level Per Nursing on Admit: 4+=Very High KRZYSZTOF HUDSON MD Nov 14, 2018 14:11
--- NOTE | 2018-11-14 15:00 | Physical Therapy Evaluation ---
PT Evaluation-General Medical Diagnosis Admission Date Nov 05, 2018 at 06:30 Medical Diagnosis: Septic shock Onset Date: Nov 05, 2018 Therapy Diagnosis Therapy Diagnosis: debility/weakness Height/Weight Height (Feet): 5 Height (Inches): 9.00 Weight (Pounds): 201 Weight (Ounces): 10.0 Precautions Precautions/Isolations: Contact Isolation, Standard Precautions Weight Bear Status Right Lower Extremity: Right Weight Bearing/Tolerated Left Lower Extremity: Left Weight Bearing/Tolerated Referral Physician: Marlee Reason for Referral: Evaluation/Treatment Medical History Pertinent Medical History: CAD, HTN, Neuropathy Additional Medical History drug and alcohol use Current History patient transferred to ICU last week and transferred to [address] [place] [address] secondary to A-fib with RVR which is currently resolved Reviewed History: Yes Social History Home: Homeless per chart Current Living Status: Homeless Prior/Core FIM Prior Level of Function Therapy Code Descriptions/Definitions Functional [place] Measure: 0=Not Assessed/NA 4=Minimal Assistance 1=Total Assistance 5=Supervision or Setup 2=Maximal Assistance 6=Modified [place] 3=Moderate Assistance 7=Complete [place] Therapy Quality Codes: 6 Independent with activity with or without an assistive device 5 Patient requires set up or clean up by helper. Patient completes activity by themselves 4 Supervision or touching assist (CGA). Syl[place] provide cues , steadying assist 3 The helper provides less than half the effort to complete the activity 2 The helper provides more than half the effort to complete the activity 1 Dependent. The helper does all the effort to complete an activity 7 Patient refused to complete or attempt activity 9 The patient did not perform the activity before the current illness or injury 88 Not attempted due to Medical conditions or safety concerns Functional Abilities and Goals: Independent: Patient completed the activities by him/herself, with or without an assistive device, with no assistance from a helper. Needed Some Help: Patient needed partial assistance from another person to complete activities. Dependent: A helper completed the activities for the patient. Unknown: Not Applicable: Bed Mobility: 6 Transfers (B,C,W/C) (FIM): 6 Gait: 6 Indoor Mobility (Ambulation): Independent PT Evaluation-Current Subjective Patient agrees to PT. Very alert and pleasant. Objective Patient Orientation: Person, Time Problem Solving: Fair Attachments: Oxygen, Dow Catheter, IV ROM/Strength ROM Lower Extremities bilateral LE WFL Strength Lower Extremities 3/5 grossly bilateral LE Integumentary/Posture Integumentary refer to nursing notes Bladder Incontinence: Dow Cath Posture WFL Neuromuscular (Tone, Coordination, Reflexes) grossly intact Sensory Vision: Wears Glasses Hearing: Functional Sensation Right Lower Extremit: Intact Sensation Left Lower Extremity: Intact Transfers Therapy Code Descriptions/Definitions Functional [place] Measure: 0=Not Assessed/NA 4=Minimal Assistance 1=Total Assistance 5=Supervision or Setup 2=Maximal Assistance 6=Modified [place] 3=Moderate Assistance 7=Complete [place] Transfers (B, C, W/C) (FIM): 2 Scootin Rollin Supine to/from Sit: 2 Sit to/from Stand: 2 Gait Mode of Locomotion: Walk Anticipated Mode of Locomotion: Walk Gait (FIM): 1 Distance (FIM): 1=up to 49 ft Distance: 5' Gait Level of Assist: 3 Gait Persons Needed: 1 Gait Assistive Device: FWW Comments/Gait Description patient stood x 5 min after ambulating 5' to relieve pressure Balance Sitting Static: Normal Sitting Dynamic: Normal Standing Static: Fair Standing Dynamic: Fair Assessment/Needs 73 y.o. male, will benefit from skilled PT to address functional strength and mobility to improve current LOF. Rehab Potential: Poor PT Short Term Goals Short Term Goals Time Frame: Nov 16, 2018 Transfers (B,C,W/C) (FIM): 3 Gait (FIM): 1 Gait Distance Comment: 5' Gait Level of Assist: 3 Gait Assistive Device: FWW PT Mcfp Goals Mcfp Goals PT Nitroglycerin Separator Operator Goals Time Frame: Dec 03, 2018 Transfers (B,C,W/C) (FIM): 5 Gait (FIM): 2 Gait distance (FIM): 5=372-45 ft Distance: 75' Gait Level of Assist: 4 Gait Assistive Device: FWW PT Plan Problem List Problem List: Activity Tolerance, Functional Strength, Safety, Balance, Gait, Transfer, Bed Mobility Treatment/Plan Treatment Plan: Continue Plan of Care Treatment Plan: Bed Mobility, Concurrent Therapy, Education, Functional Activity Tg, Functional Strength, Gait, Safety, Therapeutic Exercise, Transfers Treatment Duration: Dec 03, 2018 Frequency: 6 times per week Estimated Hrs Per Day: .25 hour per day Patient and/or Family Agrees t: Yes Time/GCodes Time In: 1440 Time Out: 1451 Total Billed Treatment Time: 11 Total Billed Treatment 1 visit [facility] 11 min FESTUS CAAL PT Nov 14, 2018 14:59
--- NOTE | 2018-11-14 15:23 | Occupational Therapy Eval ---
OT Evaluation-General/PLF Medical Diagnosis Admission Date Nov 05, 2018 at 06:30 Medical Diagnosis: Septic shock Onset Date: Nov 05, 2018 Therapy Diagnosis Therapy Diagnosis: weakness, decreased functional mobility, decreased ADL abilities Height/Weight Height (Feet): 5 Height (Inches): 9.00 Weight (Pounds): 201 Weight (Ounces): 10.0 Precautions Precautions/Isolations: Contact Isolation, Standard Precautions Safety Interventions: None Weight Bear Status Weight Bearing Restriction: Weight Bearing/Tolerated Referral Physician: Marlee Referral Reason: Activity Tolerance, Self Care, Evaluation/Treatment, Strengthening/ROM Medical History Pertinent Medical History: CAD, HTN, Neuropathy Additional Medical History CAD, HTN, neuropathy Current History Pt transferred to ICU due to A fib with RVR, pt transferred to acute on 11/14 (t his date) as A fib under control. Reviewed History: Yes Social History Home: Multilevel Current Living Status: Friend Entry Into Home: Stairs Without Railing Steps Into Home: 2 Pt states he has been living with friends for "a while now." Pt unable to give date or estimated time. Pt states tub shower with shower seat, no grab bars. Pt lives on main level, bathroom on main level as well. ADL-Prior Level of Function Therapy Code Descriptions/Definitions Functional [place] Measure: 0=Not Assessed/NA 4=Minimal Assistance 1=Total Assistance 5=Supervision or Setup 2=Maximal Assistance 6=Modified [place] 3=Moderate Assistance 7=Complete [place] Therapy Quality Codes: 6 Independent with activity with or without an assistive device 5 Patient requires set up or clean up by helper. Patient completes activity by themselves 4 Supervision or touching assist (CGA). [place] provide cues , steadying assist 3 The helper provides less than half the effort to complete the activity 2 The helper provides more than half the effort to complete the activity 1 Dependent. The helper does all the effort to complete an activity 7 Patient refused to complete or attempt activity 9 The patient did not perform the activity before the current illness or injury 88 Not attempted due to Medical conditions or safety concerns Functional Abilities and Goals: Independent: Patient completed the activities by him/herself, with or without an assistive device, with no assistance from a helper. Needed Some Help: Patient needed partial assistance from another person to complete activities. Dependent: A helper completed the activities for the patient. Unknown: Not Applicable: Self Care: Independent Functional Cognition: Unknown DME/Equipment Comments Pt states he was IND without AE OT Current Status Subjective Pt alert and Ox3. Pt states no pain on this date, but says much pain over the weekend. Pt agreeable to OT evaluation. Mental Status/Objective Patient Orientation: Person, Place, Situation Attachments: IV, Oxygen (4L), Telemetry Current Glasses/Contacts: Yes Hearing Aids: No Dentures/Partials: Yes Hand Dominance: Right Upper Extremity ROM WFL, slow movements noted. Upper Extremity Coordination increased concentration noted with finger opposition. Upper Extremity Sensation neuropathy BUE Upper Extremity Strength weakness to BUE, 4-/5 Edema: Noted swelling in bilateral hands. Non pitting. ADL-Treatment Therapy Code Descriptions/Definitions Functional [place] Measure: 0=Not Assessed/NA 4=Minimal Assistance 1=Total Assistance 5=Supervision or Setup 2=Maximal Assistance 6=Modified [place] 3=Moderate Assistance 7=Complete [place] Therapy Quality Codes: 6 Independent with activity with or without an assistive device 5 Patient requires set up or clean up by helper. Patient completes activity by themselves 4 Supervision or touching assist (CGA). [place] provide cues , steadying assist 3 The helper provides less than half the effort to complete the activity 2 The helper provides more than half the effort to complete the activity 1 Dependent. The helper does all the effort to complete an activity 7 Patient refused to complete or attempt activity 9 The patient did not perform the activity before the current illness or injury 88 Not attempted due to Medical conditions or safety concerns Eating (FIM): 6 Grooming (FIM): 6 (pt completes washing face while seated in chair) Lower Body Dressing (FIM): 1 (Pt unable to reach socks on this date. Pt attempted doffing, pt unable to raise legs to clear floor. Pt states he is "very weak.") Other Treatments Pt states need for bathroom. Pt prepped to move, upon request pt states, "I'm not getting up." Pt states he is very weak and will not make it to the bathroom. When asked if he would like to use a commode pt states, "I'm not getting up." Pt completed ADL activities seated in chair, decreased coordination/ strength noted during activities. Pt left with call light in reach, all needs met. Education OT Patient Education: Correct positioning, Modified ADL techniques, Purpose of tx/functional activities, Rehab process, Safety issues, Transfer techniques Teaching Recipient: Patient Teaching Methods: Demonstration, Discussion Response to Teaching: Verbalize Understanding, Return Demonstration OT Short Term Goals Short Term Goals Time Frame: Nov 15, 2018 Eating(FIM): 5 Grooming(FIM): 4 (met) Bathing(FIM): 3 Upper Body Dressing(FIM): 4 Lower Body Dressing(FIM): 4 Toileting(FIM): 4 Transfers (B,C,W/C) (FIM): 3 Toilet/Commode Transfer(FIM): 5 Shower Transfer(FIM): 4 Additional Short Term Goals: 1-Demonstrate ADL Tasks, 2-Verbalize Understanding, 3-ImproveStrength/Tg 1=Demonstrate adherence to instructed precautions during ADL tasks. 2=Patient will verbalize/demonstrate understanding of assistive devices/modifications for ADL. 3=Patient will improve strength/tolerance for activity to enable patient to perform ADL's. OT Assisted Goals Sales Performance Manager Goals Time Frame: Nov 29, 2018 Eating (FIM): 7 Grooming(FIM): 6 Bathing(FIM): 5 Upper Body Dressing(FIM): 6 Lower Body Dressing(FIM): 6 Toileting(FIM): 6 Transfers (B,C,W/C) (FIM): 6 Toilet/Commode Transfer(FIM): 6 Shower Transfer(FIM): 5 Additional Goals: 1-Demonstrate ADL Tasks, 2-Verbalize Understanding, 3- ImproveStrength/Tg 1=Demonstrate adherence to instructed precautions during ADL tasks. 2=Patient will verbalize/demonstrate understanding of assistive devices/modifications for ADL. 3=Patient will improve strength/tolerance for activity to enable patient to perform ADL's. OT Education/Plan Problem List/Assessment Assessment: Decreased Activ Tolerance, Decreased Safety Aware, Decreased UE Strength, Edema, Impaired Coordination, Impaired I ADL's, Impaired Self-Care Skills, Restricted Funct UE ROM Discharge Recommendations Plan/Recommendations: Continue POC Treatment Plan/Plan of Care Treatment,Training & Education: Yes Patient would benefit from OT for education, treatment and training to promote independence in ADL's, mobility, safety and/or upper extremity function for ADL's. Plan of Care: ADL Retraining, Functional Mobility, UE Funct Exercise/Act Treatment Duration: Nov 29, 2018 Frequency: 5 times per week Estimated Hrs Per Day: .25 hour per day Agreement: Yes Rehab Potential: Poor Time/GCodes Start Time: 14:58 Stop Time: 15:13 Total Time Billed (hr/min): 15 Billed Treatment Time 1 EVM (15) JOSE LEMON OTR Nov 14, 2018 15:23
--- NOTE | 2018-11-14 15:33 | NUR ---
DISCHARGE PLANNING: No word from Daria Adams on acceptance SW did call [facility] to see if they would take new referrals for admission on [facility]osp[facility]. They indicated that they would so a referral was sent for their review. Addendum: 11/14/18 at 1537 by LAN BAEZ RN CORRECTION: This patient's referral was sent to [facility] and [facility] for review for admission for skilled care
[2018-11-14 16:24] VITALS: BP 103/67
[2018-11-14 20:12] VITALS: BP 119/57
[2018-11-14] MEDS: PANTOPRAZOLE 40 MG (PROTONIX) TAB PO SCH (20:59)
[2018-11-15 00:34] VITALS: BP 109/63
[2018-11-15] MEDS: MEROPENEM 1,000 MG in WATER (STERILE) FOR INJECTION 20 ML IV SCH ×3 (01:13→17:27)
[2018-11-15] MEDS: DILTIAZEM 30 MG (CARDIZEM) TAB PO SCH ×4 (01:13→17:26)
[2018-11-15] MEDS: NS IV 500 ML 500 ML IV SCH (04:03)
[2018-11-15 04:05] VITALS: BP 111/66
[2018-11-15 05:14] LABS: BASOPHILS # (AUTO) 0.1 10^3/uL (0.0-0.1); BASOPHILS % (AUTO) 0 % (0-10); EOSINOPHILS # (AUTO) 0.1 10^3/uL (0.0-0.3); EOSINOPHILS % (AUTO) 0 % (0-10); HEMATOCRIT 36 % (40-54); HEMOGLOBIN 11.6 G/DL (13.3-17.7); LYMPHOCYTES # (AUTO) 50.9 X 10^3 (1.0-4.0); LYMPHOCYTES % (AUTO) 69 % (12-44); MEAN CORPUSCULAR HEMOGLOBIN 32 PG (25-34); MEAN CORPUSCULAR HGB CONC 32 G/DL (32-36); MEAN CORPUSCULAR VOLUME 100 FL (80-99); MEAN PLATELET VOLUME 12.1 FL (7.4-10.4); MONOCYTES # (AUTO) 0.7 X 10^3 (0.0-1.0); MONOCYTES % (AUTO) 1 % (0-12); NEUTROPHILS # (AUTO) 22.5 X 10^3 (1.8-7.8); NEUTROPHILS % (AUTO) 30 % (42-75); PLATELET COUNT 372 10^3/uL (130-400); RED CELL DISTRIBUTION WIDTH 14.7 % (10.0-14.5)
[2018-11-15 05:18] LABS: WHITE BLOOD COUNT 74.4 10^3/uL (4.3-11.0)
[2018-11-15 05:35] LABS: ALANINE AMINOTRANSFERASE 35 U/L (0-55); ALBUMIN 2.1 GM/DL (3.2-4.5); ALKALINE PHOSPHATASE 218 U/L (40-136); BILIRUBIN,TOTAL 0.5 MG/DL (0.1-1.0); BUN/CREATININE RATIO 48; CALCIUM 7.4 MG/DL (8.5-10.1); CARBON DIOXIDE 29 MMOL/L (21-32); CHLORIDE 108 MMOL/L (98-107); CREATININE SERUM 1.16 MG/DL (0.60-1.30); GFR ESTIMATED > 60; GLUCOSE 146 MG/DL (70-105); MAGNESIUM 1.8 MG/DL (1.6-2.4); PHOSPHORUS 2.8 MG/DL (2.3-4.7); POTASSIUM 3.5 MMOL/L (3.6-5.0); SODIUM 145 MMOL/L (135-145); TOTAL PROTEIN 4.4 GM/DL (6.4-8.2)
[2018-11-15] MEDS: FUROSEMIDE 40 MG/4 ML INJ (LASIX) IVP SCH ×2 (06:06→17:27)
[2018-11-15] MEDS: inSUlin ASPART (NovoLOG) 1 UNIT/0.01 ML (CHARGE PER UNIT) SC SCH ×4 (06:10→21:30)
[2018-11-15] MEDS: RT-ALBUTEROL/IPRATROPIUM 3 ML (DUONEB) VIAL INH SCH ×4 (06:53→19:32)
[2018-11-15 08:00] VITALS: BP 120/76
--- NOTE | 2018-11-15 08:05 | Progress Note ---
Subjective Time Seen by a Provider: 08:02 Subjective/Events-last exam Patient keeps on improving. Anasarca is gone. To remove Dow catheter today. Heart appears to be in sinus rhythm. Patient has no place to go. bridge gang worker to find place Focused Exam Time of Focused Exam: 07:00 Objective Exam Vital Signs Date Time Temp Pulse Resp B/P (MAP) Pulse Ox O2 Delivery O2 Flow Rate FiO2 11/15/18 07:00 72 11/15/18 06:53 93 Nasal Cannula 4.00 11/15/18 04:05 36.6 64 21 111/66 (81) 92 Nasal Cannula 4.00 11/15/18 01:00 66 11/15/18 00:34 36.9 64 20 109/63 (78) 21 Nasal Cannula 4.00 11/14/18 21:00 94 Room Air 3.50 11/14/18 20:12 36.8 68 20 119/57 (77) 92 Nasal Cannula 4.00 11/14/18 19:00 92 Nasal Cannula 11/14/18 19:00 66 11/14/18 16:24 36.4 64 18 103/67 (79) 95 Nasal Cannula 4.00 11/14/18 15:19 90 Nasal Cannula 4.00 11/14/18 13:00 66 11/14/18 10:45 92 Nasal Cannula 4.00 11/14/18 09:00 94 Room Air 3.50 11/14/18 08:10 35.8 76 21 130/72 (91) 94 Nasal Cannula 4.00 I & O 11/15/18 07:00 Intake Total 2215 ml Output Total 3125 ml Balance -910 ml Capillary Refill : Less Than 3 Seconds General Appearance: No Apparent Distress, WD/WN HEENT: Normal ENT Inspection Neck: Full Range of Motion, Normal Inspection Respiratory: Lungs Clear, No Accessory Muscle Use, No Respiratory Distress Cardiovascular: Regular Rate, Rhythm, No Murmur Gastrointestinal: non tender, soft Results Lab Laboratory Tests 11/15/18 04:50 Laboratory Tests 11/14/18 11:06: Glucometer 190H 11/14/18 16:41: Glucometer 182H 11/14/18 20:32: Glucometer 282H 11/15/18 04:50: White Blood Count 74.4*H, Red Blood Count 3.66L, Hemoglobin 11.6L, Hematocrit 36L, Mean Corpuscular Volume 100H, Mean Corpuscular Hemoglobin 32, Mean Corpuscular Hemoglobin Concent 32, Red Cell Distribution Width 14.7H, Platelet Count 372, Mean Platelet Volume 12.1H, Neutrophils (%) (Auto) 30L, Lymphocytes (%) (Auto) 69H, Monocytes (%) (Auto) 1, Eosinophils (%) (Auto) 0, Basophils (%) (Auto) 0, Neutrophils # (Auto) 22.5H, Lymphocytes # (Auto) 50.9H, Monocytes # (Auto) 0.7, Eosinophils # (Auto) 0.1, Basophils # (Auto) 0.1, Sodium Level 145, Potassium Level 3.5L, Chloride Level 108H, Carbon Dioxide Level 29, Anion Gap 8, Blood Urea Nitrogen 56H, Creatinine 1.16, Estimat Glomerular Filtration Rate > 60, BUN/Creatinine Ratio 48, Glucose Level 146H, Calcium Level 7.4L, Corrected Calcium 8.9, Phosphorus Level 2.8, Magnesium Level 1.8, Total Bilirubin 0.5, Aspartate Amino Transf (AST/SGOT) 21, Alanine Aminotransferase (ALT/SGPT) 35, Alkaline Phosphatase 218H, Total Protein 4.4L, Albumin 2.1L 11/15/18 05:13: Glucometer 117H Microbiology 11/05/18 Blood Culture - Final, Complete No growth 11/05/18 Influenza Types A,B Antigen (CHRIS) - Final, Complete 11/05/18 Urine Culture - Final, Complete NO GROWTH 11/05/18 Gram Stain - Final, Complete 11/05/18 Wound Culture - Final, Complete Staphylococcus aureus See Comments Assessment/Plan Assessment/Plan Assess & Plan/Chief Complaint Septic shock. Cellulitis. Diabetes. Cellulitis of back. A. fib with RVR. Coronary artery disease. Acute renal insufficiency Metabolic acidosis. Diastolic congestive heart failure... Ascending aortic aneurysm. Tobaccoism. Opioid abuse. Methamphetamine use. Chronic lymphocytic leukemia.. . 11/08/18. Sepsis. Cellulitis of back. Diabetes. A. fib with RVR. Coronary artery disease. Renal insufficiency. Diastolic congestive heart failure. CLL. Ascending aortic aneurysm. Tobaccoism. Opioid abuse. Methamphetamine abuse. UTI.. 11/09/18. Sepsis. Cellulitis of back. Diabetes. A. fib with RVR. Coronary artery disease. Renal insufficiency getting better. Diastolic congestive heart failure. Tobaccoism. Opioid abuse. Methamphetamine abuse. UTI. Congestive heart failure. Sepsis. Chronic lymphocytic leukemia. Diabetes. A. fib with RVR. Coronary artery disease. Renal insufficiency improving. Tobaccoism. Opioid abuse. Methamphetamine abuse. Albumin low. 11/11/18. Congestive heart failure. Sepsis resolved. Chronic lymphocytic leukemia. Diabetes. A. fib with RVR. Coronary artery disease. Methamphetamine abuse. Opioid abuse. Patient had diuresis with Lasix to continue with the Lasix. Renal insufficiency is improving daily. . 11/14/18 pneumonia with sepsis. Pressure ulcer right back. Pressure ulcer sacrum. Cellulitis. A. fib with RVR. Acute renal failure. CAD. Homeless. Malnutrition. Dehydration. Positive for meth and opioids. Chronic lymphocytic leukemia. Patient was stable this morning. Enlarged scrotum resolved. Anasarca. . 11/15/18. Chronic lymphocytic leukemia. Sepsis. Resolved. UTI resolved. Drug and alcohol abuse. Acute renal insufficiency. T6 compression fracture. A. fib with RVR. Tobaccoism. Cellulitis. Diabetes. Coronary artery disease. Metabolic acidosis. Diastolic congestive heart failure. Patient improving Clinical Quality Measures DVT/VTE Risk/Contraindication: Risk Factor Score Per Nursin RFS Level Per Nursing on Admit: 4+=Very High GUILLERMINA MORILLO DO Nov 15, 2018 08:05
[2018-11-15] MEDS: AMIODARONE 200 MG (CORDARONE) TAB PO SCH ×2 (08:21→20:58)
[2018-11-15] MEDS: ENOXAPARIN 100 MG/1 ML (LOVENOX) SYR SC SCH ×2 (08:21→20:58)
[2018-11-15] MEDS: ACETAMINOPHEN 500 MG TAB (TYLENOL) PO PRN (08:21)
[2018-11-15] MEDS: PANTOPRAZOLE 40 MG (PROTONIX) TAB PO SCH ×2 (08:21→20:58)
[2018-11-15] MEDS: meTOproloL SUCCINATE 50 MG (TOPROL XL) TAB PO SCH (08:21)
--- NOTE | 2018-11-15 09:17 | NUR ---
DISCHARGE PLANNING: Spoke with Nayeli From [facility], she will be by today to visit with the patient late this morning.
--- NOTE | 2018-11-15 09:30 | Wound Care Assessment ---
Wound Care Assessment Date Seen by Provider: Nov 15, 2018 Time Seen by Provider: 09:24 Chief Complaint Sacral and R lower back ulcers. HPI The patient is a 73 year old male admitted for sepsis in a setting of leukemia. On admission, 11/05/18, he was noted to have cellulitis surrounding an ulcer of the back. He has just been transferred to ARU. He notes minimal pain related to sacral and R lower back pressure ulcers. The nursing staff notes that he is on a repositioning schedule. Current dressings are bordered foam. Continue same, will follow. 11/15/18 Interval Note: Less sacral pain. Wounds are improved. No respiratory c/o. No interval change in PFSH. Past Medical History: Admits Diabetes Type II, Admits Heart Disease (Atrial fibrillation), Admits Cancer, Treaments (Leukemia, not receiving chemotherapy.) Smoking Status: Current Everyday Smoker (3 PPD) Recreational Drug Use: Yes (Metamphetamine.) Alcohol Use: Regular Use Review of Systems Pulmonary: No Dyspnea Cardiovascular: No: Chest Pain Exam Vital Signs Date Time Temp Pulse Resp B/P (MAP) Pulse Ox O2 Delivery O2 Flow Rate FiO2 11/15/18 08:00 36.3 66 16 120/76 (91) 93 Nasal Cannula 4.00 Capillary Refill : Less Than 3 Seconds General Appearance: no apparent distress Back: other (R lower back ulcer -- 0.7 x 1.2 x 0.2 cm, base 100% slough, mod. s.s. drainage; Sacral ulcer -- 2.1 x 0.5 x 0.1 cm, base regenerating tissue, sm. s.s. drainage.) Results Laboratory Tests 11/14/18 11:06: Glucometer 190H 11/14/18 16:41: Glucometer 182H 11/14/18 20:32: Glucometer 282H 11/15/18 04:50: White Blood Count 74.4*H, Red Blood Count 3.66L, Hemoglobin 11.6L, Hematocrit 36L, Mean Corpuscular Volume 100H, Mean Corpuscular Hemoglobin 32, Mean Corpuscular Hemoglobin Concent 32, Red Cell Distribution Width 14.7H, Platelet Count 372, Mean Platelet Volume 12.1H, Neutrophils (%) (Auto) 30L, Lymphocytes (%) (Auto) 69H, Monocytes (%) (Auto) 1, Eosinophils (%) (Auto) 0, Basophils (%) (Auto) 0, Neutrophils # (Auto) 22.5H, Lymphocytes # (Auto) 50.9H, Monocytes # (Auto) 0.7, Eosinophils # (Auto) 0.1, Basophils # (Auto) 0.1, Sodium Level 145, Potassium Level 3.5L, Chloride Level 108H, Carbon Dioxide Level 29, Anion Gap 8, Blood Urea Nitrogen 56H, Creatinine 1.16, Estimat Glomerular Filtration Rate > 60, BUN/Creatinine Ratio 48, Glucose Level 146H, Calcium Level 7.4L, Corrected Calcium 8.9, Phosphorus Level 2.8, Magnesium Level 1.8, Total Bilirubin 0.5, Aspartate Amino Transf (AST/SGOT) 21, Alanine Aminotransferase (ALT/SGPT) 35, Alkaline Phosphatase 218H, Total Protein 4.4L, Albumin 2.1L 11/15/18 05:13: Glucometer 117H Microbiology 11/05/18 Blood Culture - Final, Complete No growth 11/05/18 Influenza Types A,B Antigen (HCRIS) - Final, Complete 11/05/18 Urine Culture - Final, Complete NO GROWTH 11/05/18 Gram Stain - Final, Complete 11/05/18 Wound Culture - Final, Complete Staphylococcus aureus See Comments Assessment/Plan/Dx 1. Pressure ulcer, R lower back, Stage 2. 2. Pressure ulcer, sacrum, Stage 2, healing. 3. Sepsis and cellulitis on admission, related to r lower back ulcer. 4. Debility, alcoholism, drug abuse(methamphetamines) 5. Poorly controlled diabetes. Plan: Continue repositioning protocol, low air loss mattress, and bordered foam dressings. Will follow. IMLTON BEDOYA MD Nov 15, 2018 09:30
--- NOTE | 2018-11-15 09:34 | Occupational Ther Daily Note ---
OT Current Status-Daily Note Subjective Pt alert sitting in chair. Pt was finishing up with PT upon OT arrival. Pt agrees to therapy. Mental Status/Objective Patient Orientation: Person, Place, Time, Situation Therapy Code Descriptions/Definitions Functional [place] Measure: 0=Not Assessed/NA 4=Minimal Assistance 1=Total Assistance 5=Supervision or Setup 2=Maximal Assistance 6=Modified [place] 3=Moderate Assistance 7=Complete [place] Attachments: Dow Catheter, IV, Oxygen ADL-Treatment Pt required verbal cues for hand placement during transfers. Assist x2 using FWW for transfer from BSC to bed. Assist x2 for EOB to supine. Pt took increased time to complete toileting and transfers. After therapy, pt lying in bed with nrsg and radiology special procedure tech in room. All needs met in room. Toileting (FIM): 1 (Pt able to stand with assist x2. Pt requires assist to cleanse self after BM. ) Toilet/Commode Transfer (FIM): 1 (Pt required assist x2. Pt had walked with PT prior to transfer and was fatigued. ) OT Short Term Goals Short Term Goals Time Frame: Nov 15, 2018 Eating(FIM): 5 Grooming(FIM): 4 (met) Bathing(FIM): 3 Upper Body Dressing(FIM): 4 Lower Body Dressing(FIM): 4 Toileting(FIM): 4 Transfers (B,C,W/C) (FIM): 3 Toilet/Commode Transfer(FIM): 5 Shower Transfer(FIM): 4 Additional Short Term Goals: 1-Demonstrate ADL Tasks, 2-Verbalize Understanding, 3-ImproveStrength/Tg 1=Demonstrate adherence to instructed precautions during ADL tasks. 2=Patient will verbalize/demonstrate understanding of assistive devices/modifica tions for ADL. 3=Patient will improve strength/tolerance for activity to enable patient to perform ADL's. OT Halfway Goals [employer]worker Groom Goals Time Frame: Nov 29, 2018 Eating (FIM): 7 Grooming(FIM): 6 Bathing(FIM): 5 Upper Body Dressing(FIM): 6 Lower Body Dressing(FIM): 6 Toileting(FIM): 6 Transfers (B,C,W/C) (FIM): 6 Toilet/Commode Transfer(FIM): 6 Shower Transfer(FIM): 5 Additional Goals: 1-Demonstrate ADL Tasks, 2-Verbalize Understanding, 3- ImproveStrength/Tg 1=Demonstrate adherence to instructed precautions during ADL tasks. 2=Patient will verbalize/demonstrate understanding of assistive devices/modifications for ADL. 3=Patient will improve strength/tolerance for activity to enable patient to perform ADL's. OT Education/Plan Problem List/Assessment Assessment: Decreased Activ Tolerance, Impaired Self-Care Skills Discharge Recommendations Plan/Recommendations: Continue POC Treatment Plan/Plan of Care Patient would benefit from OT for education, treatment and training to promote independence in ADL's, mobility, safety and/or upper extremity function for ADL's. Plan of Care: ADL Retraining, Functional Mobility, UE Funct Exercise/Act Treatment Duration: Nov 29, 2018 Frequency: 5 times per week Estimated Hrs Per Day: .25 hour per day Agreement: Yes Rehab Potential: Poor Time/GCodes Start Time: 09:02 Stop Time: 10:32 Total Time Billed (hr/min): 30 Billed Treatment Time 1 visit-ADL 2 (30 min) MANE THOMAS Nov 15, 2018 09:34
--- NOTE | 2018-11-15 09:37 | Physical Therapy Daily Note ---
PT Daily Note-Current Subjective Patient is more alert and agrees to PT. Mental Status Patient Orientation: Confused Attachments: Oxygen, Dow Catheter, IV Transfers Therapy Code Descriptions/Definitions Functional [place] Measure: 0=Not Assessed/NA 4=Minimal Assistance 1=Total Assistance 5=Supervision or Setup 2=Maximal Assistance 6=Modified [place] 3=Moderate Assistance 7=Complete [place] Therapy Quality Codes: 6 Independent with activity with or without an assistive device 5 Patient requires set up or clean up by helper. Patient completes activity by themselves 4 Supervision or touching assist (CGA). [place] provide cues , steadying as sist 3 The helper provides less than half the effort to complete the activity 2 The helper provides more than half the effort to complete the activity 1 Dependent. The helper does all the effort to complete an activity 7 Patient refused to complete or attempt activity 9 The patient did not perform the activity before the current illness or injury 88 Not attempted due to Medical conditions or safety concerns Transfers (B, C, W/C) (FIM): 3 Scootin Supine to/from Sit: 3 Sit to/from Stand: 4 Bed to/from Chair: 4 Weight Bearing Right Lower Extremity: Right Weight Bearing/Tolerated Left Lower Extremity: Left Weight Bearing/Tolerated Gait Training Gait (FIM): 1 Distance (FIM): 1=up to 49 ft Distance: 45' Gait Level of Assist: 3 Gait Persons Needed: 1 Gait Assistive Device: FWW slight forward trunk lean on FWW/functional gait sequence Exercises Supine Ex: Ankle pumps, Heel Slides, Hip abd/add Supine Reps: 12 (AAROM bilaterally) Seated Therapy Exercises: Ankle pumps, Long arc quads Seated Reps: 12 Assessment Patient tolerated treatment well and is up in recliner with needs met. Patient improving with gross motor skills. PT Short Term Goals Short Term Goals Time Frame: Nov 16, 2018 Transfers (B,C,W/C) (FIM): 3 Gait (FIM): 1 Gait Distance Comment: 5' Gait Level of Assist: 3 Gait Assistive Device: FWW PT Director Of Student Financial Services Goals Director Of Student Financial Services Goals PT Group Home Goals Time Frame: Dec 03, 2018 Transfers (B,C,W/C) (FIM): 5 Gait (FIM): 2 Gait distance (FIM): 0=894-98 ft Distance: 75' Gait Level of Assist: 4 Gait Assistive Device: FWW PT Plan Treatment/Plan Treatment Plan: Continue Plan of Care Treatment Plan: Bed Mobility, Concurrent Therapy, Education, Functional Activity Tg, Functional Strength, Gait, Safety, Therapeutic Exercise, Transfers Treatment Duration: Dec 03, 2018 Frequency: 6 times per week Estimated Hrs Per Day: .25 hour per day Patient and/or Family Agrees t: Yes Time/GCodes Time In: 850 Time Out: 913 Total Billed Treatment Time: 23 Total Billed Treatment 1 visit GT 9 min EX 14 min FESTUS CAAL PT Nov 15, 2018 09:36
--- NOTE | 2018-11-15 10:41 | Diagnostic Imaging Report ---
Indication: Septic shock and cellulitis. Time of exam 10:03 AM Correlation is made with prior chest from 11/12/18. Heart size is stable. Areas of consolidation in the mid and lower lung butt are again noted but improved in the right base. This is similar in the left base. Both hemidiaphragms remain obscured. There are likely bilateral effusions. Upper lung butt are clear. No pneumothorax is seen. Impression: Overall improved aeration in the right base when compared to examination from 3 days earlier. Dictated by: Dictated on workstation # [id number]
--- NOTE | 2018-11-15 13:06 | Pulmonary Progress Note ---
Subjective Time Seen by a Provider: 08:56 Subjective/Events-last exam Pt is feeling better. Sepsis Event Evaluation Height, Weight, BMI Height: 5'9.00" Weight: 205lbs. 9.5oz. [id number]; 23.22 BMI Method:Stated Focused Exam Time of Focused Exam: 07:00 Exam Exam Vital Signs Date Time Temp Pulse Resp B/P (MAP) Pulse Ox O2 Delivery O2 Flow Rate FiO2 11/15/18 11:22 93 Nasal Cannula 4.00 11/15/18 08:20 94 Nasal Cannula 4.00 11/15/18 08:00 36.3 66 16 120/76 (91) 93 Nasal Cannula 4.00 11/15/18 07:00 72 11/15/18 06:53 93 Nasal Cannula 4.00 11/15/18 04:05 36.6 64 21 111/66 (81) 92 Nasal Cannula 4.00 11/15/18 01:00 66 11/15/18 00:34 36.9 64 20 109/63 (78) 21 Nasal Cannula 4.00 11/14/18 21:00 94 Room Air 3.50 11/14/18 20:12 36.8 68 20 119/57 (77) 92 Nasal Cannula 4.00 11/14/18 19:00 92 Nasal Cannula 11/14/18 19:00 66 11/14/18 16:24 36.4 64 18 103/67 (79) 95 Nasal Cannula 4.00 11/14/18 15:19 90 Nasal Cannula 4.00 I & O 11/15/18 07:00 Intake Total 2215 ml Output Total 3125 ml Balance -910 ml Height & Weight Height: 5'9.00" Weight: 205lbs. 9.5oz. [id number]; 23.22 BMI Method:Stated General Appearance: No Apparent Distress, WD/WN HEENT: Normal ENT Inspection Neck: Full Range of Motion, Normal Inspection Respiratory: Lungs Clear, No Accessory Muscle Use, No Respiratory Distress Cardiovascular: Regular Rate, Rhythm, No Murmur Capillary Refill: Less Than 3 Seconds Peripheral Pulses: 2+ Radial Pulses (R), 2+ Radial Pulses (L) Gastrointestinal: non tender, soft Extremity: Other (Scrotum better no swelling of scrotum) Neurologic/Psychiatric: Alert, Oriented x3 Skin: Normal Color, Warm/Dry Results Lab Laboratory Tests 11/14/18 05:50 11/15/18 04:50 Assessment/Plan Assessment/Plan Pna with sepsis - Merrem - Afib -cardiology following Malnutrition/hypoalbuminemia -Monitor -Dysphagia II diet Pt states he has hx of CLL and refused treatment in past -Oncology consulted ETOH dependance -monitor -Education Diastolic CHF grade II per echo -Consult cardiology -Give 80mg of lasix this AM Hypokalemia -replace and recheck Cellulitis on back -Wound care Multisubstance drug use -UDS positive for methamphetamine Afib RVR -Consult cardiology Renal insufficiency -monitor Homeless Dehydration CAD AGUS HADLEY DO Nov 15, 2018 13:06
[2018-11-15] MEDS ORDERED: KCL 10 MEQ TAB (MICRO K) PO NR (13:15)
--- NOTE | 2018-11-15 15:54 | NUR ---
DISCHARGE PLANNING: [facility] called and reported that patient is accepted at discharge for skilled care. Dr. Whalen notified and asked if he was able to urinate. I am unable to answer this question at this time.
[2018-11-15 16:47] VITALS: BP 127/75
--- NOTE | 2018-11-15 17:09 | Cardiology Progress Note ---
Cardiology SOAP Progress Note Subjective: No cardiac complaints. Objective: I&O/Vital Signs 11/15/18 11/15/18 11/15/18 11/15/18 06:53 07:00 08:00 08:20 Temp 36.3 Pulse 72 66 Resp 16 B/P (MAP) 120/76 (91) Pulse Ox 93 93 94 O2 Delivery Nasal Cannula Nasal Cannula Nasal Cannula O2 Flow Rate 4.00 4.00 4.00 11/15/18 11/15/18 11/15/18 11/15/18 11:22 13:00 14:12 16:47 Temp 37.0 Pulse 69 61 Resp 20 B/P (MAP) 127/75 (92) Pulse Ox 93 93 92 O2 Delivery Nasal Cannula Nasal Cannula Nasal Cannula O2 Flow Rate 4.00 4.00 2.00 11/15/18 00:00 Intake Total 2095 ml Output Total 2425 ml Balance -330 ml Weight (Pounds): 205 Weight (Ounces): 9.5 Weight (Calculated Kilograms): 93.851647 Constitutional: appears stated age; No apparent distress; well-developed, well- nourished, other (Very sleepy. Noncommunicative) Respiratory: chest is bilaterally symmetric, lungs clear to auscultation Cardiovascular: regular rate-rhythm, S1 and S2 Gastrointestional: soft, round, audible bowel sounds; No spleenomegaly Extremities: normal range of motion, non-tender, normal inspection; No clubbing, No cyanosis; no lower extremity edema bilateral; No significant edema Neurologic/Psychiatric: other (Not communicating) Skin: rash, other (MOST OF BACK WITH ERYTHEMA AND INDURATION, WITH WOUND TO LOWER BACK. NO DRAINAGE AT THIS TIME. ) Results/Procedures: Labs Laboratory Tests 11/14/18 20:32: Glucometer 282H 11/15/18 04:50: White Blood Count 74.4*H, Red Blood Count 3.66L, Hemoglobin 11.6L, Hematocrit 36L, Mean Corpuscular Volume 100H, Mean Corpuscular Hemoglobin 32, Mean Corpuscular Hemoglobin Concent 32, Red Cell Distribution Width 14.7H, Platelet Count 372, Mean Platelet Volume 12.1H, Neutrophils (%) (Auto) 30L, Lymphocytes (%) (Auto) 69H, Monocytes (%) (Auto) 1, Eosinophils (%) (Auto) 0, Basophils (%) (Auto) 0, Neutrophils # (Auto) 22.5H, Lymphocytes # (Auto) 50.9H, Monocytes # (Auto) 0.7, Eosinophils # (Auto) 0.1, Basophils # (Auto) 0.1, Sodium Level 145, Potassium Level 3.5L, Chloride Level 108H, Carbon Dioxide Level 29, Anion Gap 8, Blood Urea Nitrogen 56H, Creatinine 1.16, Estimat Glomerular Filtration Rate > 60, BUN/Creatinine Ratio 48, Glucose Level 146H, Calcium Level 7.4L, Corrected Calcium 8.9, Phosphorus Level 2.8, Magnesium Level 1.8, Total Bilirubin 0.5, Aspartate Amino Transf (AST/SGOT) 21, Alanine Aminotransferase (ALT/SGPT) 35, Alkaline Phosphatase 218H, B-Type Natriuretic Peptide 277.0H, Total Protein 4.4L , Albumin 2.1L 11/15/18 05:13: Glucometer 117H 11/15/18 16:26: Glucometer 141H Microbiology 11/05/18 Blood Culture - Final, Complete No growth 11/05/18 Influenza Types A,B Antigen (CHRIS) - Final, Complete 11/05/18 Urine Culture - Final, Complete NO GROWTH 11/05/18 Gram Stain - Final, Complete 11/05/18 Wound Culture - Final, Complete Staphylococcus aureus See Comments A/P: Assessment/Dx: septic shock, significantly improved. Diabetes, Atrial fibrillation with rapid ventricular rate, converted to sinus rhythm Source of infection unclear could be cellulitis, Acute diastolic congestive heart failure Acute kidney injury Elevated LFTs, Metabolic acidosis, active smoker, heavy alcohol use, Drug abuse. Plan: Septic shock, significantly improved. Resolved. Atrial fibrillation with rapid ventricular rate and transferred to the ICU on 11/11/2018. Given Cardizem infusion and amiodarone infusion. Patient converted to sinus rhythm. Amiodarone infusion changed to by mouth amiodarone. Patient did not want oral anticoagulation therapy. Currently in sinus rhythm. Acute diastolic congestive heart failure, Echocardiogram showed normal LV function with mild to moderate diastolic dysfunction. Acute kidney injury Aggressive control of diabetes. Elevated LFTs likely due to septic shock. Resolved. Metabolic acidosis, lactic acidosis likely due to severe sepsis. Resolved. active smoker, heavy alcohol use, detoxification Drug abuse. CLL, defer to the primary team. Thank you for your consultation. Please call me if you have any questions. Vaughn Medellin MD, FACP, FACC, FSCAI, FHRS, CCDS Interventional Cardiology Cardiac Electrophysiology Vascular Medicine and Endovascular Interventions Focused Exam Time of Focused Exam: 07:00 Roman MEDELLIN MD Nov 15, 2018 17:09
[2018-11-15 20:59] VITALS: BP 126/74
[2018-11-15 23:00] VITALS: BP 134/78
[2018-11-16] MEDS: MEROPENEM 1,000 MG in WATER (STERILE) FOR INJECTION 20 ML IV SCH ×3 (00:31→17:08)
[2018-11-16] MEDS: DILTIAZEM 30 MG (CARDIZEM) TAB PO SCH ×4 (00:31→17:08)
[2018-11-16 00:40] VITALS: BP 112/70
[2018-11-16 04:09] VITALS: BP 123/76
[2018-11-16 05:12] LABS: BASOPHILS # (AUTO) 0.1 10^3/uL (0.0-0.1); BASOPHILS % (AUTO) 0 % (0-10); EOSINOPHILS # (AUTO) 0.1 10^3/uL (0.0-0.3); EOSINOPHILS % (AUTO) 0 % (0-10); HEMATOCRIT 37 % (40-54); HEMOGLOBIN 11.6 G/DL (13.3-17.7); LYMPHOCYTES # (AUTO) 53.6 X 10^3 (1.0-4.0); LYMPHOCYTES % (AUTO) 72 % (12-44); MEAN CORPUSCULAR HEMOGLOBIN 31 PG (25-34); MEAN CORPUSCULAR HGB CONC 31 G/DL (32-36); MEAN CORPUSCULAR VOLUME 101 FL (80-99); MEAN PLATELET VOLUME 12.1 FL (7.4-10.4); MONOCYTES # (AUTO) 1.2 X 10^3 (0.0-1.0); MONOCYTES % (AUTO) 2 % (0-12); NEUTROPHILS # (AUTO) 19.4 X 10^3 (1.8-7.8); NEUTROPHILS % (AUTO) 26 % (42-75); PLATELET COUNT 406 10^3/uL (130-400); RED CELL DISTRIBUTION WIDTH 14.7 % (10.0-14.5)
[2018-11-16 05:21] LABS: WHITE BLOOD COUNT 74.4 10^3/uL (4.3-11.0)
[2018-11-16] MEDS: inSUlin ASPART (NovoLOG) 1 UNIT/0.01 ML (CHARGE PER UNIT) SC SCH ×4 (05:34→20:46)
[2018-11-16 05:43] LABS: ALBUMIN 2.3 GM/DL (3.2-4.5); BILIRUBIN,TOTAL 0.7 MG/DL (0.1-1.0); CALCIUM 7.6 MG/DL (8.5-10.1); CREATININE SERUM 1.19 MG/DL (0.60-1.30); MAGNESIUM 1.8 MG/DL (1.6-2.4); PHOSPHORUS 2.8 MG/DL (2.3-4.7); POTASSIUM 4.1 MMOL/L (3.6-5.0); TOTAL PROTEIN 4.6 GM/DL (6.4-8.2)
[2018-11-16] MEDS: FUROSEMIDE 40 MG/4 ML INJ (LASIX) IVP SCH ×2 (06:23→17:08)
[2018-11-16] MEDS: RT-ALBUTEROL/IPRATROPIUM 3 ML (DUONEB) VIAL INH SCH ×3 (06:51→19:46)
--- NOTE | 2018-11-16 07:45 | Progress Note ---
Subjective Time Seen by a Provider: 07:41 Subjective/Events-last exam Patient is doing better today. Patient in sinus rhythm. Patient is urinating. Patient needs 1 more day of IV antibiotics. Plan to discharge tomorrow. Chest x-ray showing improvement. Patient ready [facility] go [facility] Focused Exam Time of Focused Exam: 07:00 Objective Exam Vital Signs Date Time Temp Pulse Resp B/P (MAP) Pulse Ox O2 Delivery O2 Flow Rate FiO2 11/16/18 06:52 90 Nasal Cannula 2.00 11/16/18 04:09 37.2 63 18 123/76 (92) 92 Nasal Cannula 2.00 11/16/18 01:00 61 11/16/18 00:40 36.8 66 20 112/70 (84) 94 Nasal Cannula 2.00 11/15/18 21:00 94 Nasal Cannula 2.00 11/15/18 20:59 36.8 65 18 126/74 (91) 93 Nasal Cannula 2.00 11/15/18 19:32 90 Nasal Cannula 2.00 11/15/18 19:00 60 11/15/18 16:47 37.0 61 20 127/75 (92) 92 Nasal Cannula 2.00 11/15/18 14:12 93 Nasal Cannula 4.00 11/15/18 13:00 69 11/15/18 11:22 93 Nasal Cannula 4.00 11/15/18 08:20 94 Nasal Cannula 4.00 11/15/18 08:00 36.3 66 16 120/76 (91) 93 Nasal Cannula 4.00 I & O 11/16/18 07:00 Intake Total 2102 ml Output Total 1625 ml Balance 477 ml Capillary Refill : Less Than 3 Seconds General Appearance: No Apparent Distress, WD/WN HEENT: Normal ENT Inspection Neck: Full Range of Motion, Normal Inspection Respiratory: Lungs Clear, No Accessory Muscle Use, Decreased Breath Sounds Cardiovascular: Regular Rate, Rhythm, No Murmur Gastrointestinal: non tender, soft Results Lab Laboratory Tests 11/16/18 04:45 Laboratory Tests 11/15/18 16:26: Glucometer 141H 11/15/18 21:23: Glucometer 148H 11/16/18 04:45: White Blood Count 74.4*H, Red Blood Count 3.70L, Hemoglobin 11.6L, Hematocrit 37L, Mean Corpuscular Volume 101H, Mean Corpuscular Hemoglobin 31, Mean Corpuscular Hemoglobin Concent 31L, Red Cell Distribution Width 14.7H, Platelet Count 406H, Mean Platelet Volume 12.1H, Neutrophils (%) (Auto) 26L, Lymphocytes (%) (Auto) 72H, Monocytes (%) (Auto) 2, Eosinophils (%) (Auto) 0, Basophils (%) (Auto) 0, Neutrophils # (Auto) 19.4H, Lymphocytes # (Auto) 53.6H, Monocytes # (Auto) 1.2H, Eosinophils # (Auto) 0.1, Basophils # (Auto) 0.1, Sodium Level 144, Potassium Level 4.1, Chloride Level 105, Carbon Dioxide Level 29, Anion Gap 10, Blood Urea Nitrogen 51H, Creatinine 1.19, Estimat Glomerular Filtration Rate 60, BUN/Creatinine Ratio 43, Glucose Level 129H, Calcium Level 7.6L, Corrected Calcium 9.0, Phosphorus Level 2.8, Magnesium Level 1.8, Total Bilirubin 0.7, Aspartate Amino Transf (AST/SGOT) 25, Alanine Aminotransferase (ALT/SGPT) 37, Alkaline Phosphatase 181H, Total Protein 4.6L, Albumin 2.3L 11/16/18 05:31: Glucometer 125H Microbiology 11/05/18 Blood Culture - Final, Complete No growth 11/05/18 Influenza Types A,B Antigen (CHRIS) - Final, Complete 11/05/18 Urine Culture - Final, Complete NO GROWTH 11/05/18 Gram Stain - Final, Complete 11/05/18 Wound Culture - Final, Complete Staphylococcus aureus See Comments Assessment/Plan Assessment/Plan Assess & Plan/Chief Complaint Septic shock. Cellulitis. Diabetes. Cellulitis of back. A. fib with RVR. Coronary artery disease. Acute renal insufficiency Metabolic acidosis. Diastolic congestive heart failure... Ascending aortic aneurysm. Tobaccoism. Opioid abuse. Methamphetamine use. Chronic lymphocytic leukemia.. . 11/08/18. Sepsis. Cellulitis of back. Diabetes. A. fib with RVR. Coronary artery disease. Renal insufficiency. Diastolic congestive heart failure. CLL. Ascending aortic aneurysm. Tobaccoism. Opioid abuse. Methamphetamine abuse. UTI.. 11/09/18. Sepsis. Cellulitis of back. Diabetes. A. fib with RVR. Coronary artery disease. Renal insufficiency getting better. Diastolic congestive heart failure. Tobaccoism. Opioid abuse. Methamphetamine abuse. UTI. Congestive heart failure. Sepsis. Chronic lymphocytic leukemia. Diabetes. A. fib with RVR. Coronary artery disease. Renal insufficiency improving. Tobaccoism. Opioid abuse. Methamphetamine abuse. Albumin low. 11/11/18. Congestive heart failure. Sepsis resolved. Chronic lymphocytic leukemia. Diabetes. A. fib with RVR. Coronary artery disease. Methamphetamine abuse. Opioid abuse. Patient had diuresis with Lasix to continue with the Lasix. Renal insufficiency is improving daily. . 11/14/18 pneumonia with sepsis. Pressure ulcer right back. Pressure ulcer sacrum. Cellulitis. A. fib with RVR. Acute renal failure. CAD. Homeless. Malnutrition. Dehydration. Positive for meth and opioids. Chronic lymphocytic leukemia. Patient was stable this morning. Enlarged scrotum resolved. Anasarca. . 11/15/18. Chronic lymphocytic leukemia. Sepsis. Resolved. UTI resolved. Drug and alcohol abuse. Acute renal insufficiency. T6 compression fracture. A. fib with RVR. Tobaccoism. Cellulitis. Diabetes. Coronary artery disease. Metabolic acidosis. Diastolic congestive heart failure. Patient improving . 11/16/18 CLL. UTI resolved. Drug and alcohol abuse. Acute renal insufficiency resolved. Urinating. A. fib with RVR. Tobaccoism. Cellulitis. Coronary artery disease. Diastolic congestive heart failure. Patient to have 1 more day of IV antibiotics. Clinical Quality Measures DVT/VTE Risk/Contraindication: Risk Factor Score Per Nursin RFS Level Per Nursing on Admit: 4+=Very High GUILLERMINA MORILLO DO Nov 16, 2018 07:45
[2018-11-16 08:00] VITALS: BP 97/56
[2018-11-16] MEDS: PANTOPRAZOLE 40 MG (PROTONIX) TAB PO SCH ×2 (08:19→20:51)
[2018-11-16] MEDS: AMIODARONE 200 MG (CORDARONE) TAB PO SCH ×2 (08:19→20:52)
[2018-11-16] MEDS: meTOproloL SUCCINATE 50 MG (TOPROL XL) TAB PO SCH (08:19)
[2018-11-16] MEDS: ENOXAPARIN 100 MG/1 ML (LOVENOX) SYR SC SCH ×2 (08:20→20:52)
--- NOTE | 2018-11-16 10:03 | Physical Therapy Daily Note ---
PT Daily Note-Current Subjective Patient in bed pre tx, agrees to PT, has 5/10 pain in his left leg. Appearance Patient in recliner post tx with nurse call, phone, tray, all needs met, chair alarm on. Mental Status Patient Orientation: Person, Confused Attachments: Oxygen Transfers Therapy Code Descriptions/Definitions Functional [place] Measure: 0=Not Assessed/NA 4=Minimal Assistance 1=Total Assistance 5=Supervision or Setup 2=Maximal Assistance 6=Modified [place] 3=Moderate Assistance 7=Complete [place] Therapy Quality Codes: 6 Independent with activity with or without an assistive device 5 Patient requires set up or clean up by helper. Patient completes activity by themselves 4 Supervision or touching assist (CGA). [place] provide cues , steadying assist 3 The helper provides less than half the effort to complete the activity 2 The helper provides more than half the effort to complete the activity 1 Dependent. The helper does all the effort to complete an activity 7 Patient refused to complete or attempt activity 9 The patient did not perform the activity before the current illness or injury 88 Not attempted due to Medical conditions or safety concerns Transfers (B, C, W/C) (FIM): 3 Scootin Rollin Supine to/from Sit: 3 Sit to/from Stand: 4 Bed to/from Chair: 4 Weight Bearing Right Lower Extremity: Right Weight Bearing/Tolerated Left Lower Extremity: Left Weight Bearing/Tolerated Gait Training Gait (FIM): 1 Distance: 20' Gait Level of Assist: 4 Gait Persons Needed: 1 Gait Assistive Device: FWW Slow, unsteady but no hussein LOB, better stepping and endurance than yesterday. No knee buckling. Patient very fatigued after ambulation. Treatments bed mobility and transfers, ambulation Assessment Current Status: Fair Progress improved strength and endurance PT Short Term Goals Short Term Goals Time Frame: Nov 16, 2018 Transfers (B,C,W/C) (FIM): 3 Gait (FIM): 1 Gait Distance Comment: 5' Gait Level of Assist: 3 Gait Assistive Device: FWW PT Recapper Goals Shelter Goals PT Shelter Goals Time Frame: Dec 03, 2018 Transfers (B,C,W/C) (FIM): 5 Gait (FIM): 2 Gait distance (FIM): 5=646-15 ft Distance: 75' Gait Level of Assist: 4 Gait Assistive Device: FWW PT Plan Problem List Problem List: Activity Tolerance, Functional Strength, Safety, Balance, Gait, T anson, Bed Mobility Treatment/Plan Treatment Plan: Continue Plan of Care Treatment Plan: Bed Mobility, Concurrent Therapy, Education, Functional Activity Tg, Functional Strength, Gait, Safety, Therapeutic Exercise, Transfers Treatment Duration: Dec 03, 2018 Frequency: 6 times per week Estimated Hrs Per Day: .25 hour per day Patient and/or Family Agrees t: Yes Safety Risks/Education Patient Education: Gait Training, Transfer Techniques, Correct Positioning, Safety Issues Teaching Recipient: Patient Teaching Methods: Demonstration, Discussion Response to Teaching: Reinforcement Needed Time/GCodes Time In: 0830 Time Out: 0845 Total Billed Treatment Time: 15 Total Billed Treatment 1 visit FA 15' BENJI DOMINGUEZ PT Nov 16, 2018 10:03
--- NOTE | 2018-11-16 11:03 | Occupational Ther Daily Note ---
OT Current Status-Daily Note Subjective Pt seen in recliner chair, no pain noted. Pt agreeable to tx session. Mental Status/Objective Therapy Code Descriptions/Definitions Functional [place] Measure: 0=Not Assessed/NA 4=Minimal Assistance 1=Total Assistance 5=Supervision or Setup 2=Maximal Assistance 6=Modified [place] 3=Moderate Assistance 7=Complete [place] ADL-Treatment Eating (FIM): 7 Grooming (FIM): 6 (completes face washing with increased time to manipulate opening packaging ) Lower Body Dressing (FIM): 2 (Pt requires max A for sock doff/donning. Pt able to reach sock, not able to complete doffing.) Other Treatment Pt requires assist for phone management to order breakfast. Pt completes with full sentences and all words understandable. Pt states he and team are working towards finding a place to d/c, states he may "live [facility] the jail [facility]." Pt denies need for bathroom use. Pt completes UB/ LB washing with warm wipes, pt requires assist reaching and washing feet. Pt brushes hair with increased time. Pt states no pain, states his arms are "feeling better, less swollen." Pt left in recliner with call light in reach, food being eaten, all needs met. Education OT Patient Education: Correct positioning, Modified ADL techniques, Purpose of tx/functional activities, Safety issues, Transfer techniques Teaching Recipient: Patient Teaching Methods: Demonstration, Discussion Response to Teaching: Verbalize Understanding, Return Demonstration OT Short Term Goals Short Term Goals Time Frame: Nov 15, 2018 Eating(FIM): 5 Grooming(FIM): 4 (met) Bathing(FIM): 3 Upper Body Dressing(FIM): 4 Lower Body Dressing(FIM): 4 Toileting(FIM): 4 Transfers (B,C,W/C) (FIM): 3 Toilet/Commode Transfer(FIM): 5 Shower Transfer(FIM): 4 Additional Short Term Goals: 1-Demonstrate ADL Tasks, 2-Verbalize Understanding , 3-ImproveStrength/Tg 1=Demonstrate adherence to instructed precautions during ADL tasks. 2=Patient will verbalize/demonstrate understanding of assistive devices/modifications for ADL. 3=Patient will improve strength/tolerance for activity to enable patient to perform ADL's. OT Pharmacist Hospital Goals Halfway Goals Time Frame: Nov 29, 2018 Eating (FIM): 7 Grooming(FIM): 6 Bathing(FIM): 5 Upper Body Dressing(FIM): 6 Lower Body Dressing(FIM): 6 Toileting(FIM): 6 Transfers (B,C,W/C) (FIM): 6 Toilet/Commode Transfer(FIM): 6 Shower Transfer(FIM): 5 Additional Goals: 1-Demonstrate ADL Tasks, 2-Verbalize Understanding, 3-ImproveStrength/Tg 1=Demonstrate adherence to instructed precautions during ADL tasks. 2=Patient will verbalize/demonstrate understanding of assistive devices/modifications for ADL. 3=Patient will improve strength/tolerance for activity to enable patient to perform ADL's. OT Education/Plan Problem List/Assessment Assessment: Decreased Activ Tolerance, Decreased Safety Aware, Decreased UE Strength, Edema, Impaired I ADL's, Impaired Self-Care Skills Discharge Recommendations Plan/Recommendations: Continue POC Treatment Plan/Plan of Care Treatment,Training & Education: Yes Patient would benefit from OT for education, treatment and training to promote independence in ADL's, mobility, safety and/or upper extremity function for ADL's. Plan of Care: ADL Retraining, Functional Mobility, UE Funct Exercise/Act Treatment Duration: Nov 29, 2018 Frequency: 5 times per week Estimated Hrs Per Day: .25 hour per day Agreement: Yes Rehab Potential: Poor Time/GCodes Start Time: 09:50 Stop Time: 10:06 Total Time Billed (hr/min): 16 Billed Treatment Time 1 ADL (16) JOSE LEMON OTR Nov 16, 2018 11:02
--- NOTE | 2018-11-16 13:28 | Oncology Progress Note ---
Subjective Date Seen by a Provider: Nov 16, 2018 Time Seen by a Provider: 13:24 Subjective/Events-last exam Pt is feeling much better. In fact, he was singing in his room when I walked in. He will go to group home tomorrow. I gave him my card with phone number for f/u with me in 2 weeks I also told the nurse to call cancer center for an appointment with me in about 2 weeks after discharge from the hospital for the f/u of CLL. Data Review Labs Laboratory Tests 11/16/18 04:45 Laboratory Tests 11/13/18 16:22: Glucometer 199H 11/13/18 20:05: Glucometer 235H 11/14/18 05:50: White Blood Count 78.4*H, Red Blood Count 3.70L, Hemoglobin 11.6L, Hematocrit 37L, Mean Corpuscular Volume 100H, Mean Corpuscular Hemoglobin Concent 31L, Red Cell Distribution Width 14.7H, Mean Platelet Volume 12.5H, Neutrophils (%) (Auto) 31L, Lymphocytes (%) (Auto) 69H, Neutrophils # (Auto) 24.0H, Lymphocytes # (Auto) 54.0H, Sodium Level 147H, Chloride Level 111H, Blood Urea Nitrogen 58H, Glucose Level 168H, Calcium Level 7.3L, Alkaline Phosphatase 195H, Total Protein 4.3L, Albumin 2.1L 11/14/18 06:01: Glucometer 192H 11/14/18 11:06: Glucometer 190H 11/14/18 16:41: Glucometer 182H 11/14/18 20:32: Glucometer 282H 11/15/18 04:50: White Blood Count 74.4*H, Red Blood Count 3.66L, Hemoglobin 11.6L, Hematocrit 36L, Mean Corpuscular Volume 100H, Red Cell Distribution Width 14.7H, Mean Platelet Volume 12.1H, Neutrophils (%) (Auto) 30L, Lymphocytes (%) (Auto) 69H, Neutrophils # (Auto) 22.5H, Lymphocytes # (Auto) 50.9H, Potassium Level 3.5L, Chloride Level 108H, Blood Urea Nitrogen 56H, Glucose Level 146H, Calcium Level 7.4L, Alkaline Phosphatase 218H, B-Type Natriuretic Peptide 277.0H, Total Protein 4.4L, Albumin 2.1L 11/15/18 05:13: Glucometer 117H 11/15/18 16:26: Glucometer 141H 11/15/18 21:23: Glucometer 148H 11/16/18 04:45: White Blood Count 74.4*H, Red Blood Count 3.70L, Hemoglobin 11.6L, Hematocrit 37L, Mean Corpuscular Volume 101H, Mean Corpuscular Hemoglobin Concent 31L, Red Cell Distribution Width 14.7H, Platelet Count 406H, Mean Platelet Volume 12.1H, Neutrophils (%) (Auto) 26L, Lymphocytes (%) (Auto) 72H, Neutrophils # (Auto) 19.4H, Lymphocytes # (Auto) 53.6H, Monocytes # (Auto) 1.2H, Blood Urea Nitrogen 51H, Glucose Level 129H, Calcium Level 7.6L, Alkaline Phosphatase 181H, Total Protein 4.6L, Albumin 2.3L 11/16/18 05:31: Glucometer 125H 11/16/18 11:02: Glucometer 187H Physical Exam Vital Signs Vital Signs - First Documented 11/10/18 00:50 Temp 36.8 Pulse 74 Resp 18 B/P (MAP) 161/89 (113) Pulse Ox 91 O2 Delivery Nasal Cannula O2 Flow Rate 1.50 Capillary Refill : Less Than 3 Seconds Height, Weight, BMI Height: 5'9.00" Weight: 205lbs. 9.5oz. 93.314649bk; 23.22 BMI Method:Stated General Appearance: No Apparent Distress Respiratory: No Accessory Muscle Use, No Respiratory Distress Extremity: Pedal Edema Neurologic/Psychiatric: Alert, Oriented x3 Focused Exam Time of Focused Exam: 07:00 Impression & Plan Impression & Plan IMP: 1. CLL, diagnosed 2009 with lymphocytosis, normal Hb and Plt at that time. N egative ZAP-70 and CD38 expression. Now progression of lymphocytosis and mild anemia, Plt still normal. Flowcytometry 11/07/18 confirmed CLL without adverse biological markers. 2. Sepsis, UTI and cellulitis on antibiotics. All cultures negative so far. 3. Drug abuse and h/o alcohol abuse 4. Agitation requires heavy sedation, improved. 5. Acute renal insufficiency, resolved. 6. DM 7. T6 compression fracture shown on admission CT scan. No lymphadenopathy noticed on the report. He also has aorta aneurysm. 8. Afib, now in sinus Plan: 1. No specific treatment for CLL at this point even though his lymphocytosis is high at 70k-80k. There is NO indication for treating lymphocytosis from the CLL while his Hb is improving and Plt normal. These small lymphocytes will NOT do much of the harm to the patients. We sometimes see CLL patients with the lymphocytosis over 100k. The indication for the treatment is thrombocytopenia and progressing anemia which this patient do not have at this point. Pt needs to have f/u with me at cancer center in 2 weeks after discharge from this hospitalization. Please call cancer center to set up appointment when he is ready to be discharged home. 2. No indication for IVIG treatment since his serum IgG near 600 and normal Ig A and Ig M levels. 3. No indication for bone marrow exam at this point since he has high WBC in the peripheral blood and the flowcytometry has confirmed the diagnosis again. Thank you for the consultation. Please call me if you need anything else or new issues Clinical Quality Measures DVT/VTE Risk/Contraindication: Risk Factor Score Per Nursin RFS Level Per Nursing on Admit: 4+=Very High KRZYSZTOF HUDSON MD Nov 16, 2018 13:28
[2018-11-16 13:43] VITALS: BP 97/56
--- NOTE | 2018-11-16 13:43 | Cardiology Progress Note ---
Cardiology SOAP Progress Note Subjective: No further atrial fibrillation overnight. Objective: I&O/Vital Signs 11/16/18 11/16/18 11/16/18 11/16/18 04:09 06:52 08:00 09:00 Temp 37.2 37.2 Pulse 63 74 Resp 18 24 B/P (MAP) 123/76 (92) 97/56 (70) Pulse Ox 92 90 95 O2 Delivery Nasal Cannula Nasal Cannula Nasal Cannula Nasal Cannula O2 Flow Rate 2.00 2.00 2.00 2.00 11/16/18 11:37 Pulse Ox 93 O2 Delivery Nasal Cannula O2 Flow Rate 2.00 11/16/18 00:00 Intake Total 1882 ml Output Total 1625 ml Balance 257 ml Weight (Pounds): 205 Weight (Ounces): 9.5 Weight (Calculated Kilograms): 93.027398 Constitutional: appears stated age; No apparent distress; well-developed, well-nourished, other (Very sleepy. Noncommunicative) Respiratory: chest is bilaterally symmetric, lungs clear to auscultation Cardiovascular: regular rate-rhythm, S1 and S2 Gastrointestional: soft, round, audible bowel sounds; No spleenomegaly Extremities: normal range of motion, non-tender, normal inspection; No clubbing, No cyanosis; no lower extremity edema bilateral; No significant edema Neurologic/Psychiatric: other (Not communicating) Skin: rash, other (MOST OF BACK WITH ERYTHEMA AND INDURATION, WITH WOUND TO LOWER BACK. NO DRAINAGE AT THIS TIME. ) Results/Procedures: Labs Laboratory Tests 11/15/18 16:26: Glucometer 141H 11/15/18 21:23: Glucometer 148H 11/16/18 04:45: White Blood Count 74.4*H, Red Blood Count 3.70L, Hemoglobin 11.6L, Hematocrit 37L, Mean Corpuscular Volume 101H, Mean Corpuscular Hemoglobin 31, Mean Corpuscular Hemoglobin Concent 31L, Red Cell Distribution Width 14.7H, Platelet Count 406H, Mean Platelet Volume 12.1H, Neutrophils (%) (Auto) 26L, Lymphocytes (%) (Auto) 72H, Monocytes (%) (Auto) 2, Eosinophils (%) (Auto) 0, Basophils (%) (Auto) 0, Neutrophils # (Auto) 19.4H, Lymphocytes # (Auto) 53.6H, Monocytes # (Auto) 1.2H, Eosinophils # (Auto) 0.1, Basophils # (Auto) 0.1, Sodium Level 144, Potassium Level 4.1, Chloride Level 105, Carbon Dioxide Level 29, Anion Gap 10, Blood Urea Nitrogen 51H, Creatinine 1.19, Estimat Glomerular Filtration Rate 60, BUN/Creatinine Ratio 43, Glucose Level 129H, Calcium Level 7.6L, Corrected Calcium 9.0, Phosphorus Level 2.8, Magnesium Level 1.8, Total Bilirubin 0.7, Aspartate Amino Transf (AST/SGOT) 25, Alanine Aminotransferase (ALT/SGPT) 37, Alkaline Phosphatase 181H, Total Protein 4.6L, Albumin 2.3L 11/16/18 05:31: Glucometer 125H 11/16/18 11:02: Glucometer 187H Microbiology 11/05/18 Blood Culture - Final, Complete No growth 11/05/18 Influenza Types A,B Antigen (CHRIS) - Final, Complete 11/05/18 Urine Culture - Final, Complete NO GROWTH 11/05/18 Gram Stain - Final, Complete 11/05/18 Wound Culture - Final, Complete Staphylococcus aureus See Comments A/P: Assessment/Dx: septic shock, significantly improved. Diabetes, Atrial fibrillation with rapid ventricular rate, converted to sinus rhythm Source of infection unclear could be cellulitis, Acute diastolic congestive heart failure Acute kidney injury Elevated LFTs, Metabolic acidosis, active smoker, heavy alcohol use, Drug abuse. Plan: Septic shock, significantly improved. Resolved. Atrial fibrillation with rapid ventricular rate and transferred to the ICU on 11/11/2018. Given Cardizem infusion and amiodarone infusion. Patient converted to sinus rhythm. Amiodarone infusion changed to by mouth amiodarone. Patient did not want oral anticoagulation therapy. Currently in sinus rhythm. Decreased dose of amiodarone for 400 mg daily to 200 mg daily. Acute diastolic congestive heart failure, Echocardiogram showed normal LV func tion with mild to moderate diastolic dysfunction. Acute kidney injury Aggressive control of diabetes. Elevated LFTs likely due to septic shock. Resolved. Metabolic acidosis, lactic acidosis likely due to severe sepsis. Resolved. active smoker, heavy alcohol use, detoxification Drug abuse. CLL, defer to the primary team. Thank you for your consultation. Please call me if you have any questions. Vaughn Medellin MD, FACP, FACC, FSCAI, FHRS, CCDS Interventional Cardiology Cardiac Electrophysiology Vascular Medicine and Endovascular Interventions Focused Exam Time of Focused Exam: 07:00 Roman MEDELLIN MD Nov 16, 2018 13:43
--- NOTE | 2018-11-16 14:00 | Pulmonary Progress Note ---
Subjective Time Seen by a Provider: 08:58 Subjective/Events-last exam Pt appears to be doing better. Sepsis Event Evaluation Height, Weight, BMI Height: 5'9.00" Weight: 205lbs. 9.5oz. 93.040599np; 23.22 BMI Method:Stated Focused Exam Time of Focused Exam: 07:00 Exam Exam Vital Signs Date Time Temp Pulse Resp B/P (MAP) Pulse Ox O2 Delivery O2 Flow Rate FiO2 11/16/18 13:43 37.2 74 93 11/16/18 11:37 93 Nasal Cannula 2.00 11/16/18 09:00 Nasal Cannula 2.00 11/16/18 08:00 37.2 74 24 97/56 (70) 95 Nasal Cannula 2.00 11/16/18 06:52 90 Nasal Cannula 2.00 11/16/18 04:09 37.2 63 18 123/76 (92) 92 Nasal Cannula 2.00 11/16/18 01:00 61 11/16/18 00:40 36.8 66 20 112/70 (84) 94 Nasal Cannula 2.00 11/15/18 21:00 94 Nasal Cannula 2.00 11/15/18 20:59 36.8 65 18 126/74 (91) 93 Nasal Cannula 2.00 11/15/18 19:32 90 Nasal Cannula 2.00 11/15/18 19:00 60 11/15/18 16:47 37.0 61 20 127/75 (92) 92 Nasal Cannula 2.00 11/15/18 14:12 93 Nasal Cannula 4.00 I & O 11/16/18 07:00 Intake Total 2102 ml Output Total 1625 ml Balance 477 ml Height & Weight Height: 5'9.00" Weight: 205lbs. 9.5oz. 93.735010gb; 23.22 BMI Method:Stated General Appearance: No Apparent Distress HEENT: PERRL/EOMI Neck: Supple Respiratory: No Accessory Muscle Use, No Respiratory Distress, Other (on nasal canular oxygen) Cardiovascular: Regular Rate, Rhythm Capillary Refill: Less Than 3 Seconds Peripheral Pulses: 2+ Radial Pulses (R), 2+ Radial Pulses (L) Gastrointestinal: non tender, soft Extremity: Pedal Edema Neurologic/Psychiatric: Alert, Oriented x3 Skin: Normal Color, Warm/Dry Results Lab Laboratory Tests 11/15/18 04:50 11/16/18 04:45 Assessment/Plan Assessment/Plan Pna with sepsis - Merrem - 1more day Afib -cardiology following Malnutrition/hypoalbuminemia -Monitor -Dysphagia II diet Pt states he has hx of CLL and refused treatment in past -Oncology consulted ETOH dependance -monitor -Education Diastolic CHF grade II per echo -Consult cardiology Hypokalemia -replace and recheck Cellulitis on back -Wound care Multisubstance drug use -UDS positive for methamphetamine Afib RVR -Consult cardiology Renal insufficiency -monitor Homeless Dehydration CAD AGUS HADLEY DO Nov 16, 2018 13:59
--- NOTE | 2018-11-16 15:40 | NUR ---
CM/SS completed the CARE assessment with the patient. It was faxed to [facility] and [facility]. Copy retained on the patient chart. Assisted the patient with ordering food and he had no other needs at this time.
[2018-11-16 16:07] VITALS: BP 122/64
[2018-11-16 20:50] VITALS: BP 102/60
[2018-11-17] VITALS: BP 105/61
[2018-11-17] MEDS: MEROPENEM 1,000 MG in WATER (STERILE) FOR INJECTION 20 ML IV SCH ×2 (00:35→08:40)
[2018-11-17] MEDS: DILTIAZEM 30 MG (CARDIZEM) TAB PO SCH ×3 (00:35→12:10)
[2018-11-17 04:00] VITALS: BP 103/67
[2018-11-17 04:12] LABS: BUN/CREATININE RATIO 42; CALCIUM 7.4 MG/DL (8.5-10.1); CARBON DIOXIDE 32 MMOL/L (21-32); CHLORIDE 102 MMOL/L (98-107); CREATININE SERUM 1.16 MG/DL (0.60-1.30); GFR ESTIMATED > 60; GLUCOSE 117 MG/DL (70-105); POTASSIUM 3.3 MMOL/L (3.6-5.0); SODIUM 140 MMOL/L (135-145)
[2018-11-17] MEDS: inSUlin ASPART (NovoLOG) 1 UNIT/0.01 ML (CHARGE PER UNIT) SC SCH ×2 (05:27→12:03)
[2018-11-17] MEDS: FUROSEMIDE 40 MG/4 ML INJ (LASIX) IVP SCH (06:28)
[2018-11-17 06:53] LABS: BASOPHILS # (AUTO) 0.1 10^3/uL (0.0-0.1); BASOPHILS % (AUTO) 0 % (0-10); EOSINOPHILS # (AUTO) 0.2 10^3/uL (0.0-0.3); EOSINOPHILS % (AUTO) 0 % (0-10); HEMATOCRIT 35 % (40-54); HEMOGLOBIN 11.4 G/DL (13.3-17.7); LYMPHOCYTES # (AUTO) 49.9 X 10^3 (1.0-4.0); LYMPHOCYTES % (AUTO) 73 % (12-44); MEAN CORPUSCULAR HGB CONC 33 G/DL (32-36); MEAN CORPUSCULAR VOLUME 100 FL (80-99); MEAN PLATELET VOLUME 11.8 FL (7.4-10.4); MONOCYTES # (AUTO) 0.7 X 10^3 (0.0-1.0); MONOCYTES % (AUTO) 1 % (0-12); NEUTROPHILS # (AUTO) 17.8 X 10^3 (1.8-7.8); NEUTROPHILS % (AUTO) 26 % (42-75); PLATELET COUNT 410 10^3/uL (130-400); RED CELL DISTRIBUTION WIDTH 14.6 % (10.0-14.5)
[2018-11-17 06:54] LABS: MEAN CORPUSCULAR HEMOGLOBIN 32 PG (25-34)
[2018-11-17 06:56] LABS: WHITE BLOOD COUNT 68.6 10^3/uL (4.3-11.0)
[2018-11-17] MEDS: RT-ALBUTEROL/IPRATROPIUM 3 ML (DUONEB) VIAL INH SCH (07:12)
[2018-11-17 07:13] LABS: CALCIUM 7.9 MG/DL (8.5-10.1); CREATININE SERUM 1.21 MG/DL (0.60-1.30); POTASSIUM 3.5 MMOL/L (3.6-5.0)
--- NOTE | 2018-11-17 07:22 | Diagnostic Imaging Report ---
Indication: Lower respiratory infection. Portable chest 4:28 AM Findings: There is consolidation of the left lower lung. This is probably due to effusion but some pulmonary infiltrate cannot excluded. There is also small right pleural effusion. Heart size is normal. Impression: Bilateral pleural effusions with some superimposed consolidation in the left lower lung suspicious for pneumonia. No appreciable change from 11/15. Dictated by: Dictated on workstation # [id number]
[2018-11-17] MEDS ORDERED: LEVO500T2 PO (07:46)
--- NOTE | 2018-11-17 07:46 | Progress Note ---
Subjective Time Seen by a Provider: 07:42 Subjective/Events-last exam Patient doing better and feeling better. Patient has CLL and White blood cell count coming down. Patient afebrile. Chest x-ray shows pneumonia. Patient to go home on Levaquin 500 milligrams for 3 days. Anasarca better. CHF better. Patient is normal sinus rhythm. Patient had 5 days of meropenem IV. Nurse to call at 11 a.m. Focused Exam Time of Focused Exam: 07:00 Objective Exam Vital Signs Date Time Temp Pulse Resp B/P (MAP) Pulse Ox O2 Delivery O2 Flow Rate FiO2 11/17/18 07:12 92 Nasal Cannula 2.00 11/17/18 07:00 62 11/17/18 04:00 36.4 64 20 103/67 (79) 90 Nasal Cannula 2.00 11/17/18 01:28 66 11/17/18 00:00 36.6 65 21 105/61 (76) 91 Nasal Cannula 2.00 11/16/18 21:00 Nasal Cannula 2.00 11/16/18 20:50 36.0 67 22 102/60 (74) 92 Nasal Cannula 2.00 11/16/18 19:46 92 Nasal Cannula 2.00 11/16/18 19:00 65 11/16/18 16:07 35.4 60 18 122/64 (83) 94 Nasal Cannula 2.00 11/16/18 13:43 37.2 74 93 11/16/18 13:00 67 11/16/18 11:37 93 Nasal Cannula 2.00 11/16/18 09:00 Nasal Cannula 2.00 11/16/18 08:00 37.2 74 24 97/56 (70) 95 Nasal Cannula 2.00 I & O 11/17/18 07:00 Intake Total 1430 ml Output Total 200 ml Balance 1230 ml Capillary Refill : Less Than 3 Seconds General Appearance: No Apparent Distress, WD/WN HEENT: Normal ENT Inspection Neck: Full Range of Motion, Normal Inspection Respiratory: Lungs Clear, No Accessory Muscle Use, No Respiratory Distress Cardiovascular: Regular Rate, Rhythm, No Murmur Gastrointestinal: non tender, soft Results Lab Laboratory Tests 11/17/18 03:30 11/17/18 06:43 Laboratory Tests 11/16/18 11:02: Glucometer 187H 11/16/18 16:05: Glucometer 141H 11/16/18 20:34: Glucometer 180H 11/17/18 03:30: Sodium Level 140, Potassium Level 3.3L, Chloride Level 102, Carbon Dioxide Level 32, Anion Gap 6, Blood Urea Nitrogen 49H, Creatinine 1.16, Estimat Glomerular Filtration Rate > 60, BUN/Creatinine Ratio 42, Glucose Level 117H, Calcium Level 7.4L 11/17/18 05:26: Glucometer 123H 11/17/18 06:43: White Blood Count 68.6*H, Red Blood Count 3.51L, Hemoglobin 11.4L, Hematocrit 35L, Mean Corpuscular Volume 100H, Mean Corpuscular Hemoglobin 32, Mean Corpuscular Hemoglobin Concent 33, Red Cell Distribution Width 14.6H, Platelet Count 410H, Mean Platelet Volume 11.8H, Neutrophils (%) (Auto) 26L, Lymphocytes (%) (Auto) 73H, Monocytes (%) (Auto) 1, Eosinophils (%) (Auto) 0, Basophils (%) (Auto) 0, Neutrophils # (Auto) 17.8H, Lymphocytes # (Auto) 49.9H, Monocytes # (Auto) 0.7, Eosinophils # (Auto) 0.2, Basophils # (Auto) 0.1, Sodium Level 139, Potassium Level 3.5L, Chloride Level 102, Carbon Dioxide Level 33H, Anion Gap 4L , Blood Urea Nitrogen 47H, Creatinine 1.21, Estimat Glomerular Filtration Rate 59, BUN/Creatinine Ratio 39, Glucose Level 118H, Calcium Level 7.9L Microbiology 11/05/18 Blood Culture - Final, Complete No growth 11/05/18 Influenza Types A,B Antigen (CHRIS) - Final, Complete 11/05/18 Urine Culture - Final, Complete NO GROWTH 11/05/18 Gram Stain - Final, Complete 11/05/18 Wound Culture - Final, Complete Staphylococcus aureus See Comments Assessment/Plan Assessment/Plan Assess & Plan/Chief Complaint Septic shock. Cellulitis. Diabetes. Cellulitis of back. A. fib with RVR. Coronary artery disease. Acute renal insufficiency Metabolic acidosis. Diastolic congestive heart failure... Ascending aortic aneurysm. Tobaccoism. Opioid abuse. Methamphetamine use. Chronic lymphocytic leukemia.. . 11/08/18. Sepsis. Cellulitis of back. Diabetes. A. fib with RVR. Coronary artery disease. Renal insufficiency. Diastolic congestive heart failure. CLL. Ascending aortic aneurysm. Tobaccoism. Opioid abuse. Methamphetamine abuse. UTI.. 11/09/18. Sepsis. Cellulitis of back. Diabetes. A. fib with RVR. Coronary artery disease. Renal insufficiency getting better. Diastolic congestive heart failure. Tobaccoism. Opioid abuse. Methamphetamine abuse. UTI. Congestive heart failure. Sepsis. Chronic lymphocytic leukemia. Diabetes. A. fib with RVR. Coronary artery disease. Renal insufficiency improving. Tobaccoism. Opioid abuse. Methamphetamine abuse. Albumin low. 11/11/18. Congestive heart failure. Sepsis resolved. Chronic lymphocytic leukemia. Diabetes. A. fib with RVR. Coronary artery disease. Methamphetamine abuse. Opioid abuse. Patient had diuresis with Lasix to continue with the Lasix. Renal insufficiency is improving daily. . 11/14/18 pneumonia with sepsis. Pressure ulcer right back. Pressure ulcer sacrum. Cellulitis. A. fib with RVR. Acute renal failure. CAD. Homeless. Malnutrition. Dehydration. Positive for meth and opioids. Chronic lymphocytic leukemia. Patient was stable this morning. Enlarged scrotum resolved. Anasarca. . 11/15/18. Chronic lymphocytic leukemia. Sepsis. Resolved. UTI resolved. Drug and alcohol abuse. Acute renal insufficiency. T6 compression fracture. A. fib with RVR. Tobaccoism. Cellulitis. Diabetes. Coronary artery disease. Metabolic acidosis. Diastolic congestive heart failure. Patient improving . 11/16/18 CLL. UTI resolved. Drug and alcohol abuse. Acute renal insufficiency resolved. Urinating. A. fib with RVR. Tobaccoism. Cellulitis. Coronary artery disease. Diastolic congestive heart failure. Patient to have 1 more day of IV antibiotics.. . 11/17/18. CLL. UTI. Drug and alcohol abuse. Acute renal insufficiency. A. fib with RVR. Tobaccoism. Cellulitis. Pneumonia. Coronary artery disease. Diastolic congestive heart failure. Patient feeling good. White blood cell count decreasing has CLL. No elevated temperature. Meropenem given for 5 days Clinical Quality Measures DVT/VTE Risk/Contraindication: Risk Factor Score Per Nursin RFS Level Per Nursing on Admit: 4+=Very High GUILLERMINA MORILLO DO Nov 17, 2018 07:46
--- NOTE | 2018-11-17 07:51 | Discharge Inst-Skilled Nursing ---
Discharge Inst-Skilled NF Reconcile Patient Problems Problems Reviewed?: Yes Patient Instructions Patient Problems: Pneumonia. COPD. Sepsis. A. fib with RVR. Consult/Follow Up/Orders Follow Up Appt.: One week in the office Skilled NF Admit to: [facility] ([facility]) I certify that SNF services are required to be given on an inpatient basis because of the above named patient's need for nursing home care on a continuing basis for the conditions(s) for which he/she was receiving inpatient hospital services prior to his/her transfer to the [facility]. Jail Facility Order: Slot Floorperson-Evaluate & Treat, Physical Therapy-Evaluate & Treat Oxygen Delivery Method: Nasal Cannula Discharge Diet: ADA Diet Daily Activity as Tolerated: Yes New & Resume Previous Orders García Morillo Nov 17, 2018 07:49 GARCÍA MORILLO DO Nov 17, 2018 07:51
[2018-11-17 08:00] VITALS: BP 106/70
[2018-11-17] MEDS: PANTOPRAZOLE 40 MG (PROTONIX) TAB PO SCH (08:40)
[2018-11-17] MEDS: ENOXAPARIN 100 MG/1 ML (LOVENOX) SYR SC SCH (08:41)
[2018-11-17] MEDS: meTOproloL SUCCINATE 50 MG (TOPROL XL) TAB PO SCH (08:41)
[2018-11-17] MEDS: AMIODARONE 200 MG (CORDARONE) TAB PO SCH (08:41)
--- NOTE | 2018-11-17 09:07 | Occupational Ther Daily Note ---
OT Current Status-Daily Note Subjective Pt seen in room, up in bed, agreeable to OT. No pain mentioned. pt reported he is planning to DC today to retirement. Appearance Alert, cooperative Mental Status/Objective Therapy Code Descriptions/Definitions Functional [place] Measure: 0=Not Assessed/NA 4=Minimal Assistance 1=Total Assistance 5=Supervision or Setup 2=Maximal Assistance 6=Modified [place] 3=Moderate Assistance 7=Complete [place] Other Treatment Pt education several different bilat UE exercises that he can do on his own in room to strengthen arms to help with transfers and functional mobility. Pt completed 10 reps each exercise, then return demo 5 reps without additional cues. No added resistance at this time. Pt required brief recovery period after each set of exercises, on O2 nc. Pt left up in room, all needs met. Education OT Patient Education: Home exercise program, Purpose of tx/functional activities Teaching Recipient: Patient Teaching Methods: Demonstration Response to Teaching: Verbalize Understanding, Return Demonstration OT Short Term Goals Short Term Goals Time Frame: Nov 15, 2018 Eating(FIM): 5 Grooming(FIM): 4 (met) Bathing(FIM): 3 Upper Body Dressing(FIM): 4 Lower Body Dressing(FIM): 4 Toileting(FIM): 4 Transfers (B,C,W/C) (FIM): 3 Toilet/Commode Transfer(FIM): 5 Shower Transfer(FIM): 4 Additional Short Term Goals: 1-Demonstrate ADL Tasks, 2-Verbalize Understanding, 3-ImproveStrength/Tg 1=Demonstrate adherence to instructed precautions during ADL tasks. 2=Patient will verbalize/demonstrate understanding of assistive devices/modifications for ADL. 3=Patient will improve strength/tolerance for activity to enable patient to perform ADL's. OT [facility]ci Goals Province Archivist Goals Time Frame: Nov 29, 2018 Eating (FIM): 7 Grooming(FIM): 6 Bathing(FIM): 5 Upper Body Dressing(FIM): 6 Lower Body Dressing(FIM): 6 Toileting(FIM): 6 Transfers (B,C,W/C) (FIM): 6 Toilet/Commode Transfer(FIM): 6 Shower Transfer(FIM): 5 Additional Goals: 1-Demonstrate ADL Tasks, 2-Verbalize Understanding, 3- ImproveStrength/Tg 1=Demonstrate adherence to instructed precautions during ADL tasks. 2=Patient will verbalize/demonstrate understanding of assistive devices/modifications for ADL. 3=Patient will improve strength/tolerance for activity to enable patient to perform ADL's. OT Education/Plan Discharge Recommendations Plan/Recommendations: Continue POC Treatment Plan/Plan of Care Patient would benefit from OT for education, treatment and training to promote independence in ADL's, mobility, safety and/or upper extremity function for ADL's. Plan of Care: ADL Retraining, Functional Mobility, UE Funct Exercise/Act Treatment Duration: Nov 29, 2018 Frequency: 5 times per week Estimated Hrs Per Day: .25 hour per day Agreement: Yes Rehab Potential: Poor Time/GCodes Start Time: 08:50 Stop Time: 09:00 Total Time Billed (hr/min): 10 Billed Treatment Time visit, 10 minutes exercise WESTON GIVENS OT Nov 17, 2018 09:07
--- NOTE | 2018-11-17 09:07 | Pulmonary Progress Note ---
Subjective Time Seen by a Provider: 09:03 Subjective/Events-last exam No complications noted. Sepsis Event Evaluation Height, Weight, BMI Height: 5'9.00" Weight: 205lbs. 9.5oz. [id number]; 23.22 BMI Method:Stated Focused Exam Time of Focused Exam: 07:00 Exam Exam Vital Signs Date Time Temp Pulse Resp B/P (MAP) Pulse Ox O2 Delivery O2 Flow Rate FiO2 11/17/18 07:12 92 Nasal Cannula 2.00 11/17/18 07:00 62 11/17/18 04:00 36.4 64 20 103/67 (79) 90 Nasal Cannula 2.00 11/17/18 01:28 66 11/17/18 00:00 36.6 65 21 105/61 (76) 91 Nasal Cannula 2.00 11/16/18 21:00 Nasal Cannula 2.00 11/16/18 20:50 36.0 67 22 102/60 (74) 92 Nasal Cannula 2.00 11/16/18 19:46 92 Nasal Cannula 2.00 11/16/18 19:00 65 11/16/18 16:07 35.4 60 18 122/64 (83) 94 Nasal Cannula 2.00 11/16/18 13:43 37.2 74 93 11/16/18 13:00 67 11/16/18 11:37 93 Nasal Cannula 2.00 I & O 11/17/18 07:00 Intake Total 1430 ml Output Total 200 ml Balance 1230 ml Height & Weight Height: 5'9.00" Weight: 205lbs. 9.5oz. [id number]; 23.22 BMI Method:Stated General Appearance: No Apparent Distress HEENT: Normal ENT Inspection Neck: Full Range of Motion Respiratory: Lungs Clear, No Accessory Muscle Use, No Respiratory Distress Cardiovascular: Regular Rate, Rhythm, No Murmur Capillary Refill: Less Than 3 Seconds Peripheral Pulses: 2+ Radial Pulses (R), 2+ Radial Pulses (L) Gastrointestinal: non tender, soft Extremity: Normal Capillary Refill, Normal Inspection, No Pedal Edema Neurologic/Psychiatric: Alert, Oriented x3 Skin: Normal Color, Warm/Dry Results Lab Laboratory Tests 11/16/18 04:45 11/17/18 03:30 11/17/18 06:43 Assessment/Plan Assessment/Plan Pna with sepsis - Merrem currently switch to PO Levaquin for discharge. Afib -cardiology following Malnutrition/hypoalbuminemia -Monitor -Dysphagia II diet Pt states he has hx of CLL and refused treatment in past -Oncology consulted ETOH dependance -monitor -Education Diastolic CHF grade II per echo -Consult cardiology Hypokalemia -replace and recheck Cellulitis on back -Wound care Multisubstance drug use -UDS positive for methamphetamine Afib RVR -Consult cardiology Renal insufficiency -monitor Homeless Dehydration CAD PT is ok for discharge from pulmonary standpoint. AGUS HADLEY DO Nov 17, 2018 09:07
--- NOTE | 2018-11-17 11:13 | NUR ---
CM/SS discharge information faxed to [facility]. They will transport this day at 1300.
[2018-11-17] MEDS ORDERED: AMIO200T4 PO (11:16)
[2018-11-17] MEDS ORDERED: IPRA3AMP31 INH (11:16)
[2018-11-17] MEDS ORDERED: METO-370 PO (11:16)
[2018-11-17] MEDS ORDERED: PANT40TA3 PO (11:16)
[2018-11-17] MEDS ORDERED: DILT30TA PO (11:16)
[2018-11-17] MEDS ORDERED: FURO10VI PO (11:16)
--- NOTE | 2018-11-17 12:00 | NUR ---
called fei office as instructed. tre out of office at this time
[2018-11-17 13:00] VITALS: BP 106/70
--- NOTE | 2018-11-17 13:30 | NUR ---
report called to Marlin CASTELLANOS at [facility]
--- NOTE | 2018-11-17 14:20 | Cardiology Progress Note ---
Cardiology SOAP Progress Note Subjective: No further cardiac complaints. Objective: I&O/Vital Signs 11/17/18 11/17/18 11/17/18 11/17/18 04:00 07:00 07:12 08:00 Temp 36.4 36.8 Pulse 64 62 69 Resp 20 20 B/P (MAP) 103/67 (79) 106/70 (82) Pulse Ox 90 92 91 O2 Delivery Nasal Cannula Nasal Cannula Nasal Cannula O2 Flow Rate 2.00 2.00 2.00 11/17/18 11/17/18 11/17/18 09:00 12:31 13:00 Temp 36.8 Pulse 67 67 Resp 20 B/P (MAP) 106/70 Pulse Ox 91 O2 Delivery Nasal Cannula Nasal Cannula O2 Flow Rate 2.00 2.00 11/17/18 00:00 Intake Total 880 ml Output Total 200 ml Balance 680 ml Weight (Pounds): 205 Weight (Ounces): 9.5 Weight (Calculated Kilograms): [id number] Constitutional: appears stated age; No apparent distress; well-developed, well- nourished, other (Very sleepy. Noncommunicative) Respiratory: chest is bilaterally symmetric, lungs clear to auscultation Cardiovascular: regular rate-rhythm, S1 and S2 Gastrointestional: soft, round, audible bowel sounds; No spleenomegaly Extremities: normal range of motion, non-tender, normal inspection; No clubbing, No cyanosis; no lower extremity edema bilateral; No significant edema Neurologic/Psychiatric: other (Not communicating) Skin: rash, other (MOST OF BACK WITH ERYTHEMA AND INDURATION, WITH WOUND TO LOWER BACK. NO DRAINAGE AT THIS TIME. ) Results/Procedures: Labs Laboratory Tests 11/16/18 16:05: Glucometer 141H 11/16/18 20:34: Glucometer 180H 11/17/18 03:30: Sodium Level 140, Potassium Level 3.3L, Chloride Level 102, Carbon Dioxide Level 32, Anion Gap 6, Blood Urea Nitrogen 49H, Creatinine 1.16, Estimat Glomerular Filtration Rate > 60, BUN/Creatinine Ratio 42, Glucose Level 117H, Calcium Level 7.4L 11/17/18 05:26: Glucometer 123H 11/17/18 06:43: White Blood Count 68.6*H, Red Blood Count 3.51L, Hemoglobin 11.4L, Hematocrit 35L, Mean Corpuscular Volume 100H, Mean Corpuscular Hemoglobin 32, Mean Corpuscular Hemoglobin Concent 33, Red Cell Distribution Width 14.6H, Platelet Count 410H, Mean Platelet Volume 11.8H, Neutrophils (%) (Auto) 26L, Lymphocytes (%) (Auto) 73H, Monocytes (%) (Auto) 1, Eosinophils (%) (Auto) 0, Basophils (%) (Auto) 0, Neutrophils # (Auto) 17.8H, Lymphocytes # (Auto) 49.9H, Monocytes # (Auto) 0.7, Eosinophils # (Auto) 0.2, Basophils # (Auto) 0.1, Sodium Level 139, Potassium Level 3.5L, Chloride Level 102, Carbon Dioxide Level 33H, Anion Gap 4L , Blood Urea Nitrogen 47H, Creatinine 1.21, Estimat Glomerular Filtration Rate 59, BUN/Creatinine Ratio 39, Glucose Level 118H, Calcium Level 7.9L Microbiology 11/05/18 Blood Culture - Final, Complete No growth 11/05/18 Influenza Types A,B Antigen (CHRIS) - Final, Complete 11/05/18 Urine Culture - Final, Complete NO GROWTH 11/05/18 Gram Stain - Final, Complete 11/05/18 Wound Culture - Final, Complete Staphylococcus aureus See Comments A/P: Assessment/Dx: septic shock, significantly improved. Diabetes, Atrial fibrillation with rapid ventricular rate, converted to sinus rhythm Source of infection unclear could be cellulitis, Acute diastolic congestive heart failure Acute kidney injury Elevated LFTs, Metabolic acidosis, active smoker, heavy alcohol use, Drug abuse. Plan: Septic shock, significantly improved. Resolved. Atrial fibrillation with rapid ventricular rate and transferred to the ICU on . Given Cardizem infusion and amiodarone infusion. Patient converted to sinus rhythm. Amiodarone infusion changed to by mouth amiodarone. Patient did not want oral anticoagulation therapy. Currently in sinus rhythm. Decreased dose of amiodarone for 400 mg daily to 200 mg daily. Patient can be discharged on amiodarone 200 mg daily. 30 day event monitor. Follow-up in the office after event monitor is done. Patient refused oral anticoagulation therapy. He understands the risk. Acute diastolic congestive heart failure, Echocardiogram showed normal LV function with mild to moderate diastolic dysfunction. Acute kidney injury, resolved. Aggressive control of diabetes. Elevated LFTs likely due to septic shock. Resolved. Metabolic acidosis, lactic acidosis likely due to severe sepsis. Resolved. active smoker, heavy alcohol use, detoxification Drug abuse. CLL, defer to the primary team. Thank you for your consultation. Please call me if you have any questions. Vaughn Medellin MD, FACP, FACC, FSCAI, FHRS, CCDS Interventional Cardiology Cardiac Electrophysiology Vascular Medicine and Endovascular Interventions Focused Exam Time of Focused Exam: 07:00 Roman MEDELLIN MD Nov 17, 2018 14:20
--- NOTE | 2018-11-18 07:41 | Discharge Summary ---
Diagnosis/Chief Complaint Date of Admission Nov 05, 2018 at 06:30 Date of Discharge Nov 17, 2018 at 13:15 Discharge Date: Nov 17, 2018 Discharge Time: 07:37 Discharge Diagnosis Sepsis with septic shock. Sepsis due to methicillin susceptible staph aureus. Alcohol dependence. Anxiety disorder. Coronary artery disease. Cellulitis of back. Chronic kidney disease. CLL. COPD. Dehydration. Homelessness. Nicotine dependence. Pneumonia. Hyperlipidemia. Diabetes. Urinary tract infection. A. fib with AVR Discharge Summary Consultations Cardiology. Oncology. Pulmonology Discharge Physical Examination Allergies: Coded Allergies: Penicillins (Unverified Allergy, Mild, 03/28/09) Vitals & I&Os Vital Signs Date Time Temp Pulse Resp B/P (MAP) Pulse Ox O2 Delivery O2 Flow Rate FiO2 11/17/18 13:00 36.8 67 20 106/70 91 Nasal Cannula 2.00 Hospital Course Patient had a rough course. Patient didn't better on discharge. Patient sent to [facility] (last 24 hrs) Laboratory Tests 11/05/18 05:30: White Blood Count 49.1*H, Red Blood Count 4.70, Hemoglobin 15.1, Hematocrit 44, Mean Corpuscular Volume 94, Mean Corpuscular Hemoglobin 32, Mean Corpuscular Hemoglobin Concent 34, Red Cell Distribution Width 13.9, Platelet Count 256, Mean Platelet Volume 11.1H, Neutrophils (%) (Auto) 27L, Lymphocytes (%) (Auto) 72H, Monocytes (%) (Auto) 1, Eosinophils (%) (Auto) 0, Basophils (%) (Auto) 0, Neutrophils # (Auto) 13.0H, Lymphocytes # (Auto) 35.5H, Monocytes # (Auto) 0.5, Eosinophils # (Auto) 0.0, Basophils # (Auto) 0.1, Neutrophils % (Manual) 32, Lymphocytes % (Manual) 65, Monocytes % (Manual) 2, Blast Cells 1, Prothrombin Time 15.2H, INR Comment 1.2, Activated Partial Thromboplast Time 30, Sodium Level 133L, Potassium Level 5.0, Chloride Level 99, Carbon Dioxide Level 19L, Anion Gap 15H, Blood Urea Nitrogen 83H, Creatinine 2.80H, Estimat Glomerular Filtration Rate 22, BUN/Creatinine Ratio 30, Glucose Level 110H, Lactic Acid Level 3.34*H, Calcium Level 9.1, Corrected Calcium 10.1, Magnesium Level 2.3, Total Bilirubin 1.5H, Aspartate Amino Transf (AST/SGOT) 35H, Alanine Aminotransf erase (ALT/SGPT) 23, Alkaline Phosphatase 192H, Total Protein 5.6L, Albumin 2.8L , Amylase Level 16L, Lipase 4L, Serum Alcohol < 10 11/05/18 06:00: Blood Gas Puncture Site RIGHT RADIAL, Blood Gas Patient Temperature 35.8, Arterial Blood pH 7.38, Arterial Blood Partial Pressure CO2 27L, Arterial Blood Partial Pressure O2 88, Arterial Blood HCO3 16*L, Arterial Blood Total CO2 17.0L , Arterial Blood Oxygen Saturation 98, Arterial Blood Base Excess -8.2L, Federico Test POSITIVE, Blood Gas Ventilator Setting NO, Blood Gas Inspired Oxygen N 11/05/18 06:30: Lab Scanned Report Referred Lab Report 11/05/18 09:27: Urine Color YELLOW, Urine Clarity SL CLOUDY, Urine pH 5, Urine Specific [place] 1.025H, Urine Protein 2+H, Urine Glucose (UA) NEGATIVE, Urine Ketones 1+H, Urine Nitrite NEGATIVE, Urine Bilirubin 1+H, Urine Urobilinogen 4H, Urine Leukocyte Esterase 1+H, Urine RBC (Auto) NEGATIVE, Urine RBC NONE, Urine WBC 0-2, Urine Squamous Epithelial Cells NONE, Urine Crystals PRESENTH, Urine Amorphous Sediment FEW EDA URATESH, Urine Bacteria MODERATEH, Urine Casts PRESENT, Urine Hyaline Casts 2-5H, Urine Granular Casts 10-25H, Urine Mucus NEGATIVE, Urine Culture Indicated CULTURE PENDING, Urine Opiates Screen POSITIVEH, Urine Oxycodone Screen NEGATIVE, Urine Methadone Screen NEGATIVE, Urine Propoxyphene Screen NEGATIVE, Urine Barbiturates Screen NEGATIVE, Ur Tricyclic Antidepressants Screen NEGATIVE, Urine Phencyclidine Screen NEGATIVE, Urine Amphetamines Screen POSITIVEH, Urine Methamphetamines Screen POSITIVEH, Urine Benzodiazepines Screen NEGATIVE, Urine Cocaine Screen NEGATIVE, Urine Cannabinoids Screen NEGATIVE 11/05/18 11:16: Glucometer 119H 11/05/18 16:15: Lactic Acid Level 2.13*H 11/05/18 16:29: Glucometer 148H 11/05/18 18:40: Lactic Acid Level 2.20*H 11/05/18 21:52: Lactic Acid Level 2.29*H 11/05/18 22:42: Glucometer 138H 11/06/18 00:02: Lactic Acid Level 2.42*H 11/06/18 03:20: White Blood Count 78.0*H, Red Blood Count 3.88L, Hemoglobin 12.5L, Hematocrit 37L, Mean Corpuscular Volume 94, Mean Corpuscular Hemoglobin 32, Mean Corpuscular Hemoglobin Concent 34, Red Cell Distribution Width 13.7, Platelet Count 257, Mean Platelet Volume 11.3H, Neutrophils (%) (Auto) 23L, Lymphocytes (%) (Auto) 76H, Monocytes (%) (Auto) 1, Eosinophils (%) (Auto) 0, Basophils (%) (Auto) 0, Neutrophils # (Auto) 17.9H, Lymphocytes # (Auto) 59.0H, Monocytes # (Auto) 1.0, Eosinophils # (Auto) 0.1, Basophils # (Auto) 0.1, Neutrophils % (Manual) 35, Lymphocytes % (Manual) 62, Monocytes % (Manual) 3, Sodium Level 136, Potassium Level 5.1H, Chloride Level 111#H, Carbon Dioxide Level 13L, Anion Gap 12, Blood Urea Nitrogen 101*H, Creatinine 2.72H, Estimat Glomerular Filtration Rate 23, BUN/Creatinine Ratio 37, Glucose Level 145H, Calcium Level 7.5L, Corrected Calcium 9.1, Phosphorus Level 6.4H, Magnesium Level 2.6H, Total Bilirubin 0.8, Aspartate Amino Transf (AST/SGOT) 23, Alanine Aminotransferase (ALT/SGPT) 19, Alkaline Phosphatase 135, Total Protein 4.3L, Albumin 2.0L 11/06/18 10:10: Blood Gas Puncture Site RT RAD, Blood Gas Patient Temperature 36.4, Arterial Blood pH 7.34*L, Arterial Blood Partial Pressure CO2 28L, Arterial Blood Partial Pressure O2 68L, Arterial Blood HCO3 15*L, Arterial Blood Total CO2 15.7L, Arterial Blood Oxygen Saturation 92L, Arterial Blood Base Excess -9.9L, Federico Test YES-POS, Blood Gas Ventilator Setting NO, Blood Gas Inspired Oxygen 1 L 11/06/18 12:11: Glucometer 135H 11/06/18 19:53: Glucometer 183H 11/06/18 23:21: Glucometer 210H 11/07/18 03:11: White Blood Count 66.1*H, Red Blood Count 3.59L, Hemoglobin 11.4L, Hematocrit 34L, Mean Corpuscular Volume 93, Mean Corpuscular Hemoglobin 32, Mean Corpuscular Hemoglobin Concent 34, Red Cell Distribution Width 13.9, Platelet Count 230, Mean Platelet Volume 10.8H, Neutrophils (%) (Auto) 30L, Lymphocytes (%) (Auto) 69H, Monocytes (%) (Auto) 1, Eosinophils (%) (Auto) 0, Basophils (%) (Auto) 0, Neutrophils # (Auto) 19.5H, Lymphocytes # (Auto) 45.7H, Monocytes # (Auto) 0.9, Eosinophils # (Auto) 0.0, Basophils # (Auto) 0.1, Neutrophils % (Manual) 47, Lymphocytes % (Manual) 46, Monocytes % (Manual) 1, Eosinophils % (Manual) 0, Basophils % (Manual) 0, Band Neutrophils 5, Reactive Lymphocytes 1, Smudge Cells MOD, Toxic Granulation 1+, Chalino Cells SLIGHT, Absolute Reticulocyte Count 40, Percent Reticulocyte Count 1.11, Sodium Level 138, Potassium Level 4.8, Chloride Level 114H, Carbon Dioxide Level 14L, Anion Gap 10, Blood Urea Nitrogen 108*H, Creatinine 2.48H, Estimat Glomerular Filtration Rate 26, BUN/Creatinine Ratio 44, Glucose Level 181H, Lactic Acid Level 1.31, Calcium Level 7.4L, Corrected Calcium 9.1, Phosphorus Level 6.0H, Magnesium Level 3.0H, Total Bilirubin 0.7, Aspartate Amino Transf (AST/SGOT) 19, Alanine Aminotransferase (ALT/SGPT) 18, Alkaline Phosphatase 119, Total Protein 3.9L, Albumin 1.9L 11/07/18 11:24: Glucometer 214H 11/07/18 11:25: 11/07/18 18:22: Glucometer 180H 11/07/18 23:54: Glucometer 187H 11/08/18 03:00: White Blood Count 51.9*H, Red Blood Count 3.27L, Hemoglobin 10.4L, Hematocrit 31L, Mean Corpuscular Volume 94, Mean Corpuscular Hemoglobin 32, Mean Corpuscular Hemoglobin Concent 34, Red Cell Distribution Width 14.0, Platelet Count 169, Mean Platelet Volume 11.2H, Neutrophils (%) (Auto) 38L, Lymphocytes (%) (Auto) 61H, Monocytes (%) (Auto) 1, Eosinophils (%) (Auto) 0, Basophils (%) (Auto) 0, Neutrophils # (Auto) 19.7H, Lymphocytes # (Auto) 31.7H, Monocytes # (Auto) 0.5, Eosinophils # (Auto) 0.0, Basophils # (Auto) 0.1, Sodium Level 143, Potassium Level 4.6, Chloride Level 119H, Carbon Dioxide Level 16L, Anion Gap 8, Blood Urea Nitrogen 100*H, Creatinine 2.10H, Estimat Glomerular Filtration Rate 31, BUN/Creatinine Ratio 48, Glucose Level 181H, Calcium Level 7.6L, Corrected Calcium 9.2, Phosphorus Level 5.6H, Magnesium Level 3.4H, Total Bilirubin 0.8, Aspartate Amino Transf (AST/SGOT) 29, Alanine Aminotransferase (ALT/SGPT) 16, Alkaline Phosphatase 138H, Total Protein 4.2L, Albumin 2.0L, Immunoglobulin G 592L, Immunoglobulin A 159, Immunoglobulin M 81 11/08/18 08:20: Vancomycin Level Trough 13.8 11/08/18 12:08: Glucometer 177H 11/08/18 18:23: Glucometer 170H 11/09/18 00:04: Glucometer 155H 11/09/18 05:18: White Blood Count 67.3*H, Red Blood Count 3.36L, Hemoglobin 10.6L, Hematocrit 32L, Mean Corpuscular Volume 95, Mean Corpuscular Hemoglobin 32, Mean Corpuscular Hemoglobin Concent 33, Red Cell Distribution Width 14.5, Platelet Count 239, Mean Platelet Volume 11.2H, Neutrophils (%) (Auto) 31L, Lymphocytes (%) (Auto) 69H, Monocytes (%) (Auto) 0, Eosinophils (%) (Auto) 0, Basophils (%) (Auto) 0, Neutrophils # (Auto) 20.7H, Lymphocytes # (Auto) 46.2H, Monocytes # (Auto) 0.3, Eosinophils # (Auto) 0.0, Basophils # (Auto) 0.1, Sodium Level 143, Potassium Level 4.3, Chloride Level 119H, Carbon Dioxide Level 17L, Anion Gap 7, Blood Urea Nitrogen 96H, Creatinine 1.70H, Estimat Glomerular Filtration Rate 40, BUN/Creatinine Ratio 56, Glucose Level 159H, Calcium Level 7.6L, Corrected C alcium 9.0, Phosphorus Level 4.3, Magnesium Level 3.1H, Total Bilirubin 0.8, Aspartate Amino Transf (AST/SGOT) 35H, Alanine Aminotransferase (ALT/SGPT) 24, Alkaline Phosphatase 197H, B-Type Natriuretic Peptide 1257.9H, Total Protein 4.7L, Albumin 2.2L 11/09/18 10:50: Urine Color YELLOW, Urine Clarity CLEAR, Urine pH 6, Urine Specific [place] 1.015L, Urine Protein 2+H, Urine Glucose (UA) NEGATIVE, Urine Ketones NEGATIVE, Urine Nitrite NEGATIVE, Urine Bilirubin NEGATIVE, Urine Urobilinogen NORMAL, Urine Leukocyte Esterase 1+H, Urine RBC (Auto) 1+H, Urine RBC 0-2, Urine WBC 2- 5, Urine Crystals NONE, Urine Bacteria FEWH, Urine Casts PRESENT, Urine Coarse Granular Casts 10-25H, Urine Mucus NEGATIVE, Urine Culture Indicated NO 11/09/18 11:19: Glucometer 181H 11/09/18 16:15: Glucometer 211H 11/09/18 21:45: Glucometer 171H 11/10/18 05:38: White Blood Count 70.2*H, Red Blood Count 3.47L, Hemoglobin 10.9L, Hematocrit 34L, Mean Corpuscular Volume 97, Mean Corpuscular Hemoglobin 31, Mean Corpuscular Hemoglobin Concent 33, Red Cell Distribution Width 14.8H, Platelet Count 243, Mean Platelet Volume 11.7H, Neutrophils (%) (Auto) 31L, Lymphocytes (%) (Auto) 68H, Monocytes (%) (Auto) 1, Eosinophils (%) (Auto) 0, Basophils (%) (Auto) 0, Neutrophils # (Auto) 21.7H, Lymphocytes # (Auto) 47.6H, Monocytes # (Auto) 0.8, Eosinophils # (Auto) 0.0, Basophils # (Auto) 0.1, Sodium Level 147H, Potassium Level 4.4, Chloride Level 122H, Carbon Dioxide Level 18L, Anion Gap 7, Blood Urea Nitrogen 78H, Creatinine 1.44H, Estimat Glomerular Filtration Rate 48, BUN/Creatinine Ratio 54, Glucose Level 231H, Calcium Level 7.7L, Corrected Calcium 9.1, Phosphorus Level 3.7, Magnesium Level 2.7H, Total Bilirubin 0.7, Aspartate Amino Transf (AST/SGOT) 32, Alanine Aminotransferase (ALT/SGPT) 26, Alkaline Phosphatase 205H, Total Protein 4.8L, Albumin 2.3L, Smear Scan 11/10/18 05:40: Glucometer 197H 11/10/18 11:04: Glucometer 243H 11/10/18 16:13: Glucometer 253H 11/10/18 20:58: Glucometer 232H 11/11/18 04:34: White Blood Count 74.7*H, Red Blood Count 3.68L, Hemoglobin 11.4L, Hematocrit 36L, Mean Corpuscular Volume 97, Mean Corpuscular Hemoglobin 31, Mean Corpuscular Hemoglobin Concent 32, Red Cell Distribution Width 14.9H, Platelet Count 288, Mean Platelet Volume 11.9H, Neutrophils (%) (Auto) 31L, Lymphocytes (%) (Auto) 69H, Monocytes (%) (Auto) 0, Eosinophils (%) (Auto) 0, Basophils (%) (Auto) 0, Neutrophils # (Auto) 22.9H, Lymphocytes # (Auto) 51.6H, Monocytes # (Auto) 0.2, Eosinophils # (Auto) 0.0, Basophils # (Auto) 0.1, Neutrophils % (Manual) 36, Monocytes % (Manual) 1, Band Neutrophils 2, Atypical Lymphocytes 61, Smudge Cells MARKED, Toxic Granulation 1+, Anisocytosis SLIGHT, Rouleau SLIGHT, Sodium Level 148H, Potassium Level 4.2, Chloride Level 120H, Carbon Dioxide Level 21, Anion Gap 7, Blood Urea Nitrogen 71H, Creatinine 1.27, Estimat Glomerular Filtration Rate 56, BUN/Creatinine Ratio 56, Glucose Level 200H, Calcium Level 7.6L, Corrected Calcium 9.0, Phosphorus Level 3.1, Magnesium Level 2.4, Total Bilirubin 0.7, Aspartate Amino Transf (AST/SGOT) 29, Alanine Aminotransferase (ALT/SGPT) 32, Alkaline Phosphatase 241H, B-Type Natriuretic Peptide 2380.9H, Total Protein 4.7L, Albumin 2.2L 11/11/18 08:32: Vancomycin Level Trough 17.5 11/11/18 09:55: Blood Gas Puncture Site RIGHT RADIAL, Blood Gas Patient Temperature 36.5, Arterial Blood pH 7.40, Arterial Blood Partial Pressure CO2 31L, Arterial Blood Partial Pressure O2 65L, Arterial Blood HCO3 19L, Arterial Blood Total CO2 20.1L , Arterial Blood Oxygen Saturation 93L, Arterial Blood Base Excess -4.9L, Federico Test POSITIVE, Blood Gas Ventilator Setting NO, Blood Gas Inspired Oxygen 3.5 11/11/18 11:56: Glucometer 195H 11/11/18 15:46: Glucometer 202H 11/11/18 20:50: Glucometer 272H 11/12/18 03:56: White Blood Count 86.3*H, Red Blood Count 3.73L, Hemoglobin 11.8L, Hematocrit 37L, Mean Corpuscular Volume 98, Mean Corpuscular Hemoglobin 32, Mean Corpuscular Hemoglobin Concent 32, Red Cell Distribution Width 14.9H, Platelet Count 294, Mean Platelet Volume 12.4H, Neutrophils (%) (Auto) 30L, Lymphocytes (%) (Auto) 70H, Monocytes (%) (Auto) 0, Eosinophils (%) (Auto) 0, Basophils (%) (Auto) 0, Neutrophils # (Auto) 25.7H, Lymphocytes # (Auto) 60.3H, Monocytes # (Auto) 0.2, Eosinophils # (Auto) 0.0, Basophils # (Auto) 0.1, Neutrophils % (Manual) 51, Lymphocytes % (Manual) 5, Atypical Lymphocytes 44, Smudge Cells MARKED, Toxic Granulation 1+, Anisocytosis SLIGHT, Sodium Level 149H, Potassium Level 3.7, Chloride Level 116H, Carbon Dioxide Level 21, Anion Gap 12, Blood Urea Nitrogen 67H, Creatinine 1.33H, Estimat Glomerular Filtration Rate 53, BUN/Creatinine Ratio 50, Glucose Level 268H, Calcium Level 7.4L, Corrected Calcium 8.8, Phosphorus Level 3.6, Magnesium Level 2.1, Total Bilirubin 0.6, Aspartate Amino Transf (AST/SGOT) 31, Alanine Aminotransferase (ALT/SGPT) 37, Alkaline Phosphatase 207H, B-Type Natriuretic Peptide 1495.3H, Total Protein 4.9L, Albumin 2.3L 11/12/18 11:02: Glucometer 279H 11/12/18 16:19: Glucometer 291H 11/12/18 17:48: Sodium Level 145, Potassium Level 3.5L, Chloride Level 111H, Carbon Dioxide Level 21, Anion Gap 13, Blood Urea Nitrogen 65H, Creatinine 1.48H, Estimat Glomerular Filtration Rate 47, BUN/Creatinine Ratio 44, Glucose Level 347H, Calcium Level 7.3L 11/12/18 21:28: Glucometer 200H 11/13/18 02:54: Sodium Level 145, Potassium Level 3.5L, Chloride Level 113H, Carbon Dioxide Level 25, Anion Gap 7, Blood Urea Nitrogen 65H, Creatinine 1.25, Estimat Glomerular Filtration Rate 57, BUN/Creatinine Ratio 52, Glucose Level 191H, Calcium Level 7.5L, White Blood Count 83.8*H, Red Blood Count 3.68L, Hemoglobin 11.7L, Hematocrit 36L, Mean Corpuscular Volume 99, Mean Corpuscular Hemoglobin 32, Mean Corpuscular Hemoglobin Concent 32, Red Cell Distribution Width 14.9H, Platelet Count 334, Mean Platelet Volume 12.3H, Neutrophils (%) (Auto) 31L, Lymphocytes (%) (Auto) 68H, Monocytes (%) (Auto) 1, Eosinophils (%) (Auto) 0, Basophils (%) (Auto) 0, Neutrophils # (Auto) 25.7H, Lymphocytes # (Auto) 57.2H, Monocytes # (Auto) 0.8, Eosinophils # (Auto) 0.0, Basophils # (Auto) 0.1, Corrected Calcium 8.9, Phosphorus Level 2.8, Magnesium Level 1.8, Total Bilirubin 0.6, Aspartate Amino Transf (AST/SGOT) 30, Alanine Aminotransferase (ALT/SGPT) 36, Alkaline Phosphatase 213H, Total Protein 4.6L, Albumin 2.2L, Smear Scan YES 11/13/18 10:48: Glucometer 201H 11/13/18 16:22: Glucometer 199H 11/13/18 20:05: Glucometer 235H 11/14/18 05:50: White Blood Count 78.4*H, Red Blood Count 3.70L, Hemoglobin 11.6L, Hematocrit 37L, Mean Corpuscular Volume 100H, Mean Corpuscular Hemoglobin 31, Mean Corpuscular Hemoglobin Concent 31L, Red Cell Distribution Width 14.7H, Platelet Count 327, Mean Platelet Volume 12.5H, Neutrophils (%) (Auto) 31L, Lymphocytes (%) (Auto) 69H, Monocytes (%) (Auto) 0, Eosinophils (%) (Auto) 0, Basophils (%) (Auto) 0, Neutrophils # (Auto) 24.0H, Lymphocytes # (Auto) 54.0H, Monocytes # (Auto) 0.2, Eosinophils # (Auto) 0.1, Basophils # (Auto) 0.1, Sodium Level 147H, Potassium Level 3.9, Chloride Level 111H, Carbon Dioxide Level 26, Anion Gap 10, Blood Urea Nitrogen 58H, Creatinine 1.22, Estimat Glomerular Filtration Rate 58, BUN/Creatinine Ratio 48, Glucose Level 168H, Calcium Level 7.3L, Corrected Calcium 8.8, Phosphorus Level 3.0, Magnesium Level 1.8, Total Bilirubin 0.6, Aspartate Amino Transf (AST/SGOT) 24, Alanine Aminotransferase (ALT/SGPT) 34, Alkaline Phosphatase 195H, Total Protein 4.3L, Albumin 2.1L, Smear Scan YES 11/14/18 06:01: Glucometer 192H 11/14/18 11:06: Glucometer 190H 11/14/18 16:41: Glucometer 182H 11/14/18 20:32: Glucometer 282H 11/15/18 04:50: White Blood Count 74.4*H, Red Blood Count 3.66L, Hemoglobin 11.6L, Hematocrit 36L, Mean Corpuscular Volume 100H, Mean Corpuscular Hemoglobin 32, Mean Corpuscular Hemoglobin Concent 32, Red Cell Distribution Width 14.7H, Platelet Count 372, Mean Platelet Volume 12.1H, Neutrophils (%) (Auto) 30L, Lymphocytes (%) (Auto) 69H, Monocytes (%) (Auto) 1, Eosinophils (%) (Auto) 0, Basophils (%) (Auto) 0, Neutrophils # (Auto) 22.5H, Lymphocytes # (Auto) 50.9H, Monocytes # (Auto) 0.7, Eosinophils # (Auto) 0.1, Basophils # (Auto) 0.1, Sodium Level 145, Potassium Level 3.5L, Chloride Level 108H, Carbon Dioxide Level 29, Anion Gap 8, Blood Urea Nitrogen 56H, Creatinine 1.16, Estimat Glomerular Filtration Rate > 60, BUN/Creatinine Ratio 48, Glucose Level 146H, Calcium Level 7.4L, Corrected Calcium 8.9, Phosphorus Level 2.8, Magnesium Level 1.8, Total Bilirubin 0.5, Aspartate Amino Transf (AST/SGOT) 21, Alanine Aminotransferase (ALT/SGPT) 35, Alkaline Phosphatase 218H, B-Type Natriuretic Peptide 277.0H, Total Protein 4.4L , Albumin 2.1L 11/15/18 05:13: Glucometer 117H 11/15/18 16:26: Glucometer 141H 11/15/18 21:23: Glucometer 148H 11/16/18 04:45: White Blood Count 74.4*H, Red Blood Count 3.70L, Hemoglobin 11.6L, Hematocrit 37L, Mean Corpuscular Volume 101H, Mean Corpuscular Hemoglobin 31, Mean Corpuscular Hemoglobin Concent 31L, Red Cell Distribution Width 14.7H, Platelet Count 406H, Mean Platelet Volume 12.1H, Neutrophils (%) (Auto) 26L, Lymphocytes (%) (Auto) 72H, Monocytes (%) (Auto) 2, Eosinophils (%) (Auto) 0, Basophils (%) (Auto) 0, Neutrophils # (Auto) 19.4H, Lymphocytes # (Auto) 53.6H, Monocytes # (Auto) 1.2H, Eosinophils # (Auto) 0.1, Basophils # (Auto) 0.1, Sodium Level 144, Potassium Level 4.1, Chloride Level 105, Carbon Dioxide Level 29, Anion Gap 10, Blood Urea Nitrogen 51H, Creatinine 1.19, Estimat Glomerular Filtration Rate 60, BUN/Creatinine Ratio 43, Glucose Level 129H, Calcium Level 7.6L, Corrected Calcium 9.0, Phosphorus Level 2.8, Magnesium Level 1.8, Total Bilirubin 0.7, Aspartate Amino Transf (AST/SGOT) 25, Alanine Aminotransferase (ALT/SGPT) 37, Alkaline Phosphatase 181H, Total Protein 4.6L, Albumin 2.3L 11/16/18 05:31: Glucometer 125H 11/16/18 11:02: Glucometer 187H 11/16/18 16:05: Glucometer 141H 11/16/18 20:34: Glucometer 180H 11/17/18 03:30: Sodium Level 140, Potassium Level 3.3L, Chloride Level 102, Carbon Dioxide Level 32, Anion Gap 6, Blood Urea Nitrogen 49H, Creatinine 1.16, Estimat Glomerular Filtration Rate > 60, BUN/Creatinine Ratio 42, Glucose Level 117H, Calcium Level 7.4L 11/17/18 05:26: Glucometer 123H 11/17/18 06:43: Sodium Level 139, Potassium Level 3.5L, Chloride Level 102, Carbon Dioxide Level 33H, Anion Gap 4L, Blood Urea Nitrogen 47H, Creatinine 1.21, Estimat Glomerular Filtration Rate 59, BUN/Creatinine Ratio 39, Glucose Level 118H, Calcium Level 7.9L, White Blood Count 68.6*H, Red Blood Count 3.51L, Hemoglobin 11.4L, Hematocrit 35L, Mean Corpuscular Volume 100H, Mean Corpuscular Hemoglobin 32, Mean Corpuscular Hemoglobin Concent 33, Red Cell Distribution Width 14.6H, Platelet Count 410H, Mean Platelet Volume 11.8H, Neutrophils (%) (Auto) 26L, Lymphocytes (%) (Auto) 73H, Monocytes (%) (Auto) 1, Eosinophils (%) (Auto) 0, Basophils (%) (Auto) 0, Neutrophils # (Auto) 17.8H, Lymphocytes # (Auto) 49.9H, Monocytes # (Auto) 0.7, Eosinophils # (Auto) 0.2, Basophils # (Auto) 0.1 11/17/18 11:01: Glucometer 165H Microbiology 11/05/18 Blood Culture - Final, Complete No growth 11/05/18 Influenza Types A,B Antigen ([facility]) - Final, Complete 11/05/18 Urine Culture - Final, Complete NO GROWTH 11/05/18 Gram Stain - Final, Complete 11/05/18 Wound Culture - Final, Complete Staphylococcus aureus See Comments Laboratory Tests 11/05/18 05:30 11/06/18 03:20 11/07/18 03:11 11/08/18 03:00 11/09/18 05:18 11/10/18 05:38 11/11/18 04:34 11/12/18 03:56 11/12/18 17:48 11/13/18 02:54 11/14/18 05:50 11/15/18 04:50 11/16/18 04:45 11/17/18 03:30 11/17/18 06:43 Pending Labs Microbiology Date/Time Source Procedure Growth Status 11/05/18 05:43 Peripheral Not Otherwise Specified Blood Culture - Final No growth Complete 11/05/18 05:30 Peripheral Lt Ac Blood Culture - Final No growth Complete 11/05/18 11:15 Nasal Aspirate Influenza Types A,B Antigen (CHRIS) - Final Complete 11/05/18 11:15 Nasal MRSA Screen - Final MRSA not isolated Complete 11/05/18 09:27 Urine U Cath,Nos Urine Culture - Final NO GROWTH Complete 11/05/18 23:31 Ulcer :Choose Correct Source Gram Stain - Final Complete 11/05/18 23:31 Wound Culture - Final Staphylococcus aureus See Comments Complete Laboratory Tests 11/05/18 05:30: White Blood Count 49.1, Red Blood Count 4.70, Hemoglobin 15.1, Hematocrit 44, Mean Corpuscular Volume 94, Mean Corpuscular Hemoglobin 32, Mean Corpuscular Hemoglobin Concent 34, Red Cell Distribution Width 13.9, Platelet Count 256, Mean Platelet Volume 11.1, Neutrophils (%) (Auto) 27, Lymphocytes (%) (Auto) 72, Monocytes (%) (Auto) 1, Eosinophils (%) (Auto) 0, Basophils (%) (Auto) 0, Neutrophils # (Auto) 13.0, Lymphocytes # (Auto) 35.5, Monocytes # (Auto) 0.5, Eosinophils # (Auto) 0.0, Basophils # (Auto) 0.1, Neutrophils % (Manual) 32, Lymphocytes % (Manual) 65, Monocytes % (Manual) 2, Blast Cells 1, Prothrombin Time 15.2, INR Comment 1.2, Activated Partial Thromboplast Time 30, Sodium Level 133, Potassium Level 5.0, Chloride Level 99, Carbon Dioxide Level 19, Anion Gap 15, Blood Urea Nitrogen 83, Creatinine 2.80, Estimat Glomerular Filtration Rate 22, BUN/Creatinine Ratio 30, Glucose Level 110, Lactic Acid Level 3.34, Calcium Level 9.1, Corrected Calcium 10.1, Magnesium Level 2.3, Total Bilirubin 1.5, Aspartate Amino Transf (AST/SGOT) 35, Alanine Aminotransferase (ALT/SGPT) 23, Alkaline Phosphatase 192, Total Protein 5.6, Albumin 2.8, Amylase Level 16, Lipase 4, Serum Alcohol < 10 11/05/18 06:00: Blood Gas Puncture Site RIGHT RADIAL, Blood Gas Patient Temperature 35.8, Arterial Blood pH 7.38, Arterial Blood Partial Pressure CO2 27, Arterial Blood Partial Pressure O2 88, Arterial Blood HCO3 16, Arterial Blood Total CO2 17.0, Arterial Blood Oxygen Saturation 98, Arterial Blood Base Excess -8.2, Federico Test POSITIVE, Blood Gas Ventilator Setting NO, Blood Gas Inspired Oxygen N 11/05/18 06:30: Lab Scanned Report Referred Lab Report 11/05/18 09:27: Urine Color YELLOW, Urine Clarity SL CLOUDY, Urine pH 5, Urine Specific [place] 1.025, Urine Protein 2+, Urine Glucose (UA) NEGATIVE, Urine Ketones 1+, Urine Nitrite NEGATIVE, Urine Bilirubin 1+, Urine Urobilinogen 4, Urine Leukocyte Esterase 1+, Urine RBC (Auto) NEGATIVE, Urine RBC NONE, Urine WBC 0-2, Urine Squamous Epithelial Cells NONE, Urine Crystals PRESENT, Urine Amorphous Sediment FEW EDA URATES, Urine Bacteria MODERATE, Urine Casts PRESENT, Urine Hyaline Casts 2-5, Urine Granular Casts 10-25, Urine Mucus NEGATIVE, Urine Culture Indicated CULTURE PENDING, Urine Opiates Screen POSITIVE, Urine Oxycodone Screen NEGATIVE, Urine Methadone Screen NEGATIVE, Urine Propoxyphene Screen NEGATIVE, Urine Barbiturates Screen NEGATIVE, Ur Tricyclic Antidepressants Screen NEGATIVE, Urine Phencyclidine Screen NEGATIVE, Urine Amphetamines Screen POSITIVE, Urine Methamphetamines Screen POSITIVE, Urine Benzodiazepines Screen NEGATIVE, Urine Cocaine Screen NEGATIVE, Urine Cannabinoids Screen NEGATIVE 11/05/18 11:16: Glucometer 119 11/05/18 16:15: Lactic Acid Level 2.13 11/05/18 16:29: Glucometer 148 11/05/18 18:40: Lactic Acid Level 2.20 11/05/18 21:52: Lactic Acid Level 2.29 11/05/18 22:42: Glucometer 138 11/06/18 00:02: Lactic Acid Level 2.42 11/06/18 03:20: White Blood Count 78.0, Red Blood Count 3.88, Hemoglobin 12.5, Hematocrit 37, Mean Corpuscular Volume 94, Mean Corpuscular Hemoglobin 32, Mean Corpuscular Hemoglobin Concent 34, Red Cell Distribution Width 13.7, Platelet Count 257, Mean Platelet Volume 11.3, Neutrophils (%) (Auto) 23, Lymphocytes (%) (Auto) 76, Monocytes (%) (Auto) 1, Eosinophils (%) (Auto) 0, Basophils (%) (Auto) 0, Neutrophils # (Auto) 17.9, Lymphocytes # (Auto) 59.0, Monocytes # (Auto) 1.0, Eosinophils # (Auto) 0.1, Basophils # (Auto) 0.1, Neutrophils % (Manual) 35, Lymphocytes % (Manual) 62, Monocytes % (Manual) 3, Sodium Level 136, Potassium Level 5.1, Chloride Level 111, Carbon Dioxide Level 13, Anion Gap 12, Blood Urea Nitrogen 101, Creatinine 2.72, Estimat Glomerular Filtration Rate 23, BUN/Creatinine Ratio 37, Glucose Level 145, Calcium Level 7.5, Corrected Calcium 9.1, Phosphorus Level 6.4, Magnesium Level 2.6, Total Bilirubin 0.8, Aspartate Amino Transf (AST/SGOT) 23, Alanine Aminotransferase (ALT/SGPT) 19, Alkaline Phosphatase 135, Total Protein 4.3, Albumin 2.0 11/06/18 10:10: Blood Gas Puncture Site RT RAD, Blood Gas Patient Temperature 36.4, Arterial Blood pH 7.34, Arterial Blood Partial Pressure CO2 28, Arterial Blood Partial Pressure O2 68, Arterial Blood HCO3 15, Arterial Blood Total CO2 15.7, Arterial Blood Oxygen Saturation 92, Arterial Blood Base Excess -9.9, Federico Test YES-POS, Blood Gas Ventilator Setting NO, Blood Gas Inspired Oxygen 1 L 11/06/18 12:11: Glucometer 135 11/06/18 19:53: Glucometer 183 11/06/18 23:21: Glucometer 210 11/07/18 03:11: White Blood Count 66.1, Red Blood Count 3.59, Hemoglobin 11.4, Hematocrit 34, Mean Corpuscular Volume 93, Mean Corpuscular Hemoglobin 32, Mean Corpuscular Hemoglobin Concent 34, Red Cell Distribution Width 13.9, Platelet Count 230, Mean Platelet Volume 10.8, Neutrophils (%) (Auto) 30, Lymphocytes (%) (Auto) 69, Monocytes (%) (Auto) 1, Eosinophils (%) (Auto) 0, Basophils (%) (Auto) 0, Neutrophils # (Auto) 19.5, Lymphocytes # (Auto) 45.7, Monocytes # (Auto) 0.9, Eosinophils # (Auto) 0.0, Basophils # (Auto) 0.1, Neutrophils % (Manual) 47, Lymphocytes % (Manual) 46, Monocytes % (Manual) 1, Eosinophils % (Manual) 0, Basophils % (Manual) 0, Band Neutrophils 5, Reactive Lymphocytes 1, Smudge Cells MOD, Toxic Granulation 1+, Mingus Cells SLIGHT, Absolute Reticulocyte Count 40, Percent Reticulocyte Count 1.11, Sodium Level 138, Potassium Level 4.8, Chloride Level 114, Carbon Dioxide Level 14, Anion Gap 10, Blood Urea Nitrogen 108, Creatinine 2.48, Estimat Glomerular Filtration Rate 26, BUN/Creatinine Ratio 44, Glucose Level 181, Lactic Acid Level 1.31, Calcium Level 7.4, Corrected Calcium 9.1, Phosphorus Level 6.0, Magnesium Level 3.0, Total Bilirubin 0.7, Aspartate Amino Transf (AST/SGOT) 19, Alanine Aminotransferase (ALT/SGPT) 18, Alkaline Phosphatase 119, Total Protein 3.9, Albumin 1.9 11/07/18 11:24: Glucometer 214 11/07/18 11:25: Whole Blood Flow Cytometry [Pending], Flow Cytometry Pathologist Review [Pending] 11/07/18 18:22: Glucometer 180 11/07/18 23:54: Glucometer 187 11/08/18 03:00: White Blood Count 51.9, Red Blood Count 3.27, Hemoglobin 10.4, Hematocrit 31, Mean Corpuscular Volume 94, Mean Corpuscular Hemoglobin 32, Mean Corpuscular Hemoglobin Concent 34, Red Cell Distribution Width 14.0, Platelet Count 169, Mean Platelet Volume 11.2, Neutrophils (%) (Auto) 38, Lymphocytes (%) (Auto) 61, Monocytes (%) (Auto) 1, Eosinophils (%) (Auto) 0, Basophils (%) (Auto) 0, Neutrophils # (Auto) 19.7, Lymphocytes # (Auto) 31.7, Monocytes # (Auto) 0.5, E osinophils # (Auto) 0.0, Basophils # (Auto) 0.1, Sodium Level 143, Potassium Level 4.6, Chloride Level 119, Carbon Dioxide Level 16, Anion Gap 8, Blood Urea Nitrogen 100, Creatinine 2.10, Estimat Glomerular Filtration Rate 31, BUN/Creatinine Ratio 48, Glucose Level 181, Calcium Level 7.6, Corrected Calcium 9.2, Phosphorus Level 5.6, Magnesium Level 3.4, Total Bilirubin 0.8, Aspartate Amino Transf (AST/SGOT) 29, Alanine Aminotransferase (ALT/SGPT) 16, Alkaline Phosphatase 138, Total Protein 4.2, Albumin 2.0, Immunoglobulin G 592, Immunoglobulin A 159, Immunoglobulin M 81 11/08/18 08:20: Vancomycin Level Trough 13.8 11/08/18 12:08: Glucometer 177 11/08/18 18:23: Glucometer 170 11/09/18 00:04: Glucometer 155 11/09/18 05:18: White Blood Count 67.3, Red Blood Count 3.36, Hemoglobin 10.6, Hematocrit 32, Mean Corpuscular Volume 95, Mean Corpuscular Hemoglobin 32, Mean Corpuscular Hemoglobin Concent 33, Red Cell Distribution Width 14.5, Platelet Count 239, Mean Platelet Volume 11.2, Neutrophils (%) (Auto) 31, Lymphocytes (%) (Auto) 69, Monocytes (%) (Auto) 0, Eosinophils (%) (Auto) 0, Basophils (%) (Auto) 0, Neutrophils # (Auto) 20.7, Lymphocytes # (Auto) 46.2, Monocytes # (Auto) 0.3, Eosinophils # (Auto) 0.0, Basophils # (Auto) 0.1, Sodium Level 143, Potassium Level 4.3, Chloride Level 119, Carbon Dioxide Level 17, Anion Gap 7, Blood Urea Nitrogen 96, Creatinine 1.70, Estimat Glomerular Filtration Rate 40, BUN/Creatinine Ratio 56, Glucose Level 159, Calcium Level 7.6, Corrected Calcium 9.0, Phosphorus Level 4.3, Magnesium Level 3.1, Total Bilirubin 0.8, Aspartate Amino Transf (AST/SGOT) 35, Alanine Aminotransferase (ALT/SGPT) 24, Alkaline Phosphatase 197, B-Type Natriuretic Peptide 1257.9, Total Protein 4.7, Albumin 2.2 11/09/18 10:50: Urine Color YELLOW, Urine Clarity CLEAR, Urine pH 6, Urine Specific [place] 1.015, Urine Protein 2+, Urine Glucose (UA) NEGATIVE, Urine Ketones NEGATIVE, Urine Nitrite NEGATIVE, Urine Bilirubin NEGATIVE, Urine Urobilinogen NORMAL, Urine Leukocyte Esterase 1+, Urine RBC (Auto) 1+, Urine RBC 0-2, Urine WBC 2-5, Urine Crystals NONE, Urine Bacteria FEW, Urine Casts PRESENT, Urine Coarse Granular Casts 10-25, Urine Mucus NEGATIVE, Urine Culture Indicated NO 11/09/18 11:19: Glucometer 181 11/09/18 16:15: Glucometer 211 11/09/18 21:45: Glucometer 171 11/10/18 05:38: White Blood Count 70.2, Red Blood Count 3.47, Hemoglobin 10.9, Hematocrit 34, Mean Corpuscular Volume 97, Mean Corpuscular Hemoglobin 31, Mean Corpuscular Hemoglobin Concent 33, Red Cell Distribution Width 14.8, Platelet Count 243, Mean Platelet Volume 11.7, Neutrophils (%) (Auto) 31, Lymphocytes (%) (Auto) 68, Monocytes (%) (Auto) 1, Eosinophils (%) (Auto) 0, Basophils (%) (Auto) 0, Neutrophils # (Auto) 21.7, Lymphocytes # (Auto) 47.6, Monocytes # (Auto) 0.8, Eosinophils # (Auto) 0.0, Basophils # (Auto) 0.1, Sodium Level 147, Potassium Level 4.4, Chloride Level 122, Carbon Dioxide Level 18, Anion Gap 7, Blood Urea Nitrogen 78, Creatinine 1.44, Estimat Glomerular Filtration Rate 48, BUN/Creatinine Ratio 54, Glucose Level 231, Calcium Level 7.7, Corrected Calcium 9.1, Phosphorus Level 3.7, Magnesium Level 2.7, Total Bilirubin 0.7, Aspartate Amino Transf (AST/SGOT) 32, Alanine Aminotransferase (ALT/SGPT) 26, Alkaline Phosphatase 205, Total Protein 4.8, Albumin 2.3, Smear Scan 11/10/18 05:40: Glucometer 197 11/10/18 11:04: Glucometer 243 11/10/18 16:13: Glucometer 253 11/10/18 20:58: Glucometer 232 11/11/18 04:34: White Blood Count 74.7, Red Blood Count 3.68, Hemoglobin 11.4, Hematocrit 36, Mean Corpuscular Volume 97, Mean Corpuscular Hemoglobin 31, Mean Corpuscular Hemoglobin Concent 32, Red Cell Distribution Width 14.9, Platelet Count 288, Mean Platelet Volume 11.9, Neutrophils (%) (Auto) 31, Lymphocytes (%) (Auto) 69, Monocytes (%) (Auto) 0, Eosinophils (%) (Auto) 0, Basophils (%) (Auto) 0, Neutrophils # (Auto) 22.9, Lymphocytes # (Auto) 51.6, Monocytes # (Auto) 0.2, Eosinophils # (Auto) 0.0, Basophils # (Auto) 0.1, Neutrophils % (Manual) 36, Monocytes % (Manual) 1, Band Neutrophils 2, Atypical Lymphocytes 61, Smudge Cells MARKED, Toxic Granulation 1+, Anisocytosis SLIGHT, Rouleau SLIGHT, Sodium Level 148, Potassium Level 4.2, Chloride Level 120, Carbon Dioxide Level 21, Anion Gap 7, Blood Urea Nitrogen 71, Creatinine 1.27, Estimat Glomerular Filtration Rate 56, BUN/Creatinine Ratio 56, Glucose Level 200, Calcium Level 7.6, Corrected Calcium 9.0, Phosphorus Level 3.1, Magnesium Level 2.4, Total Bilirubin 0.7, Aspartate Amino Transf (AST/SGOT) 29, Alanine Aminotransferase (ALT/SGPT) 32, Alkaline Phosphatase 241, B-Type Natriuretic Peptide 2380.9, Total Protein 4.7, Albumin 2.2 11/11/18 08:32: Vancomycin Level Trough 17.5 11/11/18 09:55: Blood Gas Puncture Site RIGHT RADIAL, Blood Gas Patient Temperature 36.5, Arterial Blood pH 7.40, Arterial Blood Partial Pressure CO2 31, Arterial Blood Partial Pressure O2 65, Arterial Blood HCO3 19, Arterial Blood Total CO2 20.1, Arterial Blood Oxygen Saturation 93, Arterial Blood Base Excess -4.9, Federico Test POSITIVE, Blood Gas Ventilator Setting NO, Blood Gas Inspired Oxygen 3.5 11/11/18 11:56: Glucometer 195 11/11/18 15:46: Glucometer 202 11/11/18 20:50: Glucometer 272 11/12/18 03:56: White Blood Count 86.3, Red Blood Count 3.73, Hemoglobin 11.8, Hematocrit 37, Mean Corpuscular Volume 98, Mean Corpuscular Hemoglobin 32, Mean Corpuscular Hemoglobin Concent 32, Red Cell Distribution Width 14.9, Platelet Count 294, Mean Platelet Volume 12.4, Neutrophils (%) (Auto) 30, Lymphocytes (%) (Auto) 70, Monocytes (%) (Auto) 0, Eosinophils (%) (Auto) 0, Basophils (%) (Auto) 0, Neutrophils # (Auto) 25.7, Lymphocytes # (Auto) 60.3, Monocytes # (Auto) 0.2, Eosinophils # (Auto) 0.0, Basophils # (Auto) 0.1, Neutrophils % (Manual) 51, Lymphocytes % (Manual) 5, Atypical Lymphocytes 44, Smudge Cells MARKED, Toxic Granulation 1+, Anisocytosis SLIGHT, Sodium Level 149, Potassium Level 3.7, Chloride Level 116, Carbon Dioxide Level 21, Anion Gap 12, Blood Urea Nitrogen 67, Creatinine 1.33, Estimat Glomerular Filtration Rate 53, BUN/Creatinine Ratio 50, Glucose Level 268, Calcium Level 7.4, Corrected Calcium 8.8, Phosphorus Level 3.6, Magnesium Level 2.1, Total Bilirubin 0.6, Aspartate Amino Transf (AST/SGOT) 31, Alanine Aminotransferase (ALT/SGPT) 37, Alkaline Phosphatase 207, B-Type Natriuretic Peptide 1495.3, Total Protein 4.9, Albumin 2.3 11/12/18 11:02: Glucometer 279 11/12/18 16:19: Glucometer 291 11/12/18 17:48: Sodium Level 145, Potassium Level 3.5, Chloride Level 111, Carbon Dioxide Level 21, Anion Gap 13, Blood Urea Nitrogen 65, Creatinine 1.48, Estimat Glomerular Filtration Rate 47, BUN/Creatinine Ratio 44, Glucose Level 347, Calcium Level 7.3 11/12/18 21:28: Glucometer 200 11/13/18 02:54: Sodium Level 145, Potassium Level 3.5, Chloride Level 113, Carbon Dioxide Level 25, Anion Gap 7, Blood Urea Nitrogen 65, Creatinine 1.25, Estimat Glomerular Filtration Rate 57, BUN/Creatinine Ratio 52, Glucose Level 191, Calcium Level 7.5, White Blood Count 83.8, Red Blood Count 3.68, Hemoglobin 11.7, Hematocrit 36, Mean Corpuscular Volume 99, Mean Corpuscular Hemoglobin 32, Mean Corpuscular Hemoglobin Concent 32, Red Cell Distribution Width 14.9, Platelet Count 334, Mean Platelet Volume 12.3, Neutrophils (%) (Auto) 31, Lymphocytes (%) (Auto) 68, Monocytes (%) (Auto) 1, Eosinophils (%) (Auto) 0, Basophils (%) (Auto) 0, Neutrophils # (Auto) 25.7, Lymphocytes # (Auto) 57.2, Monocytes # (Auto) 0.8, Eosinophils # (Auto) 0.0, Basophils # (Auto) 0.1, Corrected Calcium 8.9, Phosphorus Level 2.8, Magnesium Level 1.8, Total Bilirubin 0.6, Aspartate Amino Transf (AST/SGOT) 30, Alanine Aminotransferase (ALT/SGPT) 36, Alkaline Phosphatase 213, Total Protein 4.6, Albumin 2.2, Smear Scan YES 11/13/18 10:48: Glucometer 201 11/13/18 16:22: Glucometer 199 11/13/18 20:05: Glucometer 235 11/14/18 05:50: White Blood Count 78.4, Red Blood Count 3.70, Hemoglobin 11.6, Hematocrit 37, Mean Corpuscular Volume 100, Mean Corpuscular Hemoglobin 31, Mean Corpuscular Hemoglobin Concent 31, Red Cell Distribution Width 14.7, Platelet Count 327, Mean Platelet Volume 12.5, Neutrophils (%) (Auto) 31, Lymphocytes (%) (Auto) 69, Monocytes (%) (Auto) 0, Eosinophils (%) (Auto) 0, Basophils (%) (Auto) 0, Neutrophils # (Auto) 24.0, Lymphocytes # (Auto) 54.0, Monocytes # (Auto) 0.2, Eosinophils # (Auto) 0.1, Basophils # (Auto) 0.1, Sodium Level 147, Potassium Level 3.9, Chloride Level 111, Carbon Dioxide Level 26, Anion Gap 10, Blood Urea Nitrogen 58, Creatinine 1.22, Estimat Glomerular Filtration Rate 58, BUN/Creatinine Ratio 48, Glucose Level 168, Calcium Level 7.3, Corrected Calcium 8.8, Phosphorus Level 3.0, Magnesium Level 1.8, Total Bilirubin 0.6, Aspartate Amino Transf (AST/SGOT) 24, Alanine Aminotransferase (ALT/SGPT) 34, Alkaline Phosphatase 195, Total Protein 4.3, Albumin 2.1, Smear Scan YES 11/14/18 06:01: Glucometer 192 11/14/18 11:06: Glucometer 190 11/14/18 16:41: Glucometer 182 11/14/18 20:32: Glucometer 282 11/15/18 04:50: White Blood Count 74.4, Red Blood Count 3.66, Hemoglobin 11.6, Hematocrit 36, Mean Corpuscular Volume 100, Mean Corpuscular Hemoglobin 32, Mean Corpuscular Hemoglobin Concent 32, Red Cell Distribution Width 14.7, Platelet Count 372, M rose Platelet Volume 12.1, Neutrophils (%) (Auto) 30, Lymphocytes (%) (Auto) 69, Monocytes (%) (Auto) 1, Eosinophils (%) (Auto) 0, Basophils (%) (Auto) 0, Neutrophils # (Auto) 22.5, Lymphocytes # (Auto) 50.9, Monocytes # (Auto) 0.7, Eosinophils # (Auto) 0.1, Basophils # (Auto) 0.1, Sodium Level 145, Potassium Level 3.5, Chloride Level 108, Carbon Dioxide Level 29, Anion Gap 8, Blood Urea Nitrogen 56, Creatinine 1.16, Estimat Glomerular Filtration Rate > 60, BUN/Creatinine Ratio 48, Glucose Level 146, Calcium Level 7.4, Corrected Calcium 8.9, Phosphorus Level 2.8, Magnesium Level 1.8, Total Bilirubin 0.5, Aspartate Amino Transf (AST/SGOT) 21, Alanine Aminotransferase (ALT/SGPT) 35, Alkaline Ph osphatase 218, B-Type Natriuretic Peptide 277.0, Total Protein 4.4, Albumin 2.1 11/15/18 05:13: Glucometer 117 11/15/18 16:26: Glucometer 141 11/15/18 21:23: Glucometer 148 11/16/18 04:45: White Blood Count 74.4, Red Blood Count 3.70, Hemoglobin 11.6, Hematocrit 37, Mean Corpuscular Volume 101, Mean Corpuscular Hemoglobin 31, Mean Corpuscular Hemoglobin Concent 31, Red Cell Distribution Width 14.7, Platelet Count 406, Mean Platelet Volume 12.1, Neutrophils (%) (Auto) 26, Lymphocytes (%) (Auto) 72, Monocytes (%) (Auto) 2, Eosinophils (%) (Auto) 0, Basophils (%) (Auto) 0, Neutrophils # (Auto) 19.4, Lymphocytes # (Auto) 53.6, Monocytes # (Auto) 1.2, Eosinophils # (Auto) 0.1, Basophils # (Auto) 0.1, Sodium Level 144, Potassium Level 4.1, Chloride Level 105, Carbon Dioxide Level 29, Anion Gap 10, Blood Urea Nitrogen 51, Creatinine 1.19, Estimat Glomerular Filtration Rate 60, BUN/Creatinine Ratio 43, Glucose Level 129, Calcium Level 7.6, Corrected Calcium 9.0, Phosphorus Level 2.8, Magnesium Level 1.8, Total Bilirubin 0.7, Aspartate Amino Transf (AST/SGOT) 25, Alanine Aminotransferase (ALT/SGPT) 37, Alkaline Phosphatase 181, Total Protein 4.6, Albumin 2.3 11/16/18 05:31: Glucometer 125 11/16/18 11:02: Glucometer 187 11/16/18 16:05: Glucometer 141 11/16/18 20:34: Glucometer 180 11/17/18 03:30: Sodium Level 140, Potassium Level 3.3, Chloride Level 102, Carbon Dioxide Level 32, Anion Gap 6, Blood Urea Nitrogen 49, Creatinine 1.16, Estimat Glomerular Filtration Rate > 60, BUN/Creatinine Ratio 42, Glucose Level 117, Calcium Level 7.4 11/17/18 05:26: Glucometer 123 11/17/18 06:43: Sodium Level 139, Potassium Level 3.5, Chloride Level 102, Carbon Dioxide Level 33, Anion Gap 4, Blood Urea Nitrogen 47, Creatinine 1.21, Estimat Glomerular Filtration Rate 59, BUN/Creatinine Ratio 39, Glucose Level 118, Calcium Level 7.9, White Blood Count 68.6, Red Blood Count 3.51, Hemoglobin 11.4, Hematocrit 35, Mean Corpuscular Volume 100, Mean Corpuscular Hemoglobin 32, Mean Corpuscular Hemoglobin Concent 33, Red Cell Distribution Width 14.6, Platelet Count 410, Mean Platelet Volume 11.8, Neutrophils (%) (Auto) 26, Lymphocytes (%) (Auto) 73, Monocytes (%) (Auto) 1, Eosinophils (%) (Auto) 0, Basophils (%) (Auto) 0, Neutrophils # (Auto) 17.8, Lymphocytes # (Auto) 49.9, Monocytes # (Auto) 0.7, Eosinophils # (Auto) 0.2, Basophils # (Auto) 0.1 11/17/18 11:01: Glucometer 165 Discharge Home Medications: Active Scripts Active Furosemide 10 Mg/1 Ml Vial 40 Mg PO DAILY@ 30 Days Pantoprazole Sodium 40 Mg Tablet.dr 40 Mg PO BID 30 Days Diltiazem HCl 30 Mg Tablet 30 Mg PO Q6HR 30 Days Metoprolol Succinate 50 Mg Tab.er.24h 50 Mg PO DAILY 30 Days Amiodarone HCl 200 Mg Tablet 200 Mg PO BID 30 Days Iprat-Albut 0.5-3(2.5) mg/3 ml (Ipratropium/Albuterol Sulfate) 3 Ml Ampul.neb 3 Ml INH TID 60 Days Levaquin (Levofloxacin) 500 Mg Tablet 500 Mg PO DAILY 3 Days Instructions to patient/family Please see electronic discharge instructions given to patient. Clinical Quality Measures DVT/VTE Risk/Contraindication: Risk Factor Score Per Nursin RFS Level Per Nursing on Admit: 4+=Very High GUILLERMINA MORILLO DO Nov 18, 2018 07:41
== END 2018-11-17 13:15 | DRG 871 ==
LOC: EDUNIT# 05:23 → ER 05:24 → ICU 06:30 → 4TH 11-08 11:46 → ICU 11-11 09:35 → 4TH 11-13 13:10
PROVIDERS: ADMIT Internal Medicine; ATTEND Internal Medicine
PROC: 02HV33Z Insertion of Infusion Device into Superior Vena Cava, Percutaneous Approach (ICD-10-PCS; principal; 2018-11-05)
DX: A41.01 Sepsis due to Methicillin susceptible Staphylococcus aureus (principal); R65.21 Severe sepsis with septic shock; L03.312 Cellulitis of back [any part except buttock and flank]; L89.130 Pressure ulcer of right lower back, unstageable; N39.0 Urinary tract infection, site not specified; J18.1 Lobar pneumonia, unspecified organism; E87.2 Acidosis; E46 Unspecified protein-calorie malnutrition; I13.0 Hypertensive heart and chronic kidney disease with heart failure and stage 1 through stage 4 chronic kidney disease, or unspecified chronic kidney disease; I50.31 Acute diastolic (congestive) heart failure; N18.9 Chronic kidney disease, unspecified; C91.10 Chronic lymphocytic leukemia of B-cell type not having achieved remission; I48.0 Paroxysmal atrial fibrillation; H46.9 Unspecified optic neuritis; N17.9 Acute kidney failure, unspecified; F17.210 Nicotine dependence, cigarettes, uncomplicated; F10.20 Alcohol dependence, uncomplicated; I25.10 Atherosclerotic heart disease of native coronary artery without angina pectoris; E86.0 Dehydration; J44.9 Chronic obstructive pulmonary disease, unspecified; E11.42 Type 2 diabetes mellitus with diabetic polyneuropathy; E11.319 Type 2 diabetes mellitus with unspecified diabetic retinopathy without macular edema; I71.2 Thoracic aortic aneurysm, without rupture; F41.9 Anxiety disorder, unspecified; Z59.0 Homelessness; F11.10 Opioid abuse, uncomplicated; F15.10 Other stimulant abuse, uncomplicated; L89.152 Pressure ulcer of sacral region, stage 2; E11.65 Type 2 diabetes mellitus with hyperglycemia; E87.6 Hypokalemia
CPT/HCPCS: 36415; 36600; 71045; 71250; 74176; 76775; 76870; 80048; 80053; 80202; 80306; 80320; 81000; 82150; 82784; 82805; 82962; 83605; 83690; 83735; 83880; 84100; 85007; 85025; 85027; 85045; 85610; 85730; 87040; 87070; 87077; 87081; 87088; 87186; 87205; 87804; 88184; 88185; 93005; 93306; 94640; 94664; 94760; 96361; 96365; 96366; 96367; 96368; 96372; 96375

== ENCOUNTER 2018-11-17 13:29 | Outpatient (RCR) | payer MEDICARE ==
[~2018-11-17 13:29] MED LIST changes: +AMIO200T4 PO; +DILT30TA PO; +FURO10VI PO; +IPRA3AMP31 INH; +LEVO500T2 PO; +METO-370 PO; +PANT40TA3 PO
[2018-12-07] MEDS ORDERED: FURO40TA4 PO (10:21)
[2018-12-07] MEDS ORDERED: AMIO200T4 PO (10:21)
[2018-12-07] MEDS ORDERED: PANT40TA3 PO (10:21)
[2018-12-07] MEDS ORDERED: IPRA3AMP31 NEB (10:21)
[2018-12-07] MEDS ORDERED: METO50CA PO (10:21)
[2018-12-07] MEDS ORDERED: DILT30TA PO (10:21)
== END 2018-12-07 | disposition home or self-care (01) ==
LOC: CARD 13:29
PROVIDERS: ATTEND Internal Medicine Interventional Cardiology
DX: I48.0 Paroxysmal atrial fibrillation (principal)

== ENCOUNTER 2018-12-06 15:15 | Inpatient (IN) | payer MEDICARE ==
[2018-12-06] VITALS (8 sets, daily range): BP systolic 84–117; BP diastolic 54–85
[~2018-12-06] VITALS: Ht 177.8 cm; Wt 91.8 kg
--- NOTE | 2018-12-06 15:19 | NUR ---
20g IV to Rt a/c initiated per [facility] ems dc'd d/t infiltration.
[2018-12-06] MEDS ORDERED: NS IV 1000 ML 1,000 ML IV SCH (15:21)
[2018-12-06] MEDS ORDERED: NS (IVPB) 100 ML ONE (15:29)
[2018-12-06] MEDS ORDERED: NOREPINEPHRINE 4 MG/4 ML (LEVOPHED) AMP IV ONE (15:29)
[2018-12-06] MEDS ORDERED: NS (IVPB) 250 ML ONE (15:30)
--- NOTE | 2018-12-06 15:43 | NUR ---
Sunli Patel APRN contacted Emergency Contact #1, José Antonio Pena ([phone]).
--- NOTE | 2018-12-06 15:49 | NUR ---
Pt alert and states, "no" when provider questioned pt regarding DNI status. Provider made pt aware of need for intubation and pt again states, "no!"
[2018-12-06 15:54] LABS: ABG BASE EXCESS -4.6 MMOL/L (-2.5-2.5); ABG OXYGEN SATURATION 89 % (94-100); ABG PCO2 52 MMHG (35-45); ABG PO2 70 MMHG (79-93); ABG TCO2 23.2 MMOL/L (21.0-31.0)
[2018-12-06 15:57] LABS: BASOPHILS # (AUTO) 0.4 10^3/uL (0.0-0.1); BASOPHILS % (AUTO) 0 % (0-10); EOSINOPHILS # (AUTO) 0.1 10^3/uL (0.0-0.3); EOSINOPHILS % (AUTO) 0 % (0-10); HEMATOCRIT 32 % (40-54); HEMOGLOBIN 9.6 G/DL (13.3-17.7); LYMPHOCYTES # (AUTO) 102.1 X 10^3 (1.0-4.0); LYMPHOCYTES % (AUTO) 77 % (12-44); MEAN CORPUSCULAR HEMOGLOBIN 31 PG (25-34); MEAN CORPUSCULAR HGB CONC 30 G/DL (32-36); MEAN CORPUSCULAR VOLUME 103 FL (80-99); MEAN PLATELET VOLUME 11.3 FL (7.4-10.4); MONOCYTES # (AUTO) 0.6 X 10^3 (0.0-1.0); MONOCYTES % (AUTO) 1 % (0-12); NEUTROPHILS # (AUTO) 29.2 X 10^3 (1.8-7.8); NEUTROPHILS % (AUTO) 22 % (42-75); PLATELET COUNT 183 10^3/uL (130-400); RED CELL DISTRIBUTION WIDTH 15.7 % (10.0-14.5)
[2018-12-06 15:58] LABS: WHITE BLOOD COUNT 132.3 10^3/uL (4.3-11.0)
[2018-12-06 15:59] LABS: ABG PH 7.24 (7.37-7.43); ALLENS TEST POSITIVE
[2018-12-06 16:00] LABS: INSPIRED O2 100% BIPAP; PATIENT TEMP 37.1; VENTILATOR NO
[2018-12-06] MEDS ORDERED: NOREPINEPHRINE 4 MG in NS (IVPB) 250 ML IV SCH ×2 (16:00→18:24)
[2018-12-06 16:22] LABS: ALBUMIN 1.6 GM/DL (3.2-4.5); BILIRUBIN,TOTAL 0.9 MG/DL (0.1-1.0); CALCIUM 7.1 MG/DL (8.5-10.1); CREATININE SERUM 1.84 MG/DL (0.60-1.30); POTASSIUM 4.1 MMOL/L (3.6-5.0); TOTAL PROTEIN 3.7 GM/DL (6.4-8.2)
[2018-12-06 16:24] LABS: BILIRUBIN,URINE NEGATIVE (NEGATIVE); CLARITY,URINE CLEAR; COLOR,URINE YELLOW; GLUCOSE, URINE (UA) NEGATIVE (NEGATIVE); KETONES,URINE NEGATIVE (NEGATIVE); LEUKOCYTE ESTERASE ,URINE NEGATIVE (NEGATIVE); NITRITE,URINE NEGATIVE (NEGATIVE); PH,URINE 5 (5-9); PROTEIN,URINE 1+ (NEGATIVE); UROBILINOGEN,URINE 1 MG/DL (NORMAL)
[2018-12-06 16:25] LABS: INR 1.7 (0.8-1.4); PROTHROMBIN TIME PATIENT 20.3 SEC (12.2-14.7)
[2018-12-06] MEDS ORDERED: LIDOCAINE 1% INJ 20 ML 20 ML VIAL INJ ONE (16:30)
[2018-12-06] MEDS ORDERED: LIDOCAINE 1% INJ 20 ML 20 ML VIAL ONE (16:33)
[2018-12-06] MEDS: DEXMEDETOMIDINE INJECTION 200 MCG in NS (IVPB) 50 ML IV SCH ×2 (16:37→20:38)
--- NOTE | 2018-12-06 16:48 | NUR ---
Dr. Minaya in room. Procedure time out @ [id number] for emergent thoravent placement to anterior Rt chest wall.
--- NOTE | 2018-12-06 16:52 | NUR ---
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
--- NOTE | 2018-12-06 17:04 | ED General ---
General Chief Complaint: Unresponsive Stated Complaint: UNRESPONSIVE Nursing Triage Note: Pt to room #6 via CC ems cart from [facility] with c/o unresponsive. Facility staff pt was in process of being transfered tpo w/c and taken to out patient xray (Per Dr. Morillo chest xray) when pt became unresponsive. Client Support Administrator ems placed pt on CPAP, accessed 20g IV to Lt a/c, and initiated NS fluid bolus (200ml intake vessel captain). Upon arrival to ED pt noted to be unresponsive with initial O2 sat 65% utilizing CPAP. GCS 5 Nursing Sepsis Screen: No Definite Risk Source of Information: Patient Exam Limitations: No Limitations History of Present Illness Date Seen by Provider: Dec 06, 2018 Time Seen by Provider: 16:57 Initial Comments Decreased venous return to ER per EMS from [facility] with reports of shortness of breath and unresponsive. He's had a oxygen saturation highest of 85% on 5 L today at the longterm. They called primary care Dr. Morillo who ordered an outpatient chest x-ray. Upon getting him into the wheelchair to come here for the x-ray he became unresponsive EMS was summoned. History of CLL and COPD. Upon EMS arrival his initial oxygen saturation was about 40% on 5 L she was started on Cipro. His CODE STATUS is full code, he has written himself on the paper "want heart started but no breathing". Upon arrival his initial blood pressure was 65 systolic heart rate 70s, transitioned to our BiPAP. Timing/Duration: 1-2 Days Severity: Moderate Associated Systoms: Shortness of Air Allergies and Home Medications Allergies Coded Allergies: Penicillins (Unverified Allergy, Mild, 03/28/09) Home Medications Amiodarone HCl 200 Mg Tablet, 200 MG PO BID Prescribed by: LYLE GUZMAN on 11/17/18 111 Diltiazem HCl 30 Mg Tablet, 30 MG PO Q6HR Prescribed by: LYLE GUZMAN on 11/17/18 111 Furosemide 10 Mg/1 Ml Vial, 40 MG PO DAILY@17 Prescribed by: LYLE GUZMAN on 11/17/18 111 Ipratropium/Albuterol Sulfate 3 Ml Ampul.neb, 3 ML INH TID Prescribed by: LYLE GUZMAN on 11/17/18 111 Levofloxacin 500 Mg Tablet, 500 MG PO DAILY Prescribed by: GUILLERMINA MORILLO on 11/17/18 0746 Metoprolol Succinate 50 Mg Tab.er.24h, 50 MG PO DAILY Prescribed by: LYLE GUZMAN on 11/17/18 1116 Pantoprazole Sodium 40 Mg Tablet.dr, 40 MG PO BID Prescribed by: LYLE GUZMAN on 11/17/18 1116 Patient Home Medication List Home Medication List Reviewed: Yes Review of Systems Review of Systems Constitutional: see HPI EENTM: see HPI Respiratory: see HPI Cardiovascular: no symptoms reported Genitourinary: no symptoms reported Musculoskeletal: no symptoms reported Skin: no symptoms reported Psychiatric/Neurological: No Symptoms Reported Hematologic/Lymphatic: No Symptoms Reported Past Frgdsmh-Sgouie-Scgxuu Hx Patient Social History Alcohol Beverage of Choice: Rum, Whiskey Drug of Choice: THC, "THC OIL", OPIUM Type Used: Cigarettes 2nd Hand Smoke Exposure: Yes Recent Foreign Travel: No Contact w/Someone Who Travel: No Recent Infectious Disease Expo: No Recent Hopitalizations: No Immunizations Up To Date Tetanus Booster (TDap): Unknown Date of Pneumonia Vaccine: Nov 22, 2009 Date of Influenza Vaccine: Oct 24, 2015 Seasonal Allergies Seasonal Allergies: Yes Past Medical History Surgeries: Yes (TEMPORAL ARTERY BIOPSY) Bladder Surgery, Gallbladder Respiratory: Yes Chronic Bronchitis, COPD Cardiac: Yes Aneurysm, High Cholesterol, Hypertension Neurological: Yes (PERIPHERAL NEUROPATHY--LEGS/ ARMS) Neuropathy Reproductive Disorders: Yes (E.D.) Genitourinary: No Gastrointestinal: No Musculoskeletal: Yes (CHRONIC NECK PAIN , BILATERAL CARPAL TUNNEL, spinal stenosis; RIB FRACTURES) Degenerate Disk Disease, Chronic Back Pain, Fractures Endocrine: Yes Diabetes, Non-Insulin dep HEENT: Yes (retinopathy, optic neuritis, recurrent diplopia; POOR DENTITION) Macular Degeneration Cancer: Yes Leukemia, Lymphoma Did You Recieve Any Treatments: No Psychosocial: Yes Anxiety, PTSD Integumentary: No Blood Disorders: No Family Medical History UNABLE UNABLE TO OBTAIN DUE TO AMS UNABLE TO OBTAIN DUE TO AMS No Pertinent Family Hx Physical Exam Vital Signs Vital Signs - First Documented 12/06/18 12/06/18 15:15 15:20 Temp 37.1 Pulse 71 Resp 26 B/P (MAP) 65/41 (49) Pulse Ox 67 O2 Delivery NIV CPAP O2 Flow Rate 100.00 Capillary Refill : Less Than 3 Seconds Height, Weight, BMI Height: 5'9.00" Weight: 205lbs. 9.5oz. [id number]; 25.00 BMI Method:Stated General Appearance: Chronically ill, Severe Distress, Other (initial GCS of 5, moans incoherently) Eyes: Bilateral Eye Normal Inspection, Bilateral Eye PERRL Neck: Full Range of Motion, Normal Inspection Respiratory: No Respiratory Distress, Other (agonal breathing, lung sounds diminished) Cardiovascular: Regular Rate, Rhythm, Normal Peripheral Pulses Gastrointestinal: Normal Bowel Sounds, Non Tender, Soft Neurologic/Psychiatric: Other (unresponsive) Skin: Normal Color, Warm/Dry Focused Exam Lactate Level 12/06/18 15:45: Lactic Acid Level 10.27*H 12/06/18 17:42: Lactic Acid Level 7.55*H Lactic Acid Level Laboratory Tests Test 12/06/18 15:45 12/06/18 17:42 Lactic Acid Level 10.27 MMOL/L (0.50-2.00) *H 7.55 MMOL/L (0.50-2.00) *H Progress/Results/Core Measures Suspected Sepsis Recent Fever Within 48 Hours: No Infection Criteria Present: None New/Unexplained Altered Menta: Yes Sepsis Screen: No Definite Risk SIRS Temperature: Pulse: 76 Respiratory Rate: 28 Laboratory Tests 12/06/18 15:45: White Blood Count 132.3*H Blood Pressure 65 /41 Mean: 49 12/06/18 15:45: Lactic Acid Level 10.27*H 12/06/18 17:42: Lactic Acid Level 7.55*H Laboratory Tests 12/06/18 15:45: Creatinine 1.84H, INR Comment 1.7H, Platelet Count 183, Total Bilirubin 0.9 Results/Orders Lab Results Laboratory Tests Test 12/06/18 15:45 12/06/18 15:50 12/06/18 17:42 Range/Units White Blood Count 132.3 *H 4.3-11.0 10^3/uL Red Blood Count 3.09 L 4.35-5.85 10^6/uL Hemoglobin 9.6 L 13.3-17.7 G/DL Hematocrit 32 L 40-54 % Mean Corpuscular Volume 103 H 80-99 FL Mean Corpuscular Hemoglobin 31 25-34 PG Mean Corpuscular Hemoglobin Concent 30 L 32-36 G/DL Red Cell Distribution Width 15.7 H 10.0-14.5 % Platelet Count 183 130-400 10^3/uL Mean Platelet Volume 11.3 H 7.4-10.4 FL Neutrophils (%) (Auto) 22 L 42-75 % Lymphocytes (%) (Auto) 77 H 12-44 % Monocytes (%) (Auto) 1 0-12 % Eosinophils (%) (Auto) 0 0-10 % Basophils (%) (Auto) 0 0-10 % Neutrophils # (Auto) 29.2 H 1.8-7.8 X 10^3 Lymphocytes # (Auto) 102.1 H 1.0-4.0 X 10^3 Monocytes # (Auto) 0.6 0.0-1.0 X 10^3 Eosinophils # (Auto) 0.1 0.0-0.3 10^3/uL Basophils # (Auto) 0.4 H 0.0-0.1 10^3/uL Neutrophils % (Manual) 35 % Lymphocytes % (Manual) 60 % Monocytes % (Manual) 1 % Band Neutrophils 4 % Smudge Cells MARKED Anisocytosis MODERATE [place] Cells SLIGHT Prothrombin Time 20.3 H 12.2-14.7 SEC INR Comment 1.7 H 0.8-1.4 Urine Color YELLOW Urine Clarity CLEAR Urine pH 5 5-9 Urine Specific [place] 1.015 L 1.016-1.022 Urine Protein 1+ H NEGATIVE Urine Glucose (UA) NEGATIVE NEGATIVE Urine Ketones NEGATIVE NEGATIVE Urine Nitrite NEGATIVE NEGATIVE Urine Bilirubin NEGATIVE NEGATIVE Urine Urobilinogen 1 NORMAL MG/DL Urine Leukocyte Esterase NEGATIVE NEGATIVE Urine RBC (Auto) NEGATIVE NEGATIVE Urine RBC 0-2 /HPF Urine WBC 0-2 /HPF Urine Crystals NONE /LPF Urine Bacteria NEGATIVE /HPF Urine Casts NONE /LPF Urine Mucus NEGATIVE /LPF Urine Culture Indicated NO Sodium Level 140 135-145 MMOL/L Potassium Level 4.1 3.6-5.0 MMOL/L Chloride Level 101 98-107 MMOL/L Carbon Dioxide Level 24 21-32 MMOL/L Anion Gap 15 H 5-14 MMOL/L Blood Urea Nitrogen 48 H 7-18 MG/DL Creatinine 1.84 H 0.60-1.30 MG/DL Estimat Glomerular Filtration Rate 36 BUN/Creatinine Ratio 26 Glucose Level 176 H 70-105 MG/DL Lactic Acid Level 10.27 *H 7.55 *H 0.50-2.00 MMOL/L Calcium Level 7.1 L 8.5-10.1 MG/DL Corrected Calcium 9.0 8.5-10.1 MG/DL Total Bilirubin 0.9 0.1-1.0 MG/DL Aspartate Amino Transf (AST/SGOT) 88 H 5-34 U/L Alanine Aminotransferase (ALT/SGPT) 62 H 0-55 U/L Alkaline Phosphatase 216 H 40-136 U/L Troponin I < 0.028 <0.028 NG/ML B-Type Natriuretic Peptide 334.7 H <100.0 PG/ML Total Protein 3.7 L 6.4-8.2 GM/DL Albumin 1.6 L 3.2-4.5 GM/DL Blood Gas Puncture Site LEFT RADIAL Blood Gas Patient Temperature 37.1 Arterial Blood pH 7.24 *L 7.37-7.43 Arterial Blood Partial Pressure CO2 52 H 35-45 MMHG Arterial Blood Partial Pressure O2 70 L 79-93 MMHG Arterial Blood HCO3 22 L 23-27 MMOL/L Arterial Blood Total CO2 23.2 21.0-31.0 MMOL/L Arterial Blood Oxygen Saturation 89 L 94-100 % Arterial Blood Base Excess -4.6 L -2.5-2.5 MMOL/L Federico Test POSITIVE Blood Gas Ventilator Setting NO Blood Gas Inspired Oxygen 100% BIPAP My Orders Orders - JOHN DICKSON APRN Blood Culture (12/06/18 15:53) Lactic Acid Analyzer (12/06/18 15:53) Ekg Tracing (12/06/18 15:53) BNP (12/06/18 15:53) Troponin I (12/06/18 15:53) Norepinephrine (Levophed) (12/06/18 16:00) Protime With Inr (12/06/18 15:53) Bipap (Bilevel) Set Up (12/06/18 15:53) Ns (Ivpb) (Sodium C... W/Dexmedetomidine (12/06/18 16:30) Ua Culture If Indicated (12/06/18 16:20) Lidocaine 1% Inj 20 Ml (Xylocaine 1% Inj (12/06/18 16:33) Arterial Blood Draw (12/06/18 15:50) Chest 1 View, Ap/Pa Only (12/06/18 16:57) Ns Iv 1000 Ml (Sodium Chloride 0.9%) (12/06/18 15:21) Restraints: Medically Indicate Q2H (12/06/18 17:13) Cefepime Injection (Maxipime Injection) (12/06/18 17:15) Lidocaine 1% Inj 20 Ml (Xylocaine 1% Inj (12/06/18 16:30) Medications Given in ED Current Medications Medications Dose Ordered Sig/Conor Route Start Time Stop Time Status Last Admin Dose Admin Cefepime HCl 1000 mg/Sterile Water 10 ml @ 200 mls/hr ONCE ONCE IV 12/06/18 17:15 12/06/18 17:17 DC 12/06/18 17:28 200 MLS/HR Lidocaine HCl 20 ml ONCE ONCE INJ 12/06/18 16:30 12/06/18 17:37 DC 12/06/18 16:38 20 ML Vital Signs/I&O 12/06/18 12/06/18 15:15 15:20 Temp 37.1 Pulse 71 76 Resp 26 28 B/P (MAP) 65/41 (49) Pulse Ox 67 65 O2 Delivery NIV CPAP O2 Flow Rate 100.00 Capillary Refill : Less Than 3 Seconds Blood Pressure Mean: 49 Departure Communication (Admissions) Time/Spoke to Admitting Phy: 17:[address] Morillo we'll admit, consult Dr. Quinonez. Upon arrival he was in significant distress and needed intubated. He has a living will present with him that says DO NOT INTUBATE. He only wants his heart restarted if that's necessary. Due to the hypotension and a central line was started on the right 1 attempt. Levothyroid was then started, 2 L IV fluid boluses well peripherally. Chest x-ray was performed showing a right sided par tial pneumothorax unclear if this was iatrogenic from my central line or from his pre-existing lung disease and the cause of his worsening dyspnea throughout the day today. At 1645 Dr. Minaya was called and placed a thoravent in the right chest wall. He was started on Precedex for sedation because with the increase in blood pressure and oxygenation with BiPAP his mentation improved, now he is alert and use and trying to pull out the central line and pulled the BiPAP off his face. Precedex was chosen in order to maintain airway but provide sedation.. Antibiotics started. He has no next of kin local, I called his brother José Antonio and told him of the critical nature of Lauri and asked if they wanted any other interventions done. They state to just do what ever he wanted on his living will. 1804-heart rate 80, blood pressure still 79/68 on Levophed, we will increase the Levothroid, he remains on BiPAP. He had a 2 L fluid bolus, no more because of his edema, CHF. We'll increase the levophed. He is on Precedex drip still no change in that dosing, his mental status is much better, he is now alert, looking around the room responsive and answers questions appropriately. I attest to focused exam at this time. Impression Primary Impression: COPD exacerbation Additional Impressions: RLL pneumonia Unresponsive CLL (chronic lymphocytic leukemia) Disposition: ADMITTED INPATIENT Condition: Critical Admissions Decision to Admit Reason: Admit from ER (General) Decision to Admit/Date: Dec 06, 2018 Time/Decision to Admit Time: 17:05 Departure-Patient Inst. Referrals: GUILLERMINA MORILLO DO (PCP/Family) Primary Care Physician JOHN DICKSON APRN Dec 06, 2018 17:04
--- NOTE | 2018-12-06 17:04 | Diagnostic Imaging Report ---
INDICATION: Shortness of breath and unresponsive. TIME OF EXAM: 04:18 p.m. Correlation is made with prior study from 11/17/2018. FINDINGS: Heart size is stable. Right IJ line has tip overlying the SVC. There is a right-sided pneumothorax. This is estimated to be approximately 20%. There is infiltrate or atelectasis in the right base. A rounded density in the right upper lung field is also seen. Mass cannot be excluded although this was not present on exam from 11/17/2018 and therefore this is most likely inflammatory. Small effusions are seen bilaterally. IMPRESSION: 1. Development of right-sided pneumothorax approximately 20%. Right lung densities are noted, as described consistent with infiltrate and atelectasis. 2. Small bilateral effusions. Results were called to Dr. Nunez prior to this dictation. Dictated by: Dictated on workstation # [id number]
--- NOTE | 2018-12-06 17:10 | NUR ---
Pt continues to reach, grab, and pull central line, cardiac monitors, CPAP, darling catheter, and Vital sign cords, despite continued education and prompting from ED staff. Provider aware.
[2018-12-06] MEDS ORDERED: CEFEPIME INJECTION 1,000 MG in WATER (STERILE) FOR INJECTION 10 ML IV ONE (17:15)
[2018-12-06 17:18] LABS: BACTERIA,URINE NEGATIVE /HPF; RBC,URINE 0-2 /HPF; WBC,URINE 0-2 /HPF
--- NOTE | 2018-12-06 17:22 | NUR ---
Dr. Quinonez in room visiting with pt. Pt verbalizes no questions or concerns regarding admission to ICU.
[2018-12-06 17:27] LABS: ANISOCYTOSIS MODERATE; BAND NEUTROPHILS 4 %; LYMPHOCYTES % (MANUAL) 60 %; MONOCYTES % (MANUAL) 1 %; NEUTROPHILS % (MANUAL) 35 %; SMUDGE CELLS MARKED
[2018-12-06 17:28] LABS: BURR CELLS SLIGHT
--- NOTE | 2018-12-06 17:34 | Diagnostic Imaging Report ---
INDICATION: Right pneumothorax, status post Thora-Vent placement. TIME OF EXAM: 05:17 p.m. Correlation is made with prior chest earlier same day. FINDINGS: Right-sided Thora-Vent catheter has been placed. There has been near complete re-expansion of the right lung with only trace residual pneumothorax seen. Density in right upper and lower lung butt persists. There appears to be some infiltrate in the left upper and lower lung butt as well. IMPRESSION: Chest tube placement on the right. Only trace residual pneumothorax is seen. Dictated by: Dictated on workstation # [id number]
--- NOTE | 2018-12-06 17:58 | Consultation - Surgery ---
[facility] 12/06/18 1758: History of Present Illness History of Present Illness Patient Consulted On(dani/time) 12/06/18 17:25 Date Seen by Provider: Dec 06, 2018 Time Seen by Provider: 17:25 History of Present Illness Shortness of breath and COPD exacerbation Patient presents to the ER with shortness of breath and COPD exacerbation. Patient was further worked up and noted to have a right pneumothorax. Patient was using BiPAP at the time of visit. Intervention required thoravent placement in the right anterior chest. Allergies and Home Medications Allergies Coded Allergies: Penicillins (Unverified Allergy, Mild, 03/28/09) Home Medications Amiodarone HCl 200 Mg Tablet, 200 MG PO BID Prescribed by: LYLE GUZMAN on 11/17/18 111 Diltiazem HCl 30 Mg Tablet, 30 MG PO Q6HR Prescribed by: LYLE GUZMAN on 11/17/18 111 Furosemide 10 Mg/1 Ml Vial, 40 MG PO DAILY@07,17 Prescribed by: LYLE GUZMAN on 11/17/18 1116 Ipratropium/Albuterol Sulfate 3 Ml Ampul.neb, 3 ML INH TID Prescribed by: LYLE GUZMAN on 11/17/18 111 Levofloxacin 500 Mg Tablet, 500 MG PO DAILY Prescribed by: GUILLERMINA MORILLO on 11/17/18 0746 Metoprolol Succinate 50 Mg Tab.er.24h, 50 MG PO DAILY Prescribed by: LYLE GUZMAN on 11/17/18 111 Pantoprazole Sodium 40 Mg Tablet.dr, 40 MG PO BID Prescribed by: LYLE GUZMAN on 11/17/18 111 Past Reeybor-Rtnwmw-Jeewzp Hx Patient Social History Alcohol Use: Denies Use Number of Drinks Today: GG Recreational Drug Use: No Drug of Choice: THC, "THC OIL", OPIUM Smoking Status: Smoker Current Status UKN Type Used: Cigarettes 2nd Hand Smoke Exposure: Yes Recent Foreign Travel: No Contact w/Someone Who Travel: No Recent Infectious Disease Expo: No Recent Hopitalizations: No Immunizations Up To Date Tetanus Booster (TDap): Unknown Date of Pneumonia Vaccine: Nov 22, 2009 Date of Influenza Vaccine: Oct 24, 2015 Seasonal Allergies Seasonal Allergies: Yes Surgeries History of Surgeries: Yes (TEMPORAL ARTERY BIOPSY) Surgeries: Bladder Surgery, Gallbladder Respiratory History of Respiratory Disorde: Yes Respiratory Disorders: Chronic Bronchitis, COPD Cardiovascular History of Cardiac Disorders: Yes Cardiac Disorders: Aneurysm, Atrial Fibrillation, High Cholesterol, Hypertension Neurological History of Neurological Disord: Yes (PERIPHERAL NEUROPATHY--LEGS/ ARMS) Neurological Disorders: Neuropathy Reproductive System Hx Reproductive Disorders: Yes (E.D.) Genitourinary History of Genitourinary Disor: No Gastrointestinal History of Gastrointestinal Di: No Musculoskeletal History of Musculoskeletal Dis: Yes (CHRONIC NECK PAIN , BILATERAL CARPAL TUNNEL, spinal stenosis; RIB FRACTURES) Musculoskeletal Disorders: Degenerate Disk Disease, Chronic Back Pain, Fractures Endocrine History of Endocrine Disorders: Yes Endocrine Disorders: Diabetes, Non-Insulin dep HEENT History of HEENT Disorders: Yes (retinopathy, optic neuritis, recurrent diplopia; POOR DENTITION) HEENT Disorders: Macular Degeneration Cancer History of Cancer: Yes Cancer: Leukemia, Lymphoma Psychosocial History of Psychiatric Problem: Yes Behavioral Health Disorders: Anxiety, PTSD Integumentary History of Skin or Integumenta: No Blood Transfusions History of Blood Disorders: No Family Medical History Significant Family History: No Pertinent Family Hx Family Medial History: UNABLE UNABLE TO OBTAIN DUE TO AMS UNABLE TO OBTAIN DUE TO AMS Review of Systems-General Constitutional: dizziness, other (Lightheadedness) Respiratory: No cough; dyspnea on exertion, short of breath Physical Exam-General Problems Physical Exam Vital Signs Vital Signs - First Documented 12/06/18 12/06/18 15:15 15:20 Temp 37.1 Pulse 71 Resp 26 B/P (MAP) 65/41 (49) Pulse Ox 67 O2 Delivery NIV CPAP O2 Flow Rate 100.00 Capillary Refill : Less Than 3 Seconds General Appearance: moderate distress Respiratory: respiratory distress, accessory muscle use, other (Increased respiratory effort) Neurologic/Psychiatric: alert Data Review Labs Laboratory Tests 12/06/18 15:45: White Blood Count 132.3*H, Red Blood Count 3.09L, Hemoglobin 9.6L, Hematocrit 32L, Mean Corpuscular Volume 103H, Mean Corpuscular Hemoglobin 31, Mean Corpuscular Hemoglobin Concent 30L, Red Cell Distribution Width 15.7H, Platelet Count 183, Mean Platelet Volume 11.3H, Neutrophils (%) (Auto) 22L, Lymphocytes (%) (Auto) 77H, Monocytes (%) (Auto) 1, Eosinophils (%) (Auto) 0, Basophils (%) (Auto) 0, Neutrophils # (Auto) 29.2H, Lymphocytes # (Auto) 102.1H, Monocytes # (Auto) 0.6, Eosinophils # (Auto) 0.1, Basophils # (Auto) 0.4H, Neutrophils % (Manual) 35, Lymphocytes % (Manual) 60, Monocytes % (Manual) 1, Band Neutrophils 4, Smudge Cells MARKED, Anisocytosis MODERATE, Avella Cells SLIGHT, Prothrombin Time 20.3H, INR Comment 1.7H, Urine Color YELLOW, Urine Clarity CLEAR, Urine pH 5, Urine Specific [place] 1.015L, Urine Protein 1+H, Urine Glucose (UA) NEGATIVE, Urine Ketones NEGATIVE, Urine Nitrite NEGATIVE, Urine Bilirubin NEGATIVE, Urine Urobilinogen 1, Urine Leukocyte Esterase NEGATIVE, Urine RBC (Auto) NEGATIVE, Urine RBC 0-2, Urine WBC 0-2, Urine Crystals NONE, Urine Bacteria NEGATIVE, Urine Casts NONE, Urine Mucus NEGATIVE, Urine Culture Indicated NO, Sodium Level 140, Potassium Level 4.1, Chloride Level 101, Carbon Dioxide Level 24, Anion Gap 15H, Blood Urea Nitrogen 48H, Creatinine 1.84H, Estimat Glomerular Filtration Rate 36, BUN/Creatinine Ratio 26, Glucose Level 176H, Lactic Acid Level 10.27*H, Calcium Level 7.1L, Corrected Calcium 9.0, Total Bilirubin 0.9, Aspartate Amino Transf (AST/SGOT) 88H, Alanine Aminotransferase (ALT/SGPT) 62H, Alkaline Phosphatase 216H, Troponin I < 0.028, B-Type Natriuretic Peptide 334.7H, Total Protein 3.7L, Albumin 1.6L 12/06/18 15:50: Blood Gas Puncture Site LEFT RADIAL, Blood Gas Patient Temperature 37.1, Arterial Blood pH 7.24*L, Arterial Blood Partial Pressure CO2 52H, Arterial Blood Partial Pressure O2 70L, Arterial Blood HCO3 22L, Arterial Blood Total CO2 23.2, Arterial Blood Oxygen Saturation 89L, Arterial Blood Base Excess -4.6L, Federico Test POSITIVE, Blood Gas Ventilator Setting NO, Blood Gas Inspired Oxygen 100% BIPAP 12/06/18 17:42: Assessment/Plan Assessment/Plan Assessment/Plan Pneumothorax Shortness of breath COPD exacerbation Thoravent Breathing therapy KAITLIN VILLARREAL DO 12/06/182020: History of Present Illness History of Present Illness History of Present Illness Consult requested in ER by Sunil neville for right pneumothorax. Patient is a 73 year old male who was hypoxic who resides at rehabilitation facility. A chest x ray was ordered outpatient but patient became unresponsive and was taken to ER for further evaluation and work-up. Patient on CPAP and workup done and patient found to have a right pneumothorax. Patient not able to communicate due to needing the bipap. No family at bedside with him. Allergies and Home Medications Allergies Coded Allergies: Penicillins (Unverified Allergy, Mild, 03/28/09) Home Medications Amiodarone HCl 200 Mg Tablet, 200 MG PO BID Prescribed by: LYLE GUZMAN on 11/17/18 111 Diltiazem HCl 30 Mg Tablet, 30 MG PO Q6HR Prescribed by: LYLE GUZMAN on 11/17/18 111 Furosemide 10 Mg/1 Ml Vial, 40 MG PO DAILY@17 Prescribed by: LYLE GUZMAN on 11/17/18 111 Ipratropium/Albuterol Sulfate 3 Ml Ampul.neb, 3 ML INH TID Prescribed by: LYLE GUZMAN on 11/17/18 111 Levofloxacin 500 Mg Tablet, 500 MG PO DAILY Prescribed by: GUILLERMINA MORILLO on 11/17/18 0746 Metoprolol Succinate 50 Mg Tab.er.24h, 50 MG PO DAILY Prescribed by: LYLE GUZMAN on 11/17/18 111 Pantoprazole Sodium 40 Mg Tablet.dr, 40 MG PO BID Prescribed by: LYLE GUZMAN on 11/17/18 111 Patient Home Medication List Home Medication List Reviewed: Yes Past Rpxazqd-Towpvm-Yziymt Hx Surgeries Surgeries: Bladder Surgery, Gallbladder Respiratory Respiratory Disorders: Chronic Bronchitis Cardiovascular Cardiac Disorders: Aneurysm, Atrial Fibrillation, High Cholesterol, Hypertension Neurological Neurological Disorders: Neuropathy Musculoskeletal Musculoskeletal Disorders: Degenerate Disk Disease, Chronic Back Pain Endocrine Endocrine Disorders: Diabetes, Non-Insulin dep HEENT HEENT Disorders: Macular Degeneration Cancer Cancer: Leukemia, Lymphoma Psychosocial Behavioral Health Disorders: Anxiety Family Medical History Family Medial History: UNABLE UNABLE TO OBTAIN DUE TO AMS UNABLE TO OBTAIN DUE TO AMS Review of Systems-General ROS-Unable to Obtain: unable to obtain due to patient condition Physical Exam-General Problems Physical Exam General Appearance: moderate distress Neck: supple Respiratory: respiratory distress, accessory muscle use Gastrointestinal: soft Back: no CVA tenderness Extremities: non-tender Neurologic/Psychiatric: alert (using cpap) Skin: warm/dry Lymphatic: no adenopathy Assessment/Plan Assessment/Plan Assessment/Plan hypoxia and altered mental status copd exacerbation right pneumothorax right lower lobe pneumonia CLL Patient will have right thoravent placed to treat right pneumothorax chest x ray for follow up demonstrating reexpansion of lung keep thoravent in place medical management Supervisory-Addendum Brief Verification & Attestation Participated in pt care: history, MDM, physical Personally performed: exam, history, MDM, supervision of care Care discussed with: Medical Student Procedures: n/a Results interpretation: Verified all documentation Verification and Attestation of Medical Student E/M Service A medical student performed and documented this service in my presence. I reviewed and verified all information documented by the medical student and made modifications to such information, when appropriate. I personally performed the physical exam and medical decision making. Kaitlin Villarreal, Dec 06, 2018,20:30 [facility] Dec 06, 2018 17:58 KAITLIN VILLARREAL DO Dec 06, 2018 20:21
[2018-12-06] MEDS ORDERED: CATHETER FLUSH 10 ML SYR IV PRN (18:30)
[2018-12-06] MEDS ORDERED: EPINEPHrine 1 MG INJECTION 2 MG in NS (IVPB) 250 ML IV SCH (18:30)
[2018-12-06] MEDS ORDERED: VANCOMYCIN 1,750 MG/NS 500 ML IVPB IV NR ×2 (18:32)
[2018-12-06] MEDS: DEXMEDETOMIDINE 1,000 MCG/NS 250 ML IV SCH ×4 (19:07→22:39)
[2018-12-06] MEDS ORDERED: DEXMEDETOMIDINE INJECTION 1,000 MCG in NS (IVPB) 240 ML IV SCH (19:15)
[2018-12-06] MEDS: NS IV 1000 ML 1,000 ML IV SCH (19:36)
--- NOTE | 2018-12-06 19:39 | History & Physical ---
History of Present Illness History of Present Illness Reason for visit/HPI patient is a resident of [facility] and [facility] . Patient's pulse ox suddenly went down. Patient to be sent out to the hospital for an x-ray. Patient in wheelchair and became unresponsive. EMS called. Patient sent to the emergency room he had a pneumothorax. Patient probably had a spontaneous pneumothorax causing his pulse ox to go down. Patient hypotensive. Patient has vomiting or sit up leukemia elevated white blood cell count patient is anemic, renal insufficiency elevated lactic acid right sided pneumothorax, right-sided pneumonia and left, patient had right thora vent placement Patient critical. Patient in ICU. Patient sedated. Date of Admission Dec 06, 2018 at 17:20 Time Seen by a Provider: 19:34 I consulted on this patient on 12/06/18 19:34 Attending Physician García Morillo DO Admitting Physician García Morillo DO Consult Allergies and Home Medications Allergies Coded Allergies: Penicillins (Unverified Allergy, Mild, 03/28/09) Home Medications Amiodarone HCl 200 Mg Tablet, 200 MG PO BID Prescribed by: LYLE GUZMAN on 11/17/18 1116 Diltiazem HCl 30 Mg Tablet, 30 MG PO Q6HR Prescribed by: LYLE GUZMAN on 11/17/18 1116 Furosemide 10 Mg/1 Ml Vial, 40 MG PO DAILY@07,17 Prescribed by: LYLE GUZMAN on 11/17/18 1116 Ipratropium/Albuterol Sulfate 3 Ml Ampul.neb, 3 ML INH TID Prescribed by: LYLE GUZMAN on 11/17/18 111 Levofloxacin 500 Mg Tablet, 500 MG PO DAILY Prescribed by: GARCÍA MORILLO on 11/17/18 0746 Metoprolol Succinate 50 Mg Tab.er.24h, 50 MG PO DAILY Prescribed by: LYLE GUZMAN on 11/17/18 111 Pantoprazole Sodium 40 Mg Tablet.dr, 40 MG PO BID Prescribed by: LYLE GUZMAN on 11/17/18 1116 Patient Home Medication List Home Medication List Reviewed: No Past Phscfxn-Zqjehg-Erhuri Hx Past Med/Social Hx: Reviewed Nursing Past Med/Soc Hx Patient Social History Employed/Student: retired Alcohol Use: Past History Number of Drinks Today: GG Alcohol Beverage of Choice: Rum, Whiskey Recreational Drug Use: No Drug of Choice: THC, "THC OIL", OPIUM Smoking Status: Smoker Current Status [facility] Type Used: Cigarettes 2nd Hand Smoke Exposure: Yes Recent Foreign Travel: No Contact w/other who traveled: No Recent Hopitalizations: No Recent Infectious Disease Expo: No Immunizations Up To Date Tetanus Booster (TDap): Unknown Date of Pneumonia Vaccine: Nov 22, 2009 Date of Influenza Vaccine: Oct 24, 2015 Seasonal Allergies Seasonal Allergies: Yes Past Medical History Surgeries: Bladder Surgery, Gallbladder Cardiac: Aneurysm, Atrial Fibrillation, High Cholesterol, Hypertension Neurological: Neuropathy Reproductive: Yes (E.D.) Musculoskeletal: Degenerate Disk Disease, Chronic Back Pain, Fractures Endocrine: Diabetes, Non-Insulin dep HEENT: Macular Degeneration Cancer: Leukemia, Lymphoma Did You Recieve Any Treatments: No Psychosocial: Anxiety, PTSD History of Blood Disorders: No Family History UNABLE UNABLE TO OBTAIN DUE TO AMS UNABLE TO OBTAIN DUE TO AMS No Pertinent Family Hx Review of Systems Constitutional: malaise, weakness, other (Unresponsive, hypoxic, COPD) EENTM: no symptoms reported Respiratory: dyspnea on exertion, short of breath Cardiovascular: no symptoms reported Gastrointestinal: no symptoms reported Genitourinary: no symptoms reported Physical Exam Vital Signs Vital Signs - First Documented 12/06/18 12/06/18 15:15 15:20 Temp 37.1 Pulse 71 Resp 26 B/P (MAP) 65/41 (49) Pulse Ox 67 O2 Delivery NIV CPAP O2 Flow Rate 100.00 Capillary Refill : Less Than 3 Seconds Height, Weight, BMI Height: 5'9.00" Weight: 205lbs. 9.5oz. 93.535858df; 25.00 BMI Method:Stated General Appearance: No Apparent Distress, WD/WN HEENT: Normal ENT Inspection Neck: Normal Inspection Respiratory: No Accessory Muscle Use, No Respiratory Distress, Other (Patient on BiPAP) Cardiovascular: Regular Rate, Rhythm, No Murmur Gastrointestinal: Non Tender, Soft Assessment/Plan Assessment and Plan Pneumothorax right. Chronic lymphocytic leukemia. Anemia. Renal insufficiency. Elevated lactic acid. Severe sepsis. Right sided pneumothorax. Right pneumonia. COPD. History of tobaccoism and alcoholism. Patient critical Admission Diagnosis Admission Status: Inpatient Order (span 2 midnights) Reason for Inpatient Admission: Nonresponsive right now pneumothorax. COPD Pneumonia. Acute renal insufficiency. Hypotension. Severe sepsis GARCÍA MORILLO DO Dec 06, 2018 19:39
[2018-12-06] MEDS: VASOPRESSIN INJECTION 20 UNIT in NORMAL SALINE 100 ML IV SCH (20:32)
[2018-12-06] MEDS ORDERED: NS (IVPB) 0 ML ONE (20:44)
[2018-12-06] MEDS: NOREPINEPHRINE 8 MG in NS (IVPB) 250 ML IV SCH (20:51)
[2018-12-06] MEDS ORDERED: methylPREDNISolone 40 MG/ML (DEPO MEDROL) VIAL IM SCH (21:28)
[2018-12-06] MEDS ORDERED: RT-ALBUTEROL SULF 2.5 MG/3 ML PRE-MIX VIAL IH PRN (21:30)
[2018-12-07] VITALS (17 sets, daily range): BP systolic 69–115; BP diastolic 40–89
[2018-12-07] MEDS: CEFEPIME 1,000 MG/SWFI 10 ML IV PUSH IV SCH ×4 (00:11→08:26)
--- NOTE | 2018-12-07 00:11 | OPERATIVE REPORT ---
DATE OF SERVICE: 12/06/2018 PREOPERATIVE DIAGNOSIS: Right pneumothorax. POSTOPERATIVE DIAGNOSIS: Right pneumothorax. PROCEDURE: Right Thora-Vent placement. SURGEON: Kaitlin Minaya DO ANESTHESIA: 1% lidocaine. ESTIMATED BLOOD LOSS: Minimal. COMPLICATIONS: None. INDICATIONS: The patient is a 73-year-old male found to have right pneumothorax. He is needing Thora-Vent placed due to COPD exacerbation on CPAP. He was discussed risks and benefits and acknowledged understanding. No family at bedside. DESCRIPTION OF PROCEDURE: The patient was prepped and draped in a sterile fashion. Timeout was performed. Local anesthetic was infiltrated at the midclavicular line approximately the 3rd rib interspace. An 11 blade scalpel was used to make a small stab incision. The Thora-Vent, trocar and thoracostomy tube was then inserted through the anterior portion of the chest until the Thora-Vent within the cavity of the right chest. The catheter was inserted and the trocar was removed. This was then secured in the usual fashion. The patient tolerated procedure well without any complications. Chest x-ray pending. Job ID: [id number] DocumentID: [id number] Dictated Date: 12/06/2018 20:38:16 Break Out Worker Date: 12/07/2018 00:11:00 Dictated By: KAITLIN MINAYA DO
[2018-12-07] MEDS: NOREPINEPHRINE 8 MG in NS (IVPB) 250 ML IV SCH ×3 (00:12→07:12)
[2018-12-07] MEDS: RT-ALBUTEROL/IPRATROPIUM 3 ML (DUONEB) VIAL IH SCH ×3 (01:45→06:49)
[2018-12-07] MEDS: NS IV 1000 ML 1,000 ML IV SCH ×2 (02:20→08:27)
[2018-12-07 03:38] LABS: BASOPHILS # (AUTO) 0.6 10^3/uL (0.0-0.1); BASOPHILS % (AUTO) 0 % (0-10); EOSINOPHILS % (AUTO) 0 % (0-10); HEMATOCRIT 34 % (40-54); HEMOGLOBIN 10.6 G/DL (13.3-17.7); LYMPHOCYTES # (AUTO) 114.8 X 10^3 (1.0-4.0); LYMPHOCYTES % (AUTO) 78 % (12-44); MEAN CORPUSCULAR HGB CONC 31 G/DL (32-36); MEAN CORPUSCULAR VOLUME 99 FL (80-99); MEAN PLATELET VOLUME 11.1 FL (7.4-10.4); MONOCYTES # (AUTO) 2.7 X 10^3 (0.0-1.0); MONOCYTES % (AUTO) 2 % (0-12); NEUTROPHILS % (AUTO) 20 % (42-75); PLATELET COUNT 203 10^3/uL (130-400); RED CELL DISTRIBUTION WIDTH 15.6 % (10.0-14.5)
[2018-12-07 03:46] LABS: MEAN CORPUSCULAR HEMOGLOBIN 30 PG (25-34)
[2018-12-07 03:47] LABS: WHITE BLOOD COUNT 148.1 10^3/uL (4.3-11.0)
[2018-12-07 03:56] LABS: ABG BASE EXCESS -2.4 MMOL/L (-2.5-2.5); ABG OXYGEN SATURATION 86 % (94-100); ABG PCO2 42 MMHG (35-45); ABG PH 7.35 (7.37-7.43); ABG PO2 54 MMHG (79-93)
[2018-12-07 03:57] LABS: ALLENS TEST POSITIVE; INSPIRED O2 100% BIPAP; PATIENT TEMP 35.9; VENTILATOR NO
[2018-12-07 03:57] LABS: CALCIUM 6.9 MG/DL (8.5-10.1); CREATININE SERUM 1.86 MG/DL (0.60-1.30); MAGNESIUM 1.9 MG/DL (1.6-2.4); PHOSPHORUS 5.8 MG/DL (2.3-4.7); POTASSIUM 5.1 MMOL/L (3.6-5.0)
[2018-12-07] MEDS ORDERED: VASOPRESSIN INJECTION 20 UNIT/ML VIAL ONE (04:05)
[2018-12-07] MEDS ORDERED: NS (IVPB) 100 ML ONE (04:08)
--- NOTE | 2018-12-07 04:37 | Pulmonary Consultation ---
History of Present Illness History of Present Illness Date of Consultation 12/06/18 - Late note today is 12/07 1700 Time Seen by Provider: 08:41 Date of Admission History of Present Illness 73yo pt with hx of CLL, severe COPD, and recent hospitalization presented to ED secondary to MS changes progressing to unresponsiveness. Pt was found to be hypoxic with SPO2 85% on 5 liters of oxygen. His CODE STATUS is full code, he has written himself on the paper "want heart started but no breathing". Upon arrival his initial blood pressure was 65 systolic heart rate 70s, transitioned to our BiPAP. Unable to obtain ROS secondary to pt requiring BiPAP and confusion. I am consulted for pulmonary management. Allergies and Home Medications Allergies Coded Allergies: Penicillins (Unverified Allergy, Mild, 03/28/09) Home Medications Amiodarone HCl 200 Mg Tablet, 200 MG PO BID Prescribed by: LYLE GUZMAN on 11/17/18 111 Diltiazem HCl 30 Mg Tablet, 30 MG PO Q6HR Prescribed by: LYLE GUZMAN on 11/17/18 1116 Furosemide 10 Mg/1 Ml Vial, 40 MG PO DAILY@07,17 Prescribed by: LYLE GUZMAN on 11/17/18 1116 Ipratropium/Albuterol Sulfate 3 Ml Ampul.neb, 3 ML INH TID Prescribed by: LYLE GUZMAN on 11/17/18 111 Levofloxacin 500 Mg Tablet, 500 MG PO DAILY Prescribed by: GUILLERMINA MORILLO on 11/17/18 0746 Metoprolol Succinate 50 Mg Tab.er.24h, 50 MG PO DAILY Prescribed by: LYLE GUZMAN on 11/17/18 111 Pantoprazole Sodium 40 Mg Tablet.dr, 40 MG PO BID Prescribed by: LYLE GUZMAN on 11/17/18 1116 Past Ehomezv-Llukvc-Ozgyvn Hx Past Med/Social Hx: Reviewed Nursing Past Med/Soc Hx Patient Social History Alcohol Use: Past History Number of Drinks Today: GG Alcohol Beverage of Choice: Rum, Whiskey Recreational Drug Use: No Drug of Choice: THC, "THC OIL", OPIUM Smoking Status: Smoker Current Status [facility] Type Used: Cigarettes 2nd Hand Smoke Exposure: Yes Recent Foreign Travel: No Contact w/Someone Who Travel: No Recent Infectious Disease Expo: No Recent Hopitalizations: No Immunizations Up To Date Tetanus Booster (TDap): Unknown Date of Pneumonia Vaccine: Nov 22, 2009 Date of Influenza Vaccine: Oct 24, 2015 Seasonal Allergies Seasonal Allergies: Yes Past Medical History Surgeries: Yes (TEMPORAL ARTERY BIOPSY) Bladder Surgery, Gallbladder Respiratory: Yes Chronic Bronchitis Cardiac: Yes Aneurysm, Atrial Fibrillation, High Cholesterol, Hypertension Neurological: Yes (PERIPHERAL NEUROPATHY--LEGS/ ARMS) Neuropathy Reproductive Disorders: Yes (E.D.) Genitourinary: No Gastrointestinal: No Musculoskeletal: Yes (CHRONIC NECK PAIN , BILATERAL CARPAL TUNNEL, spinal stenosis; RIB FRACTURES) Degenerate Disk Disease, Chronic Back Pain Endocrine: Yes Diabetes, Non-Insulin dep HEENT: Yes (retinopathy, optic neuritis, recurrent diplopia; POOR DENTITION) Macular Degeneration Cancer: Yes Leukemia, Lymphoma Did You Recieve Any Treatments: No Psychosocial: Yes Anxiety Integumentary: No Blood Disorders: No Family Medical History UNABLE UNABLE TO OBTAIN DUE TO AMS UNABLE TO OBTAIN DUE TO AMS No Pertinent Family Hx Review of Systems Time Seen by Provider: 08:45 Sepsis Event Evaluation Height, Weight, BMI Height: 5'9.00" Weight: 205lbs. 9.5oz. 93.191290ll; 25.00 BMI Method:Stated Exam Exam Vital Signs Date Time Temp Pulse Resp B/P (MAP) Pulse Ox O2 Delivery O2 Flow Rate FiO2 12/07/18 04:00 35.9 12/07/18 04:00 NIV Bilevel 100 12/07/18 01:45 105 20 90 100.00 12/07/18 01:00 90 12/07/18 00:12 35.9 12/07/18 00:00 NIV Bilevel 100 12/06/18 23:00 87 18 108/82 (91) 89 NIV Bilevel 100.00 12/06/18 22:00 102 24 106/74 (85) 85 NIV Bilevel 100.00 12/06/18 21:45 107 27 115/76 (89) 88 NIV Bilevel 100.00 12/06/18 21:30 105 24 117/85 (96) 91 NIV Bilevel 95.00 12/06/18 21:30 92 25 92 100.00 12/06/18 21:15 101 23 106/79 (88) 91 NIV Bilevel 100.00 12/06/18 20:00 NIV Bilevel 100 12/06/18 20:00 96 31 84/54 (64) 96 NIV Bilevel 100.00 12/06/18 19:56 108 12/06/18 19:46 35.9 12/06/18 19:00 77 29 87/63 (71) 92 NIV Bilevel 100.00 12/06/18 19:00 77 12/06/18 18:30 76 29 87 100.00 12/06/18 18:17 88 NIV Bilevel 100 12/06/18 18:15 36.6 77 22 111/98 (49) 85 NIV Bilevel 12/06/18 15:20 76 28 65 100.00 12/06/18 15:15 37.1 71 26 65/41 (49) 67 NIV CPAP I & O 12/07/18 07:00 Intake Total 3865.5 ml Output Total 100 ml Balance 3765.5 ml Height & Weight Height: 5'9.00" Weight: 205lbs. 9.5oz. 93.281684el; 25.00 BMI Method:Stated General Appearance: WD/WN, Anxious, Chronically ill, Severe Distress HEENT: Normal ENT Inspection Neck: Normal Inspection Respiratory: Accessory Muscle Use, Crackles, Decreased Breath Sounds, Other (Patient on BiPAP) Cardiovascular: Regular Rate, Rhythm, No Murmur Capillary Refill: Less Than 3 Seconds Gastrointestinal: normal bowel sounds, non tender, soft Extremity: Normal Capillary Refill, No Pedal Edema Neurologic/Psychiatric: Other (unresponsive) Skin: Normal Color, Warm/Dry Lymphatic: No Adenopathy Results Lab Laboratory Tests 12/06/18 15:45 12/07/18 03:29 Assessment/Plan Assessment/Plan Severe sepsis with septic shock --Levophed and vasopressin -Solucortef Acute on chronic respiratory failure -Continue BiPAP -Pt is a no intubation -Duoneb Metabolic lactic acidosis -IVF Metabolic encephalopathy Prognosis very poor. Will consult hospice for education AGUS HADLEY DO Dec 07, 2018 04:36
[2018-12-07] MEDS ORDERED: SODIUM BICARB 8.4% 50 MEQ/50 ML VIAL IV ONE (04:45)
[2018-12-07] MEDS: VASOPRESSIN INJECTION 20 UNIT in NORMAL SALINE 100 ML IV SCH (04:51)
[2018-12-07] MEDS ORDERED: MAGNESIUM 1 GM/100 ML IVPB 100 ML IV SCH (06:00)
[2018-12-07] MEDS ORDERED: KCL 20 MEQ TAB (K-DUR) PO SCH (06:00)
[2018-12-07] MEDS ORDERED: HYDROCORTISONE 100 MG/2 ML (Solu-CORTEF) VIAL IV SCH (06:00)
[2018-12-07] MEDS ORDERED: POTASSIUM CL 10MEQ/50ML IVPB 50 ML IV SCH (06:00)
[2018-12-07] MEDS: DEXMEDETOMIDINE 1,000 MCG/NS 250 ML IV SCH ×2 (07:11)
--- NOTE | 2018-12-07 07:31 | Diagnostic Imaging Report ---
INDICATION: Dyspnea. Comparison made with prior examination from 12/06/2018 FINDINGS: The heart size is unchanged. There is increasing diffuse bilateral airspace disease. Right thoracostomy tube is in place. There is also a right internal jugular central venous catheter. There is no pneumothorax. Small bilateral pleural effusions. IMPRESSION: Increasing bilateral airspace disease with small bilateral pleural effusions. Underlying congestive failure certainly cannot be excluded. Recommend clinical correlation. Dictated by: Dictated on workstation # [id number]
[2018-12-07] MEDS ORDERED: VASOPRESSIN INJECTION 20 UNIT in NS (IVPB) 100 ML IV SCH (07:45)
--- NOTE | 2018-12-07 08:05 | Progress Note ---
Subjective Time Seen by a Provider: 08:01 Subjective/Events-last exam Patient breathing a little quick today. Patient using accessory muscles. White blood cell count 148,000 has CLL increased. Chest x-ray may show some CHF. Blood pressure better. Lactic acid increased 6.12 Focused Exam Lactate Level 12/06/18 19:50: Lactic Acid Level 6.14*H 12/07/18 03:29: Lactic Acid Level 4.67*H 12/07/18 05:55: Lactic Acid Level 6.12*H Lactic Acid Level Laboratory Tests Test 12/07/18 05:55 Lactic Acid Level 6.12 MMOL/L (0.50-2.00) *H Objective Exam Vital Signs Date Time Temp Pulse Resp B/P (MAP) Pulse Ox O2 Delivery O2 Flow Rate FiO2 12/07/18 07:46 36.2 12/07/18 07:42 NIV Bilevel 100 12/07/18 06:49 84 27 93 100.00 12/07/18 06:45 96 25 113/75 (88) 94 NIV Bilevel 100.00 12/07/18 06:00 98 25 113/86 (95) 92 NIV Bilevel 100.00 12/07/18 05:15 93 26 111/81 (91) 92 NIV Bilevel 100.00 12/07/18 04:15 98 28 84/64 (71) 81 NIV Bilevel 100.00 12/07/18 04:02 92 74/53 (60) NIV Bilevel 100.00 12/07/18 04:00 35.9 12/07/18 04:00 NIV Bilevel 100 12/07/18 03:00 102 24 104/69 (81) 91 NIV Bilevel 100.00 12/07/18 02:00 103 21 107/77 (87) 91 NIV Bilevel 100.00 12/07/18 01:45 105 20 90 100.00 12/07/18 01:00 90 12/07/18 01:00 90 21 112/81 (91) 89 NIV Bilevel 100.00 12/07/18 00:45 96 20 107/76 (86) 88 NIV Bilevel 100.00 12/07/18 00:30 87 20 115/85 (95) 89 NIV Bilevel 100.00 12/07/18 00:15 100 23 86/71 (76) 80 NIV Bilevel 100.00 12/07/18 00:12 35.9 12/07/18 00:00 90 21 69/40 (50) 87 NIV Bilevel 100.00 12/07/18 00:00 NIV Bilevel 100 12/06/18 23:00 87 18 108/82 (91) 89 NIV Bilevel 100.00 12/06/18 22:00 102 24 106/74 (85) 85 NIV Bilevel 100.00 12/06/18 21:45 107 27 115/76 (89) 88 NIV Bilevel 100.00 12/06/18 21:30 105 24 117/85 (96) 91 NIV Bilevel 95.00 12/06/18 21:30 92 25 92 100.00 12/06/18 21:15 101 23 106/79 (88) 91 NIV Bilevel 100.00 12/06/18 20:00 NIV Bilevel 100 12/06/18 20:00 96 31 84/54 (64) 96 NIV Bilevel 100.00 12/06/18 19:56 108 12/06/18 19:46 35.9 12/06/18 19:00 77 29 87/63 (71) 92 NIV Bilevel 100.00 12/06/18 19:00 77 12/06/18 18:30 76 29 87 100.00 12/06/18 18:17 88 NIV Bilevel 100 12/06/18 18:15 36.6 77 22 111/98 (49) 85 NIV Bilevel 12/06/18 15:20 76 28 65 100.00 12/06/18 15:15 37.1 71 26 65/41 (49) 67 NIV CPAP I & O 12/07/18 07:00 Intake Total 3966.5 ml Output Total 175 ml Balance 3791.5 ml Capillary Refill : Less Than 3 Seconds General Appearance: Mild Distress HEENT: Normal ENT Inspection Neck: Normal Inspection Respiratory: Lungs Clear, Other (Pneumothorax better) Cardiovascular: Regular Rate, Rhythm, No Murmur Gastrointestinal: non tender, soft Results Lab Laboratory Tests 12/06/18 15:45 12/07/18 03:29 Laboratory Tests 12/06/18 15:45: White Blood Count 132.3*H, Red Blood Count 3.09L, Hemoglobin 9.6L, Hematocrit 32L, Mean Corpuscular Volume 103H, Mean Corpuscular Hemoglobin 31, Mean Corpuscular Hemoglobin Concent 30L, Red Cell Distribution Width 15.7H, Platelet Count 183, Mean Platelet Volume 11.3H, Neutrophils (%) (Auto) 22L, Lymphocytes (%) (Auto) 77H, Monocytes (%) (Auto) 1, Eosinophils (%) (Auto) 0, Basophils (%) (Auto) 0, Neutrophils # (Auto) 29.2H, Lymphocytes # (Auto) 102.1H, Monocytes # (Auto) 0.6, Eosinophils # (Auto) 0.1, Basophils # (Auto) 0.4H, Neutrophils % (Manual) 35, Lymphocytes % (Manual) 60, Monocytes % (Manual) 1, Band Neutrophils 4, Smudge Cells MARKED, Anisocytosis MODERATE, Chalino Cells SLIGHT, Prothrombin Time 20.3H, INR Comment 1.7H, Urine Color YELLOW, Urine Clarity CLEAR, Urine pH 5, Urine Specific [place]xton 1.015L, Urine Protein 1+H, Urine Glucose (UA) NEGATIVE, Urine Ketones NEGATIVE, Urine Nitrite NEGATIVE, Urine Bilirubin NEGATIVE, Urine Urobilinogen 1, Urine Leukocyte Esterase NEGATIVE, Urine RBC (Auto) NEGATIVE, Urine RBC 0-2, Urine WBC 0-2, Urine Crystals NONE, Urine Bacteria NEGATIVE, Urine Casts NONE, Urine Mucus NEGATIVE, Urine Culture Indicated NO, Sodium Level 140, Potassium Level 4.1, Chloride Level 101, Carbon Dioxide Level 24, Anion Gap 15H, Blood Urea Nitrogen 48H, Creatinine 1.84H, Estimat Glomerular Filtration Rate 36, BUN/Creatinine Ratio 26, Glucose Level 176H, Lactic Acid Level 10.27*H, Calcium Level 7.1L, Corrected Calcium 9.0, Total Bilirubin 0.9, Aspartate Amino Transf (AST/SGOT) 88H, Alanine Aminotransferase (ALT/SGPT) 62H, Alkaline Phosphatase 216H, Troponin I < 0.028, B-Type Natriuretic Peptide 334.7H, Total Protein 3.7L, Albumin 1.6L 12/06/18 15:50: Blood Gas Puncture Site LEFT RADIAL, Blood Gas Patient Temperature 37.1, Arterial Blood pH 7.24*L, Arterial Blood Partial Pressure CO2 52H, Arterial Blood Partial Pressure O2 70L, Arterial Blood HCO3 22L, Arterial Blood Total CO2 23.2, Arterial Blood Oxygen Saturation 89L, Arterial Blood Base Excess -4.6L, Federico Test POSITIVE, Blood Gas Ventilator Setting NO, Blood Gas Inspired Oxygen 100% BIPAP 12/06/18 17:42: Lactic Acid Level 7.55*H 12/06/18 19:50: Lactic Acid Level 6.14*H 12/07/18 03:29: White Blood Count 148.1*H, Red Blood Count 3.48L, Hemoglobin 10.6L, Hematocrit 34L, Mean Corpuscular Volume 99, Mean Corpuscular Hemoglobin 30, Mean Corpuscular Hemoglobin Concent 31L, Red Cell Distribution Width 15.6H, Platelet Count 203, Mean Platelet Volume 11.1H, Neutrophils (%) (Auto) 20L, Lymphocytes (%) (Auto) 78H, Monocytes (%) (Auto) 2, Eosinophils (%) (Auto) 0, Basophils (%) (Auto) 0, Neutrophils # (Auto) 30.0H, Lymphocytes # (Auto) 114.8H, Monocytes # (Auto) 2.7H, Eosinophils # (Auto) 0.0, Basophils # (Auto) 0.6H, Sodium Level 140, Potassium Level 5.1H, Chloride Level 103, Carbon Dioxide Level 22, Anion Gap 15H, Blood Urea Nitrogen 57H, Creatinine 1.86H, Estimat Glomerular Filtration Rate 36, BUN/Creatinine Ratio 31, Glucose Level 131H, Lactic Acid Level 4.67*H, Calcium Level 6.9L, Phosphorus Level 5.8H, Magnesium Level 1.9 12/07/18 03:50: Blood Gas Puncture Site LEFT RADIAL, Blood Gas Patient Temperature 35.9, Arter ial Blood pH 7.35L, Arterial Blood Partial Pressure CO2 42, Arterial Blood Part ial Pressure O2 54L, Arterial Blood HCO3 23, Arterial Blood Total CO2 24.0, Art erial Blood Oxygen Saturation 86L, Arterial Blood Base Excess -2.4, Federico Test POSITIVE, Blood Gas Ventilator Setting NO, Blood Gas Inspired Oxygen 100% BIPAP 12/07/18 05:55: Lactic Acid Level 6.12*H Assessment/Plan Assessment/Plan Assess & Plan/Chief Complaint Dear sepsis with septic shock. Acute and chronic respiratory failure. Pneumothorax. COPD. Chronic lymphocytic leukemia. Elevated lactic acidosis. Clinical Quality Measures Admission Status Admission Dx Pneumothorax right. Chronic lymphocytic leukemia. Anemia. Renal insufficiency. Elevated lactic acid. Severe sepsis. Right sided pneumothorax. Right pneumonia. COPD. History of tobaccoism and alcoholism. Patient critical DVT/VTE Risk/Contraindication: Risk Factor Score Per Nursin RFS Level Per Nursing on Admit: 4+=Very High GUILLERMINA MORILLO DO Dec 07, 2018 08:05
--- NOTE | 2018-12-07 08:51 | Pulmonary Progress Note ---
Subjective Time Seen by a Provider: 06:00 Subjective/Events-last exam Pt is still requiring BiPAP. He is on Vasopressin and Levophed. Sepsis Event Evaluation Height, Weight, BMI Height: 5'9.00" Weight: 205lbs. 9.5oz. 93.184288ru; 25.00 BMI Method:Stated Focused Exam Lactate Level 12/06/18 19:50: Lactic Acid Level 6.14*H 12/07/18 03:29: Lactic Acid Level 4.67*H 12/07/18 05:55: Lactic Acid Level 6.12*H Lactic Acid Level Laboratory Tests Test 12/07/18 05:55 Lactic Acid Level 6.12 MMOL/L (0.50-2.00) *H Exam Exam Vital Signs Date Time Temp Pulse Resp B/P (MAP) Pulse Ox O2 Delivery O2 Flow Rate FiO2 12/07/18 07:46 36.2 12/07/18 07:42 NIV Bilevel 100 12/07/18 07:00 93 12/07/18 06:49 84 27 93 100.00 12/07/18 06:45 96 25 113/75 (88) 94 NIV Bilevel 100.00 12/07/18 06:00 98 25 113/86 (95) 92 NIV Bilevel 100.00 12/07/18 05:15 93 26 111/81 (91) 92 NIV Bilevel 100.00 12/07/18 04:15 98 28 84/64 (71) 81 NIV Bilevel 100.00 12/07/18 04:02 92 74/53 (60) NIV Bilevel 100.00 12/07/18 04:00 35.9 12/07/18 04:00 NIV Bilevel 100 12/07/18 03:00 102 24 104/69 (81) 91 NIV Bilevel 100.00 12/07/18 02:00 103 21 107/77 (87) 91 NIV Bilevel 100.00 12/07/18 01:45 105 20 90 100.00 12/07/18 01:00 90 12/07/18 01:00 90 21 112/81 (91) 89 NIV Bilevel 100.00 12/07/18 00:45 96 20 107/76 (86) 88 NIV Bilevel 100.00 12/07/18 00:30 87 20 115/85 (95) 89 NIV Bilevel 100.00 12/07/18 00:15 100 23 86/71 (76) 80 NIV Bilevel 100.00 12/07/18 00:12 35.9 12/07/18 00:00 90 21 69/40 (50) 87 NIV Bilevel 100.00 12/07/18 00:00 NIV Bilevel 100 12/06/18 23:00 87 18 108/82 (91) 89 NIV Bilevel 100.00 12/06/18 22:00 102 24 106/74 (85) 85 NIV Bilevel 100.00 12/06/18 21:45 107 27 115/76 (89) 88 NIV Bilevel 100.00 12/06/18 21:30 105 24 117/85 (96) 91 NIV Bilevel 95.00 12/06/18 21:30 92 25 92 100.00 12/06/18 21:15 101 23 106/79 (88) 91 NIV Bilevel 100.00 12/06/18 20:00 NIV Bilevel 100 12/06/18 20:00 96 31 84/54 (64) 96 NIV Bilevel 100.00 12/06/18 19:56 108 12/06/18 19:46 35.9 12/06/18 19:00 77 29 87/63 (71) 92 NIV Bilevel 100.00 12/06/18 19:00 77 12/06/18 18:30 76 29 87 100.00 12/06/18 18:17 88 NIV Bilevel 100 12/06/18 18:15 36.6 77 22 111/98 (49) 85 NIV Bilevel 12/06/18 15:20 76 28 65 100.00 12/06/18 15:15 37.1 71 26 65/41 (49) 67 NIV CPAP I & O 12/07/18 07:00 Intake Total 3966.5 ml Output Total 175 ml Balance 3791.5 ml Height & Weight Height: 5'9.00" Weight: 205lbs. 9.5oz. 93.942505tm; 25.00 BMI Method:Stated General Appearance: WD/WN, Anxious, Chronically ill, Moderate Distress HEENT: Normal ENT Inspection Neck: Normal Inspection Respiratory: Accessory Muscle Use, Crackles, Decreased Breath Sounds, Other (Patient on BiPAP) Cardiovascular: Regular Rate, Rhythm, No Murmur Capillary Refill: Less Than 3 Seconds Gastrointestinal: normal bowel sounds, non tender, soft Extremity: Normal Capillary Refill, No Pedal Edema Neurologic/Psychiatric: Other (unresponsive) Skin: Normal Color, Warm/Dry Lymphatic: No Adenopathy Results Lab Laboratory Tests 12/06/18 15:45 12/07/18 03:29 Assessment/Plan Assessment/Plan Severe sepsis with septic shock --Still requiring Levophed and vasopressin -Solucortef Acute on chronic respiratory failure -Continue BiPAP -Pt is a no intubation -Duoneb Right PTX s/p chest tube per Dr. Minaya PUlmonary edema/pleural effusions -Hold off on lasix secondary to Hypotension and lactic acidosis Hyperkalemia -give 2 amps of Bicarb Metabolic lactic acidosis -IVF Metabolic encephalopathy Prognosis very poor. Will consult hospice for education AGUS HADLEY DO Dec 07, 2018 08:51
[2018-12-07] MEDS ORDERED: methylPREDNISolone 40 MG/ML (DEPO MEDROL) VIAL IJ SCH (09:00)
[2018-12-07] MEDS ORDERED: ENOXAPARIN 40 MG/0.4 ML (LOVENOX) SYR SC SCH (09:15)
[2018-12-07] MEDS ORDERED: morphine INJ 4 MG/ML 1 ML (VIAL/SYRINGE) IVP PRN (10:00)
[2018-12-07] MEDS ORDERED: LORazepam INJ 2 MG/ML (ATIVAN) VIAL IVP SCH ×2 (10:00→11:00)
[2018-12-07] MEDS ORDERED: PANT40TA3 PO (10:21)
[2018-12-07] MEDS ORDERED: DILT30TA PO (10:21)
[2018-12-07] MEDS ORDERED: IPRA3AMP31 NEB (10:21)
[2018-12-07] MEDS ORDERED: METO50CA PO (10:21)
[2018-12-07] MEDS ORDERED: FURO40TA4 PO (10:21)
[2018-12-07] MEDS ORDERED: AMIO200T4 PO (10:21)
--- NOTE | 2018-12-07 10:22 | NUR ---
UPDATED MED REC WITH ORDER SUMMARY REPORT FROM [facility] AND [facility].
[2018-12-07] MEDS ORDERED: LORazepam INJ 2 MG/ML (ATIVAN) VIAL IVP PRN (10:30)
--- NOTE | 2018-12-07 10:39 | NUR ---
PATIENT PLACED ON COMFORT CARE MEASURES PER DR HADLEY ET PATIENTS FAMILY MEMBER. ALL MEDICATIONS D/C'D, COMFORT MEDS ADDED FOR PATIENT. PATIENT DISCONNECTED FROM MEDICATIONS LEVOPHED, VASOPRESSIN ET PRECEDEX AT THIS TIME. PRN MORPHINE ET ATIVAN ADMINISTERED. RT IN ROOM ET REMOVED PATIENT FROM BIPAP AT THIS TIME. PATIENT PRN COMFORT MEDS ADMINISTERED, SEE EMAR
--- NOTE | 2018-12-07 10:56 | NUR ---
PATIENT HEART STOPPED BEATING AT THIS TIME. VERIFIED BY 2ND NURSE NO HEART BEAT. CONTACTED DR. HADLEY ET DR. MORILLO REGARDING PATIENT . NOTIFIED [place] [employer] REFERRAL NUMBER [id number], PATIENT WAS DECLINED FOR ALL ORGAN ET TISSUE DONATION. FAMILY NOTIFIED OF PATIENTS , LORRAINE TO NOTIFY FACILITY TO WHAT HOME TO SEND PATIENT TOO.
--- NOTE | 2018-12-07 11:41 | NUR ---
PALLIATIVE CARE consult received. This patient was made CCMO earlier this morning and was prior to this RNs arrival. No family present at time of visit.
[2018-12-07] MEDS ORDERED: VANCOMYCIN 1250 MG/NS 250 ML IVPB IV SCH ×2 (18:00)
--- NOTE | 2018-12-08 07:46 | Discharge Summary ---
Diagnosis/Chief Complaint Date of Admission Dec 06, 2018 at 17:20 Date of Discharge Dec 07, 2018 at 10:56 Discharge Time: 07:43 Discharge Diagnosis Severe sepsis with septic shock. Acute respiratory failure. Sepsis with Staphylococcus aureus. CLL. Elevated lactic acid. Renal insufficiency. COPD. Right sided pneumothorax. CHF. Unresponsive. Tobaccoism. Alcoholism. Metabolic lactic acidosis Reason Hospital Visit patient is a resident of [facility] . Patient's pulse ox suddenly went down. Patient to be sent out to the hospital for an x-ray. Patient in wheelchair and became unresponsive. EMS called. Patient sent to the emergency room he had a pneumothorax. Patient probably had a spontaneous pneumothorax causing his pulse ox to go down. Patient hypotensive. Patient has vomiting or sit up leukemia elevated white blood cell count patient is anemic, renal insufficiency elevated lactic acid right sided pneumothorax, right-sided pneumonia and left, patient had right thora vent placement Patient critical. Patient in ICU. Patient sedated. Discharge Summary Procedures Patient had pneumothorax and had tube placement by surgery Consultations Surgery. Pulmonology Discharge Physical Examination Allergies: Coded Allergies: Penicillins (Unverified Allergy, Mild, 03/28/09) Vitals & I&Os Vital Signs Date Time Temp Pulse Resp B/P (MAP) Pulse Ox O2 Delivery O2 Flow Rate FiO2 12/07/18 10:00 96 24 104/83 (90) 90 NIV Bilevel 100.00 12/07/18 07:46 36.2 12/07/18 07:42 100 Hospital Course Labs (last 24 hrs) Laboratory Tests 12/06/18 15:45: White Blood Count 132.3*H, Red Blood Count 3.09L, Hemoglobin 9.6L, Hematocrit 32L, Mean Corpuscular Volume 103H, Mean Corpuscular Hemoglobin 31, Mean Corpuscular Hemoglobin Concent 30L, Red Cell Distribution Width 15.7H, Platelet Count 183, Mean Platelet Volume 11.3H, Neutrophils (%) (Auto) 22L, Lymphocytes (%) (Auto) 77H, Monocytes (%) (Auto) 1, Eosinophils (%) (Auto) 0, Basophils (%) (Auto) 0, Neutrophils # (Auto) 29.2H, Lymphocytes # (Auto) 102.1H, Monocytes # (Auto) 0.6, Eosinophils # (Auto) 0.1, Basophils # (Auto) 0.4H, Neutrophils % (Manual) 35, Lymphocytes % (Manual) 60, Monocytes % (Manual) 1, Band Neutrophils 4, Smudge Cells MARKED, Anisocytosis MODERATE, Felt Cells SLIGHT, Prothrombin Time 20.3H, INR Comment 1.7H, Urine Color YELLOW, Urine Clarity CLEAR, Urine pH 5, Urine Specific [place] 1.015L, Urine Protein 1+H, Urine Glucose (UA) NEGATIVE, Urine Ketones NEGATIVE, Urine Nitrite NEGATIVE, Urine Bilirubin NEGATIVE, Urine Urobilinogen 1, Urine Leukocyte Esterase NEGATIVE, Urine RBC (Auto) NEGATIVE, Urine RBC 0-2, Urine WBC 0-2, Urine Crystals NONE, Urine Bacteria NEGATIVE, Urine Casts NONE, Urine Mucus NEGATIVE, Urine Culture Indicated NO, Sodium Level 140, Potassium Level 4.1, Chloride Level 101, Carbon Dioxide Level 24, Anion Gap 15H, Blood Urea Nitrogen 48H, Creatinine 1.84H, Estimat Glomerular Filtration Rate 36, BUN/Creatinine Ratio 26, Glucose Level 176H, Lactic Acid Level 10.27*H, Calcium Level 7.1L, Corrected Calcium 9.0, Total Bilirubin 0.9, Aspartate Amino Transf (AST/SGOT) 88H, Alanine Aminotransferase (ALT/SGPT) 62H, Alkaline Phosphatase 216H, Troponin I < 0.028, B-Type Natriuretic Peptide 334.7H, Total Protein 3.7L, Albumin 1.6L 12/06/18 15:50: Blood Gas Puncture Site LEFT RADIAL, Blood Gas Patient Temperature 37.1, Arterial Blood pH 7.24*L, Arterial Blood Partial Pressure CO2 52H, Arterial Blood Partial Pressure O2 70L, Arterial Blood HCO3 22L, Arterial Blood Total CO2 23.2, Arterial Blood Oxygen Saturation 89L, Arterial Blood Base Excess -4.6L, Federico Test POSITIVE, Blood Gas Ventilator Setting NO, Blood Gas Inspired Oxygen 100% BIPAP 12/06/18 17:42: Lactic Acid Level 7.55*H 12/06/18 19:50: Lactic Acid Level 6.14*H 12/07/18 03:29: White Blood Count 148.1*H, Red Blood Count 3.48L, Hemoglobin 10.6L, Hematocrit 34L, Mean Corpuscular Volume 99, Mean Corpuscular Hemoglobin 30, Mean Corpuscular Hemoglobin Concent 31L, Red Cell Distribution Width 15.6H, Platelet Count 203, Mean Platelet Volume 11.1H, Neutrophils (%) (Auto) 20L, Lymphocytes (%) (Auto) 78H, Monocytes (%) (Auto) 2, Eosinophils (%) (Auto) 0, Basophils (%) (Auto) 0, Neutrophils # (Auto) 30.0H, Lymphocytes # (Auto) 114.8H, Monocytes # (Auto) 2.7H, Eosinophils # (Auto) 0.0, Basophils # (Auto) 0.6H, Sodium Level 140, Potassium Level 5.1H, Chloride Level 103, Carbon Dioxide Level 22, Anion Gap 15H, Blood Urea Nitrogen 57H, Creatinine 1.86H, Estimat Glomerular Filtration Rate 36, BUN/Creatinine Ratio 31, Glucose Level 131H, Lactic Acid Level 4.67*H, Calcium Level 6.9L, Phosphorus Level 5.8H, Magnesium Level 1.9, B- Type Natriuretic Peptide 436.1H 12/07/18 03:50: Blood Gas Puncture Site LEFT RADIAL, Blood Gas Patient Temperature 35.9, Arterial Blood pH 7.35L, Arterial Blood Partial Pressure CO2 42, Arterial Blood Partial Pressure O2 54L, Arterial Blood HCO3 23, Arterial Blood Total CO2 24.0, Arterial Blood Oxygen Saturation 86L, Arterial Blood Base Excess -2.4, Federico Test POSITIVE, Blood Gas Ventilator Setting NO, Blood Gas Inspired Oxygen 100% BIPAP 12/07/18 05:55: Lactic Acid Level 6.12*H Microbiology 12/06/18 Blood Culture - Preliminary, Resulted Staphylococcus aureus 12/06/18 MRSA Screen - Final, Complete Laboratory Tests 12/06/18 15:45 12/07/18 03:29 Pending Labs Microbiology Date/Time Source Procedure Growth Status 12/06/18 15:45 [place] Blood Culture - Preliminary Staphylococcus aureus Resulted 12/06/18 18:44 Nasal MRSA Screen - Final Complete Laboratory Tests 12/06/18 15:45: White Blood Count 132.3, Red Blood Count 3.09, Hemoglobin 9.6, Hematocrit 32, Mean Corpuscular Volume 103, Mean Corpuscular Hemoglobin 31, Mean Corpuscular Hemoglobin Concent 30, Red Cell Distribution Width 15.7, Platelet Count 183, Mean Platelet Volume 11.3, Neutrophils (%) (Auto) 22, Lymphocytes (%) (Auto) 77, Monocytes (%) (Auto) 1, Eosinophils (%) (Auto) 0, Basophils (%) (Auto) 0, Neutrophils # (Auto) 29.2, Lymphocytes # (Auto) 102.1, Monocytes # (Auto) 0.6, Eosinophils # (Auto) 0.1, Basophils # (Auto) 0.4, Neutrophils % (Manual) 35, Lymphocytes % (Manual) 60, Monocytes % (Manual) 1, Band Neutrophils 4, Smudge Cells MARKED, Anisocytosis MODERATE, Felt Cells SLIGHT, Prothrombin Time 20.3, INR Comment 1.7, Urine Color YELLOW, Urine Clarity CLEAR, Urine pH 5, Urine Specific [place] 1.015, Urine Protein 1+, Urine Glucose (UA) NEGATIVE, Urine Ketones NEGATIVE, Urine Nitrite NEGATIVE, Urine Bilirubin NEGATIVE, Urine Urobilinogen 1, Urine Leukocyte Esterase NEGATIVE, Urine RBC (Auto) NEGATIVE, Urine RBC 0-2, Urine WBC 0-2, Urine Crystals NONE, Urine Bacteria NEGATIVE, Urine Casts NONE, Urine Mucus NEGATIVE, Urine Culture Indicated NO, Sodium Level 140, Potassium Level 4.1, Chloride Level 101, Carbon Dioxide Level 24, Anion Gap 15, Blood Urea Nitrogen 48, Creatinine 1.84, Estimat Glomerular Filtration Rate 36, BUN/Creatinine Ratio 26, Glucose Level 176, Lactic Acid Level 10.27, Calcium Level 7.1, Corrected Calcium 9.0, Total Bilirubin 0.9, Aspartate Amino Transf (AST/SGOT) 88, Alanine Aminotransferase (ALT/SGPT) 62, Alkaline Phosphatase 216, Troponin I < 0.028, B-Type Natriuretic Peptide 334.7, Total Protein 3.7, Albumin 1.6 12/06/18 15:50: Blood Gas Puncture Site LEFT RADIAL, Blood Gas Patient Temperature 37.1, Arterial Blood pH 7.24, Arterial Blood Partial Pressure CO2 52, Arterial Blood Partial Pressure O2 70, Arterial Blood HCO3 22, Arterial Blood Total CO2 23.2, Arterial Blood Oxygen Saturation 89, Arterial Blood Base Excess -4.6, Federico Test POSITIVE, Blood Gas Ventilator Setting NO, Blood Gas Inspired Oxygen 100% BIPAP 12/06/18 17:42: Lactic Acid Level 7.55 12/06/18 19:50: Lactic Acid Level 6.14 12/07/18 03:29: White Blood Count 148.1, Red Blood Count 3.48, Hemoglobin 10.6, Hematocrit 34, Mean Corpuscular Volume 99, Mean Corpuscular Hemoglobin 30, Mean Corpuscular Hemoglobin Concent 31, Red Cell Distribution Width 15.6, Platelet Count 203, Mean Platelet Volume 11.1, Neutrophils (%) (Auto) 20, Lymphocytes (%) (Auto) 78, Monocytes (%) (Auto) 2, Eosinophils (%) (Auto) 0, Basophils (%) (Auto) 0, Neutrophils # (Auto) 30.0, Lymphocytes # (Auto) 114.8, Monocytes # (Auto) 2.7, Eosinophils # (Auto) 0.0, Basophils # (Auto) 0.6, Sodium Level 140, Potassium Level 5.1, Chloride Level 103, Carbon Dioxide Level 22, Anion Gap 15, Blood Urea Nitrogen 57, Creatinine 1.86, Estimat Glomerular Filtration Rate 36, BUN/Creatinine Ratio 31, Glucose Level 131, Lactic Acid Level 4.67, Calcium Level 6.9, Phosphorus Level 5.8, Magnesium Level 1.9, B-Type Natriuretic Peptide 436.1 12/07/18 03:50: Blood Gas Puncture Site LEFT RADIAL, Blood Gas Patient Temperature 35.9, Arteria l Blood pH 7.35, Arterial Blood Partial Pressure CO2 42, Arterial Blood Partial Pressure O2 54, Arterial Blood HCO3 23, Arterial Blood Total CO2 24.0, Arterial Blood Oxygen Saturation 86, Arterial Blood Base Excess -2.4, Federico Test POSITIVE, Blood Gas Ventilator Setting NO, Blood Gas Inspired Oxygen 100% BIPAP 12/07/18 05:55: Lactic Acid Level 6.12 Discussion & Recommendations Family wanted comfort care and DO NOT RESUSCITATE. Patient Discharge Home Medications: Active Scripts Active Reported Pantoprazole Sodium 40 Mg Tablet.dr 40 Mg PO DAILY Kapsp[place] Sprinkle (Metoprolol Succinate) 50 Mg Cap.spr.24 50 Mg PO DAILY HOLD FOR SBP<100 OR PULSE <60 Furosemide 40 Mg Tablet 40 Mg PO BID Diltiazem HCl 30 Mg Tablet 30 Mg PO Q6H HOLD FOR SBP<100 OR PULSE <60 Amiodarone HCl 200 Mg Tablet 200 Mg PO BID HOLD FOR SBP<100 OR PULSE <60 Instructions to patient/family Please see electronic discharge instructions given to patient. Clinical Quality Measures DVT/VTE Risk/Contraindication: Risk Factor Score Per Nursin RFS Level Per Nursing on Admit: 4+=Very High GUILLERMINA MORILLO DO Dec 08, 2018 07:46
== END 2018-12-07 10:56 | disposition expired | DRG 871 ==
LOC: EDUNIT# 15:18 → ER 15:19 → ICU 17:20
PROVIDERS: ADMIT Family Medicine; ATTEND Family Medicine
PROC: 0W9930Z Drainage of Right Pleural Cavity with Drainage Device, Percutaneous Approach (ICD-10-PCS; principal; 2018-12-06)
DX: A41.01 Sepsis due to Methicillin susceptible Staphylococcus aureus (principal); R65.21 Severe sepsis with septic shock; J18.1 Lobar pneumonia, unspecified organism; E87.2 Acidosis; J96.21 Acute and chronic respiratory failure with hypoxia; J93.83 Other pneumothorax; J44.1 Chronic obstructive pulmonary disease with (acute) exacerbation; Z66 Do not resuscitate; Z51.5 Encounter for palliative care; C91.10 Chronic lymphocytic leukemia of B-cell type not having achieved remission; J90 Pleural effusion, not elsewhere classified; G93.41 Metabolic encephalopathy; C85.90 Non-Hodgkin lymphoma, unspecified, unspecified site; I11.0 Hypertensive heart disease with heart failure; I50.9 Heart failure, unspecified; N28.9 Disorder of kidney and ureter, unspecified; F10.20 Alcohol dependence, uncomplicated; D64.9 Anemia, unspecified; E87.5 Hyperkalemia; E78.00 Pure hypercholesterolemia, unspecified; E11.42 Type 2 diabetes mellitus with diabetic polyneuropathy; F41.9 Anxiety disorder, unspecified; F43.10 Post-traumatic stress disorder, unspecified; M54.9 Dorsalgia, unspecified; H35.30 Unspecified macular degeneration; I48.91 Unspecified atrial fibrillation; Z87.891 Personal history of nicotine dependence; Z88.0 Allergy status to penicillin
CPT/HCPCS: 32551; 36415; 36600; 51702; 71045; 80048; 80053; 81000; 82805; 83605; 83735; 83880; 84100; 84484; 85007; 85025; 85027; 85610; 87040; 87081; 93005; 94660; 99291; 99292